=== PATIENT | male | born 1960 | race Caucasian/White ===

== ENCOUNTER 2016-10-01 07:10 | Day surgery (SDC) | payer BC ==
[2016-10-01] MEDS ORDERED: DIPHENHYDRAMINE IVPB ONE (08:00)
[2016-10-01] MEDS ORDERED: SODIUM CHLORIDE 250 ML IV ONE (08:00)
[2016-10-01] MEDS ORDERED: RANITIDINE IVPB ONE (08:00)
[2016-10-01] MEDS ORDERED: [UNRECOGNIZED DRUG - OTHER] IVPB ONE (08:00)
[2016-10-01] MEDS ORDERED: ACETAMINOPHEN 325 MG TABLET (FP) PO ONE (08:00)
[2016-10-01] MEDS ORDERED: DEXAMETHASONE IVPB ONE (08:00)
[2016-10-01] MEDS ORDERED: SODIUM CHLORIDE IV ONE (08:30)
[2016-10-01] MEDS ORDERED: ELOTUZUMAB IV ONE (08:30)
[2016-10-01 11:48] LABS: BASOPHIL 0.9 % (0-2.0); MCH 30.6 pg (25.7-33.7); MCHC 34.1 g/dl (32.0-35.9); MEAN CELL VOLUME 89.7 fl (80-96); MEAN PLT VOLUME 7.2 fl (7.5-11.1); NEUTROPHILS 93.7 % (42.8-82.8); PLATELET COUNT 147 K/MM3 (134-434); RDW 15.2 % (11.9-15.9); WHITE BLOOD COUNT 10.1 K/mm3 (4.0-10.0)
[2016-10-01 12:17] LABS: ALBUMIN 4.4 g/dl (3.4-5.0); ANION GAP 11 (8-16); BILIRUBIN,TOTAL 0.7 mg/dL (0.2-1.0); CALCIUM 9.4 mg/dL (8.5-10.1); CO2 26 mmol/L (21-32); CREATININE 1.1 mg/dL (0.7-1.3); GLUCOSE,RANDOM 197 mg/dL (74-106); SGOT/AST 15 U/L (15-37); SGPT/ALT 27 U/L (12-78); TOT PROT 8.5 g/dl (6.4-8.2)
[2016-10-01 12:18] LABS: ALK PHOS 121 U/L (45-117)
[2016-10-01 17:38] VITALS: BP 132/76; PULSE 89; TEMP 97.8
[2016-10-01 18:55] VITALS: BMI 33.1
== END 2016-10-01 18:40 | disposition home or self-care (01) ==
LOC: JCHEMO 07:10 → JONCCHEMO 07:10 → J7W 07:11 → JCHEMO 18:40
PROVIDERS: ATTEND Internal Medicine Hematology & Oncology
DX: Z51.11 Encounter for antineoplastic chemotherapy (principal); C90.00 Multiple myeloma not having achieved remission
CPT/HCPCS: 36415; 80053; 85025; 96361; 96367; 96413; 96415; J9176

== ENCOUNTER 2016-10-08 06:32 | Day surgery (SDC) | payer BC ==
[2016-10-08] MEDS ORDERED: SODIUM CHLORIDE 250 ML IV ONE (08:00)
[2016-10-08] MEDS ORDERED: ACETAMINOPHEN 325 MG TABLET (FP) PO ONE (08:00)
[2016-10-08] MEDS ORDERED: [UNRECOGNIZED DRUG - OTHER] IVPB ONE (08:00)
[2016-10-08] MEDS ORDERED: RANITIDINE IVPB ONE (08:00)
[2016-10-08] MEDS ORDERED: DIPHENHYDRAMINE IVPB ONE (08:00)
[2016-10-08] MEDS ORDERED: DEXAMETHASONE IVPB ONE (08:00)
[2016-10-08 08:51] LABS: MCH 31.4 pg (25.7-33.7); MCHC 35.6 g/dl (32.0-35.9); MEAN CELL VOLUME 88.2 fl (80-96); RDW 15.2 % (11.9-15.9); WHITE BLOOD COUNT 5.9 K/mm3 (4.0-10.0)
[2016-10-08 08:52] LABS: BASOPHIL 1.3 % (0-2.0); EOSINOPHIL 2.8 % (0-4.5); MEAN PLT VOLUME 7.5 fl (7.5-11.1); NEUTROPHILS 88.2 % (42.8-82.8)
[2016-10-08] MEDS ORDERED: ELOTUZUMAB IVPB ONE (09:00)
[2016-10-08] MEDS ORDERED: SODIUM CHLORIDE IVPB ONE (09:00)
[2016-10-08 09:18] LABS: PLATELET COUNT 139 K/MM3 (134-434); PLATELET ESTIMATE ADEQUATE (NORMAL)
[2016-10-08 11:04] VITALS: BP 150/78; PULSE 84; TEMP 97.6; BMI 34.6
[2016-10-08 11:10] LABS: ALBUMIN 3.9 g/dl (3.4-5.0); BILIRUBIN,DIRECT 0.1 mg/dL (0.0-0.2); BILIRUBIN,TOTAL 0.5 mg/dL (0.2-1.0); CALCIUM 8.4 mg/dL (8.5-10.1); CREATININE 0.9 mg/dL (0.7-1.3); TOT PROT 7.3 g/dl (6.4-8.2)
== END 2016-10-08 13:07 | disposition home or self-care (01) ==
LOC: JONCCHEMO 06:32 → J7W 09:33 → JONCCHEMO 13:07
PROVIDERS: ATTEND Internal Medicine Hematology & Oncology
DX: Z51.11 Encounter for antineoplastic chemotherapy (principal); C90.00 Multiple myeloma not having achieved remission
CPT/HCPCS: 36415; 80048; 80076; 85025; 96361; 96367; 96413; 96415; J9176

== ENCOUNTER 2016-10-15 06:28 | Day surgery (SDC) | payer BC ==
[2016-10-15] MEDS ORDERED: [UNRECOGNIZED DRUG - OTHER] IVPB ONE (08:00)
[2016-10-15] MEDS ORDERED: DEXAMETHASONE IVPB ONE (08:00)
[2016-10-15] MEDS ORDERED: SODIUM CHLORIDE 250 ML IV ONE ×3 (08:00→13:00)
[2016-10-15] MEDS ORDERED: DIPHENHYDRAMINE IVPB ONE (08:00)
[2016-10-15] MEDS ORDERED: ACETAMINOPHEN 325 MG TABLET (FP) PO ONE (08:00)
[2016-10-15] MEDS ORDERED: RANITIDINE IVPB ONE (08:00)
[2016-10-15] MEDS ORDERED: SODIUM CHLORIDE IV ONE (08:30)
[2016-10-15] MEDS ORDERED: ELOTUZUMAB IV ONE (08:30)
[2016-10-15] MEDS ORDERED: SODIUM CHLORIDE 500 ML IV ONE ×2 (09:00→13:00)
[2016-10-15 10:59] LABS: BASOPHIL 1.4 % (0-2.0); EOSINOPHIL 0.5 % (0-4.5); MCH 29.9 pg (25.7-33.7); MCHC 33.7 g/dl (32.0-35.9); MEAN CELL VOLUME 88.6 fl (80-96); MEAN PLT VOLUME 7.5 fl (7.5-11.1); NEUTROPHILS 90.5 % (42.8-82.8); RDW 15.3 % (11.9-15.9); WHITE BLOOD COUNT 5.5 K/mm3 (4.0-10.0)
[2016-10-15 11:25] LABS: PLATELET COUNT 171 K/MM3 (134-434)
[2016-10-15 11:26] LABS: PLATELET ESTIMATE ADEQUATE (NORMAL)
[2016-10-15 11:27] LABS: ALBUMIN 4.2 g/dl (3.4-5.0); ANION GAP 11 (8-16); BILIRUBIN,TOTAL 0.7 mg/dL (0.2-1.0); CALCIUM 9.2 mg/dL (8.5-10.1); CO2 21 mmol/L (21-32); GLUCOSE,RANDOM 208 mg/dL (74-106); SGOT/AST 41 U/L (15-37); SGPT/ALT 31 U/L (12-78); TOT PROT 8.1 g/dl (6.4-8.2)
[2016-10-15 11:28] LABS: ALK PHOS 105 U/L (45-117)
[2016-10-15 13:32] LABS: MAGNESIUM 2.1 mg/dL (1.8-2.4)
[2016-10-15 18:05] VITALS: BMI 34.7
[2016-10-15 18:17] VITALS: PULSE 87
[2016-10-15 18:18] VITALS: BP 128/76; TEMP 98
== END 2016-10-15 18:27 | disposition home or self-care (01) ==
LOC: JONCCHEMO 06:28 → J7W 11:19 → JONCCHEMO 18:27
PROVIDERS: ATTEND Internal Medicine Hematology & Oncology
DX: Z51.11 Encounter for antineoplastic chemotherapy (principal); C90.00 Multiple myeloma not having achieved remission
CPT/HCPCS: 36415; 80053; 82550; 83615; 83735; 85025; 96361; 96367; 96413; 96415; J9176

== ENCOUNTER 2016-11-05 07:00 | Day surgery (SDC) | payer BC ==
[~2016-11-05 07:00] MED LIST: ACETAMINOPHEN 325 MG TABLET (FP) PO ONE; DEXAMETHASONE IVPB ONE; DIPHENHYDRAMINE IVPB ONE; ELOTUZUMAB IV ONE; RANITIDINE IVPB ONE; SODIUM CHLORIDE 250 ML IV ONE; SODIUM CHLORIDE IV ONE; [UNRECOGNIZED DRUG - OTHER] IVPB ONE
[2016-11-05] MEDS ORDERED: RANITIDINE IVPB ONE (08:00)
[2016-11-05] MEDS ORDERED: DIPHENHYDRAMINE IVPB ONE (08:00)
[2016-11-05] MEDS ORDERED: DEXAMETHASONE IVPB ONE (08:00)
[2016-11-05] MEDS ORDERED: [UNRECOGNIZED DRUG - OTHER] IVPB ONE (08:00)
[2016-11-05] MEDS ORDERED: ACETAMINOPHEN 325 MG TABLET (FP) PO ONE (08:00)
[2016-11-05] MEDS ORDERED: SODIUM CHLORIDE IV ONE (09:00)
[2016-11-05] MEDS ORDERED: ELOTUZUMAB IV ONE (09:00)
[2016-11-05] MEDS ORDERED: SODIUM CHLORIDE 250 ML IV ONE (11:00)
[2016-11-05 11:30] LABS: BASOPHIL 0.4 % (0-2.0); EOSINOPHIL 2.8 % (0-4.5); MCH 30.5 pg (25.7-33.7); MCHC 35.1 g/dl (32.0-35.9); MEAN CELL VOLUME 86.9 fl (80-96); MEAN PLT VOLUME 7.2 fl (7.5-11.1); NEUTROPHILS 82.5 % (42.8-82.8); RDW 15.5 % (11.9-15.9); WHITE BLOOD COUNT 4.5 K/mm3 (4.0-10.0)
[2016-11-05 11:59] LABS: ALBUMIN 4.3 g/dl (3.4-5.0); ALK PHOS 106 U/L (45-117); ANION GAP 12 (8-16); BILIRUBIN,TOTAL 0.6 mg/dL (0.2-1.0); CALCIUM 9.6 mg/dL (8.5-10.1); CO2 22 mmol/L (21-32); CREATININE 0.9 mg/dL (0.7-1.3); GLUCOSE,RANDOM 172 mg/dL (74-106); SGOT/AST 44 U/L (15-37); SGPT/ALT 32 U/L (12-78); TOT PROT 8.3 g/dl (6.4-8.2)
[2016-11-05 12:00] LABS: BILIRUBIN,DIRECT 0.1 mg/dL (0.0-0.2)
[2016-11-05 12:07] LABS: MAGNESIUM 1.9 mg/dL (1.8-2.4)
[2016-11-05 14:45] LABS: PLATELET COUNT 175 K/MM3 (134-434); PLATELET ESTIMATE ADEQUATE (NORMAL)
[2016-11-05 16:11] VITALS: TEMP 97.9
[2016-11-05 16:25] VITALS: BP 136/78; PULSE 89
== END 2016-11-05 16:34 | disposition home or self-care (01) ==
LOC: JONCCHEMO 07:00 → J7W 12:32 → JONCCHEMO 16:34
PROVIDERS: ATTEND Internal Medicine Hematology & Oncology
PROC: 3E03305 Introduction of Other Antineoplastic into Peripheral Vein, Percutaneous Approach (ICD-10-PCS; principal; 2016-11-05)
PROC: 3E0337Z Introduction of Electrolytic and Water Balance Substance into Peripheral Vein, Percutaneous Approach (ICD-10-PCS; 2016-11-05)
PROC: 3E033GC Introduction of Other Therapeutic Substance into Peripheral Vein, Percutaneous Approach (ICD-10-PCS; 2016-11-05)
DX: Z51.11 Encounter for antineoplastic chemotherapy (principal); C90.00 Multiple myeloma not having achieved remission
CPT/HCPCS: 96367; 96413; 96415; J9176; 36415; 80053; 80076; 83735; 85025

== ENCOUNTER 2016-11-19 07:05 | Day surgery (SDC) | payer BC ==
[2016-11-19] MEDS ORDERED: DEXAMETHASONE IVPB ONE (08:00)
[2016-11-19] MEDS ORDERED: RANITIDINE IVPB ONE (08:00)
[2016-11-19] MEDS ORDERED: DIPHENHYDRAMINE IVPB ONE (08:00)
[2016-11-19] MEDS ORDERED: [UNRECOGNIZED DRUG - OTHER] IVPB ONE (08:00)
[2016-11-19] MEDS ORDERED: ACETAMINOPHEN 325 MG TABLET (FP) PO ONE (08:00)
[2016-11-19] MEDS ORDERED: SODIUM CHLORIDE IV ONE ×2 (08:30)
[2016-11-19] MEDS ORDERED: ELOTUZUMAB IV ONE ×2 (08:30)
[2016-11-19 10:27] LABS: MCH 30.5 pg (25.7-33.7); MCHC 34.7 g/dl (32.0-35.9); MEAN CELL VOLUME 87.9 fl (80-96); MEAN PLT VOLUME 7.1 fl (7.5-11.1); PLATELET COUNT 152 K/MM3 (134-434)
[2016-11-19 10:28] LABS: BASOPHIL 1.3 % (0-2.0); EOSINOPHIL 0.1 % (0-4.5)
[2016-11-19] MEDS ORDERED: SODIUM CHLORIDE 250 ML IV ONE (10:30)
[2016-11-19 10:51] LABS: ALBUMIN 4.6 g/dl (3.4-5.0); ANION GAP 12 (8-16); BILIRUBIN,TOTAL 0.7 mg/dL (0.2-1.0); CALCIUM 9.3 mg/dL (8.5-10.1); CO2 23 mmol/L (21-32); CREATININE 1.1 mg/dL (0.7-1.3); GLUCOSE,RANDOM 202 mg/dL (74-106); SGOT/AST 22 U/L (15-37); SGPT/ALT 31 U/L (12-78); TOT PROT 8.4 g/dl (6.4-8.2)
[2016-11-19 10:52] LABS: ALK PHOS 116 U/L (45-117)
[2016-11-19] MEDS ORDERED: amLODIPine BESYLATE 10 MG TABLET (FP) PO SCH (13:15)
[2016-11-19] MEDS ORDERED: NEBIVOLOL 10 MG TABLET (FP) PO SCH (13:15)
[2016-11-19 17:38] VITALS: TEMP 97.9
[2016-11-19 17:47] VITALS: BP 124/76; PULSE 93
== END 2016-11-19 19:20 | disposition home or self-care (01) ==
LOC: JONCCHEMO 07:05 → J7W 11:30 → JONCCHEMO 19:20
PROVIDERS: ATTEND Internal Medicine Hematology & Oncology
PROC: 3E03305 Introduction of Other Antineoplastic into Peripheral Vein, Percutaneous Approach (ICD-10-PCS; principal; 2016-11-19)
PROC: 3E033GC Introduction of Other Therapeutic Substance into Peripheral Vein, Percutaneous Approach (ICD-10-PCS; 2016-11-19)
PROC: 3E0337Z Introduction of Electrolytic and Water Balance Substance into Peripheral Vein, Percutaneous Approach (ICD-10-PCS; 2016-11-19)
DX: Z51.11 Encounter for antineoplastic chemotherapy (principal); C90.00 Multiple myeloma not having achieved remission
CPT/HCPCS: 96367; 96413; 96415; J1100; J1200; J2780; J7030; J9176; 36415; 80053; 85025; 96360

== ENCOUNTER 2016-12-03 07:05 | Day surgery (SDC) | payer BC ==
[2016-12-03] MEDS ORDERED: ACETAMINOPHEN 325 MG TABLET (FP) PO ONE (08:00)
[2016-12-03] MEDS ORDERED: SODIUM CHLORIDE 250 ML IV ONE (08:00)
[2016-12-03] MEDS ORDERED: DEXAMETHASONE INJECTION 10 MG in SODIUM CHLORIDE 50 ML IVPB ONE (08:00)
[2016-12-03] MEDS ORDERED: DIPHENHYDRAMINE 25 MG, RANITIDINE INJECTION 50 MG in SODIUM CHLORIDE 100 ML IVPB ONE (08:00)
[2016-12-03] MEDS ORDERED: ELOTUZUMAB IV ONE (09:00)
[2016-12-03] MEDS ORDERED: SODIUM CHLORIDE IV ONE (09:00)
[2016-12-03 11:12] LABS: BASOPHIL 2.7 % (0-2.0); EOSINOPHIL 0.3 % (0-4.5); MCH 30.3 pg (25.7-33.7); MCHC 34.6 g/dl (32.0-35.9); MEAN CELL VOLUME 87.6 fl (80-96); MEAN PLT VOLUME 7.4 fl (7.5-11.1); NEUTROPHILS 89.3 % (42.8-82.8); PLATELET COUNT 140 K/MM3 (134-434); RDW 15.6 % (11.9-15.9); WHITE BLOOD COUNT 6.2 K/mm3 (4.0-10.0)
[2016-12-03 11:41] LABS: ALBUMIN 4.4 g/dl (3.4-5.0); ANION GAP 10 (8-16); BILIRUBIN,TOTAL 0.7 mg/dL (0.2-1.0); CALCIUM 9.3 mg/dL (8.5-10.1); CO2 24 mmol/L (21-32); COCKROFT - GAULT 116; GLUCOSE,RANDOM 215 mg/dL (74-106); MAGNESIUM 1.9 mg/dL (1.8-2.4); SGOT/AST 19 U/L (15-37); SGPT/ALT 29 U/L (12-78); TOT PROT 8.2 g/dl (6.4-8.2)
[2016-12-03 11:42] LABS: ALK PHOS 109 U/L (45-117)
[2016-12-03] MEDS ORDERED: INSULIN (NOVOLOG) ASPART 100 UNITS/ML 10ML VIAL SQ ONE (15:45)
--- NOTE | 2016-12-03 17:22 | CONSULT ---
Consult Consult Specialty:: Endocrinology Referred by:: Dr Hackett Reason for Consultation:: Hyperglycemia - History of Present Illness Chief Complaint: Hyperglycemia History of Present Illness: This is a 56 y/o man with h/o HTN, Multiple myeloma with bone mets on treatment with Elotuzumab and Dexamethasone 28 mg every 2 weeks who is referred for management of hyperglycemia. Pt says he was diagnosed with DM a few years ago which improved with diet and exercise with weight loss. Not taking any antidiabetic meds currently. Had labs done by his PCP recently who informed pt that his diabetes was controlled. BGM yesterday and today 200s as he is taking steroids. Denies any other complaints. No CP/SOB/Palpitations. No abd pain, No NV, No visual symptoms. Saw ophthalmology recently. No paresthesia. - History Source History Provided By: Patient, Medical Record Limitations to Obtaining History: No Limitations - Past Medical History Cardio/Vascular: Yes: HTN Heme/Onc: Yes: Other (multiple myemola) Endocrine: Yes: Diabetes Mellitus - Alcohol/Substance Use Hx Alcohol Use: No - Smoking History Smoking history: Never smoked Have you smoked in the past 12 months: No Aproximately how many cigarettes per day: 0 Home Medications - Allergies Allergies/Adverse Reactions: Allergies Allergy/AdvReac Type Severity Reaction Status Date / Time No Known Allergies Allergy Verified 11/27/12 15:21 - Home Medications Home Medications: Ambulatory Orders Amlodipine Besylate [Norvasc -] 10 mg PO DAILY #0 tablet 12/17/12 Nebivolol [Bystolic -] 10 mg PO BID #0 tab 12/17/12 Aspirin [ASA -] 81 mg PO DAILY 10/01/16 Dexamethasone [Decadron] 7 mg PO DAILY 10/01/16 Lenalidomide [Revlimid] 10 mg PO DAILY 10/01/16 Pantoprazole Sodium [Protonix -] 20 mg PO DAILY 10/01/16 Family Disease History - Family Disease History Family Disease History: Diabetes: Father Review of Systems - Review of Systems Constitutional: reports: No Symptoms Eyes: reports: No Symptoms HENT: reports: No Symptoms Neck: reports: No Symptoms Cardiovascular: reports: No Symptoms Respiratory: reports: No Symptoms Gastrointestinal: reports: No Symptoms Genitourinary: reports: No Symptoms Breasts: reports: No Symptoms Reported Musculoskeletal: reports: No Symptoms Integumentary: reports: No Symptoms Neurological: reports: No Symptoms Endocrine: reports: No Symptoms Hematology/Lymphatic: reports: No Symptoms Physical Exam Vital Signs: Vital Signs Temperature 98.7 F 12/03/16 13:08 Pulse Rate 93 H 12/03/16 13:08 Respiratory Rate 18 12/03/16 13:08 Blood Pressure 134/87 12/03/16 13:08 O2 Sat by Pulse Oximetry (%) Constitutional: Yes: No Distress, Calm Eyes: Yes: Conjunctiva Clear, EOM Intact HENT: Yes: Atraumatic, Normocephalic Neck: Yes: Supple, Trachea Midline Cardiovascular: Yes: Regular Rate and Rhythm Respiratory: Yes: Regular, CTA Bilaterally Gastrointestinal: Yes: Normal Bowel Sounds, Soft Musculoskeletal: Yes: WNL Extremities: Yes: WNL Edema: No Neurological: Yes: Alert, Oriented Labs: CBC, BMP 12/03/16 10:45 12/03/16 10:45 Assessment/Plan AP: DM: Hyperglycemia secondary to steroids Diet exercise discussed BGM Q ACHS for 2 to 3 days after starting Dexamethasone. NOvolog SS coverage when blood sugar >200 Pt to call me at [phone] if he develops hyperglycemia at home. Will start Insulin if BGM persistently higher than 200 Will F/U Multiple Myeloma on chemo with Dexamethasone every 2 weeks
[2016-12-03 18:09] VITALS: TEMP 98.4
[2016-12-03 18:10] VITALS: BP 153/86; PULSE 88
== END 2016-12-03 18:20 | disposition home or self-care (01) ==
LOC: JONCCHEMO 07:05 → J7W 11:48 → JONCCHEMO 18:20
PROVIDERS: ATTEND Internal Medicine Hematology & Oncology
DX: Z51.11 Encounter for antineoplastic chemotherapy (principal); C90.00 Multiple myeloma not having achieved remission; C79.51 Secondary malignant neoplasm of bone; E11.9 Type 2 diabetes mellitus without complications; I10 Essential (primary) hypertension
CPT/HCPCS: 36415; 80053; 83735; 85025; 96360; 96361; 96367; 96413; 96415; J9176

== ENCOUNTER 2016-12-17 07:05 | Day surgery (SDC) | payer BC ==
[2016-12-17] MEDS ORDERED: SODIUM CHLORIDE 250 ML IV ONE (08:00)
[2016-12-17] MEDS ORDERED: ACETAMINOPHEN 325 MG TABLET (FP) PO ONE (08:00)
[2016-12-17] MEDS ORDERED: DIPHENHYDRAMINE 25 MG, RANITIDINE INJECTION 50 MG in SODIUM CHLORIDE 100 ML IVPB ONE (08:00)
[2016-12-17] MEDS ORDERED: DEXAMETHASONE INJECTION 10 MG in SODIUM CHLORIDE 50 ML IVPB ONE (08:00)
[2016-12-17] MEDS ORDERED: SODIUM CHLORIDE IV ONE (09:00)
[2016-12-17] MEDS ORDERED: ELOTUZUMAB IV ONE (09:00)
[2016-12-17 10:37] LABS: EOSINOPHIL 0.1 % (0-4.5); MCH 30.4 pg (25.7-33.7); MCHC 34.5 g/dl (32.0-35.9); MEAN PLT VOLUME 7.2 fl (7.5-11.1); PLATELET COUNT 155 K/MM3 (134-434); RDW 15.4 % (11.9-15.9); WHITE BLOOD COUNT 4.6 K/mm3 (4.0-10.0)
[2016-12-17 11:01] LABS: ALBUMIN 4.6 g/dl (3.4-5.0); ANION GAP 11 (8-16); BILIRUBIN,TOTAL 0.7 mg/dL (0.2-1.0); CALCIUM 9.2 mg/dL (8.5-10.1); CO2 24 mmol/L (21-32); GLUCOSE,RANDOM 180 mg/dL (74-106); MAGNESIUM 2.1 mg/dL (1.8-2.4); SGOT/AST 27 U/L (15-37); SGPT/ALT 33 U/L (12-78); TOT PROT 8.1 g/dl (6.4-8.2)
[2016-12-17 11:02] LABS: ALK PHOS 108 U/L (45-117); COCKROFT - GAULT 106; CREATININE 1.1 mg/dL (0.7-1.3)
[2016-12-17 17:18] VITALS: BP 133/88; PULSE 81; TEMP 98
== END 2016-12-17 18:12 | disposition home or self-care (01) ==
LOC: JONCCHEMO 07:05 → J7W 11:35 → JONCCHEMO 18:12
PROVIDERS: ATTEND Internal Medicine Hematology & Oncology
DX: Z51.11 Encounter for antineoplastic chemotherapy (principal); C90.00 Multiple myeloma not having achieved remission; C79.51 Secondary malignant neoplasm of bone
CPT/HCPCS: 36415; 80053; 82784; 83735; 83883; 85025; 86335; 96360; 96367; 96413; 96415; J9176

== ENCOUNTER 2016-12-31 07:30 | Day surgery (SDC) | payer BC ==
[2016-12-31] MEDS ORDERED: DIPHENHYDRAMINE 25 MG, RANITIDINE INJECTION 50 MG in SODIUM CHLORIDE 50 ML IVPB ONE (08:00)
[2016-12-31] MEDS ORDERED: ACETAMINOPHEN 325 MG TABLET (FP) PO ONE (08:00)
[2016-12-31] MEDS ORDERED: SODIUM CHLORIDE 250 ML IV ONE (08:00)
[2016-12-31] MEDS ORDERED: DEXAMETHASONE INJECTION 10 MG in SODIUM CHLORIDE 50 ML IVPB ONE (08:00)
[2016-12-31] MEDS ORDERED: SODIUM CHLORIDE IV ONE (09:00)
[2016-12-31] MEDS ORDERED: ELOTUZUMAB IV ONE (09:00)
[2016-12-31 10:40] LABS: BASOPHIL 1.3 % (0-2.0); EOSINOPHIL 0.3 % (0-4.5); MCH 30.8 pg (25.7-33.7); MCHC 35.4 g/dl (32.0-35.9); MEAN PLT VOLUME 7.4 fl (7.5-11.1); NEUTROPHILS 89.1 % (42.8-82.8); PLATELET COUNT 127 K/MM3 (134-434); RDW 15.4 % (11.9-15.9); WHITE BLOOD COUNT 4.9 K/mm3 (4.0-10.0)
[2016-12-31 11:01] LABS: ALBUMIN 4.4 g/dl (3.4-5.0); ANION GAP 11 (8-16); BILIRUBIN,TOTAL 0.7 mg/dL (0.2-1.0); CALCIUM 9.5 mg/dL (8.5-10.1); CO2 27 mmol/L (21-32); COCKROFT - GAULT 129; CREATININE 0.9 mg/dL (0.7-1.3); GLUCOSE,RANDOM 179 mg/dL (74-106); MAGNESIUM 2.1 mg/dL (1.8-2.4); SGOT/AST 26 U/L (15-37); SGPT/ALT 33 U/L (12-78); TOT PROT 7.8 g/dl (6.4-8.2)
[2016-12-31 11:02] LABS: ALK PHOS 103 U/L (45-117)
[2016-12-31] MEDS ORDERED: DEXAMETHASONE INJECTION 8 MG in SODIUM CHLORIDE 50 ML IVPB ONE (12:00)
[2016-12-31 16:09] VITALS: BP 130/81; PULSE 80; TEMP 98.4
[2016-12-31 17:42] LABS: ALBUMIN 4.5 g/dl (3.4-5.0); BILIRUBIN,DIRECT 0.2 mg/dL (0.0-0.2); BILIRUBIN,TOTAL 0.6 mg/dL (0.2-1.0); TOT PROT 7.8 g/dl (6.4-8.2)
== END 2016-12-31 16:48 | disposition home or self-care (01) ==
LOC: JONCCHEMO 07:30 → J7W 11:25 → JONCCHEMO 16:48
PROVIDERS: ATTEND Internal Medicine Hematology & Oncology
DX: Z51.11 Encounter for antineoplastic chemotherapy (principal); C90.00 Multiple myeloma not having achieved remission; C79.51 Secondary malignant neoplasm of bone
CPT/HCPCS: 36415; 80053; 80076; 83735; 83883; 84156; 84157; 85025; 96360; 96361; 96367; 96375; 96413; 96415; J9176

== ENCOUNTER 2017-01-16 07:19 | Day surgery (SDC) | payer BC ==
[2017-01-16] MEDS ORDERED: DIPHENHYDRAMINE 25 MG, RANITIDINE INJECTION 50 MG in SODIUM CHLORIDE 50 ML IVPB ONE (10:00)
[2017-01-16] MEDS ORDERED: SODIUM CHLORIDE 250 ML IV ONE (10:00)
[2017-01-16] MEDS ORDERED: DEXAMETHASONE INJECTION 10 MG in SODIUM CHLORIDE 50 ML IVPB ONE (10:00)
[2017-01-16] MEDS ORDERED: ACETAMINOPHEN 325 MG TABLET (FP) PO ONE (10:00)
[2017-01-16 11:00] LABS: ALBUMIN 4.6 g/dl (3.4-5.0); ANION GAP 11 (8-16); CALCIUM 9.7 mg/dL (8.5-10.1); CO2 24 mmol/L (21-32); GLUCOSE,RANDOM 196 mg/dL (74-106); MAGNESIUM 2.1 mg/dL (1.8-2.4); SGOT/AST 24 U/L (15-37); SGPT/ALT 28 U/L (12-78)
[2017-01-16] MEDS ORDERED: SODIUM CHLORIDE IVPB ONE (11:00)
[2017-01-16] MEDS ORDERED: ELOTUZUMAB IVPB ONE (11:00)
[2017-01-16 11:03] LABS: ALK PHOS 114 U/L (45-117); BILIRUBIN,TOTAL 0.7 mg/dL (0.2-1.0); COCKROFT - GAULT 116; TOT PROT 8.2 g/dl (6.4-8.2)
[2017-01-16 11:18] LABS: WHITE BLOOD COUNT 4.9 K/mm3 (4.0-10.0)
[2017-01-16 11:19] LABS: BASOPHIL 2.9 % (0-2.0); MCH 30.8 pg (25.7-33.7); MCHC 35.2 g/dl (32.0-35.9); MEAN CELL VOLUME 87.5 fl (80-96); MEAN PLT VOLUME 7.3 fl (7.5-11.1); NEUTROPHILS 88.8 % (42.8-82.8); PLATELET COUNT 163 K/MM3 (134-434); RDW 15.7 % (11.9-15.9)
[2017-01-16] MEDS ORDERED: DEXAMETHASONE SOD PHOSPHATE 10 MG/1 ML VIAL IVPB ONE ×2 (12:15)
[2017-01-16 13:54] LABS: ALBUMIN 4.3 g/dl (3.4-5.0); ANION GAP 11 (8-16); BILIRUBIN,TOTAL 0.6 mg/dL (0.2-1.0); CO2 26 mmol/L (21-32); COCKROFT - GAULT 129; CREATININE 0.9 mg/dL (0.7-1.3); GLUCOSE,RANDOM 178 mg/dL (74-106); SGOT/AST 23 U/L (15-37); SGPT/ALT 28 U/L (12-78); TOT PROT 7.7 g/dl (6.4-8.2)
[2017-01-16 13:55] LABS: ALK PHOS 104 U/L (45-117)
[2017-01-16 14:43] VITALS: BP 149/80; PULSE 86; TEMP 98
== END 2017-01-16 16:28 | disposition home or self-care (01) ==
LOC: JONCCHEMO 07:19 → J7W 11:45 → JONCCHEMO 16:28
PROVIDERS: ATTEND Internal Medicine Hematology & Oncology
PROC: 3E04305 Introduction of Other Antineoplastic into Central Vein, Percutaneous Approach (ICD-10-PCS; principal; 2017-01-16)
PROC: 3E043GC Introduction of Other Therapeutic Substance into Central Vein, Percutaneous Approach (ICD-10-PCS; 2017-01-16)
PROC: 3E0437Z Introduction of Electrolytic and Water Balance Substance into Central Vein, Percutaneous Approach (ICD-10-PCS; 2017-01-16)
DX: Z51.11 Encounter for antineoplastic chemotherapy (principal); C90.00 Multiple myeloma not having achieved remission
CPT/HCPCS: 96361; 96366; 96367; 96413; 96415; J9176; 36415; 80053; 83735; 85025; 96360

== ENCOUNTER 2017-02-04 07:41 | Day surgery (SDC) | payer BC ==
[2017-02-04] MEDS ORDERED: SODIUM CHLORIDE 250 ML IV ONE (10:00)
[2017-02-04] MEDS ORDERED: ACETAMINOPHEN 325 MG TABLET (FP) PO ONE (10:00)
[2017-02-04] MEDS ORDERED: DIPHENHYDRAMINE 25 MG, RANITIDINE INJECTION 50 MG in SODIUM CHLORIDE 50 ML IVPB ONE (10:00)
[2017-02-04] MEDS ORDERED: DEXAMETHASONE INJECTION 10 MG in SODIUM CHLORIDE 50 ML IVPB ONE (10:00)
[2017-02-04] MEDS ORDERED: ELOTUZUMAB IVPB ONE (10:30)
[2017-02-04] MEDS ORDERED: SODIUM CHLORIDE IVPB ONE (10:30)
[2017-02-04 10:50] LABS: BASOPHIL 0.4 % (0-2.0); EOSINOPHIL 0.1 % (0-4.5); MCH 30.3 pg (25.7-33.7); MCHC 34.4 g/dl (32.0-35.9); MEAN CELL VOLUME 87.9 fl (80-96); MEAN PLT VOLUME 7.3 fl (7.5-11.1); NEUTROPHILS 89.4 % (42.8-82.8); PLATELET COUNT 163 K/MM3 (134-434); RDW 15.8 % (11.9-15.9); WHITE BLOOD COUNT 5.7 K/mm3 (4.0-10.0)
[2017-02-04 11:19] LABS: ALBUMIN 4.6 g/dl (3.4-5.0); ANION GAP 13 (8-16); BILIRUBIN,TOTAL 0.7 mg/dL (0.2-1.0); CALCIUM 9.3 mg/dL (8.5-10.1); CO2 22 mmol/L (21-32); CREATININE 1.1 mg/dL (0.7-1.3); GLUCOSE,RANDOM 176 mg/dL (74-106); MAGNESIUM 1.9 mg/dL (1.8-2.4); SGOT/AST 28 U/L (15-37); SGPT/ALT 34 U/L (12-78); TOT PROT 8.5 g/dl (6.4-8.2)
[2017-02-04 11:20] LABS: ALK PHOS 112 U/L (45-117)
[2017-02-04] MEDS ORDERED: DEXAMETHASONE INJECTION 8 MG in SODIUM CHLORIDE 50 ML IVPB ONE (12:15)
[2017-02-04 17:00] VITALS: BP 148/96; PULSE 90; TEMP 98.1
== END 2017-02-04 18:22 | disposition home or self-care (01) ==
LOC: JONCCHEMO 07:41 → J7W 12:03 → JONCCHEMO 18:22
PROVIDERS: ATTEND Internal Medicine Hematology & Oncology
PROC: 3E03305 Introduction of Other Antineoplastic into Peripheral Vein, Percutaneous Approach (ICD-10-PCS; principal; 2017-02-04)
PROC: 3E033GC Introduction of Other Therapeutic Substance into Peripheral Vein, Percutaneous Approach (ICD-10-PCS; 2017-02-04)
PROC: 3E0337Z Introduction of Electrolytic and Water Balance Substance into Peripheral Vein, Percutaneous Approach (ICD-10-PCS; 2017-02-04)
DX: Z51.11 Encounter for antineoplastic chemotherapy (principal); C90.00 Multiple myeloma not having achieved remission
CPT/HCPCS: 96361; 96367; 96375; 96413; 96415; J9176; 36415; 80053; 83735; 85025

== ENCOUNTER 2017-02-25 07:48 | Day surgery (SDC) | payer BC ==
[2017-02-25] MEDS ORDERED: SODIUM CHLORIDE 250 ML IV ONE (08:00)
[2017-02-25] MEDS ORDERED: DIPHENHYDRAMINE IVPB ONE (08:00)
[2017-02-25] MEDS ORDERED: RANITIDINE IVPB ONE (08:00)
[2017-02-25] MEDS ORDERED: DEXAMETHASONE IVPB ONE (08:00)
[2017-02-25] MEDS ORDERED: ACETAMINOPHEN 325 MG TABLET (FP) PO ONE ×2 (08:00→12:00)
[2017-02-25] MEDS ORDERED: [UNRECOGNIZED DRUG - OTHER] IVPB ONE (08:00)
[2017-02-25] MEDS ORDERED: ELOTUZUMAB IV ONE (08:30)
[2017-02-25] MEDS ORDERED: SODIUM CHLORIDE IV ONE (08:30)
[2017-02-25 10:13] VITALS: TEMP 98.9
[2017-02-25 10:21] LABS: EOSINOPHIL 0.2 % (0-4.5); MCH 30.5 pg (25.7-33.7); MCHC 34.9 g/dl (32.0-35.9); MEAN CELL VOLUME 87.4 fl (80-96); MEAN PLT VOLUME 7.3 fl (7.5-11.1); NEUTROPHILS 84.7 % (42.8-82.8); PLATELET COUNT 149 K/MM3 (134-434); RDW 15.3 % (11.9-15.9); WHITE BLOOD COUNT 4.4 K/mm3 (4.0-10.0)
[2017-02-25 10:49] LABS: ALBUMIN 4.5 g/dl (3.4-5.0); ANION GAP 10 (8-16); BILIRUBIN,DIRECT 0.2 mg/dL (0.0-0.2); CALCIUM 9.6 mg/dL (8.5-10.1); CO2 27 mmol/L (21-32); GLUCOSE,RANDOM 178 mg/dL (74-106); SGOT/AST 18 U/L (15-37); SGPT/ALT 27 U/L (12-78)
[2017-02-25 10:51] LABS: ALK PHOS 122 U/L (45-117); BILIRUBIN,TOTAL 0.6 mg/dL (0.2-1.0); LDH 172 U/L (87-241); TOT PROT 8.2 g/dl (6.4-8.2)
[2017-02-25 10:59] LABS: FREE T4 0.97 ng/dl (0.76-1.16); THYROID STIMULATING HORMONE 0.6 uIU/ml (0.358-3.74)
[2017-02-25 15:43] VITALS: BP 139/89; PULSE 92
[2017-02-27 00:08] LABS: A/G RATIO 1.2 (0.7-1.7); ALBUMIN 4.2 g/dL (2.9-4.4); ALPHA-1-GLOBULIN 0.3 g/dL (0.0-0.4); BETA GLOBULIN 1.1 g/dL (0.7-1.3); GAMMA GLOBULIN 1.5 g/dL (0.4-1.8); GLOBULIN, TOTAL 3.7 g/dL (2.2-3.9); M-SPIKE 0.9 g/dL (Not Observed); TOTAL PROTEIN 7.9 g/dL (6.0-8.5)
[2017-02-27 16:28] LABS: ALBUMIN FOR UPE 63.1 % (.); GAMMA GLOBULIN % 14.2 % (.)
== END 2017-02-25 15:40 | disposition home or self-care (01) ==
LOC: JONCCHEMO 07:48 → J7W 10:16 → JONCCHEMO 15:40
PROVIDERS: ATTEND Internal Medicine Hematology & Oncology
PROC: 3E04305 Introduction of Other Antineoplastic into Central Vein, Percutaneous Approach (ICD-10-PCS; principal; 2017-02-25)
PROC: 3E043GC Introduction of Other Therapeutic Substance into Central Vein, Percutaneous Approach (ICD-10-PCS; 2017-02-25)
PROC: 3E0437Z Introduction of Electrolytic and Water Balance Substance into Central Vein, Percutaneous Approach (ICD-10-PCS; 2017-02-25)
DX: Z51.11 Encounter for antineoplastic chemotherapy (principal); C90.00 Multiple myeloma not having achieved remission; C79.51 Secondary malignant neoplasm of bone; I10 Essential (primary) hypertension
CPT/HCPCS: 96367; 96413; 96415; J9176; 36415; 80053; 80076; 82784; 83036; 83615; 83883; 84155; 84156; 84157; 84165; 84439; 84443; 85025; 86334; 96375

== ENCOUNTER 2017-03-11 07:25 | Day surgery (SDC) | payer BC ==
[2017-03-11] MEDS ORDERED: SODIUM CHLORIDE IVPB ONE (08:00)
[2017-03-11] MEDS ORDERED: ACETAMINOPHEN 325 MG TABLET (FP) PO ONE (08:00)
[2017-03-11] MEDS ORDERED: DEXAMETHASONE INJECTION 8 MG in SODIUM CHLORIDE 50 ML IVPB ONE (08:00)
[2017-03-11] MEDS ORDERED: RANITIDINE IVPB ONE (08:00)
[2017-03-11] MEDS ORDERED: SODIUM CHLORIDE 250 ML IV ONE (08:00)
[2017-03-11] MEDS ORDERED: DIPHENHYDRAMINE IVPB ONE (08:00)
[2017-03-11] MEDS ORDERED: ELOTUZUMAB IV ONE (08:30)
[2017-03-11] MEDS ORDERED: SODIUM CHLORIDE IV ONE (08:30)
[2017-03-11 12:34] LABS: BASOPHIL 0.9 % (0-2.0); EOSINOPHIL 0.1 % (0-4.5); MCH 30.9 pg (25.7-33.7); MCHC 35.2 g/dl (32.0-35.9); MEAN CELL VOLUME 87.8 fl (80-96); MEAN PLT VOLUME 7.5 fl (7.5-11.1); NEUTROPHILS 91.1 % (42.8-82.8); PLATELET COUNT 143 K/MM3 (134-434); RDW 15.5 % (11.9-15.9); WHITE BLOOD COUNT 6.5 K/mm3 (4.0-10.0)
[2017-03-11 13:03] LABS: ALBUMIN 4.3 g/dl (3.4-5.0); ALK PHOS 111 U/L (45-117); ANION GAP 12 (8-16); BILIRUBIN,DIRECT 0.2 mg/dL (0.0-0.2); BILIRUBIN,TOTAL 0.6 mg/dL (0.2-1.0); CALCIUM 9.1 mg/dL (8.5-10.1); CO2 23 mmol/L (21-32); CREATININE 1.1 mg/dL (0.7-1.3); GLUCOSE,RANDOM 224 mg/dL (74-106); SGOT/AST 26 U/L (15-37); SGPT/ALT 30 U/L (12-78); TOT PROT 7.7 g/dl (6.4-8.2)
[2017-03-11 17:30] VITALS: BP 131/79; PULSE 81; TEMP 98.7
[2017-03-13 00:10] LABS: A/G RATIO 1.1 (0.7-1.7); GLOBULIN, TOTAL 3.7 g/dL (2.2-3.9); M-SPIKE 0.9 g/dL (Not Observed); TOTAL PROTEIN 7.7 g/dL (6.0-8.5)
== END 2017-03-11 17:00 | disposition home or self-care (01) ==
LOC: JONCCHEMO 07:25 → J7W 11:20 → JONCCHEMO 17:00
PROVIDERS: ATTEND Internal Medicine Hematology & Oncology
PROC: 3E03305 Introduction of Other Antineoplastic into Peripheral Vein, Percutaneous Approach (ICD-10-PCS; principal; 2017-03-11)
PROC: 3E033GC Introduction of Other Therapeutic Substance into Peripheral Vein, Percutaneous Approach (ICD-10-PCS; 2017-03-11)
PROC: 3E0337Z Introduction of Electrolytic and Water Balance Substance into Peripheral Vein, Percutaneous Approach (ICD-10-PCS; 2017-03-11)
DX: Z51.11 Encounter for antineoplastic chemotherapy (principal); C90.00 Multiple myeloma not having achieved remission
CPT/HCPCS: 96361; 96367; 96413; 96415; J9176; 36415; 80048; 80076; 83036; 83883; 84155; 84165; 85025; 96375

== ENCOUNTER 2017-03-25 07:39 | Day surgery (SDC) | payer BC ==
[2017-03-25] MEDS ORDERED: SODIUM CHLORIDE 250 ML IV ONE (10:00)
[2017-03-25] MEDS ORDERED: ACETAMINOPHEN 325 MG TABLET (FP) PO ONE (10:00)
[2017-03-25] MEDS ORDERED: DEXAMETHASONE INJECTION 8 MG in SODIUM CHLORIDE 50 ML IVPB ONE (10:00)
[2017-03-25] MEDS ORDERED: DIPHENHYDRAMINE 25 MG, RANITIDINE INJECTION 50 MG in SODIUM CHLORIDE 50 ML IVPB ONE (10:00)
[2017-03-25 10:34] VITALS: TEMP 98.3
[2017-03-25 10:44] LABS: BASOPHIL 1.4 % (0-2.0); EOSINOPHIL 0.2 % (0-4.5); MCH 30.6 pg (25.7-33.7); MCHC 34.7 g/dl (32.0-35.9); MEAN CELL VOLUME 88.2 fl (80-96); MEAN PLT VOLUME 7.3 fl (7.5-11.1); NEUTROPHILS 89.8 % (42.8-82.8); PLATELET COUNT 147 K/MM3 (134-434); RDW 14.9 % (11.9-15.9); WHITE BLOOD COUNT 5.2 K/mm3 (4.0-10.0)
[2017-03-25] MEDS ORDERED: ELOTUZUMAB IVPB ONE (11:00)
[2017-03-25] MEDS ORDERED: SODIUM CHLORIDE IVPB ONE (11:00)
[2017-03-25 11:25] LABS: ALBUMIN 4.5 g/dl (3.4-5.0); ANION GAP 10 (8-16); BILIRUBIN,DIRECT 0.2 mg/dL (0.0-0.2); CALCIUM 9.3 mg/dL (8.5-10.1); CO2 25 mmol/L (21-32); CREATININE 1.1 mg/dL (0.7-1.3); GLUCOSE,RANDOM 234 mg/dL (74-106); SGOT/AST 24 U/L (15-37); SGPT/ALT 35 U/L (12-78)
[2017-03-25 11:27] LABS: ALK PHOS 103 U/L (45-117); BILIRUBIN,TOTAL 0.9 mg/dL (0.2-1.0)
[2017-03-25 15:23] VITALS: BP 159/98; PULSE 95
== END 2017-03-25 15:32 | disposition home or self-care (01) ==
LOC: JONCCHEMO 07:39 → J7W 11:26 → JONCCHEMO 15:32
PROVIDERS: ATTEND Internal Medicine Hematology & Oncology
DX: Z51.11 Encounter for antineoplastic chemotherapy (principal); C90.00 Multiple myeloma not having achieved remission
CPT/HCPCS: 36415; 80053; 80076; 83735; 85025; 96361; 96367; 96375; 96413; 96415; J9176

== ENCOUNTER 2017-04-15 07:41 | Day surgery (SDC) | payer BC ==
[2017-04-15] MEDS ORDERED: DEXAMETHASONE INJECTION 8 MG in SODIUM CHLORIDE 50 ML IVPB ONE (10:00)
[2017-04-15] MEDS ORDERED: SODIUM CHLORIDE 250 ML IV ONE (10:00)
[2017-04-15] MEDS ORDERED: DIPHENHYDRAMINE 25 MG, RANITIDINE INJECTION 50 MG in SODIUM CHLORIDE 50 ML IVPB ONE (10:00)
[2017-04-15] MEDS ORDERED: ACETAMINOPHEN 325 MG TABLET (FP) PO ONE (10:00)
[2017-04-15] MEDS ORDERED: ELOTUZUMAB IVPB ONE (10:30)
[2017-04-15] MEDS ORDERED: SODIUM CHLORIDE IVPB ONE (10:30)
[2017-04-15 11:44] LABS: BASOPHIL 0.9 % (0-2.0); MCH 30.4 pg (25.7-33.7); MCHC 34.5 g/dl (32.0-35.9); MEAN CELL VOLUME 88.3 fl (80-96); MEAN PLT VOLUME 7.4 fl (7.5-11.1); NEUTROPHILS 88.7 % (42.8-82.8); PLATELET COUNT 180 K/MM3 (134-434); RDW 15.1 % (11.9-15.9); WHITE BLOOD COUNT 5.6 K/mm3 (4.0-10.0)
[2017-04-15 12:07] LABS: ANION GAP 7 (8-16); CALCIUM 9.4 mg/dL (8.5-10.1); CO2 28 mmol/L (21-32); CREATININE 0.9 mg/dL (0.7-1.3); GLUCOSE,RANDOM 146 mg/dL (74-106)
[2017-04-15 12:11] LABS: ALBUMIN 4.4 g/dl (3.4-5.0); ALK PHOS 106 U/L (45-117); BILIRUBIN,DIRECT < 0.2 mg/dL (0.0-0.2); BILIRUBIN,TOTAL 0.7 mg/dL (0.2-1.0); SGOT/AST 20 U/L (15-37); SGPT/ALT 34 U/L (12-78)
[2017-04-15 12:48] VITALS: BP 123/75; PULSE 80; TEMP 98.4
[2017-04-17 14:15] LABS: ALBUMIN FOR UPE 66.4 % (.)
== END 2017-04-15 16:25 | disposition home or self-care (01) ==
LOC: JONCCHEMO 07:41 → J7W 11:28 → JONCCHEMO 16:25
PROVIDERS: ATTEND Internal Medicine Hematology & Oncology
DX: Z51.11 Encounter for antineoplastic chemotherapy (principal); C90.00 Multiple myeloma not having achieved remission
CPT/HCPCS: 36415; 80048; 80076; 84156; 84157; 85025; 96367; 96375; 96413; 96415; J9176

== ENCOUNTER 2017-04-29 07:25 | Day surgery (SDC) | payer BC ==
[2017-04-29] MEDS ORDERED: DIPHENHYDRAMINE 25 MG, RANITIDINE INJECTION 50 MG in SODIUM CHLORIDE 100 ML IVPB ONE (08:00)
[2017-04-29] MEDS ORDERED: DEXAMETHASONE INJECTION 8 MG in SODIUM CHLORIDE 50 ML IVPB ONE (08:00)
[2017-04-29] MEDS ORDERED: ACETAMINOPHEN 325 MG TABLET (FP) PO ONE (08:00)
[2017-04-29] MEDS ORDERED: SODIUM CHLORIDE 250 ML IV ONE (08:00)
[2017-04-29] MEDS ORDERED: SODIUM CHLORIDE IV ONE (09:00)
[2017-04-29] MEDS ORDERED: ELOTUZUMAB IV ONE (09:00)
[2017-04-29 11:15] LABS: BASOPHIL 1.6 % (0-2.0); EOSINOPHIL 0.1 % (0-4.5); MCH 30.6 pg (25.7-33.7); MCHC 34.9 g/dl (32.0-35.9); MEAN CELL VOLUME 87.9 fl (80-96); MEAN PLT VOLUME 7.5 fl (7.5-11.1); NEUTROPHILS 88.3 % (42.8-82.8); PLATELET COUNT 143 K/MM3 (134-434); RDW 15.3 % (11.9-15.9); WHITE BLOOD COUNT 4.7 K/mm3 (4.0-10.0)
[2017-04-29 11:42] LABS: ALBUMIN 4.3 g/dl (3.4-5.0); ANION GAP 6 (8-16); BILIRUBIN,DIRECT 0.2 mg/dL (0.0-0.2); CALCIUM 9.5 mg/dL (8.5-10.1); CO2 30 mmol/L (21-32); CREATININE 0.9 mg/dL (0.7-1.3); GLUCOSE,RANDOM 200 mg/dL (74-106); MAGNESIUM 2.1 mg/dL (1.8-2.4); SGOT/AST 25 U/L (15-37); SGPT/ALT 38 U/L (12-78); TOT PROT 8.2 g/dl (6.4-8.2)
[2017-04-29 11:43] LABS: ALK PHOS 116 U/L (45-117)
[2017-04-29 13:24] VITALS: BP 129/84; PULSE 93; TEMP 98.4
== END 2017-04-29 16:52 | disposition home or self-care (01) ==
LOC: JONCCHEMO 07:25 → J7W 12:51 → JONCCHEMO 16:52
PROVIDERS: ATTEND Internal Medicine Hematology & Oncology
PROC: 3E03305 Introduction of Other Antineoplastic into Peripheral Vein, Percutaneous Approach (ICD-10-PCS; principal; 2017-04-29)
PROC: 3E033GC Introduction of Other Therapeutic Substance into Peripheral Vein, Percutaneous Approach (ICD-10-PCS; 2017-04-29)
PROC: 3E0337Z Introduction of Electrolytic and Water Balance Substance into Peripheral Vein, Percutaneous Approach (ICD-10-PCS; 2017-04-29)
DX: Z51.11 Encounter for antineoplastic chemotherapy (principal); C90.00 Multiple myeloma not having achieved remission; I10 Essential (primary) hypertension
CPT/HCPCS: 36415; 80053; 80076; 83735; 85025; 96367; 96375; 96413; 96415; J9176

== ENCOUNTER 2017-05-13 07:32 | Day surgery (SDC) | payer BC ==
[2017-05-13] MEDS ORDERED: DEXAMETHASONE INJECTION 8 MG in SODIUM CHLORIDE 50 ML IVPB ONE (08:00)
[2017-05-13] MEDS ORDERED: DIPHENHYDRAMINE 25 MG, RANITIDINE INJECTION 50 MG in SODIUM CHLORIDE 100 ML IVPB ONE (08:00)
[2017-05-13] MEDS ORDERED: SODIUM CHLORIDE 250 ML IV ONE (08:00)
[2017-05-13] MEDS ORDERED: ACETAMINOPHEN 325 MG TABLET (FP) PO ONE (08:00)
[2017-05-13] MEDS ORDERED: SODIUM CHLORIDE IVPB ONE (08:30)
[2017-05-13] MEDS ORDERED: ELOTUZUMAB IVPB ONE (08:30)
[2017-05-13] MEDS ORDERED: ZOLEDRONIC ACID 4 MG in SODIUM CHLORIDE 100 ML IVPB ONE (10:30)
[2017-05-13 11:47] LABS: BASOPHIL 1.2 % (0-2.0); EOSINOPHIL 0.1 % (0-4.5); MCH 30.5 pg (25.7-33.7); MCHC 34.7 g/dl (32.0-35.9); MEAN PLT VOLUME 7.4 fl (7.5-11.1); NEUTROPHILS 91.6 % (42.8-82.8); PLATELET COUNT 151 K/MM3 (134-434); RDW 15.6 % (11.9-15.9); WHITE BLOOD COUNT 5.6 K/mm3 (4.0-10.0)
[2017-05-13 12:33] LABS: ALBUMIN 4.4 g/dl (3.4-5.0); ANION GAP 11 (8-16); BILIRUBIN,DIRECT 0.2 mg/dL (0.0-0.2); BILIRUBIN,TOTAL 0.7 mg/dL (0.2-1.0); CALCIUM 9.3 mg/dL (8.5-10.1); CO2 26 mmol/L (21-32); GLUCOSE,RANDOM 231 mg/dL (74-106); MAGNESIUM 1.9 mg/dL (1.8-2.4); SGOT/AST 22 U/L (15-37); SGPT/ALT 32 U/L (12-78); TOT PROT 7.9 g/dl (6.4-8.2)
[2017-05-13 12:34] LABS: ALK PHOS 114 U/L (45-117)
[2017-05-13 15:57] VITALS: TEMP 98.8
[2017-05-13 18:07] VITALS: BP 142/84; PULSE 90
== END 2017-05-13 18:12 | disposition home or self-care (01) ==
LOC: JONCCHEMO 07:32 → J7W 13:04 → JONCCHEMO 18:12
PROVIDERS: ATTEND Internal Medicine Hematology & Oncology
DX: Z51.11 Encounter for antineoplastic chemotherapy (principal); C90.00 Multiple myeloma not having achieved remission
CPT/HCPCS: 36415; 80053; 80076; 83735; 85025; 96367; 96375; 96413; 96415; 96417; J3489; J9176

== ENCOUNTER 2017-05-27 07:36 | Day surgery (SDC) | payer BC ==
[2017-05-27] MEDS ORDERED: ACETAMINOPHEN 325 MG TABLET (FP) PO ONE (08:00)
[2017-05-27] MEDS ORDERED: DEXAMETHASONE INJECTION 8 MG in SODIUM CHLORIDE 50 ML IVPB ONE (08:00)
[2017-05-27] MEDS ORDERED: DIPHENHYDRAMINE 25 MG, RANITIDINE INJECTION 50 MG in SODIUM CHLORIDE 100 ML IVPB ONE (08:30)
[2017-05-27] MEDS ORDERED: SODIUM CHLORIDE IV ONE (09:00)
[2017-05-27] MEDS ORDERED: ELOTUZUMAB IV ONE (09:00)
[2017-05-27 10:30] LABS: BASOPHIL 2.1 % (0-2.0); EOSINOPHIL 1.7 % (0-4.5); MCH 30.2 pg (25.7-33.7); MEAN CELL VOLUME 88.8 fl (80-96); MEAN PLT VOLUME 7.1 fl (7.5-11.1); PLATELET COUNT 169 K/MM3 (134-434); RDW 15.1 % (11.9-15.9); WHITE BLOOD COUNT 6.5 K/mm3 (4.0-10.0)
[2017-05-27] MEDS ORDERED: SODIUM CHLORIDE 250 ML IV ONE (11:00)
[2017-05-27 11:16] LABS: ALBUMIN 4.1 g/dl (3.4-5.0); ALK PHOS 107 U/L (45-117); ANION GAP 7 (8-16); BILIRUBIN,DIRECT 0.2 mg/dL (0.0-0.2); BILIRUBIN,TOTAL 0.7 mg/dL (0.2-1.0); CALCIUM 8.7 mg/dL (8.5-10.1); CO2 28 mmol/L (21-32); GLUCOSE,RANDOM 200 mg/dL (74-106); MAGNESIUM 2.1 mg/dL (1.8-2.4); SGOT/AST 21 U/L (15-37); SGPT/ALT 29 U/L (12-78); TOT PROT 7.8 g/dl (6.4-8.2)
[2017-05-27 13:13] VITALS: TEMP 99.2
[2017-05-27 16:49] VITALS: BP 142/77; PULSE 85
== END 2017-05-27 15:30 | disposition home or self-care (01) ==
LOC: JONCCHEMO 07:36 → J7W 11:28 → JONCCHEMO 15:30
PROVIDERS: ATTEND Internal Medicine Hematology & Oncology
DX: Z51.11 Encounter for antineoplastic chemotherapy (principal); C90.00 Multiple myeloma not having achieved remission
CPT/HCPCS: 36415; 80053; 80076; 83735; 85025; 96367; 96375; 96413; 96415; J9176

== ENCOUNTER 2017-06-17 06:56 | Day surgery (SDC) | payer BC ==
[2017-06-17] MEDS ORDERED: ZOLEDRONIC ACID 4 MG in SODIUM CHLORIDE 100 ML IVPB ONE (09:00)
[2017-06-17] MEDS ORDERED: DIPHENHYDRAMINE 25 MG, RANITIDINE INJECTION 50 MG in SODIUM CHLORIDE 100 ML IVPB ONE (10:00)
[2017-06-17] MEDS ORDERED: DEXAMETHASONE INJECTION 8 MG in SODIUM CHLORIDE 50 ML IVPB ONE (10:00)
[2017-06-17] MEDS ORDERED: SODIUM CHLORIDE 250 ML IV ONE (10:00)
[2017-06-17] MEDS ORDERED: ACETAMINOPHEN 325 MG TABLET (FP) PO ONE (10:00)
[2017-06-17 10:19] LABS: BASOPHIL 0.5 % (0-2.0); EOSINOPHIL 0.1 % (0-4.5); MCH 30.5 pg (25.7-33.7); MCHC 35.1 g/dl (32.0-35.9); MEAN CELL VOLUME 86.9 fl (80-96); MEAN PLT VOLUME 6.8 fl (7.5-11.1); NEUTROPHILS 86.7 % (42.8-82.8); PLATELET COUNT 168 K/MM3 (134-434); RDW 15.8 % (11.9-15.9); WHITE BLOOD COUNT 4.2 K/mm3 (4.0-10.0)
[2017-06-17] MEDS ORDERED: ELOTUZUMAB IVPB ONE (10:30)
[2017-06-17] MEDS ORDERED: SODIUM CHLORIDE IVPB ONE (10:30)
[2017-06-17 10:52] LABS: ALBUMIN 4.2 g/dl (3.4-5.0); ALK PHOS 103 U/L (45-117); ANION GAP 8 (8-16); BILIRUBIN,DIRECT 0.2 mg/dL (0.0-0.2); BILIRUBIN,TOTAL 0.7 mg/dL (0.2-1.0); CALCIUM 8.9 mg/dL (8.5-10.1); CO2 25 mmol/L (21-32); GLUCOSE,RANDOM 202 mg/dL (74-106); MAGNESIUM 1.7 mg/dL (1.8-2.4); SGOT/AST 22 U/L (15-37); SGPT/ALT 35 U/L (12-78); TOT PROT 7.9 g/dl (6.4-8.2)
[2017-06-17 17:24] VITALS: BP 145/89; PULSE 92
[2017-06-17 17:25] VITALS: TEMP 98.3
== END 2017-06-17 15:30 | disposition home or self-care (01) ==
LOC: JONCCHEMO 06:56 → J7W 11:09 → JONCCHEMO 15:30
PROVIDERS: ATTEND Internal Medicine Hematology & Oncology
DX: Z12.11 Encounter for screening for malignant neoplasm of colon (principal); C90.00 Multiple myeloma not having achieved remission
CPT/HCPCS: 36415; 80053; 80076; 83735; 85025; 96367; 96375; 96413; 96415; J9176

== ENCOUNTER 2017-07-01 07:16 | Day surgery (SDC) | payer BC ==
[2017-07-01] MEDS ORDERED: SODIUM CHLORIDE 250 ML IV ONE (08:00)
[2017-07-01] MEDS ORDERED: DEXAMETHASONE INJECTION 8 MG in SODIUM CHLORIDE 50 ML IVPB ONE (08:30)
[2017-07-01] MEDS ORDERED: ACETAMINOPHEN 325 MG TABLET (FP) PO ONE (08:30)
[2017-07-01] MEDS ORDERED: DIPHENHYDRAMINE 25 MG, RANITIDINE INJECTION 50 MG in SODIUM CHLORIDE 100 ML IVPB ONE (08:30)
[2017-07-01] MEDS ORDERED: ELOTUZUMAB IVPB ONE (09:00)
[2017-07-01] MEDS ORDERED: SODIUM CHLORIDE IVPB ONE (09:00)
[2017-07-01 11:05] LABS: BASOPHIL 2.5 % (0-2.0); MCH 30.2 pg (25.7-33.7); MCHC 34.9 g/dl (32.0-35.9); MEAN CELL VOLUME 86.3 fl (80-96); MEAN PLT VOLUME 7.2 fl (7.5-11.1); NEUTROPHILS 85.4 % (42.8-82.8); PLATELET COUNT 141 K/MM3 (134-434); RDW 15.4 % (11.9-15.9); WHITE BLOOD COUNT 4.3 K/mm3 (4.0-10.0)
[2017-07-01 11:51] LABS: ALBUMIN 4.4 g/dl (3.4-5.0); CALCIUM 9.1 mg/dL (8.5-10.1)
[2017-07-01 11:57] LABS: ALK PHOS 101 U/L (45-117); ANION GAP 11 (8-16); BILIRUBIN,DIRECT 0.2 mg/dL (0.0-0.2); BILIRUBIN,TOTAL 0.9 mg/dL (0.2-1.0); CO2 23 mmol/L (21-32); GLUCOSE,RANDOM 167 mg/dL (74-106); SGOT/AST 20 U/L (15-37); SGPT/ALT 34 U/L (12-78)
[2017-07-01 18:58] VITALS: BP 151/79; PULSE 85; TEMP 98.9
== END 2017-07-01 16:45 | disposition home or self-care (01) ==
LOC: JONCCHEMO 07:16 → J7W 11:36 → JONCCHEMO 16:45
PROVIDERS: ATTEND Internal Medicine Hematology & Oncology
DX: Z51.11 Encounter for antineoplastic chemotherapy (principal); C90.00 Multiple myeloma not having achieved remission
CPT/HCPCS: 36415; 80053; 80076; 83735; 85025; 96361; 96367; 96375; 96413; 96415; J9176

== ENCOUNTER 2017-07-15 07:49 | Day surgery (SDC) | payer BC ==
[2017-07-15] MEDS ORDERED: [UNRECOGNIZED DRUG - OTHER] IVPB ONE (08:00)
[2017-07-15] MEDS ORDERED: DIPHENHYDRAMINE IVPB ONE (08:00)
[2017-07-15] MEDS ORDERED: ACETAMINOPHEN 325 MG TABLET (FP) PO ONE (08:00)
[2017-07-15] MEDS ORDERED: DEXAMETHASONE IVPB ONE (08:00)
[2017-07-15] MEDS ORDERED: RANITIDINE IVPB ONE (08:00)
[2017-07-15] MEDS ORDERED: SODIUM CHLORIDE 250 ML IV ONE (08:00)
[2017-07-15] MEDS ORDERED: SODIUM CHLORIDE IV ONE (08:30)
[2017-07-15] MEDS ORDERED: ELOTUZUMAB IV ONE (08:30)
[2017-07-15 11:38] LABS: BASOPHIL 1.4 % (0-2.0); EOSINOPHIL 0.1 % (0-4.5); MCH 30.7 pg (25.7-33.7); MEAN CELL VOLUME 87.8 fl (80-96); MEAN PLT VOLUME 7.3 fl (7.5-11.1); NEUTROPHILS 89.9 % (42.8-82.8); PLATELET COUNT 153 K/MM3 (134-434); RDW 15.3 % (11.9-15.9); WHITE BLOOD COUNT 5.3 K/mm3 (4.0-10.0)
[2017-07-15 12:09] LABS: ALBUMIN 4.4 g/dl (3.4-5.0); ANION GAP 11 (8-16); BILIRUBIN,DIRECT 0.2 mg/dL (0.0-0.2); BILIRUBIN,TOTAL 0.8 mg/dL (0.2-1.0); CALCIUM 8.7 mg/dL (8.5-10.1); CO2 22 mmol/L (21-32); GLUCOSE,RANDOM 261 mg/dL (74-106); MAGNESIUM 1.8 mg/dL (1.8-2.4); SGOT/AST 50 U/L (15-37); SGPT/ALT 49 U/L (12-78); TOT PROT 8.1 g/dl (6.4-8.2)
[2017-07-15 12:10] LABS: ALK PHOS 109 U/L (45-117)
[2017-07-15] MEDS ORDERED: ACETAMINOPHEN 325 MG TABLET (FP) ONE (12:18)
[2017-07-15 16:18] VITALS: TEMP 97.9
[2017-07-15 16:20] VITALS: BP 132/80; PULSE 90
[2017-07-16 08:07] LABS: IGG IMMUNOGLOBULIN 1334 mg/dL (700-1600); IGM IMMUNOGLOBULIN 17 mg/dL (20-172)
[2017-08-01 21:21] LABS: ALBUMIN FOR UPE 67.6; GAMMA GLOBULIN % 12.6 %
== END 2017-07-15 15:40 | disposition home or self-care (01) ==
LOC: JONCCHEMO 07:49 → J7W 11:57 → JONCCHEMO 15:40
PROVIDERS: ATTEND Internal Medicine Hematology & Oncology
DX: Z51.11 Encounter for antineoplastic chemotherapy (principal); C90.00 Multiple myeloma not having achieved remission
CPT/HCPCS: 36415; 80053; 80076; 82784; 83036; 83735; 83883; 84156; 84157; 85025; 96361; 96367; 96375; 96413; 96415; J9176

== ENCOUNTER 2017-08-05 07:30 | Day surgery (SDC) | payer BC ==
[2017-08-05] MEDS ORDERED: DEXAMETHASONE IVPB ONE (08:00)
[2017-08-05] MEDS ORDERED: [UNRECOGNIZED DRUG - OTHER] IVPB ONE (08:00)
[2017-08-05] MEDS ORDERED: DIPHENHYDRAMINE IVPB ONE (08:00)
[2017-08-05] MEDS ORDERED: RANITIDINE IVPB ONE (08:00)
[2017-08-05] MEDS ORDERED: ACETAMINOPHEN 325 MG TABLET (FP) PO ONE (08:00)
[2017-08-05] MEDS ORDERED: SODIUM CHLORIDE IV ONE (08:30)
[2017-08-05] MEDS ORDERED: ELOTUZUMAB IV ONE (08:30)
[2017-08-05] MEDS ORDERED: ZOLEDRONIC ACID 4 MG in SODIUM CHLORIDE 100 ML IVPB ONE (10:30)
[2017-08-05 11:09] LABS: ALBUMIN 4.1 g/dl (3.4-5.0); ANION GAP 10 (8-16); BILIRUBIN,DIRECT 0.2 mg/dL (0.0-0.2); BILIRUBIN,TOTAL 0.7 mg/dL (0.2-1.0); CALCIUM 8.2 mg/dL (8.5-10.1); CO2 23 mmol/L (21-32); CREATININE 0.9 mg/dL (0.7-1.3); GLUCOSE,RANDOM 249 mg/dL (74-106); MAGNESIUM 2.1 mg/dL (1.8-2.4); SGOT/AST 19 U/L (15-37); SGPT/ALT 34 U/L (12-78); TOT PROT 7.5 g/dl (6.4-8.2)
[2017-08-05 11:10] LABS: ALK PHOS 88 U/L (45-117)
[2017-08-05 11:28] VITALS: TEMP 97.9
[2017-08-05 13:25] LABS: BASO % 0.6 % (0-2.0); EOS % 0.1 % (0-4.5); MCH 30.3 pg (25.7-33.7); MCHC 33.5 g/dl (32.0-35.9); MEAN CELL VOLUME 90.5 fl (80-96); MEAN PLT VOLUME 7.9 fl (7.5-11.1); NEUT % 91.6 % (42.8-82.8); PLATELET COUNT 148 K/MM3 (134-434); RDW 16.1 % (11.9-15.9); WHITE BLOOD COUNT 5.3 K/mm3 (4.0-10.0)
[2017-08-05 14:56] VITALS: BP 141/84; PULSE 89
== END 2017-08-05 14:30 | disposition home or self-care (01) ==
LOC: JONCCHEMO 07:30 → J7W 11:25 → JONCCHEMO 14:30
PROVIDERS: ATTEND Internal Medicine Hematology & Oncology
DX: Z51.11 Encounter for antineoplastic chemotherapy (principal); C90.00 Multiple myeloma not having achieved remission
CPT/HCPCS: 36415; 80053; 80076; 83735; 85025; 96367; 96375; 96413; 96415; J9176

== ENCOUNTER 2017-08-19 07:40 | Day surgery (SDC) | payer BC ==
[2017-08-19] MEDS ORDERED: ACETAMINOPHEN 325 MG TABLET (FP) PO ONE (10:00)
[2017-08-19] MEDS ORDERED: DEXAMETHASONE IVPB ONE (10:00)
[2017-08-19] MEDS ORDERED: [UNRECOGNIZED DRUG - OTHER] IVPB ONE (10:00)
[2017-08-19] MEDS ORDERED: RANITIDINE IVPB ONE (10:00)
[2017-08-19] MEDS ORDERED: DIPHENHYDRAMINE IVPB ONE (10:00)
[2017-08-19] MEDS ORDERED: ELOTUZUMAB IVPB ONE (10:30)
[2017-08-19] MEDS ORDERED: SODIUM CHLORIDE IVPB ONE (10:30)
[2017-08-19 11:02] LABS: BASO % 1.2 % (0-2.0); EOS % 0.1 % (0-4.5); HEMATOCRIT 46.7 % (35.4-49); HEMOGLOBIN 15.9 GM/dL (11.7-16.9); LYMPH % 8.7 % (8-40); MCH 30.3 pg (25.7-33.7); MCHC 34.1 g/dl (32.0-35.9); MEAN PLT VOLUME 7.2 fl (7.5-11.1); MONO % 1.2 % (3.8-10.2); NEUT % 88.8 % (42.8-82.8); PLATELET COUNT 137 K/MM3 (134-434); RBC 5.24 M/mm3 (4.00-5.60); RDW 15.5 % (11.9-15.9); WHITE BLOOD COUNT 6.2 K/mm3 (4.0-10.0)
[2017-08-19 11:34] LABS: ALBUMIN 4.3 g/dl (3.4-5.0); ANION GAP 11 (8-16); BILIRUBIN,DIRECT 0.2 mg/dL (0.0-0.2); BLOOD UREA NITROGEN 15 mg/dL (7-18); CALCIUM 9.2 mg/dL (8.5-10.1); CHLORIDE 103 mmol/L (98-107); CO2 24 mmol/L (21-32); CREATININE 1.1 mg/dL (0.7-1.3); GLUCOSE,RANDOM 236 mg/dL (74-106); MAGNESIUM 1.9 mg/dL (1.8-2.4); POTASSIUM 4.5 mmol/L (3.5-5.1); SGOT/AST 23 U/L (15-37); SGPT/ALT 36 U/L (12-78); SODIUM 138 mmol/L (136-145)
[2017-08-19 11:36] LABS: ALK PHOS 106 U/L (45-117); BILIRUBIN,TOTAL 0.8 mg/dL (0.2-1.0); TOT PROT 8.3 g/dl (6.4-8.2)
[2017-08-19 15:03] VITALS: TEMP 97.7
[2017-08-19 15:14] VITALS: BP 135/85; PULSE 95
== END 2017-08-19 14:30 | disposition home or self-care (01) ==
LOC: JONCCHEMO 07:40 → J7W 11:30 → JONCCHEMO 14:30
PROVIDERS: ATTEND Internal Medicine Hematology & Oncology
PROC: 3E04305 Introduction of Other Antineoplastic into Central Vein, Percutaneous Approach (ICD-10-PCS; principal; 2017-08-19)
PROC: 3E043GC Introduction of Other Therapeutic Substance into Central Vein, Percutaneous Approach (ICD-10-PCS; 2017-08-19)
DX: Z51.11 Encounter for antineoplastic chemotherapy (principal); C90.00 Multiple myeloma not having achieved remission
CPT/HCPCS: 36415; 80053; 80076; 83735; 85025; 96367; 96375; 96413; 96415; J9176

== ENCOUNTER 2017-09-16 07:33 | Day surgery (SDC) | payer BC ==
[2017-09-16] MEDS ORDERED: DIPHENHYDRAMINE IVPB ONE (08:00)
[2017-09-16] MEDS ORDERED: [UNRECOGNIZED DRUG - OTHER] IVPB ONE (08:00)
[2017-09-16] MEDS ORDERED: DEXAMETHASONE IVPB ONE (08:00)
[2017-09-16] MEDS ORDERED: ACETAMINOPHEN 325 MG TABLET (FP) PO ONE (08:00)
[2017-09-16] MEDS ORDERED: RANITIDINE IVPB ONE (08:00)
[2017-09-16] MEDS ORDERED: ELOTUZUMAB IVPB ONE (08:30)
[2017-09-16] MEDS ORDERED: SODIUM CHLORIDE IVPB ONE (08:30)
[2017-09-16] MEDS ORDERED: ZOLEDRONIC ACID 4 MG in SODIUM CHLORIDE 100 ML IVPB ONE (10:30)
[2017-09-16 12:09] LABS: BASO % 0.7 % (0-2.0); HEMATOCRIT 41.2 % (35.4-49); HEMOGLOBIN 14.2 GM/dL (11.7-16.9); MCH 30.2 pg (25.7-33.7); MCHC 34.5 g/dl (32.0-35.9); MEAN CELL VOLUME 87.7 fl (80-96); MEAN PLT VOLUME 7.5 fl (7.5-11.1); MONO % 4.6 % (3.8-10.2); NEUT % 77.7 % (42.8-82.8); PLATELET COUNT 165 K/MM3 (134-434); RDW 15.1 % (11.9-15.9); WHITE BLOOD COUNT 2.6 K/mm3 (4.0-10.0)
[2017-09-16 12:49] LABS: ANION GAP 6 (8-16); BILIRUBIN,DIRECT < 0.2 mg/dL (0.0-0.2); BILIRUBIN,TOTAL 0.5 mg/dL (0.2-1.0); BLOOD UREA NITROGEN 13 mg/dL (7-18); CALCIUM 8.3 mg/dL (8.5-10.1); CHLORIDE 109 mmol/L (98-107); CO2 26 mmol/L (21-32); CREATININE 0.8 mg/dL (0.7-1.3); GLUCOSE,RANDOM 127 mg/dL (74-106); MAGNESIUM 1.9 mg/dL (1.8-2.4); POTASSIUM 4.3 mmol/L (3.5-5.1); SGOT/AST 24 U/L (15-37); SGPT/ALT 33 U/L (12-78); SODIUM 141 mmol/L (136-145); TOT PROT 7.9 g/dl (6.4-8.2)
[2017-09-16 12:50] LABS: ALK PHOS 91 U/L (45-117)
[2017-09-16] MEDS ORDERED: ACETAMINOPHEN 325 MG TABLET (FP) ONE (13:13)
[2017-09-16 14:04] VITALS: TEMP 98
[2017-09-16 14:14] VITALS: BP 143/92; PULSE 79
== END 2017-09-16 13:45 | disposition home or self-care (01) ==
LOC: JONCCHEMO 07:33 → J7W 12:38 → JONCCHEMO 13:45
PROVIDERS: ATTEND Internal Medicine Hematology & Oncology
PROC: 3E033GC Introduction of Other Therapeutic Substance into Peripheral Vein, Percutaneous Approach (ICD-10-PCS; principal; 2017-09-16)
DX: C90.00 Multiple myeloma not having achieved remission (principal); C79.51 Secondary malignant neoplasm of bone
CPT/HCPCS: 36415; 80053; 80076; 83735; 85025; 96365; 96417; J3489

== ENCOUNTER 2017-09-23 07:33 | Day surgery (SDC) | payer BC ==
[2017-09-23] MEDS ORDERED: DIPHENHYDRAMINE IVPB ONE (08:00)
[2017-09-23] MEDS ORDERED: DEXAMETHASONE IVPB ONE (08:00)
[2017-09-23] MEDS ORDERED: [UNRECOGNIZED DRUG - OTHER] IVPB ONE (08:00)
[2017-09-23] MEDS ORDERED: RANITIDINE IVPB ONE (08:00)
[2017-09-23] MEDS ORDERED: ACETAMINOPHEN 325 MG TABLET (FP) PO ONE (08:00)
[2017-09-23] MEDS ORDERED: ELOTUZUMAB IVPB ONE (08:30)
[2017-09-23] MEDS ORDERED: SODIUM CHLORIDE IVPB ONE (08:30)
[2017-09-23 10:31] VITALS: PULSE 83
[2017-09-23 10:53] LABS: BASO % 0.6 % (0-2.0); EOS % 0.1 % (0-4.5); HEMATOCRIT 41.3 % (35.4-49); HEMOGLOBIN 14.1 GM/dL (11.7-16.9); LYMPH % 5.2 % (8-40); MCHC 34.1 g/dl (32.0-35.9); MEAN PLT VOLUME 7.3 fl (7.5-11.1); MONO % 1.2 % (3.8-10.2); NEUT % 92.9 % (42.8-82.8); PLATELET COUNT 211 K/MM3 (134-434); RBC 4.69 M/mm3 (4.00-5.60); RDW 15.1 % (11.9-15.9); WHITE BLOOD COUNT 7.9 K/mm3 (4.0-10.0)
[2017-09-23 11:31] LABS: ALBUMIN 3.9 g/dl (3.4-5.0); ALK PHOS 104 U/L (45-117); ANION GAP 9 (8-16); BILIRUBIN,DIRECT 0.2 mg/dL (0.0-0.2); BLOOD UREA NITROGEN 10 mg/dL (7-18); CALCIUM 7.3 mg/dL (8.5-10.1); CHLORIDE 102 mmol/L (98-107); CO2 25 mmol/L (21-32); GLUCOSE,RANDOM 222 mg/dL (74-106); MAGNESIUM 1.6 mg/dL (1.8-2.4); POTASSIUM 3.8 mmol/L (3.5-5.1); SGOT/AST 14 U/L (15-37); SGPT/ALT 28 U/L (12-78); SODIUM 136 mmol/L (136-145); TOT PROT 7.7 g/dl (6.4-8.2)
[2017-09-23] MEDS ORDERED: ACETAMINOPHEN 325 MG TABLET (FP) ONE (12:41)
[2017-09-23 12:46] VITALS: TEMP 99
[2017-09-23] MEDS ORDERED: MAGNESIUM SULF 50% (8.12 MEQ/2 ML-1 GM VIAL) IVPB ONE (14:00)
[2017-09-23 17:14] VITALS: BP 125/75
== END 2017-09-23 16:25 | disposition home or self-care (01) ==
LOC: JONCCHEMO 07:33 → J7W 11:54 → JONCCHEMO 16:25
PROVIDERS: ATTEND Internal Medicine Hematology & Oncology
DX: Z51.11 Encounter for antineoplastic chemotherapy (principal); C90.00 Multiple myeloma not having achieved remission; C79.51 Secondary malignant neoplasm of bone
CPT/HCPCS: 36415; 80053; 80076; 83735; 85025; 96367; 96375; 96413; 96415; 96417; J1100; J9176

== ENCOUNTER 2017-10-14 07:27 | Day surgery (SDC) | payer BC ==
[~2017-10-14 07:27] MED LIST changes: -ELOTUZUMAB IV ONE; +ELOTUZUMAB IVPB ONE; -SODIUM CHLORIDE 250 ML IV ONE; -SODIUM CHLORIDE IV ONE; +SODIUM CHLORIDE IVPB ONE
[2017-10-14 09:45] VITALS: TEMP 97.3
[2017-10-14] MEDS ORDERED: DEXAMETHASONE IVPB ONE (10:00)
[2017-10-14] MEDS ORDERED: DIPHENHYDRAMINE IVPB ONE (10:00)
[2017-10-14] MEDS ORDERED: ACETAMINOPHEN 325 MG TABLET (FP) PO ONE (10:00)
[2017-10-14] MEDS ORDERED: RANITIDINE IVPB ONE (10:00)
[2017-10-14] MEDS ORDERED: [UNRECOGNIZED DRUG - OTHER] IVPB ONE (10:00)
[2017-10-14 10:24] LABS: BASO % 1.4 % (0-2.0); EOS % 0.3 % (0-4.5); HEMATOCRIT 46.6 % (35.4-49); HEMOGLOBIN 15.7 GM/dL (11.7-16.9); LYMPH % 9.7 % (8-40); MCH 30.2 pg (25.7-33.7); MCHC 33.7 g/dl (32.0-35.9); MEAN CELL VOLUME 89.7 fl (80-96); MEAN PLT VOLUME 7.4 fl (7.5-11.1); MONO % 0.8 % (3.8-10.2); NEUT % 87.8 % (42.8-82.8); PLATELET COUNT 162 K/MM3 (134-434); RBC 5.19 M/mm3 (4.00-5.60); RDW 15.4 % (11.9-15.9); WHITE BLOOD COUNT 5.4 K/mm3 (4.0-10.0)
[2017-10-14] MEDS ORDERED: SODIUM CHLORIDE IVPB ONE (10:30)
[2017-10-14] MEDS ORDERED: ELOTUZUMAB IVPB ONE (10:30)
[2017-10-14 10:58] LABS: ALBUMIN 4.4 g/dl (3.4-5.0); ALK PHOS 103 U/L (45-117); ANION GAP 10 (8-16); BILIRUBIN,DIRECT 0.2 mg/dL (0.0-0.2); BILIRUBIN,TOTAL 0.7 mg/dL (0.2-1.0); BLOOD UREA NITROGEN 14 mg/dL (7-18); CALCIUM 7.9 mg/dL (8.5-10.1); CHLORIDE 103 mmol/L (98-107); CO2 23 mmol/L (21-32); CREATININE 0.9 mg/dL (0.7-1.3); GLUCOSE,RANDOM 276 mg/dL (74-106); MAGNESIUM 1.9 mg/dL (1.8-2.4); SGOT/AST 21 U/L (15-37); SGPT/ALT 34 U/L (12-78); SODIUM 136 mmol/L (136-145); TOT PROT 8.3 g/dl (6.4-8.2)
[2017-10-14 17:49] VITALS: BP 137/80; PULSE 95
[2017-10-16 00:06] LABS: FREE KAPPA,SERUM 44.3 mg/L (3.3-19.4)
[2017-10-16 14:14] LABS: TOTAL PROTEIN, URINE 74.7 mg/dL (Not Estab.)
== END 2017-10-14 14:15 | disposition home or self-care (01) ==
LOC: JONCCHEMO 07:27 → J7W 11:00 → JONCCHEMO 14:15
PROVIDERS: ATTEND Internal Medicine Hematology & Oncology
DX: Z51.11 Encounter for antineoplastic chemotherapy (principal); C90.00 Multiple myeloma not having achieved remission; C79.51 Secondary malignant neoplasm of bone
CPT/HCPCS: 36415; 80053; 80076; 82784; 83036; 83735; 83883; 84156; 84157; 84439; 84443; 85025; 96375; 96413; 96415; J1100; J9176

== ENCOUNTER 2017-11-04 07:28 | Day surgery (SDC) | payer BC ==
[2017-11-04] MEDS ORDERED: RANITIDINE IVPB ONE (08:00)
[2017-11-04] MEDS ORDERED: DEXAMETHASONE IVPB ONE (08:00)
[2017-11-04] MEDS ORDERED: ACETAMINOPHEN 325 MG TABLET (FP) PO ONE (08:00)
[2017-11-04] MEDS ORDERED: [UNRECOGNIZED DRUG - OTHER] IVPB ONE (08:00)
[2017-11-04] MEDS ORDERED: DIPHENHYDRAMINE IVPB ONE (08:00)
[2017-11-04] MEDS ORDERED: SODIUM CHLORIDE IVPB ONE (08:30)
[2017-11-04] MEDS ORDERED: ELOTUZUMAB IVPB ONE (08:30)
[2017-11-04 12:27] LABS: BASO % 2.9 % (0-2.0); EOS % 0.6 % (0-4.5); HEMATOCRIT 44.7 % (35.4-49); HEMOGLOBIN 15.7 GM/dL (11.7-16.9); LYMPH % 9.7 % (8-40); MCH 31.1 pg (25.7-33.7); MEAN CELL VOLUME 88.9 fl (80-96); MEAN PLT VOLUME 7.9 fl (7.5-11.1); MONO % 1.7 % (3.8-10.2); NEUT % 85.1 % (42.8-82.8); PLATELET COUNT 158 K/MM3 (134-434); RBC 5.03 M/mm3 (4.00-5.60); RDW 15.6 % (11.9-15.9); WHITE BLOOD COUNT 3.3 K/mm3 (4.0-10.0)
[2017-11-04 12:45] LABS: ALBUMIN 4.4 g/dl (3.4-5.0); ANION GAP 14 (8-16); BILIRUBIN,TOTAL 0.7 mg/dL (0.2-1.0); BLOOD UREA NITROGEN 14 mg/dL (7-18); CALCIUM 9.1 mg/dL (8.5-10.1); CHLORIDE 103 mmol/L (98-107); CO2 24 mmol/L (21-32); CREATININE 0.9 mg/dL (0.7-1.3); GLUCOSE,RANDOM 197 mg/dL (74-106); POTASSIUM 3.8 mmol/L (3.5-5.1); SGOT/AST 24 U/L (15-37); SGPT/ALT 39 U/L (12-78); SODIUM 141 mmol/L (136-145); TOT PROT 8.1 g/dl (6.4-8.2)
[2017-11-04 12:46] LABS: ALK PHOS 91 U/L (45-117)
[2017-11-04 12:48] LABS: ALBUMIN 4.5 g/dl (3.4-5.0); BILIRUBIN,DIRECT 0.2 mg/dL (0.0-0.2); BILIRUBIN,TOTAL 0.7 mg/dL (0.2-1.0); MAGNESIUM 1.9 mg/dL (1.8-2.4)
[2017-11-04] MEDS ORDERED: ACETAMINOPHEN 325 MG TABLET (FP) ONE (13:09)
[2017-11-04 18:45] VITALS: BP 155/94; PULSE 90; TEMP 97.9
[2017-11-07 16:28] LABS: TOTAL PROTEIN, URINE 63.4 mg/dL (Not Estab.)
== END 2017-11-04 16:30 | disposition home or self-care (01) ==
LOC: JONCCHEMO 07:28 → J7W 11:54 → JONCCHEMO 16:30
PROVIDERS: ATTEND Internal Medicine Hematology & Oncology
DX: Z51.11 Encounter for antineoplastic chemotherapy (principal); C90.00 Multiple myeloma not having achieved remission; C79.51 Secondary malignant neoplasm of bone
CPT/HCPCS: 36415; 80053; 80076; 83735; 84155; 84156; 84157; 84165; 85025; 96367; 96375; 96413; 96415; J1100; J9176

== ENCOUNTER 2017-11-18 07:30 | Day surgery (SDC) | payer BC ==
[2017-11-18] MEDS ORDERED: ACETAMINOPHEN 325 MG TABLET (FP) PO ONE (08:00)
[2017-11-18] MEDS ORDERED: DIPHENHYDRAMINE IVPB ONE (08:00)
[2017-11-18] MEDS ORDERED: DEXAMETHASONE IVPB ONE (08:00)
[2017-11-18] MEDS ORDERED: [UNRECOGNIZED DRUG - OTHER] IVPB ONE (08:00)
[2017-11-18] MEDS ORDERED: RANITIDINE IVPB ONE (08:00)
[2017-11-18] MEDS ORDERED: ELOTUZUMAB IV ONE (08:30)
[2017-11-18] MEDS ORDERED: SODIUM CHLORIDE IV ONE (08:30)
[2017-11-18] MEDS ORDERED: DEXAMETHASONE SOD PHOSPHATE 20 MG/5 ML VIAL IVPB ONE (11:13)
[2017-11-18 11:20] LABS: BASO % 4.1 % (0-2.0); HEMATOCRIT 40.8 % (35.4-49); HEMOGLOBIN 14.4 GM/dL (11.7-16.9); LYMPH % 20.6 % (8-40); MCH 31.1 pg (25.7-33.7); MCHC 35.4 g/dl (32.0-35.9); MEAN PLT VOLUME 7.4 fl (7.5-11.1); MONO % 7.7 % (3.8-10.2); NEUT % 60.6 % (42.8-82.8); PLATELET COUNT 144 K/MM3 (134-434); RBC 4.64 M/mm3 (4.00-5.60); RDW 15.5 % (11.9-15.9)
[2017-11-18 11:43] LABS: ALBUMIN 3.9 g/dl (3.4-5.0); ANION GAP 8 (8-16); BLOOD UREA NITROGEN 11 mg/dL (7-18); CALCIUM 8.3 mg/dL (8.5-10.1); CHLORIDE 107 mmol/L (98-107); CO2 26 mmol/L (21-32); CREATININE 0.9 mg/dL (0.7-1.3); GLUCOSE,RANDOM 157 mg/dL (74-106); POTASSIUM 3.8 mmol/L (3.5-5.1); SGOT/AST 23 U/L (15-37); SGPT/ALT 38 U/L (12-78); SODIUM 141 mmol/L (136-145)
[2017-11-18 11:45] LABS: ALK PHOS 80 U/L (45-117); BILIRUBIN,TOTAL 0.6 mg/dL (0.2-1.0); TOT PROT 7.1 g/dl (6.4-8.2)
[2017-11-18] MEDS ORDERED: WATER IVPUSH ONE (11:45)
[2017-11-18] MEDS ORDERED: DEXTROSE 5% IVPUSH ONE (11:45)
[2017-11-18] MEDS ORDERED: DEXAMETHASONE IVPUSH ONE (11:45)
[2017-11-18 12:03] LABS: BILIRUBIN,DIRECT 0.2 mg/dL (0.0-0.2); MAGNESIUM 1.7 mg/dL (1.8-2.4)
[2017-11-18] MEDS ORDERED: MAGNESIUM SULF 50% (8.12 MEQ/2 ML-1 GM VIAL) IVPB ONE (15:54)
[2017-11-18 18:07] VITALS: BP 142/80; PULSE 74; TEMP 98.1
== END 2017-11-18 18:11 | disposition home or self-care (01) ==
LOC: JONCCHEMO 07:30 → J7W 11:23 → JONCCHEMO 18:11
PROVIDERS: ATTEND Internal Medicine Hematology & Oncology
DX: Z51.11 Encounter for antineoplastic chemotherapy (principal); C90.00 Multiple myeloma not having achieved remission; C79.51 Secondary malignant neoplasm of bone
CPT/HCPCS: 36415; 80053; 80076; 83735; 85025; 96367; 96375; 96413; 96415; 96417; J1100; J9176

== ENCOUNTER 2017-12-02 07:20 | Day surgery (SDC) | payer BC ==
[2017-12-02] MEDS ORDERED: ACETAMINOPHEN 325 MG TABLET (FP) PO ONE (10:00)
[2017-12-02] MEDS ORDERED: DIPHENHYDRAMINE IVPB ONE (10:00)
[2017-12-02] MEDS ORDERED: DEXAMETHASONE IVPB ONE (10:00)
[2017-12-02] MEDS ORDERED: RANITIDINE IVPB ONE (10:00)
[2017-12-02] MEDS ORDERED: [UNRECOGNIZED DRUG - OTHER] IVPB ONE (10:00)
[2017-12-02] MEDS ORDERED: ELOTUZUMAB IVPB ONE (10:30)
[2017-12-02] MEDS ORDERED: SODIUM CHLORIDE IVPB ONE (10:30)
[2017-12-02 12:21] VITALS: PULSE 69
[2017-12-02 12:28] LABS: BASO % 3.5 % (0-2.0); EOS % 9.6 % (0-4.5); HEMATOCRIT 40.5 % (35.4-49); HEMOGLOBIN 14.2 GM/dL (11.7-16.9); LYMPH % 22.1 % (8-40); MCH 30.8 pg (25.7-33.7); MCHC 35.1 g/dl (32.0-35.9); MEAN CELL VOLUME 87.7 fl (80-96); MEAN PLT VOLUME 7.4 fl (7.5-11.1); MONO % 5.1 % (3.8-10.2); NEUT % 59.7 % (42.8-82.8); PLATELET COUNT 152 K/MM3 (134-434); RBC 4.62 M/mm3 (4.00-5.60); RDW 15.5 % (11.9-15.9); WHITE BLOOD COUNT 4.6 K/mm3 (4.0-10.0)
[2017-12-02] MEDS ORDERED: DEXAMETHASONE SOD PHOSPHATE 4 MG/1 ML VIAL IVPB ONE (12:34)
[2017-12-02] MEDS ORDERED: DEXAMETHASONE SOD PHOSPHATE 20 MG/5 ML VIAL IVPB ONE (12:34)
[2017-12-02 12:57] LABS: BILIRUBIN,DIRECT 0.2 mg/dL (0.0-0.2); BILIRUBIN,TOTAL 0.8 mg/dL (0.2-1.0); MAGNESIUM 1.9 mg/dL (1.8-2.4); TOT PROT 7.3 g/dl (6.4-8.2)
[2017-12-02 13:03] LABS: ALBUMIN 3.9 g/dl (3.4-5.0); ANION GAP 5 (8-16); BILIRUBIN,TOTAL 0.6 mg/dL (0.2-1.0); BLOOD UREA NITROGEN 10 mg/dL (7-18); CALCIUM 8.3 mg/dL (8.5-10.1); CHLORIDE 106 mmol/L (98-107); CO2 29 mmol/L (21-32); CREATININE 0.9 mg/dL (0.7-1.3); GLUCOSE,RANDOM 134 mg/dL (74-106); POTASSIUM 3.7 mmol/L (3.5-5.1); SGOT/AST 19 U/L (15-37); SGPT/ALT 28 U/L (12-78); SODIUM 140 mmol/L (136-145); TOT PROT 7.2 g/dl (6.4-8.2)
[2017-12-02 13:11] LABS: ALK PHOS 92 U/L (45-117)
[2017-12-02 18:07] VITALS: BP 138/77
[2017-12-02 18:08] VITALS: TEMP 98.4
[2017-12-04 00:09] LABS: FREE KAPPA,SERUM 67.7 mg/L (3.3-19.4)
[2017-12-04 16:32] LABS: TOTAL PROTEIN, URINE 120.3 mg/dL (Not Estab.)
== END 2017-12-02 16:05 | disposition home or self-care (01) ==
LOC: JONCCHEMO 07:20 → J7W 12:42 → JONCCHEMO 16:05
PROVIDERS: ATTEND Internal Medicine Hematology & Oncology
DX: Z51.11 Encounter for antineoplastic chemotherapy (principal); C90.00 Multiple myeloma not having achieved remission; C79.51 Secondary malignant neoplasm of bone
CPT/HCPCS: 36415; 80053; 80076; 82607; 83036; 83735; 83883; 84156; 84157; 84439; 84443; 85025; 85651; 96367; 96375; 96413; 96415; J1100; J9176

== ENCOUNTER 2017-12-30 07:34 | Day surgery (SDC) | payer BC ==
[2017-12-30] MEDS ORDERED: RANITIDINE IVPB ONE (08:00)
[2017-12-30] MEDS ORDERED: [UNRECOGNIZED DRUG - OTHER] IVPB ONE (08:00)
[2017-12-30] MEDS ORDERED: DEXAMETHASONE IVPB ONE (08:00)
[2017-12-30] MEDS ORDERED: ACETAMINOPHEN 325 MG TABLET (FP) PO ONE (08:00)
[2017-12-30] MEDS ORDERED: DIPHENHYDRAMINE IVPB ONE (08:00)
[2017-12-30] MEDS ORDERED: ELOTUZUMAB IV ONE (08:30)
[2017-12-30] MEDS ORDERED: SODIUM CHLORIDE IV ONE (08:30)
[2017-12-30 10:11] LABS: BASO % 3.6 % (0-2.0); EOS % 0.1 % (0-4.5); HEMATOCRIT 44.2 % (35.4-49); HEMOGLOBIN 15.3 GM/dL (11.7-16.9); LYMPH % 12.2 % (8-40); MCH 30.5 pg (25.7-33.7); MCHC 34.6 g/dl (32.0-35.9); MEAN CELL VOLUME 88.4 fl (80-96); MEAN PLT VOLUME 7.5 fl (7.5-11.1); MONO % 1.1 % (3.8-10.2); PLATELET COUNT 154 K/MM3 (134-434); WHITE BLOOD COUNT 3.7 K/mm3 (4.0-10.0)
[2017-12-30 10:33] LABS: ALBUMIN 4.2 g/dl (3.4-5.0); ANION GAP 11 (8-16); BLOOD UREA NITROGEN 11 mg/dL (7-18); CALCIUM 8.5 mg/dL (8.5-10.1); CHLORIDE 105 mmol/L (98-107); CO2 24 mmol/L (21-32); CREATININE 1.1 mg/dL (0.7-1.3); GLUCOSE,RANDOM 193 mg/dL (74-106); POTASSIUM 3.9 mmol/L (3.5-5.1); SGOT/AST 22 U/L (15-37); SGPT/ALT 35 U/L (12-78); SODIUM 140 mmol/L (136-145)
[2017-12-30 10:36] LABS: ALK PHOS 108 U/L (45-117); BILIRUBIN,TOTAL 0.8 mg/dL (0.2-1.0); LDH 155 U/L (87-241)
[2017-12-30 10:44] LABS: ALBUMIN 4.4 g/dl (3.4-5.0); BILIRUBIN,DIRECT 0.2 mg/dL (0.0-0.2); BILIRUBIN,TOTAL 0.7 mg/dL (0.2-1.0); MAGNESIUM 2.1 mg/dL (1.8-2.4); TOT PROT 8.2 g/dl (6.4-8.2)
[2017-12-30] MEDS ORDERED: SODIUM CHLORIDE 1,000 ML IV SCH (11:15)
[2017-12-30] MEDS ORDERED: SODIUM CHLORIDE 1,000 ML IV ONE (11:15)
[2017-12-30] MEDS ORDERED: ACETAMINOPHEN 325 MG TABLET (FP) ONE (11:29)
[2017-12-30 17:34] VITALS: TEMP 98
[2017-12-30 17:47] VITALS: BP 152/91; PULSE 102
[2017-12-31 08:07] LABS: IGA IMMUNOGLOBULIN 54 mg/dL (90-386); IGG IMMUNOGLOBULIN 1397 mg/dL (700-1600); IGM IMMUNOGLOBULIN 16 mg/dL (20-172)
[2018-01-01 00:09] LABS: FREE KAPPA,SERUM 56.8 mg/L (3.3-19.4)
== END 2017-12-30 16:00 | disposition home or self-care (01) ==
LOC: JONCCHEMO 07:34 → J7W 10:52 → JONCCHEMO 16:00
PROVIDERS: ATTEND Internal Medicine Hematology & Oncology
DX: Z51.11 Encounter for antineoplastic chemotherapy (principal); C90.00 Multiple myeloma not having achieved remission; C79.51 Secondary malignant neoplasm of bone
CPT/HCPCS: 36415; 80053; 80076; 82784; 83036; 83615; 83735; 83883; 84155; 84156; 84165; 84439; 84443; 85025; 96361; 96367; 96375; 96413; 96415; J1100; J7030; J9176

== ENCOUNTER 2018-01-13 07:56 | Day surgery (SDC) | payer BC ==
[2018-01-13] MEDS ORDERED: DEXAMETHASONE IVPB ONE (08:00)
[2018-01-13] MEDS ORDERED: DIPHENHYDRAMINE IVPB ONE (08:00)
[2018-01-13] MEDS ORDERED: RANITIDINE IVPB ONE (08:00)
[2018-01-13] MEDS ORDERED: ACETAMINOPHEN 325 MG TABLET (FP) PO ONE (08:00)
[2018-01-13] MEDS ORDERED: [UNRECOGNIZED DRUG - OTHER] IVPB ONE (08:00)
[2018-01-13] MEDS ORDERED: ELOTUZUMAB IV ONE (08:30)
[2018-01-13] MEDS ORDERED: SODIUM CHLORIDE IV ONE (08:30)
[2018-01-13 10:18] LABS: BASO % 0.3 % (0-2.0); EOS % 0.2 % (0-4.5); HEMATOCRIT 45.2 % (35.4-49); HEMOGLOBIN 15.8 GM/dL (11.7-16.9); LYMPH % 9.7 % (8-40); MCH 31.1 pg (25.7-33.7); MEAN CELL VOLUME 88.9 fl (80-96); MEAN PLT VOLUME 7.4 fl (7.5-11.1); MONO % 0.6 % (3.8-10.2); NEUT % 89.2 % (42.8-82.8); PLATELET COUNT 162 K/MM3 (134-434); RBC 5.08 M/mm3 (4.00-5.60); RDW 15.8 % (11.9-15.9); WHITE BLOOD COUNT 4.3 K/mm3 (4.0-10.0)
[2018-01-13 10:43] LABS: ALBUMIN 4.4 g/dl (3.4-5.0); ANION GAP 9 (8-16); BLOOD UREA NITROGEN 16 mg/dL (7-18); CALCIUM 9.1 mg/dL (8.5-10.1); CHLORIDE 105 mmol/L (98-107); CO2 24 mmol/L (21-32); CREATININE 1.2 mg/dL (0.7-1.3); GLUCOSE,RANDOM 276 mg/dL (74-106); POTASSIUM 4.1 mmol/L (3.5-5.1); SGOT/AST 27 U/L (15-37); SGPT/ALT 37 U/L (12-78); SODIUM 138 mmol/L (136-145)
[2018-01-13 10:44] LABS: ALK PHOS 92 U/L (45-117); BILIRUBIN,TOTAL 0.8 mg/dL (0.2-1.0); TOT PROT 8.2 g/dl (6.4-8.2)
[2018-01-13] MEDS ORDERED: SODIUM CHLORIDE 500 ML IV STA (11:11)
[2018-01-13 11:27] LABS: BILIRUBIN,DIRECT 0.2 mg/dL (0.0-0.2); MAGNESIUM 1.9 mg/dL (1.8-2.4)
[2018-01-13 17:06] VITALS: TEMP 98.3
[2018-01-13 17:25] VITALS: BP 140/76; PULSE 88
== END 2018-01-13 15:30 | disposition home or self-care (01) ==
LOC: JONCCHEMO 07:56 → J7W 11:04 → JONCCHEMO 15:30
PROVIDERS: ATTEND Internal Medicine Hematology & Oncology
DX: Z51.11 Encounter for antineoplastic chemotherapy (principal); C90.00 Multiple myeloma not having achieved remission; C79.51 Secondary malignant neoplasm of bone
CPT/HCPCS: 36415; 80053; 80076; 83735; 85025; 96361; 96367; 96375; 96413; 96415; J1100; J9176

== ENCOUNTER 2018-01-27 07:35 | Day surgery (SDC) | payer BC ==
[2018-01-27] MEDS ORDERED: ZOLEDRONIC ACID 4 MG in SODIUM CHLORIDE 100 ML IVPB ONE (09:00)
[2018-01-27] MEDS ORDERED: DEXAMETHASONE IVPB ONE (10:00)
[2018-01-27] MEDS ORDERED: RANITIDINE IVPB ONE (10:00)
[2018-01-27] MEDS ORDERED: [UNRECOGNIZED DRUG - OTHER] IVPB ONE (10:00)
[2018-01-27] MEDS ORDERED: DIPHENHYDRAMINE IVPB ONE (10:00)
[2018-01-27] MEDS ORDERED: ACETAMINOPHEN 325 MG TABLET (FP) PO ONE (10:00)
[2018-01-27 10:36] LABS: BASO % 2.4 % (0-2.0); EOS % 0.1 % (0-4.5); HEMATOCRIT 42.8 % (35.4-49); HEMOGLOBIN 14.9 GM/dL (11.7-16.9); LYMPH % 11.6 % (8-40); MCH 30.9 pg (25.7-33.7); MCHC 34.9 g/dl (32.0-35.9); MEAN CELL VOLUME 88.7 fl (80-96); MEAN PLT VOLUME 7.3 fl (7.5-11.1); MONO % 0.7 % (3.8-10.2); NEUT % 85.2 % (42.8-82.8); PLATELET COUNT 150 K/MM3 (134-434); RBC 4.83 M/mm3 (4.00-5.60); RDW 15.5 % (11.9-15.9); WHITE BLOOD COUNT 3.7 K/mm3 (4.0-10.0)
[2018-01-27] MEDS ORDERED: ELOTUZUMAB IVPB ONE (11:00)
[2018-01-27] MEDS ORDERED: SODIUM CHLORIDE IVPB ONE (11:00)
[2018-01-27 11:19] LABS: ALBUMIN 4.3 g/dl (3.4-5.0); ANION GAP 9 (8-16); BLOOD UREA NITROGEN 14 mg/dL (7-18); CALCIUM 8.7 mg/dL (8.5-10.1); CHLORIDE 105 mmol/L (98-107); CO2 24 mmol/L (21-32); GLUCOSE,RANDOM 217 mg/dL (74-106); MAGNESIUM 1.8 mg/dL (1.8-2.4); POTASSIUM 3.8 mmol/L (3.5-5.1); SODIUM 138 mmol/L (136-145)
[2018-01-27 11:22] LABS: ALK PHOS 95 U/L (45-117); BILIRUBIN,DIRECT 0.2 mg/dL (0.0-0.2); BILIRUBIN,TOTAL 0.7 mg/dL (0.2-1.0); CREATININE 0.9 mg/dL (0.7-1.3); SGOT/AST 22 U/L (15-37); SGPT/ALT 35 U/L (12-78); TOT PROT 8.1 g/dl (6.4-8.2)
[2018-01-27] MEDS ORDERED: ACETAMINOPHEN 325 MG TABLET (FP) ONE (12:25)
[2018-01-27 17:19] VITALS: TEMP 98.2
[2018-01-27 17:20] VITALS: BP 145/89; PULSE 84
== END 2018-01-27 15:10 | disposition home or self-care (01) ==
LOC: JONCCHEMO 07:35 → J7W 12:17 → JONCCHEMO 15:10
PROVIDERS: ATTEND Internal Medicine Hematology & Oncology
PROC: 3E033GC Introduction of Other Therapeutic Substance into Peripheral Vein, Percutaneous Approach (ICD-10-PCS; principal; 2018-01-27)
PROC: 3E03305 Introduction of Other Antineoplastic into Peripheral Vein, Percutaneous Approach (ICD-10-PCS; 2018-01-27)
DX: Z51.11 Encounter for antineoplastic chemotherapy (principal); C90.00 Multiple myeloma not having achieved remission; C79.51 Secondary malignant neoplasm of bone
CPT/HCPCS: 36415; 80048; 80076; 83735; 85025; 96367; 96375; 96413; 96415; J1100; J9176

== ENCOUNTER 2018-02-03 07:35 | Day surgery (SDC) | payer BC ==
[2018-02-03] MEDS ORDERED: ZOLEDRONIC ACID 4 MG in SODIUM CHLORIDE 100 ML IVPB ONE (10:00)
[2018-02-03 11:17] LABS: BASO % 2.3 % (0-2.0); HEMATOCRIT 41.4 % (35.4-49); HEMOGLOBIN 14.5 GM/dL (11.7-16.9); LYMPH % 19.6 % (8-40); MCH 31.2 pg (25.7-33.7); MEAN CELL VOLUME 89.1 fl (80-96); MEAN PLT VOLUME 6.9 fl (7.5-11.1); MONO % 5.5 % (3.8-10.2); NEUT % 66.6 % (42.8-82.8); PLATELET COUNT 141 K/MM3 (134-434); RBC 4.64 M/mm3 (4.00-5.60); RDW 15.5 % (11.9-15.9); WHITE BLOOD COUNT 4.6 K/mm3 (4.0-10.0)
[2018-02-03 11:50] LABS: ALBUMIN 3.8 g/dl (3.4-5.0); ALK PHOS 75 U/L (45-117); ANION GAP 7 (8-16); BILIRUBIN,DIRECT 0.2 mg/dL (0.0-0.2); BILIRUBIN,TOTAL 0.7 mg/dL (0.2-1.0); BLOOD UREA NITROGEN 14 mg/dL (7-18); CALCIUM 8.5 mg/dL (8.5-10.1); CHLORIDE 105 mmol/L (98-107); CO2 28 mmol/L (21-32); CREATININE 0.9 mg/dL (0.7-1.3); GLUCOSE,RANDOM 171 mg/dL (74-106); MAGNESIUM 1.9 mg/dL (1.8-2.4); POTASSIUM 3.7 mmol/L (3.5-5.1); SGOT/AST 20 U/L (15-37); SGPT/ALT 34 U/L (12-78); SODIUM 140 mmol/L (136-145); TOT PROT 7.2 g/dl (6.4-8.2)
[2018-02-03] MEDS ORDERED: ACETAMINOPHEN 325 MG TABLET (FP) PO SCH (13:15)
[2018-02-03 15:16] VITALS: PULSE 73; TEMP 98
[2018-02-03 15:19] VITALS: BP 139/90
== END 2018-02-03 14:15 | disposition home or self-care (01) ==
LOC: JONCCHEMO 07:35
PROVIDERS: ATTEND Internal Medicine Hematology & Oncology
PROC: 3E033GC Introduction of Other Therapeutic Substance into Peripheral Vein, Percutaneous Approach (ICD-10-PCS; principal; 2018-02-03)
DX: C90.00 Multiple myeloma not having achieved remission (principal); C79.51 Secondary malignant neoplasm of bone
CPT/HCPCS: 36415; 80053; 80076; 83735; 85025; 96365; 96417; J3489

== ENCOUNTER 2018-02-17 07:40 | Day surgery (SDC) | payer BC ==
[~2018-02-17 07:40] MED LIST changes: +ACETAMINOPHEN 325 MG TABLET (FP) ONE; +ZOLEDRONIC ACID 4 MG in SODIUM CHLORIDE 100 ML IVPB ONE; +[UNRECOGNIZED DRUG - OTHER] IVPB ONE; -[UNRECOGNIZED DRUG - OTHER] IVPB ONE
[2018-02-17] MEDS ORDERED: RANITIDINE IVPB ONE (10:00)
[2018-02-17] MEDS ORDERED: DEXAMETHASONE IVPB ONE (10:00)
[2018-02-17] MEDS ORDERED: ACETAMINOPHEN 325 MG TABLET (FP) PO ONE (10:00)
[2018-02-17] MEDS ORDERED: [UNRECOGNIZED DRUG - OTHER] IVPB ONE (10:00)
[2018-02-17] MEDS ORDERED: DIPHENHYDRAMINE IVPB ONE (10:00)
[2018-02-17] MEDS ORDERED: ELOTUZUMAB IVPB ONE (10:30)
[2018-02-17] MEDS ORDERED: SODIUM CHLORIDE IVPB ONE (10:30)
[2018-02-17 11:41] LABS: EOS % 0.1 % (0-4.5); HEMOGLOBIN 15.3 GM/dL (11.7-16.9); MCH 30.6 pg (25.7-33.7); MCHC 33.9 g/dl (32.0-35.9); MEAN CELL VOLUME 90.4 fl (80-96); MEAN PLT VOLUME 7.6 fl (7.5-11.1); MONO % 1.1 % (3.8-10.2); NEUT % 84.8 % (42.8-82.8); PLATELET COUNT 171 K/MM3 (134-434); RBC 4.98 M/mm3 (4.00-5.60); RDW 15.5 % (11.9-15.9); WHITE BLOOD COUNT 3.8 K/mm3 (4.0-10.0)
[2018-02-17 11:59] LABS: ALBUMIN 4.2 g/dl (3.4-5.0); ALK PHOS 90 U/L (45-117); ANION GAP 12 (8-16); BILIRUBIN,DIRECT 0.2 mg/dL (0.0-0.2); BILIRUBIN,TOTAL 0.7 mg/dL (0.2-1.0); BLOOD UREA NITROGEN 14 mg/dL (7-18); CALCIUM 8.7 mg/dL (8.5-10.1); CHLORIDE 103 mmol/L (98-107); CO2 24 mmol/L (21-32); CREATININE 1.1 mg/dL (0.7-1.3); GLUCOSE,RANDOM 228 mg/dL (74-106); POTASSIUM 4.3 mmol/L (3.5-5.1); SGOT/AST 25 U/L (15-37); SGPT/ALT 39 U/L (12-78); SODIUM 139 mmol/L (136-145); TOT PROT 8.3 g/dl (6.4-8.2)
[2018-02-17 16:36] VITALS: TEMP 97.5
[2018-02-17 16:50] VITALS: BP 143/79; PULSE 93
== END 2018-02-17 15:50 | disposition home or self-care (01) ==
LOC: JONCCHEMO 07:40 → J7W 12:54 → JONCCHEMO 15:50
PROVIDERS: ATTEND Internal Medicine Hematology & Oncology
DX: Z51.11 Encounter for antineoplastic chemotherapy (principal); C90.00 Multiple myeloma not having achieved remission; C79.51 Secondary malignant neoplasm of bone
CPT/HCPCS: 36415; 80053; 80076; 83735; 85025; 96367; 96375; 96413; 96415; J1100; J9176

== ENCOUNTER 2018-03-10 07:32 | Day surgery (SDC) | payer BC ==
[2018-03-10] MEDS ORDERED: ACETAMINOPHEN 325 MG TABLET (FP) PO ONE (08:00)
[2018-03-10] MEDS ORDERED: DIPHENHYDRAMINE IVPB ONE (08:00)
[2018-03-10] MEDS ORDERED: RANITIDINE IVPB ONE (08:00)
[2018-03-10] MEDS ORDERED: [UNRECOGNIZED DRUG - OTHER] IVPB ONE (08:00)
[2018-03-10] MEDS ORDERED: DEXAMETHASONE IVPB ONE ×2 (08:00→12:15)
[2018-03-10] MEDS ORDERED: ELOTUZUMAB IV ONE (08:30)
[2018-03-10] MEDS ORDERED: SODIUM CHLORIDE IV ONE (08:30)
[2018-03-10 10:22] LABS: BASO % 3.6 % (0-2.0); EOS % 9.6 % (0-4.5); HEMATOCRIT 39.6 % (35.4-49); HEMOGLOBIN 14.1 GM/dL (11.7-16.9); LYMPH % 22.5 % (8-40); MCH 31.8 pg (25.7-33.7); MCHC 35.7 g/dl (32.0-35.9); MEAN CELL VOLUME 89.1 fl (80-96); MEAN PLT VOLUME 7.3 fl (7.5-11.1); MONO % 8.1 % (3.8-10.2); NEUT % 56.2 % (42.8-82.8); PLATELET COUNT 142 K/MM3 (134-434); RBC 4.44 M/mm3 (4.00-5.60); RDW 15.9 % (11.9-15.9); WHITE BLOOD COUNT 3.7 K/mm3 (4.0-10.0)
[2018-03-10 10:48] LABS: ALBUMIN 4.3 g/dl (3.4-5.0); ANION GAP 9 (8-16); BLOOD UREA NITROGEN 12 mg/dL (7-18); CALCIUM 8.3 mg/dL (8.5-10.1); CHLORIDE 107 mmol/L (98-107); CO2 27 mmol/L (21-32); GLUCOSE,RANDOM 138 mg/dL (74-106); POTASSIUM 3.8 mmol/L (3.5-5.1); SODIUM 143 mmol/L (136-145)
[2018-03-10 10:59] LABS: ALBUMIN 4.3 g/dl (3.4-5.0); BILIRUBIN,DIRECT 0.2 mg/dL (0.0-0.2); BILIRUBIN,TOTAL 0.7 mg/dL (0.2-1.0); MAGNESIUM 1.8 mg/dL (1.8-2.4); TOT PROT 7.2 g/dl (6.4-8.2)
[2018-03-10 11:00] LABS: ALK PHOS 67 U/L (45-117); BILIRUBIN,TOTAL 0.8 mg/dL (0.2-1.0); CREATININE 0.8 mg/dL (0.7-1.3); SGOT/AST 31 U/L (15-37); SGPT/ALT 43 U/L (12-78); TOT PROT 7.2 g/dl (6.4-8.2)
[2018-03-10] MEDS ORDERED: DEXAMETHASONE SOD PHOSPHATE 20 MG/5 ML VIAL IVPB ONE (11:31)
[2018-03-10] MEDS ORDERED: DEXAMETHASONE SOD PHOSPHATE 10 MG/1 ML VIAL ONE (11:52)
[2018-03-10] MEDS ORDERED: SODIUM CHLORIDE IVPUSH ONE (12:15)
[2018-03-10] MEDS ORDERED: SODIUM CHLORIDE IVPB ONE (12:15)
[2018-03-10] MEDS ORDERED: DEXAMETHASONE IVPUSH ONE (12:15)
[2018-03-10 17:07] VITALS: TEMP 98.8
[2018-03-10] MEDS ORDERED: ACETAMINOPHEN 325 MG TABLET (FP) ONE (17:08)
[2018-03-10 17:09] VITALS: BP 158/84; PULSE 67
[2018-03-11 06:07] LABS: SERUM IRON SATURATION 26 % (15-55); TOTAL IRON BINDING CAPACITY 346 ug/dL (250-450); UIBC 257 ug/dL (111-343)
[2018-03-12 00:11] LABS: FREE KAPPA,SERUM 78.8 mg/L (3.3-19.4)
== END 2018-03-10 15:15 | disposition home or self-care (01) ==
LOC: JONCCHEMO 07:32 → J7W 11:29 → JONCCHEMO 15:15
PROVIDERS: ATTEND Internal Medicine Hematology & Oncology
DX: Z51.11 Encounter for antineoplastic chemotherapy (principal); C90.00 Multiple myeloma not having achieved remission; C79.51 Secondary malignant neoplasm of bone
CPT/HCPCS: 36415; 80053; 80076; 83540; 83550; 83735; 83883; 84155; 84165; 84439; 84443; 85025; 96367; 96375; 96413; 96415; J1100; J9176

== ENCOUNTER 2018-04-21 07:34 | Day surgery (SDC) | payer BC ==
[2018-04-21] MEDS ORDERED: DIPHENHYDRAMINE IVPB ONE (08:00)
[2018-04-21] MEDS ORDERED: DEXAMETHASONE IVPB ONE (08:00)
[2018-04-21] MEDS ORDERED: ACETAMINOPHEN 325 MG TABLET (FP) PO ONE (08:00)
[2018-04-21] MEDS ORDERED: [UNRECOGNIZED DRUG - OTHER] IVPB ONE (08:00)
[2018-04-21] MEDS ORDERED: RANITIDINE IVPB ONE (08:00)
[2018-04-21] MEDS ORDERED: SODIUM CHLORIDE IVPB ONE (08:30)
[2018-04-21] MEDS ORDERED: ELOTUZUMAB IVPB ONE (08:30)
[2018-04-21 11:54] LABS: BASO % 2.6 % (0-2.0); HEMATOCRIT 44.4 % (35.4-49); HEMOGLOBIN 15.3 GM/dL (11.7-16.9); LYMPH % 7.9 % (8-40); MCH 31.2 pg (25.7-33.7); MCHC 34.5 g/dl (32.0-35.9); MEAN CELL VOLUME 90.3 fl (80-96); MEAN PLT VOLUME 7.3 fl (7.5-11.1); MONO % 0.7 % (3.8-10.2); NEUT % 88.8 % (42.8-82.8); PLATELET COUNT 144 K/MM3 (134-434); RBC 4.91 M/mm3 (4.00-5.60); RDW 15.1 % (11.9-15.9); WHITE BLOOD COUNT 3.5 K/mm3 (4.0-10.0)
[2018-04-21 12:17] LABS: ALBUMIN 4.3 g/dl (3.4-5.0); ALK PHOS 79 U/L (45-117); ANION GAP 11 MMOL/L (8-16); BILIRUBIN,TOTAL 0.8 mg/dL (0.2-1.0); BLOOD UREA NITROGEN 13 mg/dL (7-18); CALCIUM 8.3 mg/dL (8.5-10.1); CHLORIDE 107 mmol/L (98-107); CO2 26 mmol/L (21-32); GLUCOSE,RANDOM 218 mg/dL (74-106); SGOT/AST 28 U/L (15-37); SGPT/ALT 39 U/L (12-78); SODIUM 144 mmol/L (136-145)
[2018-04-21 12:18] LABS: ALBUMIN 4.3 g/dl (3.4-5.0); BILIRUBIN,DIRECT 0.2 mg/dL (0.0-0.2); BILIRUBIN,TOTAL 0.8 mg/dL (0.2-1.0); MAGNESIUM 1.8 mg/dL (1.8-2.4); TOT PROT 8.1 g/dl (6.4-8.2)
[2018-04-21] MEDS ORDERED: INSULIN (NOVOLOG) ASPART 100 UNITS/ML 10ML VIAL SQ ONE (13:30)
[2018-04-21 16:06] VITALS: TEMP 99
[2018-04-21 16:10] VITALS: BP 142/94; PULSE 91
== END 2018-04-21 15:50 | disposition home or self-care (01) ==
LOC: JONCCHEMO 07:34 → J7W 12:46 → JONCCHEMO 15:50
PROVIDERS: ATTEND Internal Medicine Hematology & Oncology
PROC: 3E03305 Introduction of Other Antineoplastic into Peripheral Vein, Percutaneous Approach (ICD-10-PCS; principal; 2018-04-21)
PROC: 3E033GC Introduction of Other Therapeutic Substance into Peripheral Vein, Percutaneous Approach (ICD-10-PCS; 2018-04-21)
DX: Z51.11 Encounter for antineoplastic chemotherapy (principal); C90.00 Multiple myeloma not having achieved remission; I10 Essential (primary) hypertension
CPT/HCPCS: 36415; 80053; 80076; 83735; 85025; 96367; 96375; 96413; 96415; J1100; J9176

== ENCOUNTER 2018-05-05 07:36 | Day surgery (SDC) | payer BC ==
[2018-05-05] MEDS ORDERED: [UNRECOGNIZED DRUG - OTHER] IVPB ONE (08:00)
[2018-05-05] MEDS ORDERED: RANITIDINE IVPB ONE (08:00)
[2018-05-05] MEDS ORDERED: DEXAMETHASONE IVPB ONE (08:00)
[2018-05-05] MEDS ORDERED: DIPHENHYDRAMINE IVPB ONE (08:00)
[2018-05-05] MEDS ORDERED: ACETAMINOPHEN 325 MG TABLET (FP) PO ONE (08:00)
[2018-05-05] MEDS ORDERED: SODIUM CHLORIDE IVPB ONE (08:30)
[2018-05-05] MEDS ORDERED: ELOTUZUMAB IVPB ONE (08:30)
--- NOTE | 2018-05-05 15:27 | PN ---
Progress Note (short form) - Note Progress Note: Patient seen and examined Multiple myeloma s/p multiple treatments - currently on antibody therapy. Last labs- no "M" component . Left upper anterior chest pains VS stable BP-138/84 Afebrile RR-18 HEENT: [place], EOM Intact Oropharynx: No thrush, No mucositis Neck: Supple Nodes: Without adenopathy Cor: RSR, No murmurs, No gallops Lungs: Clear to P&A Abd: Soft, Normal bowel sounds, No organomegaly Ext:No significant edema Skin: No rashes, Integument intact Impression: Myeloma Antibody therapy with pre-meds.
[2018-05-05 17:16] VITALS: TEMP 99.3
[2018-05-05 18:31] VITALS: BP 159/90; PULSE 92
== END 2018-05-05 18:32 | disposition home or self-care (01) ==
LOC: JONCCHEMO 07:36 → J7W 14:45 → JONCCHEMO 18:32
PROVIDERS: ATTEND Internal Medicine Hematology & Oncology
DX: Z51.11 Encounter for antineoplastic chemotherapy (principal); C90.00 Multiple myeloma not having achieved remission
CPT/HCPCS: 96375; 96413; 96415; J1100; J9176

== ENCOUNTER 2018-05-26 07:46 | Day surgery (SDC) | payer BC ==
[~2018-05-26 07:46] MED LIST changes: -ACETAMINOPHEN 325 MG TABLET (FP) ONE; -ZOLEDRONIC ACID 4 MG in SODIUM CHLORIDE 100 ML IVPB ONE
[2018-05-26] MEDS ORDERED: ACETAMINOPHEN 325 MG TABLET (FP) PO ONE (10:00)
[2018-05-26] MEDS ORDERED: DIPHENHYDRAMINE IVPB ONE (10:00)
[2018-05-26] MEDS ORDERED: [UNRECOGNIZED DRUG - OTHER] IVPB ONE (10:00)
[2018-05-26] MEDS ORDERED: DEXAMETHASONE IVPB ONE (10:00)
[2018-05-26] MEDS ORDERED: RANITIDINE IVPB ONE (10:00)
[2018-05-26] MEDS ORDERED: SODIUM CHLORIDE IVPB ONE (10:30)
[2018-05-26] MEDS ORDERED: ELOTUZUMAB IVPB ONE (10:30)
[2018-05-26 11:59] LABS: BASO % 1.2 % (0-2.0); EOS % 0.1 % (0-4.5); HEMATOCRIT 44.7 % (35.4-49); HEMOGLOBIN 15.4 GM/dL (11.7-16.9); LYMPH % 9.2 % (8-40); MCH 30.7 pg (25.7-33.7); MCHC 34.4 g/dl (32.0-35.9); MEAN CELL VOLUME 89.3 fl (80-96); MEAN PLT VOLUME 7.4 fl (7.5-11.1); MONO % 1.2 % (3.8-10.2); NEUT % 88.3 % (42.8-82.8); PLATELET COUNT 165 K/MM3 (134-434); RBC 5.01 M/mm3 (4.00-5.60); RDW 15.2 % (11.9-15.9); WHITE BLOOD COUNT 5.1 K/mm3 (4.0-10.0)
[2018-05-26 12:25] LABS: ALBUMIN 4.3 g/dl (3.4-5.0); ALK PHOS 91 U/L (45-117); ANION GAP 8 MMOL/L (8-16); BILIRUBIN,DIRECT 0.2 mg/dL (0.0-0.2); BILIRUBIN,TOTAL 0.8 mg/dL (0.2-1); BLOOD UREA NITROGEN 16 mg/dL (7-18); CALCIUM 9.1 mg/dL (8.5-10.1); CHLORIDE 105 mmol/L (98-107); CO2 26 mmol/L (21-32); CREATININE 1.1 mg/dL (0.55-1.3); GLUCOSE,RANDOM 241 mg/dL (74-106); MAGNESIUM 1.9 mg/dL (1.8-2.4); POTASSIUM 4.2 mmol/L (3.5-5.1); SGOT/AST 29 U/L (15-37); SGPT/ALT 40 U/L (13-61); SODIUM 139 mmol/L (136-145); TOT PROT 8.6 g/dl (6.4-8.2)
[2018-05-26] MEDS ORDERED: amLODIPine BESYLATE 5 MG TABLET (FP) PO ONE (13:00)
[2018-05-26 18:28] VITALS: TEMP 97.9
[2018-05-26 18:29] VITALS: BP 144/80; PULSE 76
[2018-05-27 06:06] LABS: IGA IMMUNOGLOBULIN 62 mg/dL (90-386); IGG IMMUNOGLOBULIN 1556 mg/dL (700-1600); IGM IMMUNOGLOBULIN 14 mg/dL (20-172)
[2018-05-28 00:12] LABS: FREE KAPPA,SERUM 81.3 mg/L (3.3-19.4)
[2018-05-28 06:06] LABS: KAPPA/LAMBDA RATIO, UR 93.84 (2.04-10.37)
== END 2018-05-26 15:20 | disposition home or self-care (01) ==
LOC: JONCCHEMO 07:46 → J7W 12:30 → JONCCHEMO 15:20
PROVIDERS: ATTEND Internal Medicine Hematology & Oncology
DX: Z51.11 Encounter for antineoplastic chemotherapy (principal); C90.00 Multiple myeloma not having achieved remission
CPT/HCPCS: 36415; 80053; 80076; 82232; 82784; 83735; 83883; 84155; 84165; 85025; 85651; 86140; 86334; 86335; 96367; 96375; 96413; 96415; J1100; J9176

== ENCOUNTER 2018-06-09 07:20 | Day surgery (SDC) | payer BC ==
[2018-06-09] MEDS ORDERED: [UNRECOGNIZED DRUG - OTHER] IVPB ONE (10:00)
[2018-06-09] MEDS ORDERED: RANITIDINE IVPB ONE (10:00)
[2018-06-09] MEDS ORDERED: DIPHENHYDRAMINE IVPB ONE (10:00)
[2018-06-09] MEDS ORDERED: DEXAMETHASONE IVPB ONE (10:00)
[2018-06-09] MEDS ORDERED: ACETAMINOPHEN 325 MG TABLET (FP) PO ONE (10:00)
[2018-06-09] MEDS ORDERED: SODIUM CHLORIDE IVPB ONE (10:30)
[2018-06-09] MEDS ORDERED: ELOTUZUMAB IVPB ONE (10:30)
[2018-06-09 12:03] LABS: BASO % 4.6 % (0-2.0); EOS % 0.1 % (0-4.5); HEMATOCRIT 45.4 % (35.4-49); HEMOGLOBIN 15.8 GM/dL (11.7-16.9); LYMPH % 6.6 % (8-40); MCH 30.9 pg (25.7-33.7); MCHC 34.7 g/dl (32.0-35.9); MEAN PLT VOLUME 7.3 fl (7.5-11.1); MONO % 0.8 % (3.8-10.2); NEUT % 87.9 % (42.8-82.8); PLATELET COUNT 154 K/MM3 (134-434); RDW 15.3 % (11.9-15.9); WHITE BLOOD COUNT 6.5 K/mm3 (4.0-10.0)
[2018-06-09 12:32] LABS: ALBUMIN 4.3 g/dl (3.4-5.0); ALK PHOS 80 U/L (45-117); ANION GAP 8 MMOL/L (8-16); BILIRUBIN,TOTAL 0.8 mg/dL (0.2-1); BLOOD UREA NITROGEN 17 mg/dL (7-18); CALCIUM 9.2 mg/dL (8.5-10.1); CHLORIDE 104 mmol/L (98-107); CO2 26 mmol/L (21-32); CREATININE 1.1 mg/dL (0.55-1.3); GLUCOSE,RANDOM 185 mg/dL (74-106); POTASSIUM 4.1 mmol/L (3.5-5.1); SGOT/AST 30 U/L (15-37); SGPT/ALT 43 U/L (13-61); SODIUM 138 mmol/L (136-145); TOT PROT 8.3 g/dl (6.4-8.2)
[2018-06-09 14:14] LABS: BILIRUBIN,DIRECT 0.2 mg/dL (0.0-0.3); MAGNESIUM 2.1 mg/dL (1.8-2.4)
[2018-06-09 14:57] VITALS: TEMP 97.7
[2018-06-09 16:37] VITALS: BP 135/86; PULSE 94
== END 2018-06-09 16:35 | disposition home or self-care (01) ==
LOC: JONCCHEMO 07:20 → J7W 13:12 → JONCCHEMO 16:35
PROVIDERS: ATTEND Internal Medicine Hematology & Oncology
DX: Z51.11 Encounter for antineoplastic chemotherapy (principal); C90.00 Multiple myeloma not having achieved remission
CPT/HCPCS: 36415; 80053; 80076; 83735; 85025; 96367; 96375; 96413; 96415; J1100; J9176

== ENCOUNTER 2018-06-23 07:24 | Day surgery (SDC) | payer BC ==
[2018-06-23] MEDS ORDERED: DEXAMETHASONE IVPB ONE (08:00)
[2018-06-23] MEDS ORDERED: ACETAMINOPHEN 325 MG TABLET (FP) PO ONE (08:00)
[2018-06-23] MEDS ORDERED: RANITIDINE IVPB ONE (08:00)
[2018-06-23] MEDS ORDERED: DIPHENHYDRAMINE IVPB ONE (08:00)
[2018-06-23] MEDS ORDERED: [UNRECOGNIZED DRUG - OTHER] IVPB ONE (08:00)
[2018-06-23] MEDS ORDERED: SODIUM CHLORIDE IV ONE ×2 (08:30→14:30)
[2018-06-23] MEDS ORDERED: ELOTUZUMAB IV ONE ×2 (08:30→14:30)
[2018-06-23 12:13] LABS: BASO % 0.5 % (0-2.0); EOS % 0.1 % (0-4.5); HEMATOCRIT 44.6 % (35.4-49); HEMOGLOBIN 15.9 GM/dL (11.7-16.9); LYMPH % 7.9 % (8-40); MCH 31.8 pg (25.7-33.7); MCHC 35.7 g/dl (32.0-35.9); MEAN PLT VOLUME 7.5 fl (7.5-11.1); MONO % 1.3 % (3.8-10.2); NEUT % 90.2 % (42.8-82.8); PLATELET COUNT 165 K/MM3 (134-434); RBC 5.01 M/mm3 (4.00-5.60); RDW 15.2 % (11.9-15.9); WHITE BLOOD COUNT 5.9 K/mm3 (4.0-10.0)
[2018-06-23 12:43] LABS: ALBUMIN 4.4 g/dl (3.4-5.0); ALK PHOS 91 U/L (45-117); ANION GAP 9 MMOL/L (8-16); BILIRUBIN,TOTAL 0.9 mg/dL (0.2-1); BLOOD UREA NITROGEN 17 mg/dL (7-18); CALCIUM 8.7 mg/dL (8.5-10.1); CHLORIDE 103 mmol/L (98-107); CO2 25 mmol/L (21-32); CREATININE 1.2 mg/dL (0.55-1.3); GLUCOSE,RANDOM 288 mg/dL (74-106); POTASSIUM 4.1 mmol/L (3.5-5.1); SGOT/AST 27 U/L (15-37); SGPT/ALT 44 U/L (13-61); SODIUM 137 mmol/L (136-145); TOT PROT 8.5 g/dl (6.4-8.2)
[2018-06-23 13:09] LABS: BILIRUBIN,DIRECT 0.2 mg/dL (0.0-0.2); MAGNESIUM 1.8 mg/dL (1.8-2.4)
[2018-06-23 14:34] LABS: URIC ACID 5.4 mg/dL (2.6-7.2)
[2018-06-23 16:14] VITALS: TEMP 97.7
[2018-06-23] MEDS ORDERED: INSULIN (NOVOLOG) ASPART 100 UNITS/ML 10ML VIAL SQ ONE (16:15)
[2018-06-23 17:04] VITALS: BP 144/84; PULSE 93
[2018-06-24 16:30] LABS: BETA-2-MICROGLOBULIN 1.6 mg/L (0.6-2.4)
[2018-06-25 00:12] LABS: FREE KAPPA,SERUM 85.3 mg/L (3.3-19.4)
[2018-06-25 06:08] LABS: KAPPA LAMBDA RATIO URIN 113.79 (2.04-10.37)
== END 2018-06-23 17:08 | disposition home or self-care (01) ==
LOC: JONCCHEMO 07:24 → J7W 13:51 → JONCCHEMO 17:08
PROVIDERS: ATTEND Internal Medicine Hematology & Oncology
DX: Z51.11 Encounter for antineoplastic chemotherapy (principal); C90.00 Multiple myeloma not having achieved remission
CPT/HCPCS: 36415; 80053; 80076; 82232; 82784; 83615; 83735; 83883; 84155; 84165; 84550; 85025; 85651; 86140; 86335; 96367; 96375; 96413; 96415; J1100; J9176

== ENCOUNTER 2018-09-01 06:31 | Day surgery (SDC) | payer BC ==
[2018-09-01] MEDS ORDERED: SODIUM CHLORIDE 250 ML IV ONE (08:00)
[2018-09-01] MEDS ORDERED: DEXAMETHASONE SODIUM PHOSPHATE 40 MG, DIPHENHYDRAMINE 50 MG in SODIUM CHLORIDE 100 ML IVPB ONE (08:30)
[2018-09-01] MEDS ORDERED: PALONOSETRON HCL 0.25 MG/5 ML VIAL IVPUSH ONE (08:30)
[2018-09-01] MEDS ORDERED: DARATUMUMAB IVPB ONE (09:00)
[2018-09-01] MEDS ORDERED: SODIUM CHLORIDE IVPB ONE (09:00)
[2018-09-01 10:52] LABS: BASO % 1.4 % (0-2.0); EOS % 4.2 % (0-4.5); HEMATOCRIT 41.1 % (35.4-49); HEMOGLOBIN 14.3 GM/dL (11.7-16.9); LYMPH % 27.1 % (8-40); MCH 30.6 pg (25.7-33.7); MCHC 34.8 g/dl (32.0-35.9); MEAN CELL VOLUME 88.1 fl (80-96); MEAN PLT VOLUME 7.1 fl (7.5-11.1); MONO % 5.9 % (3.8-10.2); NEUT % 61.4 % (42.8-82.8); PLATELET COUNT 157 K/MM3 (134-434); RBC 4.67 M/mm3 (4.00-5.60); RDW 16.6 % (11.9-15.9); WHITE BLOOD COUNT 5.5 K/mm3 (4.0-10.0)
[2018-09-01 12:07] LABS: ALK PHOS 99 U/L (45-117); ANION GAP 7 MMOL/L (8-16); BILIRUBIN,DIRECT 0.2 mg/dL (0.0-0.2); BILIRUBIN,TOTAL 0.6 mg/dL (0.2-1); BLOOD UREA NITROGEN 18 mg/dL (7-18); CALCIUM 9.5 mg/dL (8.5-10.1); CHLORIDE 105 mmol/L (98-107); CO2 26 mmol/L (21-32); CREATININE 0.9 mg/dL (0.55-1.3); GLUCOSE,RANDOM 159 mg/dL (74-106); LDH 187 U/L (87-246); MAGNESIUM 1.8 mg/dL (1.8-2.4); POTASSIUM 3.7 mmol/L (3.5-5.1); SGOT/AST 37 U/L (15-37); SGPT/ALT 45 U/L (13-61); SODIUM 138 mmol/L (136-145); TOT PROT 8.2 g/dl (6.4-8.2); URIC ACID 6.6 mg/dL (2.6-7.2)
[2018-09-01] MEDS ORDERED: DEXTROSE 5% IV ONE (13:00)
[2018-09-01] MEDS ORDERED: CARFILZOMIB IV ONE (13:00)
[2018-09-01] MEDS ORDERED: WATER IV ONE (13:00)
[2018-09-01] MEDS ORDERED: SODIUM CHLORIDE 500 ML IV ONE (14:00)
[2018-09-01] MEDS ORDERED: amLODIPine BESYLATE 5 MG TABLET (FP) PO ONE (14:30)
[2018-09-01] MEDS ORDERED: DEXAMETHASONE SOD PHOSPHATE 10 MG/1 ML VIAL IVPB ONE (14:30)
[2018-09-01 17:35] VITALS: BP 144/94; PULSE 91; TEMP 97.9
[2018-09-02 19:17] LABS: FREE KAPPA,SERUM 182.1 mg/L (3.3-19.4)
[2018-09-03 20:14] LABS: TOTAL PROTEIN, URINE 101.8 mg/dL (Not Estab.)
[2018-09-09 15:21] LABS: KAPPA LAMBDA RATIO URIN 185.9 (2.04-10.37)
== END 2018-09-01 15:30 | disposition home or self-care (01) ==
LOC: JONCCHEMO 06:31 → J7W 10:18 → JONCCHEMO 15:30
PROVIDERS: ATTEND Internal Medicine Hematology & Oncology
DX: Z51.11 Encounter for antineoplastic chemotherapy (principal); C90.00 Multiple myeloma not having achieved remission
CPT/HCPCS: 36415; 80048; 80076; 82784; 83615; 83735; 83883; 84155; 84156; 84157; 84165; 84550; 85025; 86850; 86900; 86901; 96361; 96367; 96375; 96413; 96415; 96417; J1100; J2469; J7030; J9047; J9145

== ENCOUNTER 2018-09-15 07:06 | Day surgery (SDC) | payer BC ==
[~2018-09-15 07:06] MED LIST changes: -ACETAMINOPHEN 325 MG TABLET (FP) PO ONE; +CARFILZOMIB IV ONE; +DARATUMUMAB IVPB ONE; -DEXAMETHASONE IVPB ONE; +DEXAMETHASONE SODIUM PHOSPHATE 40 MG, DIPHENHYDRAMINE 50 MG in SODIUM CHLORIDE 100 ML IVPB ONE; +DEXTROSE 5% IV ONE; -DIPHENHYDRAMINE IVPB ONE; -ELOTUZUMAB IVPB ONE; +PALONOSETRON HCL 0.25 MG/5 ML VIAL IVPUSH ONE; -RANITIDINE IVPB ONE; +SODIUM CHLORIDE 250 ML IV ONE; +SODIUM CHLORIDE 500 ML IV ONE; +WATER IV ONE; -[UNRECOGNIZED DRUG - OTHER] IVPB ONE
[2018-09-15 08:51] LABS: MEAN PLT VOLUME 7.1 fl (7.5-11.1)
[2018-09-15 08:55] LABS: BASO % 1.4 % (0-2.0); HEMATOCRIT 41.6 % (35.4-49); LYMPH % 19.1 % (8-40); MCH 31.9 pg (25.7-33.7); MEAN CELL VOLUME 88.6 fl (80-96); MONO % 5.8 % (3.8-10.2); NEUT % 70.7 % (42.8-82.8); PLATELET COUNT 135 K/MM3 (134-434); RDW 16.4 % (11.9-15.9); WHITE BLOOD COUNT 6.8 K/mm3 (4.0-10.0)
[2018-09-15 09:22] LABS: ALBUMIN 4.1 g/dl (3.4-5.0); ALK PHOS 98 U/L (45-117); ANION GAP 4 MMOL/L (8-16); BILIRUBIN,DIRECT 0.2 mg/dL (0.0-0.2); BILIRUBIN,TOTAL 0.7 mg/dL (0.2-1); BLOOD UREA NITROGEN 16 mg/dL (7-18); CALCIUM 8.8 mg/dL (8.5-10.1); CHLORIDE 104 mmol/L (98-107); CO2 29 mmol/L (21-32); CREATININE 0.9 mg/dL (0.55-1.3); GLUCOSE,RANDOM 164 mg/dL (74-106); LDH 234 U/L (87-246); POTASSIUM 4.4 mmol/L (3.5-5.1); SGOT/AST 70 U/L (15-37); SGPT/ALT 49 U/L (13-61); SODIUM 137 mmol/L (136-145); TOT PROT 7.8 g/dl (6.4-8.2); URIC ACID 7.5 mg/dL (2.6-7.2)
[2018-09-15] MEDS ORDERED: RANITIDINE HCL 50 MG/2 ML VIAL IVPB ONE (09:30)
[2018-09-15] MEDS ORDERED: SODIUM CHLORIDE 250 ML IV ONE (09:30)
[2018-09-15] MEDS ORDERED: DEXAMETHASONE SOD PHOSPHATE 10 MG/1 ML VIAL IVPB ONE (09:30)
[2018-09-15] MEDS ORDERED: EPINEPHrine/PF 1 MG/1 ML (1:1,000) AMPULE SQ ONE (09:30)
[2018-09-15] MEDS ORDERED: [UNRECOGNIZED DRUG - OTHER] IVPB ONE (10:00)
[2018-09-15] MEDS ORDERED: DIPHENHYDRAMINE IVPB ONE (10:00)
[2018-09-15] MEDS ORDERED: PALONOSETRON HCL 0.25 MG/5 ML VIAL IVPUSH ONE (10:00)
[2018-09-15] MEDS ORDERED: RANITIDINE IVPB ONE (10:00)
[2018-09-15] MEDS ORDERED: DEXAMETHASONE IVPB ONE (10:00)
[2018-09-15] MEDS ORDERED: DEXAMETHASONE SODIUM PHOSPHATE 40 MG, DIPHENHYDRAMINE 50 MG in SODIUM CHLORIDE 100 ML IVPB ONE (10:00)
[2018-09-15] MEDS ORDERED: DARATUMUMAB IVPB ONE (10:30)
[2018-09-15] MEDS ORDERED: SODIUM CHLORIDE IVPB ONE (10:30)
[2018-09-15] MEDS ORDERED: CARFILZOMIB IV ONE (12:00)
[2018-09-15] MEDS ORDERED: WATER IV ONE (12:00)
[2018-09-15] MEDS ORDERED: DEXTROSE 5% IV ONE (12:00)
[2018-09-15] MEDS ORDERED: SODIUM CHLORIDE 500 ML IV ONE (12:30)
[2018-09-16 00:28] VITALS: BP 147/82; PULSE 98; TEMP 98
== END 2018-09-16 01:30 | disposition home or self-care (01) ==
LOC: JONCCHEMO 07:06 → J7W 08:23 → JONCCHEMO 09-16 01:30
PROVIDERS: ATTEND Internal Medicine Hematology & Oncology
DX: Z51.11 Encounter for antineoplastic chemotherapy (principal); C90.00 Multiple myeloma not having achieved remission
CPT/HCPCS: 36415; 80048; 80076; 83615; 83735; 84550; 85025; 96367; 96375; 96413; 96415; 96417; J1100; J2469; J7030; J9047; J9145

== ENCOUNTER 2018-09-22 06:30 | Day surgery (SDC) | payer BC ==
[2018-09-22 09:20] LABS: BASO % 0.9 % (0-2.0); EOS % 3.3 % (0-4.5); HEMATOCRIT 41.2 % (35.4-49); HEMOGLOBIN 14.8 GM/dL (11.7-16.9); LYMPH % 23.8 % (8-40); MCHC 35.9 g/dl (32.0-35.9); MEAN PLT VOLUME 7.4 fl (7.5-11.1); MONO % 9.6 % (3.8-10.2); NEUT % 62.4 % (42.8-82.8); PLATELET COUNT 138 K/MM3 (134-434); RBC 4.63 M/mm3 (4.00-5.60); RDW 15.9 % (11.9-15.9); WHITE BLOOD COUNT 4.5 K/mm3 (4.0-10.0)
[2018-09-22] MEDS ORDERED: SODIUM CHLORIDE 250 ML IV ONE (09:30)
[2018-09-22 09:48] LABS: ALBUMIN 3.9 g/dl (3.4-5.0); ALK PHOS 95 U/L (45-117); ANION GAP 4 MMOL/L (8-16); BILIRUBIN,DIRECT 0.1 mg/dL (0.0-0.2); BILIRUBIN,TOTAL 0.5 mg/dL (0.2-1); BLOOD UREA NITROGEN 20 mg/dL (7-18); CALCIUM 8.1 mg/dL (8.5-10.1); CHLORIDE 109 mmol/L (98-107); CO2 29 mmol/L (21-32); GLUCOSE,RANDOM 134 mg/dL (74-106); MAGNESIUM 2.1 mg/dL (1.8-2.4); POTASSIUM 4.4 mmol/L (3.5-5.1); SGOT/AST 20 U/L (15-37); SGPT/ALT 29 U/L (13-61); SODIUM 141 mmol/L (136-145); TOT PROT 7.4 g/dl (6.4-8.2); URIC ACID 7.5 mg/dL (2.6-7.2)
[2018-09-22 09:59] LABS: LDH 191 U/L (87-246)
[2018-09-22] MEDS ORDERED: DEXAMETHASONE SODIUM PHOSPHATE 40 MG, DIPHENHYDRAMINE 50 MG in SODIUM CHLORIDE 100 ML IVPB ONE (10:00)
[2018-09-22] MEDS ORDERED: PALONOSETRON HCL 0.25 MG/5 ML VIAL IVPUSH ONE (10:00)
[2018-09-22] MEDS ORDERED: DEXAMETHASONE SOD PHOSPHATE 10 MG/1 ML VIAL ONE (10:15)
[2018-09-22] MEDS ORDERED: DARATUMUMAB IVPB ONE (10:30)
[2018-09-22] MEDS ORDERED: SODIUM CHLORIDE IVPB ONE (10:30)
[2018-09-22] MEDS ORDERED: DEXTROSE 5%-NORMAL SALINE 500 ML IV SCH (11:00)
[2018-09-22] MEDS ORDERED: DEXAMETHASONE SOD PHOSPHATE 10 MG/1 ML VIAL IVPB ONE (11:15)
[2018-09-22] MEDS ORDERED: EPINEPHrine 1:1,000 - 30 MG/30 ML VIAL SQ ONE (11:15)
[2018-09-22] MEDS ORDERED: DEXTROSE 5% IV ONE (14:00)
[2018-09-22] MEDS ORDERED: WATER IV ONE (14:00)
[2018-09-22] MEDS ORDERED: CARFILZOMIB IV ONE (14:00)
[2018-09-22] MEDS ORDERED: SODIUM CHLORIDE 500 ML IV ONE (14:30)
[2018-09-22 15:42] VITALS: TEMP 98.5
[2018-09-22 19:14] VITALS: BP 154/90; PULSE 89
== END 2018-09-22 19:22 | disposition home or self-care (01) ==
LOC: JONCCHEMO 06:30 → J7W 09:49 → JONCCHEMO 19:22
PROVIDERS: ATTEND Internal Medicine Hematology & Oncology
DX: Z51.11 Encounter for antineoplastic chemotherapy (principal); C90.00 Multiple myeloma not having achieved remission
CPT/HCPCS: 36415; 80048; 80076; 83615; 83735; 84550; 85025; 96367; 96375; 96413; 96415; 96417; J1100; J2469; J9047; J9145

== ENCOUNTER 2018-10-06 05:50 | Day surgery (SDC) | payer BC ==
[2018-10-06] MEDS ORDERED: SODIUM CHLORIDE 250 ML IV ONE (08:00)
[2018-10-06] MEDS ORDERED: DEXAMETHASONE SODIUM PHOSPHATE 40 MG, DIPHENHYDRAMINE 50 MG in SODIUM CHLORIDE 100 ML IVPB ONE (08:30)
[2018-10-06] MEDS ORDERED: PALONOSETRON HCL 0.25 MG/5 ML VIAL IVPUSH ONE (08:30)
[2018-10-06] MEDS ORDERED: SODIUM CHLORIDE IVPB ONE (09:00)
[2018-10-06] MEDS ORDERED: DARATUMUMAB IVPB ONE (09:00)
[2018-10-06 10:06] LABS: BASO % 0.9 % (0-2.0); EOS % 1.3 % (0-4.5); HEMATOCRIT 40.6 % (35.4-49); HEMOGLOBIN 14.7 GM/dL (11.7-16.9); MCH 32.3 pg (25.7-33.7); MCHC 36.2 g/dl (32.0-35.9); MEAN CELL VOLUME 89.4 fl (80-96); MEAN PLT VOLUME 7.1 fl (7.5-11.1); MONO % 8.9 % (3.8-10.2); NEUT % 71.9 % (42.8-82.8); PLATELET COUNT 131 K/MM3 (134-434); RBC 4.54 M/mm3 (4.00-5.60); RDW 16.5 % (11.9-15.9); WHITE BLOOD COUNT 4.6 K/mm3 (4.0-10.0)
[2018-10-06 10:32] LABS: ALK PHOS 236 U/L (45-117); ANION GAP 7 MMOL/L (8-16); BILIRUBIN,TOTAL 0.7 mg/dL (0.2-1); BLOOD UREA NITROGEN 14 mg/dL (7-18); CALCIUM 7.8 mg/dL (8.5-10.1); CHLORIDE 106 mmol/L (98-107); CO2 26 mmol/L (21-32); GLUCOSE,RANDOM 142 mg/dL (74-106); POTASSIUM 3.8 mmol/L (3.5-5.1); SGOT/AST 18 U/L (15-37); SGPT/ALT 27 U/L (13-61); SODIUM 138 mmol/L (136-145); TOT PROT 7.2 g/dl (6.4-8.2)
[2018-10-06 10:36] LABS: BILIRUBIN,DIRECT 0.1 mg/dL (0.0-0.2); BILIRUBIN,TOTAL 0.7 mg/dL (0.2-1); MAGNESIUM 1.4 mg/dL (1.8-2.4); TOT PROT 7.1 g/dl (6.4-8.2)
[2018-10-06] MEDS ORDERED: MAGNESIUM SULF 50% (8.12 MEQ/2 ML-1 GM VIAL) IVPB ONE (12:30)
[2018-10-06] MEDS ORDERED: CARFILZOMIB IV ONE (13:00)
[2018-10-06] MEDS ORDERED: DEXTROSE 5% IV ONE (13:00)
[2018-10-06] MEDS ORDERED: WATER IV ONE (13:00)
[2018-10-06] MEDS ORDERED: SODIUM CHLORIDE 500 ML IV ONE (13:30)
[2018-10-06] MEDS ORDERED: MAGNESIUM SULF 50% (8.12 MEQ/2 ML-1 GM VIAL) ONE (16:40)
[2018-10-06 17:35] VITALS: TEMP 98.5
[2018-10-06 18:03] VITALS: BP 120/76; PULSE 80
== END 2018-10-06 18:13 | disposition home or self-care (01) ==
LOC: JONCCHEMO 05:50 → J7W 10:37 → JONCCHEMO 18:13
PROVIDERS: ATTEND Internal Medicine Hematology & Oncology
DX: Z51.11 Encounter for antineoplastic chemotherapy (principal); C90.00 Multiple myeloma not having achieved remission
CPT/HCPCS: 36415; 80053; 80076; 83735; 85025; 96361; 96367; 96375; 96413; 96415; 96417; J2469; J9047; J9145

== ENCOUNTER 2018-10-20 07:21 | Day surgery (SDC) | payer BC ==
[2018-10-20] MEDS ORDERED: SODIUM CHLORIDE 250 ML IV ONE (08:00)
[2018-10-20] MEDS ORDERED: DEXAMETHASONE SODIUM PHOSPHATE 40 MG, DIPHENHYDRAMINE 50 MG in SODIUM CHLORIDE 100 ML IVPB ONE (08:30)
[2018-10-20] MEDS ORDERED: PALONOSETRON HCL 0.25 MG/5 ML VIAL IVPUSH ONE (08:30)
[2018-10-20] MEDS ORDERED: DARATUMUMAB IVPB ONE (09:00)
[2018-10-20] MEDS ORDERED: SODIUM CHLORIDE IVPB ONE (09:00)
[2018-10-20 09:27] LABS: BASO % 1.2 % (0-2.0); EOS % 2.2 % (0-4.5); HEMATOCRIT 39.9 % (35.4-49); HEMOGLOBIN 14.2 GM/dL (11.7-16.9); LYMPH % 20.1 % (8-40); MCH 31.5 pg (25.7-33.7); MCHC 35.7 g/dl (32.0-35.9); MEAN CELL VOLUME 88.2 fl (80-96); MEAN PLT VOLUME 6.9 fl (7.5-11.1); MONO % 6.8 % (3.8-10.2); NEUT % 69.7 % (42.8-82.8); PLATELET COUNT 184 K/MM3 (134-434); RBC 4.52 M/mm3 (4.00-5.60); WHITE BLOOD COUNT 6.2 K/mm3 (4.0-10.0)
[2018-10-20 10:05] LABS: ALBUMIN 4.2 g/dl (3.4-5.0); ALK PHOS 197 U/L (45-117); ANION GAP 7 MMOL/L (8-16); BILIRUBIN,TOTAL 0.7 mg/dL (0.2-1); BLOOD UREA NITROGEN 16 mg/dL (7-18); CALCIUM 8.8 mg/dL (8.5-10.1); CHLORIDE 104 mmol/L (98-107); CO2 28 mmol/L (21-32); GLUCOSE,RANDOM 124 mg/dL (74-106); POTASSIUM 4.2 mmol/L (3.5-5.1); SGOT/AST 24 U/L (15-37); SGPT/ALT 26 U/L (13-61); SODIUM 138 mmol/L (136-145); TOT PROT 7.2 g/dl (6.4-8.2)
[2018-10-20 10:06] LABS: ALBUMIN 4.2 g/dl (3.4-5.0); BILIRUBIN,DIRECT 0.2 mg/dL (0.0-0.2); BILIRUBIN,TOTAL 0.7 mg/dL (0.2-1); MAGNESIUM 2.1 mg/dL (1.8-2.4); TOT PROT 7.2 g/dl (6.4-8.2); URIC ACID 6.7 mg/dL (2.6-7.2)
[2018-10-20] MEDS ORDERED: amLODIPine BESYLATE 5 MG TABLET (FP) PO ONE (10:15)
[2018-10-20] MEDS ORDERED: DEXAMETHASONE SOD PHOSPHATE 10 MG/1 ML VIAL IVPUSH ONE (10:15)
[2018-10-20] MEDS: DEXTROSE 5%-NORMAL SALINE 1,000 ML with POTASSIUM CHLORIDE 10 MEQ IVPB ONE ×2 (10:36→18:06)
[2018-10-20] MEDS ORDERED: ONDANSETRON 4 MG/2 ML VIAL ONE (11:08)
[2018-10-20] MEDS ORDERED: WATER IV ONE (14:00)
[2018-10-20] MEDS ORDERED: DEXTROSE 5% IV ONE (14:00)
[2018-10-20] MEDS ORDERED: CARFILZOMIB IV ONE (14:00)
[2018-10-20 17:57] VITALS: BP 131/82; PULSE 77; TEMP 97.8
== END 2018-10-20 18:07 | disposition home or self-care (01) ==
LOC: JONCCHEMO 07:21 → J7W 09:50 → JONCCHEMO 18:07
PROVIDERS: ATTEND Internal Medicine Hematology & Oncology
DX: Z51.11 Encounter for antineoplastic chemotherapy (principal); C90.00 Multiple myeloma not having achieved remission
CPT/HCPCS: 36415; 80053; 80076; 83615; 83735; 84550; 85025; 96361; 96367; 96375; 96413; 96415; 96417; J1100; J2469; J9047; J9145

== ENCOUNTER 2018-10-27 07:14 | Day surgery (SDC) | payer BC ==
[2018-10-27] MEDS ORDERED: SODIUM CHLORIDE 250 ML IV ONE (08:00)
[2018-10-27] MEDS ORDERED: DEXAMETHASONE SODIUM PHOSPHATE 40 MG, DIPHENHYDRAMINE 50 MG in SODIUM CHLORIDE 100 ML IVPB ONE (08:30)
[2018-10-27] MEDS ORDERED: PALONOSETRON HCL 0.25 MG/5 ML VIAL IVPUSH ONE (08:30)
[2018-10-27] MEDS ORDERED: SODIUM CHLORIDE IVPB ONE (09:00)
[2018-10-27] MEDS ORDERED: DARATUMUMAB IVPB ONE (09:00)
[2018-10-27 09:55] LABS: BASO % 0.7 % (0-2.0); EOS % 2.4 % (0-4.5); HEMATOCRIT 39.5 % (35.4-49); HEMOGLOBIN 14.2 GM/dL (11.7-16.9); LYMPH % 17.7 % (8-40); MCH 32.4 pg (25.7-33.7); MEAN CELL VOLUME 90.1 fl (80-96); MEAN PLT VOLUME 7.2 fl (7.5-11.1); MONO % 6.7 % (3.8-10.2); NEUT % 72.5 % (42.8-82.8); PLATELET COUNT 122 K/MM3 (134-434); RBC 4.38 M/mm3 (4.00-5.60); RDW 16.5 % (11.9-15.9); WHITE BLOOD COUNT 5.5 K/mm3 (4.0-10.0)
[2018-10-27 10:27] LABS: ALBUMIN 3.9 g/dl (3.4-5.0); ALK PHOS 162 U/L (45-117); ANION GAP 6 MMOL/L (8-16); BILIRUBIN,TOTAL 0.6 mg/dL (0.2-1); BLOOD UREA NITROGEN 17 mg/dL (7-18); CALCIUM 8.5 mg/dL (8.5-10.1); CHLORIDE 108 mmol/L (98-107); CO2 26 mmol/L (21-32); GLUCOSE,RANDOM 193 mg/dL (74-106); POTASSIUM 4.2 mmol/L (3.5-5.1); SGOT/AST 14 U/L (15-37); SGPT/ALT 26 U/L (13-61); SODIUM 140 mmol/L (136-145); TOT PROT 6.7 g/dl (6.4-8.2)
[2018-10-27 10:44] LABS: BILIRUBIN,DIRECT 0.2 mg/dL (0.0-0.2); BILIRUBIN,TOTAL 0.6 mg/dL (0.2-1); MAGNESIUM 2.1 mg/dL (1.8-2.4); TOT PROT 6.8 g/dl (6.4-8.2)
[2018-10-27] MEDS ORDERED: CARFILZOMIB IV ONE (14:00)
[2018-10-27] MEDS ORDERED: SODIUM CHLORIDE IV ONE (14:00)
[2018-10-27] MEDS ORDERED: SODIUM CHLORIDE 500 ML IV ONE (15:00)
[2018-10-27 15:03] VITALS: TEMP 97.4
[2018-10-27 17:54] VITALS: BP 149/76; PULSE 82
== END 2018-10-27 18:02 | disposition home or self-care (01) ==
LOC: JONCCHEMO 07:14 → J7W 10:36 → JONCCHEMO 18:02
PROVIDERS: ATTEND Internal Medicine Hematology & Oncology
DX: Z51.11 Encounter for antineoplastic chemotherapy (principal); C90.00 Multiple myeloma not having achieved remission
CPT/HCPCS: 36415; 80053; 80076; 83615; 83735; 84550; 85025; 96361; 96367; 96375; 96413; 96415; 96417; J2469; J9047; J9145

== ENCOUNTER 2018-11-03 06:41 | Day surgery (SDC) | payer BC ==
[2018-11-03 09:21] LABS: BASO % 0.8 % (0-2.0); EOS % 2.8 % (0-4.5); HEMATOCRIT 37.1 % (35.4-49); HEMOGLOBIN 13.4 GM/dL (11.7-16.9); LYMPH % 17.9 % (8-40); MCH 32.5 pg (25.7-33.7); MCHC 36.1 g/dl (32.0-35.9); MEAN CELL VOLUME 90.1 fl (80-96); MEAN PLT VOLUME 7.3 fl (7.5-11.1); MONO % 6.3 % (3.8-10.2); NEUT % 72.2 % (42.8-82.8); PLATELET COUNT 114 K/MM3 (134-434); RBC 4.12 M/mm3 (4.00-5.60); RDW 16.3 % (11.9-15.9); WHITE BLOOD COUNT 5.8 K/mm3 (4.0-10.0)
[2018-11-03] MEDS ORDERED: SODIUM CHLORIDE 250 ML IV ONE (09:30)
[2018-11-03 09:47] LABS: BILIRUBIN,DIRECT 0.2 mg/dL (0.0-0.2); BILIRUBIN,TOTAL 0.8 mg/dL (0.2-1); MAGNESIUM 1.9 mg/dL (1.8-2.4); TOT PROT 6.6 g/dl (6.4-8.2)
[2018-11-03 09:48] LABS: ALBUMIN 3.9 g/dl (3.4-5.0); ALK PHOS 139 U/L (45-117); ANION GAP 8 MMOL/L (8-16); BILIRUBIN,TOTAL 0.7 mg/dL (0.2-1); BLOOD UREA NITROGEN 17 mg/dL (7-18); CALCIUM 8.1 mg/dL (8.5-10.1); CHLORIDE 106 mmol/L (98-107); CO2 26 mmol/L (21-32); GLUCOSE,RANDOM 189 mg/dL (74-106); SGOT/AST 16 U/L (15-37); SGPT/ALT 27 U/L (13-61); SODIUM 139 mmol/L (136-145); TOT PROT 6.6 g/dl (6.4-8.2)
[2018-11-03] MEDS ORDERED: PALONOSETRON HCL 0.25 MG/5 ML VIAL IVPUSH ONE (10:00)
[2018-11-03] MEDS ORDERED: DEXAMETHASONE SODIUM PHOSPHATE 40 MG, DIPHENHYDRAMINE 50 MG in SODIUM CHLORIDE 100 ML IVPB ONE (10:00)
[2018-11-03] MEDS ORDERED: SODIUM CHLORIDE IVPB ONE (10:30)
[2018-11-03] MEDS ORDERED: DARATUMUMAB IVPB ONE (10:30)
[2018-11-03] MEDS ORDERED: CARFILZOMIB IV ONE (10:45)
[2018-11-03] MEDS ORDERED: WATER IV ONE (10:45)
[2018-11-03] MEDS ORDERED: DEXTROSE 5% IV ONE (10:45)
[2018-11-03] MEDS ORDERED: SODIUM CHLORIDE 500 ML IV ONE (14:00)
[2018-11-03 16:11] VITALS: TEMP 98.2
[2018-11-03 16:14] VITALS: BP 147/89; PULSE 87
== END 2018-11-03 16:57 | disposition home or self-care (01) ==
LOC: JONCCHEMO 06:41 → J7W 09:32 → JONCCHEMO 16:57
PROVIDERS: ATTEND Internal Medicine Hematology & Oncology
PROC: 3E04305 Introduction of Other Antineoplastic into Central Vein, Percutaneous Approach (ICD-10-PCS; principal; 2018-11-03)
PROC: 3E043GC Introduction of Other Therapeutic Substance into Central Vein, Percutaneous Approach (ICD-10-PCS; 2018-11-03)
PROC: 3E0437Z Introduction of Electrolytic and Water Balance Substance into Central Vein, Percutaneous Approach (ICD-10-PCS; 2018-11-03)
DX: Z51.11 Encounter for antineoplastic chemotherapy (principal); C90.00 Multiple myeloma not having achieved remission
CPT/HCPCS: 36415; 80053; 80076; 83735; 85025; 96361; 96367; 96375; 96413; 96415; 96417; J2469; J9047; J9145

== ENCOUNTER 2018-11-10 07:13 | Day surgery (SDC) | payer BC ==
[2018-11-10] MEDS ORDERED: SODIUM CHLORIDE 250 ML IV ONE (09:30)
[2018-11-10 09:34] LABS: BASO % 0.8 % (0-2.0); EOS % 2.5 % (0-4.5); HEMATOCRIT 37.7 % (35.4-49); HEMOGLOBIN 13.4 GM/dL (11.7-16.9); LYMPH % 15.4 % (8-40); MCH 32.4 pg (25.7-33.7); MCHC 35.4 g/dl (32.0-35.9); MEAN CELL VOLUME 91.4 fl (80-96); MEAN PLT VOLUME 7.2 fl (7.5-11.1); MONO % 6.8 % (3.8-10.2); NEUT % 74.5 % (42.8-82.8); PLATELET COUNT 116 K/MM3 (134-434); RBC 4.13 M/mm3 (4.00-5.60); RDW 17.5 % (11.9-15.9); WHITE BLOOD COUNT 5.6 K/mm3 (4.0-10.0)
[2018-11-10] MEDS ORDERED: DIPHENHYDRAMINE IVPB ONE (10:00)
[2018-11-10] MEDS ORDERED: SODIUM CHLORIDE IVPB ONE ×2 (10:00→10:30)
[2018-11-10] MEDS ORDERED: DEXAMETHASONE SODIUM PHOSPHATE IVPB ONE (10:00)
[2018-11-10 10:05] LABS: ALK PHOS 123 U/L (45-117); ANION GAP 7 MMOL/L (8-16); BILIRUBIN,TOTAL 0.5 mg/dL (0.2-1); BLOOD UREA NITROGEN 21 mg/dL (7-18); CALCIUM 8.2 mg/dL (8.5-10.1); CHLORIDE 106 mmol/L (98-107); CO2 26 mmol/L (21-32); GLUCOSE,RANDOM 150 mg/dL (74-106); POTASSIUM 4.2 mmol/L (3.5-5.1); SGOT/AST 21 U/L (15-37); SGPT/ALT 34 U/L (13-61); SODIUM 139 mmol/L (136-145); TOT PROT 6.6 g/dl (6.4-8.2)
[2018-11-10 10:08] LABS: BILIRUBIN,DIRECT 0.2 mg/dL (0.0-0.2); BILIRUBIN,TOTAL 0.6 mg/dL (0.2-1); MAGNESIUM 1.8 mg/dL (1.8-2.4); TOT PROT 6.6 g/dl (6.4-8.2)
[2018-11-10] MEDS ORDERED: DARATUMUMAB IVPB ONE (10:30)
[2018-11-10] MEDS ORDERED: SODIUM CHLORIDE 500 ML IV ONE (14:00)
[2018-11-10 17:25] VITALS: TEMP 98.1
[2018-11-10 17:29] VITALS: BP 150/75; PULSE 85
== END 2018-11-10 17:00 | disposition home or self-care (01) ==
LOC: JONCCHEMO 07:13 → J7W 10:47 → JONCCHEMO 17:00
PROVIDERS: ATTEND Internal Medicine Hematology & Oncology
DX: Z51.11 Encounter for antineoplastic chemotherapy (principal); C90.00 Multiple myeloma not having achieved remission
CPT/HCPCS: 36415; 80053; 80076; 83735; 85025; 96361; 96367; 96375; 96413; 96415; J9145

== ENCOUNTER 2018-11-24 07:05 | Day surgery (SDC) | payer BC ==
[2018-11-24] MEDS ORDERED: SODIUM CHLORIDE 250 ML IV ONE (08:00)
[2018-11-24] MEDS ORDERED: DEXAMETHASONE SODIUM PHOSPHATE 40 MG, DIPHENHYDRAMINE 50 MG in SODIUM CHLORIDE 100 ML IVPB ONE (08:30)
[2018-11-24] MEDS ORDERED: PALONOSETRON HCL 0.25 MG/5 ML VIAL IVPUSH ONE (08:30)
[2018-11-24] MEDS ORDERED: DARATUMUMAB IVPB ONE (09:00)
[2018-11-24] MEDS ORDERED: SODIUM CHLORIDE IVPB ONE (09:00)
[2018-11-24 10:07] LABS: EOS % 2.3 % (0-4.5); HEMATOCRIT 34.9 % (35.4-49); HEMOGLOBIN 12.4 GM/dL (11.7-16.9); LYMPH % 20.6 % (8-40); MCH 33.1 pg (25.7-33.7); MCHC 35.7 g/dl (32.0-35.9); MEAN CELL VOLUME 92.8 fl (80-96); MEAN PLT VOLUME 6.7 fl (7.5-11.1); MONO % 7.4 % (3.8-10.2); NEUT % 68.7 % (42.8-82.8); PLATELET COUNT 159 K/MM3 (134-434); RBC 3.76 M/mm3 (4.00-5.60); RDW 16.7 % (11.9-15.9); WHITE BLOOD COUNT 4.8 K/mm3 (4.0-10.0)
[2018-11-24 10:54] LABS: ALK PHOS 106 U/L (45-117); ANION GAP 4 MMOL/L (8-16); BILIRUBIN,TOTAL 0.6 mg/dL (0.2-1); BLOOD UREA NITROGEN 18 mg/dL (7-18); CALCIUM 8.1 mg/dL (8.5-10.1); CHLORIDE 109 mmol/L (98-107); CO2 26 mmol/L (21-32); CREATININE 0.8 mg/dL (0.55-1.3); GLUCOSE,RANDOM 156 mg/dL (74-106); SGOT/AST 23 U/L (15-37); SGPT/ALT 30 U/L (13-61); SODIUM 139 mmol/L (136-145); TOT PROT 6.7 g/dl (6.4-8.2)
[2018-11-24] MEDS ORDERED: WATER IV ONE (12:00)
[2018-11-24] MEDS ORDERED: DEXTROSE 5% IV ONE (12:00)
[2018-11-24] MEDS ORDERED: CARFILZOMIB IV ONE (12:00)
[2018-11-24 12:15] LABS: BILIRUBIN,DIRECT 0.1 mg/dL (0.0-0.2); BILIRUBIN,TOTAL 0.6 mg/dL (0.2-1); MAGNESIUM 1.8 mg/dL (1.8-2.4); TOT PROT 6.7 g/dl (6.4-8.2)
[2018-11-24 12:38] LABS: URIC ACID 5.9 mg/dL (2.6-7.2)
[2018-11-24] MEDS ORDERED: SODIUM CHLORIDE 500 ML IV ONE (13:00)
[2018-11-24 18:47] VITALS: BP 155/89; PULSE 93
[2018-11-24 18:48] VITALS: TEMP 98.1
== END 2018-11-24 18:48 | disposition home or self-care (01) ==
LOC: JONCCHEMO 07:05 → J7W 11:10 → JONCCHEMO 18:48
PROVIDERS: ATTEND Internal Medicine Hematology & Oncology
DX: Z51.11 Encounter for antineoplastic chemotherapy (principal); C90.00 Multiple myeloma not having achieved remission
CPT/HCPCS: 36415; 80053; 80076; 83615; 83735; 84550; 85025; 96361; 96367; 96375; 96413; 96415; 96417; J2469; J9047; J9145

== ENCOUNTER 2018-12-01 07:11 | Day surgery (SDC) | payer BC ==
[2018-12-01] MEDS ORDERED: SODIUM CHLORIDE 250 ML IV ONE (08:00)
[2018-12-01] MEDS ORDERED: PALONOSETRON HCL 0.25 MG/5 ML VIAL IVPUSH ONE (08:30)
[2018-12-01] MEDS ORDERED: DEXAMETHASONE SODIUM PHOSPHATE 40 MG, DIPHENHYDRAMINE 50 MG in SODIUM CHLORIDE 100 ML IVPB ONE (08:30)
[2018-12-01] MEDS ORDERED: WATER IV ONE (09:00)
[2018-12-01] MEDS ORDERED: CARFILZOMIB IV ONE (09:00)
[2018-12-01] MEDS ORDERED: DEXTROSE 5% IV ONE (09:00)
[2018-12-01] MEDS ORDERED: SODIUM CHLORIDE 500 ML IV ONE (09:30)
[2018-12-01 10:29] LABS: BASO % 0.7 % (0-2.0); EOS % 2.5 % (0-4.5); HEMATOCRIT 35.1 % (35.4-49); HEMOGLOBIN 12.6 GM/dL (11.7-16.9); LYMPH % 17.3 % (8-40); MCH 33.5 pg (25.7-33.7); MEAN CELL VOLUME 93.1 fl (80-96); MEAN PLT VOLUME 7.1 fl (7.5-11.1); MONO % 6.2 % (3.8-10.2); NEUT % 73.3 % (42.8-82.8); PLATELET COUNT 135 K/MM3 (134-434); RBC 3.77 M/mm3 (4.00-5.60); RDW 17.1 % (11.9-15.9); WHITE BLOOD COUNT 5.5 K/mm3 (4.0-10.0)
[2018-12-01 12:46] LABS: ALBUMIN 4.1 g/dl (3.4-5.0); ALK PHOS 109 U/L (45-117); ANION GAP 6 MMOL/L (8-16); BILIRUBIN,DIRECT 0.2 mg/dL (0.0-0.2); BILIRUBIN,TOTAL 0.7 mg/dL (0.2-1); BLOOD UREA NITROGEN 19 mg/dL (7-18); CALCIUM 9.1 mg/dL (8.5-10.1); CHLORIDE 106 mmol/L (98-107); CO2 28 mmol/L (21-32); GLUCOSE,RANDOM 182 mg/dL (74-106); MAGNESIUM 1.9 mg/dL (1.8-2.4); POTASSIUM 4.2 mmol/L (3.5-5.1); SGOT/AST 18 U/L (15-37); SGPT/ALT 31 U/L (13-61); SODIUM 140 mmol/L (136-145); TOT PROT 6.5 g/dl (6.4-8.2); URIC ACID 6.4 mg/dL (2.6-7.2)
[2018-12-01 13:11] LABS: LDH 191 U/L (87-246)
[2018-12-01 18:49] VITALS: BP 160/79; PULSE 77
[2018-12-01 18:51] VITALS: TEMP 97.2
[2018-12-03 19:13] LABS: FREE KAPPA,SERUM 6.9 mg/L (3.3-19.4)
== END 2018-12-01 16:25 | disposition home or self-care (01) ==
LOC: JONCCHEMO 07:11 → J7W 11:01 → JONCCHEMO 16:25
PROVIDERS: ATTEND Internal Medicine Hematology & Oncology
DX: Z51.11 Encounter for antineoplastic chemotherapy (principal); C90.00 Multiple myeloma not having achieved remission
CPT/HCPCS: 36415; 80048; 80076; 82784; 83615; 83735; 83883; 84155; 84156; 84157; 84165; 84550; 85025; 96361; 96367; 96375; 96413; J2469; J9047

== ENCOUNTER 2018-12-08 07:05 | Day surgery (SDC) | payer BC ==
[2018-12-08] MEDS ORDERED: SODIUM CHLORIDE 250 ML IV ONE (08:00)
[2018-12-08] MEDS ORDERED: DEXAMETHASONE SODIUM PHOSPHATE 40 MG, DIPHENHYDRAMINE 50 MG in SODIUM CHLORIDE 100 ML IVPB ONE (08:30)
[2018-12-08] MEDS ORDERED: PALONOSETRON HCL 0.25 MG/5 ML VIAL IVPUSH ONE (08:30)
[2018-12-08] MEDS ORDERED: SODIUM CHLORIDE IVPB ONE (09:00)
[2018-12-08] MEDS ORDERED: DARATUMUMAB IVPB ONE (09:00)
[2018-12-08 09:47] LABS: BASO % 0.9 % (0-2.0); EOS % 3.3 % (0-4.5); HEMATOCRIT 36.9 % (35.4-49); LYMPH % 18.6 % (8-40); MCH 33.7 pg (25.7-33.7); MCHC 35.2 g/dl (32.0-35.9); MEAN CELL VOLUME 95.8 fl (80-96); MEAN PLT VOLUME 7.7 fl (7.5-11.1); NEUT % 69.2 % (42.8-82.8); PLATELET COUNT 116 K/MM3 (134-434); RBC 3.85 M/mm3 (4.00-5.60); WHITE BLOOD COUNT 4.7 K/mm3 (4.0-10.0)
[2018-12-08 10:40] LABS: BLOOD UREA NITROGEN 20 mg/dL (7-18); GLUCOSE,RANDOM 234 mg/dL (74-106); SODIUM 138 mmol/L (136-145)
[2018-12-08 10:41] LABS: ALBUMIN 4.1 g/dl (3.4-5.0); ALK PHOS 100 U/L (45-117); ANION GAP 7 MMOL/L (8-16); BILIRUBIN,DIRECT 0.2 mg/dL (0.0-0.2); BILIRUBIN,TOTAL 0.7 mg/dL (0.2-1); CALCIUM 8.5 mg/dL (8.5-10.1); CHLORIDE 104 mmol/L (98-107); CO2 27 mmol/L (21-32); LDH 195 U/L (87-246); POTASSIUM 4.4 mmol/L (3.5-5.1); SGOT/AST 24 U/L (15-37); SGPT/ALT 35 U/L (13-61); TOT PROT 6.6 g/dl (6.4-8.2); URIC ACID 6.3 mg/dL (2.6-7.2)
[2018-12-08] MEDS ORDERED: DEXAMETHASONE SOD PHOSPHATE 10 MG/1 ML VIAL IVPB ONE (11:15)
[2018-12-08] MEDS ORDERED: INSULIN (NOVOLOG) ASPART 100 UNITS/ML 10ML VIAL SQ ONE (11:45)
[2018-12-08] MEDS ORDERED: SODIUM CHLORIDE 100 ML IVPB ONE (11:45)
[2018-12-08] MEDS ORDERED: SODIUM CHLORIDE 500 ML IV ONE ×2 (12:15→15:00)
[2018-12-08] MEDS ORDERED: DEXTROSE 5% IV ONE (14:00)
[2018-12-08] MEDS ORDERED: CARFILZOMIB IV ONE (14:00)
[2018-12-08] MEDS ORDERED: WATER IV ONE (14:00)
[2018-12-08 16:23] VITALS: TEMP 98.9
[2018-12-08 18:23] VITALS: BP 150/79; PULSE 86
== END 2018-12-08 18:23 | disposition home or self-care (01) ==
LOC: JONCCHEMO 07:05 → J7W 10:48 → JONCCHEMO 18:23
PROVIDERS: ATTEND Internal Medicine Hematology & Oncology
DX: Z51.11 Encounter for antineoplastic chemotherapy (principal); C90.00 Multiple myeloma not having achieved remission
CPT/HCPCS: 36415; 80048; 80076; 83615; 83735; 84550; 85025; 96361; 96367; 96375; 96413; 96415; 96417; J1100; J2469; J9047; J9145

== ENCOUNTER 2018-12-22 07:21 | Day surgery (SDC) | payer BC ==
[2018-12-22] MEDS ORDERED: SODIUM CHLORIDE 250 ML IV ONE ×2 (09:00→13:30)
[2018-12-22] MEDS ORDERED: PALONOSETRON HCL 0.25 MG/5 ML VIAL IVPUSH ONE (09:30)
[2018-12-22] MEDS ORDERED: DEXAMETHASONE SODIUM PHOSPHATE 40 MG, DIPHENHYDRAMINE 50 MG in SODIUM CHLORIDE 100 ML IVPB ONE (09:30)
[2018-12-22] MEDS ORDERED: DARATUMUMAB IVPB ONE (10:00)
[2018-12-22] MEDS ORDERED: SODIUM CHLORIDE IVPB ONE (10:00)
[2018-12-22 10:51] LABS: BASO % 0.8 % (0-2.0); EOS % 2.9 % (0-4.5); HEMOGLOBIN 13.1 GM/dL (11.7-16.9); LYMPH % 20.7 % (8-40); MCH 33.4 pg (25.7-33.7); MCHC 35.6 g/dl (32.0-35.9); MEAN CELL VOLUME 93.9 fl (80-96); MEAN PLT VOLUME 6.7 fl (7.5-11.1); MONO % 6.5 % (3.8-10.2); NEUT % 69.1 % (42.8-82.8); PLATELET COUNT 154 K/MM3 (134-434); RBC 3.94 M/mm3 (4.00-5.60); RDW 16.1 % (11.9-15.9); WHITE BLOOD COUNT 5.6 K/mm3 (4.0-10.0)
[2018-12-22 11:21] LABS: ALBUMIN 4.2 g/dl (3.4-5.0); ALK PHOS 102 U/L (45-117); ANION GAP 7 MMOL/L (8-16); BILIRUBIN,DIRECT 0.1 mg/dL (0.0-0.2); BILIRUBIN,TOTAL 0.6 mg/dL (0.2-1); BLOOD UREA NITROGEN 18 mg/dL (7-18); CHLORIDE 106 mmol/L (98-107); CO2 28 mmol/L (21-32); CREATININE 0.9 mg/dL (0.55-1.3); GLUCOSE,RANDOM 164 mg/dL (74-106); MAGNESIUM 2.2 mg/dL (1.8-2.4); POTASSIUM 4.1 mmol/L (3.5-5.1); SGOT/AST 19 U/L (15-37); SGPT/ALT 33 U/L (13-61); SODIUM 140 mmol/L (136-145); TOT PROT 6.6 g/dl (6.4-8.2)
[2018-12-22] MEDS ORDERED: amLODIPine BESYLATE 10 MG TABLET (FP) PO ONE (12:15)
[2018-12-22] MEDS ORDERED: DEXAMETHASONE INJECTION 10 MG in SODIUM CHLORIDE 100 ML IVPUSH ONE (12:15)
[2018-12-22] MEDS ORDERED: NEBIVOLOL 10 MG TABLET (FP) PO ONE (12:15)
[2018-12-22] MEDS ORDERED: DEXAMETHASONE SOD PHOSPHATE 4 MG/1 ML VIAL ONE (12:22)
[2018-12-22] MEDS ORDERED: SODIUM CHLORIDE 100 ML IVPB ONE (12:22)
[2018-12-22] MEDS ORDERED: WATER IV ONE (13:00)
[2018-12-22] MEDS ORDERED: DEXTROSE 5% IV ONE (13:00)
[2018-12-22] MEDS ORDERED: CARFILZOMIB IV ONE (13:00)
[2018-12-22 18:28] VITALS: TEMP 97.4
[2018-12-22 18:49] VITALS: BP 137/80; PULSE 86
== END 2018-12-22 18:49 | disposition home or self-care (01) ==
LOC: JONCCHEMO 07:21 → J7W 11:57 → JONCCHEMO 18:49
PROVIDERS: ATTEND Internal Medicine Hematology & Oncology
DX: Z51.11 Encounter for antineoplastic chemotherapy (principal); C90.00 Multiple myeloma not having achieved remission
CPT/HCPCS: 36415; 80048; 80076; 83735; 85025; 96361; 96365; 96367; 96375; 96413; 96415; 96417; J2469; J9047; J9145

== ENCOUNTER 2019-01-05 07:21 | Day surgery (SDC) | payer BC ==
[2019-01-05] MEDS ORDERED: SODIUM CHLORIDE 250 ML IV ONE ×2 (09:30→13:30)
[2019-01-05] MEDS ORDERED: DEXAMETHASONE SODIUM PHOSPHATE 40 MG in SODIUM CHLORIDE 50 ML IVPB ONE (10:00)
[2019-01-05] MEDS ORDERED: PALONOSETRON HCL 0.25 MG/5 ML VIAL IVPUSH ONE (10:00)
[2019-01-05 10:20] LABS: BASO % 1.1 % (0-2.0); EOS % 2.4 % (0-4.5); HEMATOCRIT 36.8 % (35.4-49); HEMOGLOBIN 12.9 GM/dL (11.7-16.9); LYMPH % 18.4 % (8-40); MCH 33.3 pg (25.7-33.7); MEAN CELL VOLUME 95.1 fl (80-96); MEAN PLT VOLUME 7.1 fl (7.5-11.1); MONO % 8.2 % (3.8-10.2); NEUT % 69.9 % (42.8-82.8); PLATELET COUNT 164 K/MM3 (134-434); RBC 3.87 M/mm3 (4.00-5.60); RDW 15.4 % (11.9-15.9); WHITE BLOOD COUNT 4.7 K/mm3 (4.0-10.0)
[2019-01-05] MEDS ORDERED: SODIUM CHLORIDE IVPB ONE (10:30)
[2019-01-05] MEDS ORDERED: DARATUMUMAB IVPB ONE (10:30)
[2019-01-05 10:55] LABS: ALBUMIN 4.1 g/dl (3.4-5.0); BILIRUBIN,DIRECT 0.2 mg/dL (0.0-0.2); BILIRUBIN,TOTAL 0.6 mg/dL (0.2-1); CALCIUM 8.6 mg/dL (8.5-10.1); MAGNESIUM 2.2 mg/dL (1.8-2.4); POTASSIUM 4.4 mmol/L (3.5-5.1); TOT PROT 6.6 g/dl (6.4-8.2); URIC ACID 6.8 mg/dL (2.6-7.2)
[2019-01-05] MEDS ORDERED: WATER IV ONE (13:00)
[2019-01-05] MEDS ORDERED: DEXTROSE 5% IV ONE (13:00)
[2019-01-05] MEDS ORDERED: CARFILZOMIB IV ONE (13:00)
[2019-01-05] MEDS: TOBRAMYCIN 0.3% OPHTH SOLN 5 ML BOTTLE OU SCH ×2 (15:13→18:03)
[2019-01-05 17:41] VITALS: TEMP 98.7
[2019-01-05 19:01] VITALS: BP 149/83; PULSE 80
== END 2019-01-05 19:09 | disposition home or self-care (01) ==
LOC: JONCCHEMO 07:21 → J7W 12:39 → JONCCHEMO 19:09
PROVIDERS: ATTEND Internal Medicine Hematology & Oncology
PROC: 3E04305 Introduction of Other Antineoplastic into Central Vein, Percutaneous Approach (ICD-10-PCS; principal; 2019-01-05)
PROC: 3E043GC Introduction of Other Therapeutic Substance into Central Vein, Percutaneous Approach (ICD-10-PCS; 2019-01-05)
PROC: 3E0437Z Introduction of Electrolytic and Water Balance Substance into Central Vein, Percutaneous Approach (ICD-10-PCS; 2019-01-05)
DX: Z51.11 Encounter for antineoplastic chemotherapy (principal); C90.00 Multiple myeloma not having achieved remission
CPT/HCPCS: 36415; 80048; 80076; 83615; 83735; 84550; 85025; 96375; 96413; 96415; 96417; J2469; J9047; J9145

== ENCOUNTER 2019-01-19 07:18 | Day surgery (SDC) | payer BC | END 2019-01-19 17:37 | disposition home or self-care (01) | LOC: JONCCHEMO 07:18 → J7W 11:21 → JONCCHEMO 17:37 ==

== ENCOUNTER 2019-01-26 07:10 | Day surgery (SDC) | payer BC | END 2019-01-26 15:00 | disposition home or self-care (01) | LOC: JONCCHEMO 07:10 → J7W 12:07 → JONCCHEMO 15:00 ==

== ENCOUNTER 2019-02-09 07:12 | Day surgery (SDC) | payer BC ==
[~2019-02-09 07:12] MED LIST changes: +DEXAMETHASONE SODIUM PHOSPHATE 40 MG in SODIUM CHLORIDE 50 ML IVPB ONE; -DEXAMETHASONE SODIUM PHOSPHATE 40 MG, DIPHENHYDRAMINE 50 MG in SODIUM CHLORIDE 100 ML IVPB ONE; -SODIUM CHLORIDE 500 ML IV ONE
[2019-02-09] MEDS ORDERED: SODIUM CHLORIDE 250 ML IV ONE ×2 (09:00→13:30)
[2019-02-09] MEDS ORDERED: DEXAMETHASONE SODIUM PHOSPHATE 40 MG in SODIUM CHLORIDE 50 ML IVPB ONE (09:30)
[2019-02-09] MEDS ORDERED: PALONOSETRON HCL 0.25 MG/5 ML VIAL IVPUSH ONE (09:30)
[2019-02-09] MEDS ORDERED: SODIUM CHLORIDE IVPB ONE (10:00)
[2019-02-09] MEDS ORDERED: DARATUMUMAB IVPB ONE (10:00)
[2019-02-09 10:46] LABS: BASO % 0.4 % (0-2.0); EOS % 2.9 % (0-4.5); HEMATOCRIT 36.9 % (35.4-49); HEMOGLOBIN 12.9 GM/dL (11.7-16.9); LYMPH % 16.7 % (8-40); MCH 32.6 pg (25.7-33.7); MCHC 34.8 g/dl (32.0-35.9); MEAN CELL VOLUME 93.6 fl (80-96); MEAN PLT VOLUME 6.9 fl (7.5-11.1); MONO % 6.9 % (3.8-10.2); NEUT % 73.1 % (42.8-82.8); PLATELET COUNT 189 K/MM3 (134-434); RBC 3.94 M/mm3 (4.00-5.60); WHITE BLOOD COUNT 5.4 K/mm3 (4.0-10.0)
[2019-02-09 11:20] LABS: ALBUMIN 4.2 g/dl (3.4-5.0); BILIRUBIN,DIRECT 0.2 mg/dL (0.0-0.2); BILIRUBIN,TOTAL 0.7 mg/dL (0.2-1); BLOOD UREA NITROGEN 17.6 mg/dL (7-18); CALCIUM 8.9 mg/dL (8.5-10.1); CREATININE 1.1 mg/dL (0.55-1.3); MAGNESIUM 2.2 mg/dL (1.8-2.4); POTASSIUM 4.3 mmol/L (3.5-5.1); TOT PROT 6.8 g/dl (6.4-8.2)
[2019-02-09] MEDS ORDERED: DEXTROSE 5% IV ONE (13:00)
[2019-02-09] MEDS ORDERED: CARFILZOMIB IV ONE (13:00)
[2019-02-09] MEDS ORDERED: WATER IV ONE (13:00)
[2019-02-09 17:22] VITALS: TEMP 97.9
[2019-02-09 17:55] VITALS: BP 147/85; PULSE 76
== END 2019-02-09 18:08 | disposition home or self-care (01) ==
LOC: JONCCHEMO 07:12 → J7W 12:25 → JONCCHEMO 18:08
PROVIDERS: ATTEND Internal Medicine Hematology & Oncology
DX: Z51.11 Encounter for antineoplastic chemotherapy (principal); C90.00 Multiple myeloma not having achieved remission
CPT/HCPCS: 36415; 80048; 80076; 83735; 85025; 96361; 96375; 96413; 96415; 96417; J2469; J9047; J9145

== ENCOUNTER 2019-02-23 07:14 | Day surgery (SDC) | payer BC ==
[2019-02-23] MEDS ORDERED: DEXAMETHASONE SODIUM PHOSPHATE 40 MG in SODIUM CHLORIDE 50 ML IVPB ONE (10:00)
[2019-02-23] MEDS ORDERED: PALONOSETRON HCL 0.25 MG/5 ML VIAL IVPUSH ONE (10:00)
[2019-02-23 10:08] LABS: BASO % 1.4 % (0-2.0); EOS % 4.2 % (0-4.5); HEMATOCRIT 36.1 % (35.4-49); HEMOGLOBIN 12.7 GM/dL (11.7-16.9); LYMPH % 19.5 % (8-40); MCH 32.9 pg (25.7-33.7); MCHC 35.1 g/dl (32.0-35.9); MEAN CELL VOLUME 93.7 fl (80-96); MEAN PLT VOLUME 6.8 fl (7.5-11.1); MONO % 6.3 % (3.8-10.2); NEUT % 68.6 % (42.8-82.8); PLATELET COUNT 136 K/MM3 (134-434); RBC 3.85 M/mm3 (4.00-5.60); RDW 15.6 % (11.9-15.9); WHITE BLOOD COUNT 4.3 K/mm3 (4.0-10.0)
[2019-02-23] MEDS ORDERED: SODIUM CHLORIDE IVPB ONE (10:30)
[2019-02-23] MEDS ORDERED: DARATUMUMAB IVPB ONE (10:30)
[2019-02-23 10:39] LABS: BILIRUBIN,DIRECT 0.1 mg/dL (0.0-0.2); BILIRUBIN,TOTAL 0.6 mg/dL (0.2-1); BLOOD UREA NITROGEN 17.2 mg/dL (7-18); CALCIUM 8.5 mg/dL (8.5-10.1); CREATININE 1.1 mg/dL (0.55-1.3); MAGNESIUM 2.2 mg/dL (1.8-2.4); POTASSIUM 4.2 mmol/L (3.5-5.1); TOT PROT 6.3 g/dl (6.4-8.2); URIC ACID 6.8 mg/dL (2.6-7.2)
[2019-02-23] MEDS ORDERED: INSULIN (NOVOLOG) ASPART 100 UNITS/ML 10ML VIAL SQ ONE (11:52)
[2019-02-23] MEDS ORDERED: CARFILZOMIB IV ONE (13:00)
[2019-02-23] MEDS ORDERED: WATER IV ONE (13:00)
[2019-02-23] MEDS ORDERED: DEXTROSE 5% IV ONE (13:00)
[2019-02-23 18:38] VITALS: BP 141/77; PULSE 72; TEMP 98.4
== END 2019-02-23 17:30 | disposition home or self-care (01) ==
LOC: JONCCHEMO 07:14 → J7W 11:23 → JONCCHEMO 17:30
PROVIDERS: ATTEND Internal Medicine Hematology & Oncology
DX: Z51.11 Encounter for antineoplastic chemotherapy (principal); C90.00 Multiple myeloma not having achieved remission
CPT/HCPCS: 36415; 80048; 80076; 83615; 83735; 84550; 85025; 96375; 96413; 96415; 96417; J2469; J9047; J9145

== ENCOUNTER 2019-03-02 07:11 | Day surgery (SDC) | payer BC ==
[~2019-03-02 07:11] MED LIST changes: -SODIUM CHLORIDE 250 ML IV ONE
[2019-03-02] MEDS ORDERED: PALONOSETRON HCL 0.25 MG/5 ML VIAL IVPUSH ONE (10:00)
[2019-03-02] MEDS ORDERED: DEXAMETHASONE SODIUM PHOSPHATE 40 MG in SODIUM CHLORIDE 50 ML IVPB ONE (10:00)
[2019-03-02 10:07] LABS: EOS % 4.5 % (0-4.5); HEMATOCRIT 37.5 % (35.4-49); HEMOGLOBIN 13.4 GM/dL (11.7-16.9); LYMPH % 20.2 % (8-40); MCH 33.3 pg (25.7-33.7); MCHC 35.7 g/dl (32.0-35.9); MEAN CELL VOLUME 93.4 fl (80-96); MEAN PLT VOLUME 7.4 fl (7.5-11.1); NEUT % 66.3 % (42.8-82.8); PLATELET COUNT 120 K/MM3 (134-434); RBC 4.01 M/mm3 (4.00-5.60); RDW 15.4 % (11.9-15.9)
[2019-03-02] MEDS ORDERED: CARFILZOMIB IV ONE (10:30)
[2019-03-02] MEDS ORDERED: WATER IV ONE (10:30)
[2019-03-02] MEDS ORDERED: DEXTROSE 5% IV ONE (10:30)
[2019-03-02 10:37] LABS: ALBUMIN 4.3 g/dl (3.4-5.0); BILIRUBIN,DIRECT 0.2 mg/dL (0.0-0.2); BILIRUBIN,TOTAL 0.7 mg/dL (0.2-1); BLOOD UREA NITROGEN 24.7 mg/dL (7-18); CALCIUM 9.1 mg/dL (8.5-10.1); CREATININE 1.1 mg/dL (0.55-1.3); MAGNESIUM 2.2 mg/dL (1.8-2.4); POTASSIUM 4.4 mmol/L (3.5-5.1); TOT PROT 6.6 g/dl (6.4-8.2); URIC ACID 6.7 mg/dL (2.6-7.2)
[2019-03-02 15:08] VITALS: TEMP 97.8
[2019-03-02 15:09] VITALS: BP 132/78; PULSE 72
== END 2019-03-02 14:00 | disposition home or self-care (01) ==
LOC: JONCCHEMO 07:11 → J7W 11:53 → JONCCHEMO 14:00
PROVIDERS: ATTEND Internal Medicine Hematology & Oncology
DX: Z51.11 Encounter for antineoplastic chemotherapy (principal); C90.00 Multiple myeloma not having achieved remission
CPT/HCPCS: 36415; 80048; 80076; 83615; 83735; 84550; 85025; 96375; 96413; J2469; J9047

== ENCOUNTER 2019-03-09 07:06 | Day surgery (SDC) | payer BC ==
[2019-03-09] MEDS ORDERED: PALONOSETRON HCL 0.25 MG/5 ML VIAL IVPUSH ONE (10:00)
[2019-03-09] MEDS ORDERED: DEXAMETHASONE SODIUM PHOSPHATE 40 MG in SODIUM CHLORIDE 50 ML IVPB ONE (10:00)
[2019-03-09] MEDS ORDERED: SODIUM CHLORIDE IVPB ONE (10:30)
[2019-03-09] MEDS ORDERED: DARATUMUMAB IVPB ONE (10:30)
[2019-03-09 10:43] LABS: BASO % 0.9 % (0-2.0); EOS % 3.9 % (0-4.5); HEMATOCRIT 38.7 % (35.4-49); HEMOGLOBIN 13.6 GM/dL (11.7-16.9); LYMPH % 14.7 % (8-40); MCH 33.4 pg (25.7-33.7); MEAN CELL VOLUME 95.2 fl (80-96); MEAN PLT VOLUME 7.3 fl (7.5-11.1); MONO % 9.1 % (3.8-10.2); NEUT % 71.4 % (42.8-82.8); PLATELET COUNT 118 K/MM3 (134-434); RBC 4.07 M/mm3 (4.00-5.60); RDW 15.3 % (11.9-15.9); WHITE BLOOD COUNT 5.5 K/mm3 (4.0-10.0)
[2019-03-09 11:17] LABS: ALBUMIN 4.3 g/dl (3.4-5.0); BILIRUBIN,DIRECT 0.2 mg/dL (0.0-0.2); BILIRUBIN,TOTAL 0.8 mg/dL (0.2-1); BLOOD UREA NITROGEN 23.5 mg/dL (7-18); CALCIUM 8.7 mg/dL (8.5-10.1); CREATININE 1.2 mg/dL (0.55-1.3); MAGNESIUM 2.1 mg/dL (1.8-2.4); POTASSIUM 4.4 mmol/L (3.5-5.1); TOT PROT 6.6 g/dl (6.4-8.2); URIC ACID 7.8 mg/dL (2.6-7.2)
[2019-03-09] MEDS ORDERED: CARFILZOMIB IV ONE (13:30)
[2019-03-09] MEDS ORDERED: WATER IV ONE (13:30)
[2019-03-09] MEDS ORDERED: DEXTROSE 5% IV ONE (13:30)
[2019-03-09] MEDS ORDERED: ASPIRIN COATED 81 MG TABLET.EC PO ONE (13:45)
[2019-03-09] MEDS ORDERED: INSULIN (NOVOLOG) ASPART 100 UNITS/ML 10ML VIAL SQ ONE (13:45)
[2019-03-09] MEDS ORDERED: NEBIVOLOL 5 MG TABLET (FP) PO ONE (13:45)
[2019-03-09] MEDS ORDERED: amLODIPine BESYLATE 10 MG TABLET (FP) PO ONE (13:45)
[2019-03-09 18:34] VITALS: TEMP 98.4
[2019-03-09 18:41] VITALS: BP 143/75; PULSE 82
== END 2019-03-09 18:44 | disposition home or self-care (01) ==
LOC: JONCCHEMO 07:06 → J7W 12:25 → JONCCHEMO 18:44
PROVIDERS: ATTEND Internal Medicine Hematology & Oncology
DX: Z51.11 Encounter for antineoplastic chemotherapy (principal); C90.00 Multiple myeloma not having achieved remission
CPT/HCPCS: 36415; 80048; 80076; 83615; 83735; 84550; 85025; 96375; 96413; 96415; 96417; J2469; J9047; J9145

== ENCOUNTER 2019-03-23 07:48 | Day surgery (SDC) | payer BC ==
[2019-03-23] MEDS ORDERED: DEXAMETHASONE SODIUM PHOSPHATE 40 MG in SODIUM CHLORIDE 50 ML IVPB ONE (09:30)
[2019-03-23] MEDS ORDERED: PALONOSETRON HCL 0.25 MG/5 ML VIAL IVPUSH ONE (09:30)
[2019-03-23] MEDS ORDERED: SODIUM CHLORIDE IVPB ONE (10:00)
[2019-03-23] MEDS ORDERED: DARATUMUMAB IVPB ONE (10:00)
[2019-03-23 10:27] LABS: BASO % 0.9 % (0-2.0); EOS % 2.7 % (0-4.5); HEMATOCRIT 37.6 % (35.4-49); HEMOGLOBIN 13.2 GM/dL (11.7-16.9); LYMPH % 18.4 % (8-40); MCH 32.8 pg (25.7-33.7); MCHC 35.1 g/dl (32.0-35.9); MEAN CELL VOLUME 93.6 fl (80-96); MEAN PLT VOLUME 6.8 fl (7.5-11.1); MONO % 6.6 % (3.8-10.2); NEUT % 71.4 % (42.8-82.8); PLATELET COUNT 156 K/MM3 (134-434); RBC 4.02 M/mm3 (4.00-5.60); WHITE BLOOD COUNT 5.7 K/mm3 (4.0-10.0)
[2019-03-23 11:00] LABS: ALBUMIN 4.2 g/dl (3.4-5.0); BILIRUBIN,DIRECT 0.2 mg/dL (0.0-0.2); BILIRUBIN,TOTAL 0.7 mg/dL (0.2-1); BLOOD UREA NITROGEN 23.2 mg/dL (7-18); CALCIUM 8.9 mg/dL (8.5-10.1); CREATININE 1.2 mg/dL (0.55-1.3); POTASSIUM 4.2 mmol/L (3.5-5.1); TOT PROT 6.5 g/dl (6.4-8.2); URIC ACID 7.3 mg/dL (2.6-7.2)
[2019-03-23] MEDS ORDERED: INSULIN (NOVOLOG) ASPART 100 UNITS/ML 10ML VIAL SQ ONE (12:00)
[2019-03-23] MEDS ORDERED: DEXTROSE 5% IV ONE (13:00)
[2019-03-23] MEDS ORDERED: WATER IV ONE (13:00)
[2019-03-23] MEDS ORDERED: CARFILZOMIB IV ONE (13:00)
[2019-03-23 16:00] VITALS: TEMP 98.8
[2019-03-23 17:44] VITALS: BP 152/63; PULSE 74
== END 2019-03-23 17:50 | disposition home or self-care (01) ==
LOC: JONCCHEMO 07:48 → J7W 11:43 → JONCCHEMO 17:50
PROVIDERS: ATTEND Internal Medicine Hematology & Oncology
DX: Z51.11 Encounter for antineoplastic chemotherapy (principal); C90.00 Multiple myeloma not having achieved remission
CPT/HCPCS: 36415; 80048; 80076; 83615; 83735; 84550; 85025; 96375; 96413; 96415; 96417; J2469; J9047; J9145

== ENCOUNTER 2019-03-30 07:19 | Day surgery (SDC) | payer BC ==
[2019-03-30] MEDS ORDERED: PALONOSETRON HCL 0.25 MG/5 ML VIAL IVPUSH ONE (09:30)
[2019-03-30] MEDS ORDERED: DEXAMETHASONE SODIUM PHOSPHATE 40 MG in SODIUM CHLORIDE 50 ML IVPB ONE (09:30)
[2019-03-30] MEDS ORDERED: WATER IV ONE (10:00)
[2019-03-30] MEDS ORDERED: DEXTROSE 5% IV ONE (10:00)
[2019-03-30] MEDS ORDERED: CARFILZOMIB IV ONE (10:00)
[2019-03-30 11:16] LABS: BASO % 1.5 % (0-2.0); EOS % 3.9 % (0-4.5); HEMATOCRIT 36.7 % (35.4-49); LYMPH % 19.8 % (8-40); MCHC 35.5 g/dl (32.0-35.9); MEAN CELL VOLUME 92.9 fl (80-96); MEAN PLT VOLUME 7.4 fl (7.5-11.1); MONO % 7.5 % (3.8-10.2); NEUT % 67.3 % (42.8-82.8); PLATELET COUNT 121 K/MM3 (134-434); RBC 3.94 M/mm3 (4.00-5.60)
[2019-03-30 11:42] LABS: ALBUMIN 4.2 g/dl (3.4-5.0); BILIRUBIN,DIRECT 0.2 mg/dL (0.0-0.2); BILIRUBIN,TOTAL 0.8 mg/dL (0.2-1); BLOOD UREA NITROGEN 25.3 mg/dL (7-18); CALCIUM 9.2 mg/dL (8.5-10.1); CREATININE 1.2 mg/dL (0.55-1.3); MAGNESIUM 2.1 mg/dL (1.8-2.4); POTASSIUM 4.2 mmol/L (3.5-5.1); TOT PROT 6.6 g/dl (6.4-8.2); URIC ACID 7.4 mg/dL (2.6-7.2)
[2019-03-30] MEDS ORDERED: Insulin (LOG) Aspart 100 UNITS/ML VIAL SQ ONE (12:15)
[2019-03-30] MEDS ORDERED: INSULIN (NOVOLOG) ASPART 100 UNITS/ML 10ML VIAL ONE (13:02)
[2019-03-30 16:40] VITALS: TEMP 97.4
[2019-03-30 16:49] VITALS: BP 130/76; PULSE 71
== END 2019-03-30 14:00 | disposition home or self-care (01) ==
LOC: JONCCHEMO 07:19 → JERBED 12:12 → J7W 12:13 → JONCCHEMO 14:00
PROVIDERS: ATTEND Internal Medicine Hematology & Oncology
DX: Z51.11 Encounter for antineoplastic chemotherapy (principal); C90.00 Multiple myeloma not having achieved remission
CPT/HCPCS: 36415; 80048; 80076; 83615; 83735; 84550; 85025; 96367; 96375; 96413; J2469; J9047

== ENCOUNTER 2019-04-13 07:12 | Day surgery (SDC) | payer BC ==
[2019-04-13] MEDS ORDERED: DEXAMETHASONE SODIUM PHOSPHATE 40 MG in SODIUM CHLORIDE 50 ML IVPB ONE (09:30)
[2019-04-13] MEDS ORDERED: PALONOSETRON HCL 0.25 MG/5 ML VIAL IVPUSH ONE (09:30)
[2019-04-13] MEDS ORDERED: CARFILZOMIB IV ONE (10:00)
[2019-04-13] MEDS ORDERED: DEXTROSE 5% IV ONE (10:00)
[2019-04-13] MEDS ORDERED: WATER IV ONE (10:00)
[2019-04-13 10:31] LABS: BASO % 0.9 % (0-2.0); EOS % 2.5 % (0-4.5); HEMATOCRIT 35.7 % (35.4-49); HEMOGLOBIN 12.8 GM/dL (11.7-16.9); LYMPH % 19.6 % (8-40); MCH 33.5 pg (25.7-33.7); MCHC 35.9 g/dl (32.0-35.9); MEAN CELL VOLUME 93.2 fl (80-96); MEAN PLT VOLUME 6.8 fl (7.5-11.1); MONO % 6.9 % (3.8-10.2); NEUT % 70.1 % (42.8-82.8); PLATELET COUNT 155 K/MM3 (134-434); RBC 3.83 M/mm3 (4.00-5.60); RDW 15.3 % (11.9-15.9); WHITE BLOOD COUNT 4.9 K/mm3 (4.0-10.0)
[2019-04-13 11:06] LABS: ALBUMIN 4.1 g/dl (3.4-5.0); BILIRUBIN,DIRECT 0.2 mg/dL (0.0-0.2); BILIRUBIN,TOTAL 0.6 mg/dL (0.2-1); BLOOD UREA NITROGEN 22.1 mg/dL (7-18); CALCIUM 8.9 mg/dL (8.5-10.1); CREATININE 1.1 mg/dL (0.55-1.3); MAGNESIUM 2.1 mg/dL (1.8-2.4); POTASSIUM 4.1 mmol/L (3.5-5.1); TOT PROT 6.5 g/dl (6.4-8.2)
[2019-04-13 17:28] VITALS: BP 129/74; PULSE 72; TEMP 97.5
== END 2019-04-13 14:00 | disposition home or self-care (01) ==
LOC: JONCCHEMO 07:12 → J7W 12:04 → JONCCHEMO 14:00
PROVIDERS: ATTEND Internal Medicine Hematology & Oncology
DX: Z51.11 Encounter for antineoplastic chemotherapy (principal); C90.00 Multiple myeloma not having achieved remission
CPT/HCPCS: 36415; 80048; 80076; 83735; 85025; 96375; 96413; J2469; J9047

== ENCOUNTER 2019-04-20 07:15 | Day surgery (SDC) | payer BC ==
[2019-04-20] MEDS ORDERED: PALONOSETRON HCL 0.25 MG/5 ML VIAL IVPUSH ONE (10:00)
[2019-04-20] MEDS ORDERED: DEXAMETHASONE SODIUM PHOSPHATE 40 MG in SODIUM CHLORIDE 50 ML IVPB ONE (10:00)
[2019-04-20 10:15] LABS: HEMATOCRIT 37.2 % (35.4-49); HEMOGLOBIN 13.2 GM/dL (11.7-16.9); LYMPH % 16.4 % (8-40); MCH 33.1 pg (25.7-33.7); MCHC 35.4 g/dl (32.0-35.9); MEAN CELL VOLUME 93.6 fl (80-96); NEUT % 71.6 % (42.8-82.8); PLATELET COUNT 122 K/MM3 (134-434); RBC 3.98 M/mm3 (4.00-5.60)
[2019-04-20] MEDS ORDERED: DEXTROSE 5% IV ONE (10:30)
[2019-04-20] MEDS ORDERED: WATER IV ONE (10:30)
[2019-04-20] MEDS ORDERED: CARFILZOMIB IV ONE (10:30)
[2019-04-20 10:41] LABS: ALBUMIN 4.2 g/dl (3.4-5.0); BILIRUBIN,DIRECT 0.2 mg/dL (0.0-0.2); BILIRUBIN,TOTAL 0.9 mg/dL (0.2-1); BLOOD UREA NITROGEN 15.7 mg/dL (7-18); CALCIUM 9.3 mg/dL (8.5-10.1); CREATININE 1.1 mg/dL (0.55-1.3); POTASSIUM 4.2 mmol/L (3.5-5.1); TOT PROT 6.6 g/dl (6.4-8.2); URIC ACID 6.9 mg/dL (2.6-7.2)
[2019-04-20] MEDS ORDERED: DARATUMUMAB IVPB ONE (11:00)
[2019-04-20] MEDS ORDERED: SODIUM CHLORIDE IVPB ONE (11:00)
[2019-04-20] MEDS ORDERED: amLODIPine BESYLATE 5 MG TABLET (FP) PO ONE (12:00)
[2019-04-20] MEDS ORDERED: INSULIN SLIDING SCALE (NOVOLOG) 1 VIAL SQ SCH (15:00)
[2019-04-20 17:19] VITALS: TEMP 97.9
[2019-04-20] MEDS ORDERED: INSULIN (NOVOLOG) ASPART 100 UNITS/ML 10ML VIAL ONE (17:46)
[2019-04-20 17:51] VITALS: BP 143/76; PULSE 81
== END 2019-04-20 17:51 | disposition home or self-care (01) ==
LOC: JONCCHEMO 07:15 → J7W 11:50 → JONCCHEMO 17:51
PROVIDERS: ATTEND Internal Medicine Hematology & Oncology
PROC: 3E03305 Introduction of Other Antineoplastic into Peripheral Vein, Percutaneous Approach (ICD-10-PCS; principal; 2019-04-20)
PROC: 3E033GC Introduction of Other Therapeutic Substance into Peripheral Vein, Percutaneous Approach (ICD-10-PCS; 2019-04-20)
DX: Z51.11 Encounter for antineoplastic chemotherapy (principal); C90.00 Multiple myeloma not having achieved remission
CPT/HCPCS: 36415; 80048; 80053; 80076; 82962; 83615; 83735; 84550; 85025; 96375; 96413; 96415; 96417; J2469; J9047; J9145

== ENCOUNTER 2019-05-04 06:15 | Day surgery (SDC) | payer BC ==
[2019-05-04] MEDS ORDERED: PALONOSETRON HCL 0.25 MG/5 ML VIAL IVPUSH ONE (10:00)
[2019-05-04] MEDS ORDERED: DEXAMETHASONE SODIUM PHOSPHATE 40 MG in SODIUM CHLORIDE 50 ML IVPB ONE (10:00)
[2019-05-04] MEDS ORDERED: WATER IV ONE (10:30)
[2019-05-04] MEDS ORDERED: DEXTROSE 5% IV ONE (10:30)
[2019-05-04] MEDS ORDERED: CARFILZOMIB IV ONE (10:30)
[2019-05-04 10:35] LABS: BASO % 2.6 % (0-2.0); EOS % 2.2 % (0-4.5); HEMATOCRIT 35.1 % (35.4-49); HEMOGLOBIN 12.5 GM/dL (11.7-16.9); LYMPH % 16.9 % (8-40); MCH 33.6 pg (25.7-33.7); MCHC 35.8 g/dl (32.0-35.9); MEAN CELL VOLUME 94.1 fl (80-96); MEAN PLT VOLUME 6.9 fl (7.5-11.1); MONO % 6.1 % (3.8-10.2); NEUT % 72.2 % (42.8-82.8); PLATELET COUNT 153 K/MM3 (134-434); RBC 3.73 M/mm3 (4.00-5.60); RDW 14.9 % (11.9-15.9); WHITE BLOOD COUNT 4.6 K/mm3 (4.0-10.0)
[2019-05-04 11:10] LABS: MAGNESIUM 1.9 mg/dL (1.8-2.4)
[2019-05-04 11:56] VITALS: TEMP 98.8
[2019-05-04 14:17] VITALS: BP 114/79; PULSE 63
[2019-05-04 14:51] LABS: EPI CELLS 0.8 /HPF (0-5/HPF); HYALINE CASTS 8 /lpf (0-8); URINE APPEARANCE CLEAR; URINE BACTERIA 1.2 /hpf (NEGATIVE); URINE BILIRUBIN NEGATIVE (NEGATIVE); URINE COLOR YELLOW; URINE GLUCOSE (UA) TRACE (NEGATIVE); URINE KETONE NEGATIVE (NEGATIVE); URINE LEUK ESTERASE NEGATIVE (NEGATIVE); URINE NITRITE NEGATIVE (NEGATIVE); URINE PROTEIN 1+ (NEGATIVE); URINE RBC 1 /hpf (0-4); URINE UROBILINOGEN 0.2 mg/dL (0.2-1.0); URINE WBC 1 /hpf (0-5)
[2019-05-05 17:07] LABS: FREE KAPPA,SERUM 5.1 mg/L (3.3-19.4)
[2019-05-06 17:07] LABS: FREE KAP CHN UR 22.4 mg/L (1.35-24.19); KAPPA LAMBDA RATIO URIN 17.78 (2.04-10.37)
== END 2019-05-04 14:00 | disposition home or self-care (01) ==
LOC: JONCCHEMO 06:15 → J7W 11:31 → JONCCHEMO 14:00
PROVIDERS: ATTEND Internal Medicine Hematology & Oncology
DX: Z51.11 Encounter for antineoplastic chemotherapy (principal); C90.00 Multiple myeloma not having achieved remission
CPT/HCPCS: 36415; 81003; 82784; 83615; 83735; 83883; 85025; 96375; 96413; J2469; J9047

== ENCOUNTER 2019-05-11 05:39 | Day surgery (SDC) | payer BC ==
[2019-05-11] MEDS ORDERED: PALONOSETRON HCL 0.25 MG/5 ML VIAL IVPUSH ONE (10:00)
[2019-05-11] MEDS ORDERED: DEXAMETHASONE SODIUM PHOSPHATE 40 MG in SODIUM CHLORIDE 50 ML IVPB ONE (10:00)
[2019-05-11] MEDS ORDERED: DEXTROSE 5% IV ONE (10:30)
[2019-05-11] MEDS ORDERED: CARFILZOMIB IV ONE (10:30)
[2019-05-11] MEDS ORDERED: WATER IV ONE (10:30)
[2019-05-11 10:37] LABS: BASO % 0.9 % (0-2.0); EOS % 3.8 % (0-4.5); HEMATOCRIT 38.1 % (35.4-49); HEMOGLOBIN 13.2 GM/dL (11.7-16.9); LYMPH % 17.9 % (8-40); MCH 33.1 pg (25.7-33.7); MCHC 34.6 g/dl (32.0-35.9); MEAN CELL VOLUME 95.5 fl (80-96); MEAN PLT VOLUME 7.5 fl (7.5-11.1); MONO % 7.3 % (3.8-10.2); NEUT % 70.1 % (42.8-82.8); PLATELET COUNT 115 K/MM3 (134-434); RBC 3.99 M/mm3 (4.00-5.60); RDW 14.9 % (11.9-15.9); WHITE BLOOD COUNT 5.3 K/mm3 (4.0-10.0)
[2019-05-11 11:12] LABS: BILIRUBIN,DIRECT 0.2 mg/dL (0.0-0.2); BILIRUBIN,TOTAL 0.7 mg/dL (0.2-1); CALCIUM 9.1 mg/dL (8.5-10.1); CREATININE 1.2 mg/dL (0.55-1.3); MAGNESIUM 1.8 mg/dL (1.8-2.4); POTASSIUM 4.2 mmol/L (3.5-5.1); TOT PROT 6.4 g/dl (6.4-8.2); URIC ACID 6.9 mg/dL (2.6-7.2)
[2019-05-11 17:33] VITALS: BP 152/81; PULSE 74
[2019-05-11 17:34] VITALS: TEMP 98.9
== END 2019-05-11 13:35 | disposition home or self-care (01) ==
LOC: JONCCHEMO 05:39 → J7W 11:41 → JONCCHEMO 13:35
PROVIDERS: ATTEND Internal Medicine Hematology & Oncology
DX: Z51.11 Encounter for antineoplastic chemotherapy (principal); C90.00 Multiple myeloma not having achieved remission
CPT/HCPCS: 36415; 80048; 80076; 83615; 83735; 84550; 85025; 96366; 96367; 96375; 96413; J2469; J9047

== ENCOUNTER 2019-05-18 05:37 | Day surgery (SDC) | payer BC ==
[2019-05-18] MEDS ORDERED: PALONOSETRON HCL 0.25 MG/5 ML VIAL IVPUSH ONE (09:30)
[2019-05-18] MEDS ORDERED: DEXAMETHASONE SODIUM PHOSPHATE 40 MG in SODIUM CHLORIDE 50 ML IVPB ONE (09:30)
[2019-05-18] MEDS ORDERED: DARATUMUMAB IVPB ONE (10:00)
[2019-05-18] MEDS ORDERED: SODIUM CHLORIDE IVPB ONE (10:00)
[2019-05-18 10:51] LABS: EOS % 2.8 % (0-4.5); HEMATOCRIT 37.6 % (35.4-49); HEMOGLOBIN 13.4 GM/dL (11.7-16.9); LYMPH % 16.1 % (8-40); MCH 33.8 pg (25.7-33.7); MCHC 35.6 g/dl (32.0-35.9); MEAN PLT VOLUME 7.4 fl (7.5-11.1); MONO % 5.6 % (3.8-10.2); NEUT % 74.5 % (42.8-82.8); PLATELET COUNT 125 K/MM3 (134-434); RBC 3.95 M/mm3 (4.00-5.60); RDW 15.1 % (11.9-15.9); WHITE BLOOD COUNT 5.8 K/mm3 (4.0-10.0)
[2019-05-18 11:21] LABS: BLOOD UREA NITROGEN 20.4 mg/dL (7-18); CALCIUM 8.6 mg/dL (8.5-10.1); CREATININE 1.2 mg/dL (0.55-1.3); MAGNESIUM 1.9 mg/dL (1.8-2.4); POTASSIUM 4.3 mmol/L (3.5-5.1); URIC ACID 6.3 mg/dL (2.6-7.2)
[2019-05-18 11:26] LABS: ALBUMIN 4.1 g/dl (3.4-5.0); BILIRUBIN,DIRECT 0.2 mg/dL (0.0-0.2); BILIRUBIN,TOTAL 0.9 mg/dL (0.2-1); TOT PROT 6.3 g/dl (6.4-8.2)
[2019-05-18] MEDS ORDERED: DEXTROSE 5% IV ONE (13:00)
[2019-05-18] MEDS ORDERED: WATER IV ONE (13:00)
[2019-05-18] MEDS ORDERED: CARFILZOMIB IV ONE (13:00)
[2019-05-18 18:14] VITALS: TEMP 98.5
[2019-05-18 18:31] VITALS: BP 160/86; PULSE 86
== END 2019-05-18 17:50 | disposition home or self-care (01) ==
LOC: JONCCHEMO 05:37 → J7W 10:24 → JONCCHEMO 17:50
PROVIDERS: ATTEND Internal Medicine Hematology & Oncology
DX: Z51.11 Encounter for antineoplastic chemotherapy (principal); C90.00 Multiple myeloma not having achieved remission
CPT/HCPCS: 36415; 80048; 80076; 83615; 83735; 84550; 85025; 96367; 96375; 96413; 96415; 96417; J2469; J9047; J9145

== ENCOUNTER 2019-06-01 07:14 | Day surgery (SDC) | payer BC ==
[2019-06-01] MEDS ORDERED: DEXAMETHASONE SODIUM PHOSPHATE 40 MG in SODIUM CHLORIDE 50 ML IVPB ONE (09:30)
[2019-06-01] MEDS ORDERED: PALONOSETRON HCL 0.25 MG/5 ML VIAL IVPUSH ONE (09:30)
[2019-06-01] MEDS ORDERED: DEXTROSE 5% IV ONE (10:00)
[2019-06-01] MEDS ORDERED: WATER IV ONE (10:00)
[2019-06-01] MEDS ORDERED: CARFILZOMIB IV ONE (10:00)
[2019-06-01 12:07] LABS: BASO % 0.3 % (0-2.0); EOS % 2.9 % (0-4.5); HEMATOCRIT 37.5 % (35.4-49); HEMOGLOBIN 13.4 GM/dL (11.7-16.9); LYMPH % 18.5 % (8-40); MCH 33.8 pg (25.7-33.7); MCHC 35.7 g/dl (32.0-35.9); MEAN CELL VOLUME 94.8 fl (80-96); MEAN PLT VOLUME 7.7 fl (7.5-11.1); MONO % 6.1 % (3.8-10.2); NEUT % 72.2 % (42.8-82.8); PLATELET COUNT 153 K/MM3 (134-434); RBC 3.96 M/mm3 (4.00-5.60); RDW 14.4 % (11.9-15.9); WHITE BLOOD COUNT 5.3 K/mm3 (4.0-10.0)
[2019-06-01 12:44] LABS: ALBUMIN 4.1 g/dl (3.4-5.0); BILIRUBIN,TOTAL 0.6 mg/dL (0.2-1); BLOOD UREA NITROGEN 25.4 mg/dL (7-18); CREATININE 1.2 mg/dL (0.55-1.3); MAGNESIUM 1.6 mg/dL (1.8-2.4); TOT PROT 6.4 g/dl (6.4-8.2); URIC ACID 7.1 mg/dL (2.6-7.2)
[2019-06-01] MEDS ORDERED: INSULIN (NOVOLOG) ASPART 100 UNITS/ML 10ML VIAL SQ ONE (13:30)
[2019-06-01] MEDS ORDERED: MAGNESIUM SULF 50% (8.12 MEQ/2 ML-1 GM VIAL) IVPB ONE (13:30)
[2019-06-01 14:47] VITALS: PULSE 69; TEMP 98.2
[2019-06-01 14:58] VITALS: BP 116/73
== END 2019-06-01 15:05 | disposition home or self-care (01) ==
LOC: JONCCHEMO 07:14 → J7W 12:33 → JONCCHEMO 15:05
PROVIDERS: ATTEND Internal Medicine Hematology & Oncology
PROC: 3E03305 Introduction of Other Antineoplastic into Peripheral Vein, Percutaneous Approach (ICD-10-PCS; principal; 2019-06-01)
PROC: 3E033GC Introduction of Other Therapeutic Substance into Peripheral Vein, Percutaneous Approach (ICD-10-PCS; 2019-06-01)
DX: Z51.11 Encounter for antineoplastic chemotherapy (principal); C90.00 Multiple myeloma not having achieved remission; I10 Essential (primary) hypertension
CPT/HCPCS: 36415; 80053; 83615; 83735; 84550; 85025; 96367; 96375; 96413; 96417; J2469; J9047

== ENCOUNTER 2019-06-08 06:40 | Day surgery (SDC) | payer BC ==
[2019-06-08] MEDS ORDERED: DEXAMETHASONE SODIUM PHOSPHATE 40 MG in SODIUM CHLORIDE 50 ML IVPB ONE (09:30)
[2019-06-08] MEDS ORDERED: PALONOSETRON HCL 0.25 MG/5 ML VIAL IVPUSH ONE (09:30)
[2019-06-08] MEDS ORDERED: DEXTROSE 5% IV ONE (10:00)
[2019-06-08] MEDS ORDERED: WATER IV ONE (10:00)
[2019-06-08] MEDS ORDERED: CARFILZOMIB IV ONE (10:00)
[2019-06-08 10:56] LABS: BASO % 0.5 % (0-2.0); EOS % 3.1 % (0-4.5); HEMATOCRIT 37.1 % (35.4-49); MCH 33.5 pg (25.7-33.7); MCHC 35.1 g/dl (32.0-35.9); MEAN CELL VOLUME 95.4 fl (80-96); MEAN PLT VOLUME 7.9 fl (7.5-11.1); MONO % 6.6 % (3.8-10.2); NEUT % 71.8 % (42.8-82.8); PLATELET COUNT 120 K/MM3 (134-434); RBC 3.89 M/mm3 (4.00-5.60); RDW 14.6 % (11.9-15.9); WHITE BLOOD COUNT 4.8 K/mm3 (4.0-10.0)
[2019-06-08 11:20] LABS: ALBUMIN 3.9 g/dl (3.4-5.0); BILIRUBIN,TOTAL 0.7 mg/dL (0.2-1); BLOOD UREA NITROGEN 18.6 mg/dL (7-18); CALCIUM 8.8 mg/dL (8.5-10.1); CREATININE 1.2 mg/dL (0.55-1.3); MAGNESIUM 1.8 mg/dL (1.8-2.4); POTASSIUM 4.2 mmol/L (3.5-5.1); TOT PROT 6.1 g/dl (6.4-8.2)
[2019-06-08 14:22] VITALS: TEMP 97.3
[2019-06-08 14:23] VITALS: BP 136/76; PULSE 71
== END 2019-06-08 13:50 | disposition home or self-care (01) ==
LOC: JONCCHEMO 06:40 → J7W 12:23 → JONCCHEMO 13:50
PROVIDERS: ATTEND Internal Medicine Hematology & Oncology
DX: Z51.11 Encounter for antineoplastic chemotherapy (principal); C90.00 Multiple myeloma not having achieved remission; I10 Essential (primary) hypertension
CPT/HCPCS: 36415; 80053; 83735; 85025; 96375; 96413; J2469; J9047

== ENCOUNTER 2019-06-29 05:30 | Day surgery (SDC) | payer BC ==
[2019-06-29] MEDS ORDERED: DEXAMETHASONE SODIUM PHOSPHATE 40 MG in SODIUM CHLORIDE 50 ML IVPB ONE (10:00)
[2019-06-29] MEDS ORDERED: PALONOSETRON HCL 0.25 MG/5 ML VIAL IVPUSH ONE (10:00)
[2019-06-29] MEDS ORDERED: WATER IV ONE (10:30)
[2019-06-29] MEDS ORDERED: DEXTROSE 5% IV ONE (10:30)
[2019-06-29] MEDS ORDERED: CARFILZOMIB IV ONE (10:30)
[2019-06-29 10:56] LABS: BASO % 0.7 % (0-2.0); EOS % 4.9 % (0-4.5); HEMATOCRIT 37.5 % (35.4-49); HEMOGLOBIN 13.1 GM/dL (11.7-16.9); LYMPH % 17.4 % (8-40); MCH 33.1 pg (25.7-33.7); MEAN CELL VOLUME 94.8 fl (80-96); MEAN PLT VOLUME 7.5 fl (7.5-11.1); PLATELET COUNT 168 K/MM3 (134-434); RBC 3.95 M/mm3 (4.00-5.60); RDW 14.3 % (11.9-15.9); WHITE BLOOD COUNT 6.1 K/mm3 (4.0-10.0)
[2019-06-29] MEDS ORDERED: SODIUM CHLORIDE IVPB ONE (11:00)
[2019-06-29] MEDS ORDERED: DARATUMUMAB IVPB ONE (11:00)
[2019-06-29 11:22] LABS: ALBUMIN 4.1 g/dl (3.4-5.0); BILIRUBIN,TOTAL 0.6 mg/dL (0.2-1); BLOOD UREA NITROGEN 20.7 mg/dL (7-18); CALCIUM 8.8 mg/dL (8.5-10.1); CREATININE 1.1 mg/dL (0.55-1.3); MAGNESIUM 1.8 mg/dL (1.8-2.4); POTASSIUM 4.4 mmol/L (3.5-5.1); TOT PROT 6.2 g/dl (6.4-8.2); URIC ACID 6.8 mg/dL (2.6-7.2)
[2019-06-29] MEDS ORDERED: INSULIN SLIDING SCALE (NOVOLOG) 1 VIAL SQ SCH (12:00)
[2019-06-29 18:12] VITALS: TEMP 97.4
[2019-06-29 18:27] VITALS: BP 150/84; PULSE 83
[2019-06-29] MEDS ORDERED: INSULIN (NOVOLOG) ASPART 100 UNITS/ML 10ML VIAL ONE (18:33)
== END 2019-06-29 18:30 | disposition home or self-care (01) ==
LOC: JONCCHEMO 05:30 → J7W 11:29 → JONCCHEMO 18:30
PROVIDERS: ATTEND Internal Medicine Hematology & Oncology
DX: Z51.11 Encounter for antineoplastic chemotherapy (principal); C90.00 Multiple myeloma not having achieved remission; C79.51 Secondary malignant neoplasm of bone; I10 Essential (primary) hypertension
CPT/HCPCS: 36415; 80053; 82962; 83615; 83735; 84550; 85025; 96375; 96413; 96415; 96417; J2469; J9047; J9145

== ENCOUNTER 2019-07-06 07:27 | Day surgery (SDC) | payer BC ==
[2019-07-06] MEDS ORDERED: PALONOSETRON HCL 0.25 MG/5 ML VIAL IVPUSH ONE (10:00)
[2019-07-06] MEDS ORDERED: DEXAMETHASONE SODIUM PHOSPHATE 40 MG in SODIUM CHLORIDE 50 ML IVPB ONE (10:00)
[2019-07-06] MEDS ORDERED: CARFILZOMIB IV ONE (10:30)
[2019-07-06] MEDS ORDERED: WATER IV ONE (10:30)
[2019-07-06] MEDS ORDERED: DEXTROSE 5% IV ONE (10:30)
[2019-07-06 13:09] LABS: BASO % 0.9 % (0-2.0); EOS % 3.9 % (0-4.5); HEMATOCRIT 38.7 % (35.4-49); HEMOGLOBIN 13.6 GM/dL (11.7-16.9); LYMPH % 17.8 % (8-40); MCH 33.2 pg (25.7-33.7); MCHC 35.1 g/dl (32.0-35.9); MEAN CELL VOLUME 94.5 fl (80-96); MEAN PLT VOLUME 7.8 fl (7.5-11.1); MONO % 6.5 % (3.8-10.2); NEUT % 70.9 % (42.8-82.8); PLATELET COUNT 131 K/MM3 (134-434); RDW 14.7 % (11.9-15.9)
[2019-07-06 13:38] LABS: ALBUMIN 4.1 g/dl (3.4-5.0); BILIRUBIN,TOTAL 0.7 mg/dL (0.2-1); BLOOD UREA NITROGEN 19.5 mg/dL (7-18); CALCIUM 8.7 mg/dL (8.5-10.1); MAGNESIUM 2.1 mg/dL (1.8-2.4); TOT PROT 6.4 g/dl (6.4-8.2); URIC ACID 6.6 mg/dL (2.6-7.2)
[2019-07-06] MEDS ORDERED: amLODIPine BESYLATE 5 MG TABLET (FP) PO PRN (14:42)
[2019-07-06] MEDS ORDERED: INSULIN SLIDING SCALE (NOVOLOG) 1 VIAL SQ PRN (14:46)
[2019-07-06 16:17] VITALS: TEMP 98.2
[2019-07-06 16:22] VITALS: BP 143/77; PULSE 74
== END 2019-07-06 15:30 | disposition home or self-care (01) ==
LOC: JONCCHEMO 07:27 → J7W 13:48 → JONCCHEMO 15:30
PROVIDERS: ATTEND Internal Medicine Hematology & Oncology
DX: Z51.11 Encounter for antineoplastic chemotherapy (principal); C90.00 Multiple myeloma not having achieved remission; C79.51 Secondary malignant neoplasm of bone; I10 Essential (primary) hypertension; R73.9 Hyperglycemia, unspecified
CPT/HCPCS: 36415; 80053; 82962; 83615; 83735; 84550; 85025; 96372; 96375; 96413; J2469; J9047

== ENCOUNTER 2019-07-20 05:47 | Day surgery (SDC) | payer BC ==
[2019-07-20] MEDS ORDERED: DEXAMETHASONE SODIUM PHOSPHATE 40 MG in SODIUM CHLORIDE 50 ML IVPB ONE (09:30)
[2019-07-20] MEDS ORDERED: PALONOSETRON HCL 0.25 MG/5 ML VIAL IVPUSH ONE (09:30)
[2019-07-20] MEDS ORDERED: DEXTROSE 5% IV ONE (10:00)
[2019-07-20] MEDS ORDERED: WATER IV ONE (10:00)
[2019-07-20] MEDS ORDERED: CARFILZOMIB IV ONE (10:00)
[2019-07-20 11:29] LABS: EOS % 2.7 % (0-4.5); HEMATOCRIT 37.9 % (35.4-49); HEMOGLOBIN 13.4 GM/dL (11.7-16.9); LYMPH % 16.4 % (8-40); MCH 32.6 pg (25.7-33.7); MCHC 35.2 g/dl (32.0-35.9); MEAN CELL VOLUME 92.7 fl (80-96); MEAN PLT VOLUME 7.3 fl (7.5-11.1); MONO % 8.8 % (3.8-10.2); NEUT % 71.1 % (42.8-82.8); PLATELET COUNT 193 K/MM3 (134-434); RBC 4.09 M/mm3 (4.00-5.60); RDW 14.6 % (11.9-15.9); WHITE BLOOD COUNT 5.8 K/mm3 (4.0-10.0)
[2019-07-20 11:57] LABS: ALBUMIN 4.2 g/dl (3.4-5.0); BILIRUBIN,TOTAL 0.8 mg/dL (0.2-1); BLOOD UREA NITROGEN 17.4 mg/dL (7-18); CALCIUM 8.6 mg/dL (8.5-10.1); MAGNESIUM 1.9 mg/dL (1.8-2.4); POTASSIUM 4.2 mmol/L (3.5-5.1); TOT PROT 6.5 g/dl (6.4-8.2)
[2019-07-20 14:29] VITALS: TEMP 98.2
[2019-07-20 14:36] VITALS: BP 144/73; PULSE 74
== END 2019-07-20 14:00 | disposition home or self-care (01) ==
LOC: JONCCHEMO 05:47 → J7W 11:28 → JONCCHEMO 14:00
PROVIDERS: ATTEND Internal Medicine Hematology & Oncology
DX: Z51.11 Encounter for antineoplastic chemotherapy (principal); C90.00 Multiple myeloma not having achieved remission; C79.51 Secondary malignant neoplasm of bone
CPT/HCPCS: 36415; 80053; 83735; 85025; 96375; 96413; J2469; J9047

== ENCOUNTER 2019-08-03 06:53 | Day surgery (SDC) | payer BC ==
[2019-08-03] MEDS ORDERED: DEXAMETHASONE SODIUM PHOSPHATE 40 MG in SODIUM CHLORIDE 50 ML IVPB ONE (09:30)
[2019-08-03] MEDS ORDERED: PALONOSETRON HCL 0.25 MG/5 ML VIAL IVPUSH ONE (09:30)
[2019-08-03] MEDS ORDERED: DARATUMUMAB IVPB ONE (10:00)
[2019-08-03] MEDS ORDERED: SODIUM CHLORIDE IVPB ONE (10:00)
[2019-08-03 11:35] LABS: BASO % 1.1 % (0-2.0); EOS % 3.5 % (0-4.5); HEMATOCRIT 38.5 % (35.4-49); HEMOGLOBIN 13.3 GM/dL (11.7-16.9); LYMPH % 22.9 % (8-40); MCH 32.4 pg (25.7-33.7); MCHC 34.5 g/dl (32.0-35.9); MEAN CELL VOLUME 93.7 fl (80-96); MEAN PLT VOLUME 7.7 fl (7.5-11.1); MONO % 6.8 % (3.8-10.2); NEUT % 65.7 % (42.8-82.8); PLATELET COUNT 151 K/MM3 (134-434); RBC 4.11 M/mm3 (4.00-5.60); RDW 14.9 % (11.9-15.9); WHITE BLOOD COUNT 5.6 K/mm3 (4.0-10.0)
[2019-08-03 12:08] LABS: ALBUMIN 4.1 g/dl (3.4-5.0); BILIRUBIN,TOTAL 0.8 mg/dL (0.2-1); BLOOD UREA NITROGEN 16.9 mg/dL (7-18); CALCIUM 8.7 mg/dL (8.5-10.1); CREATININE 1.1 mg/dL (0.55-1.3); MAGNESIUM 1.9 mg/dL (1.8-2.4); POTASSIUM 4.1 mmol/L (3.5-5.1); TOT PROT 6.2 g/dl (6.4-8.2)
[2019-08-03] MEDS ORDERED: DEXTROSE 5% IV ONE (14:00)
[2019-08-03] MEDS ORDERED: CARFILZOMIB IV ONE (14:00)
[2019-08-03] MEDS ORDERED: WATER IV ONE (14:00)
[2019-08-03 16:08] VITALS: TEMP 98.2
[2019-08-03 17:26] VITALS: BP 132/75; PULSE 74
== END 2019-08-03 17:26 | disposition home or self-care (01) ==
LOC: JONCCHEMO 06:53 → J7W 12:30 → JONCCHEMO 17:26
PROVIDERS: ATTEND Internal Medicine Hematology & Oncology
PROC: 3E03305 Introduction of Other Antineoplastic into Peripheral Vein, Percutaneous Approach (ICD-10-PCS; principal; 2019-08-03)
PROC: 3E033GC Introduction of Other Therapeutic Substance into Peripheral Vein, Percutaneous Approach (ICD-10-PCS; 2019-08-03)
DX: Z51.11 Encounter for antineoplastic chemotherapy (principal); C90.00 Multiple myeloma not having achieved remission; I10 Essential (primary) hypertension
CPT/HCPCS: 36415; 80053; 83615; 83735; 84550; 85025; 96367; 96413; 96415; 96417; J2469; J9047; J9145

== ENCOUNTER 2019-08-10 07:04 | Day surgery (SDC) | payer BC ==
[2019-08-10] MEDS ORDERED: PALONOSETRON HCL 0.25 MG/5 ML VIAL IVPUSH ONE (10:00)
[2019-08-10] MEDS ORDERED: DEXAMETHASONE SODIUM PHOSPHATE 40 MG in SODIUM CHLORIDE 50 ML IVPB ONE (10:00)
[2019-08-10] MEDS ORDERED: CARFILZOMIB IV ONE (10:30)
[2019-08-10] MEDS ORDERED: DEXTROSE 5% IV ONE (10:30)
[2019-08-10] MEDS ORDERED: WATER IV ONE (10:30)
[2019-08-10 11:35] LABS: BASO % 0.9 % (0-2.0); EOS % 3.9 % (0-4.5); HEMATOCRIT 39.5 % (35.4-49); HEMOGLOBIN 13.6 GM/dL (11.7-16.9); LYMPH % 22.3 % (8-40); MCH 32.3 pg (25.7-33.7); MCHC 34.5 g/dl (32.0-35.9); MEAN CELL VOLUME 93.6 fl (80-96); MEAN PLT VOLUME 7.7 fl (7.5-11.1); MONO % 7.7 % (3.8-10.2); NEUT % 65.2 % (42.8-82.8); PLATELET COUNT 118 K/MM3 (134-434); RBC 4.22 M/mm3 (4.00-5.60); RDW 15.2 % (11.9-15.9); WHITE BLOOD COUNT 5.3 K/mm3 (4.0-10.0)
[2019-08-10 11:59] LABS: ALBUMIN 4.2 g/dl (3.4-5.0); BILIRUBIN,TOTAL 0.7 mg/dL (0.2-1); BLOOD UREA NITROGEN 21.6 mg/dL (7-18); CALCIUM 8.7 mg/dL (8.5-10.1); CREATININE 1.1 mg/dL (0.55-1.3); TOT PROT 6.3 g/dl (6.4-8.2)
[2019-08-10 17:54] VITALS: BP 172/76; PULSE 78; TEMP 98
== END 2019-08-10 14:00 | disposition home or self-care (01) ==
LOC: JONCCHEMO 07:04 → J7W 10:43 → JONCCHEMO 14:00
PROVIDERS: ATTEND Internal Medicine Hematology & Oncology
DX: Z51.11 Encounter for antineoplastic chemotherapy (principal); C90.00 Multiple myeloma not having achieved remission
CPT/HCPCS: 36415; 80053; 83735; 85025; 96375; 96413; J2469; J9047

== ENCOUNTER 2019-08-24 05:59 | Day surgery (SDC) | payer BC ==
[~2019-08-24 05:59] MED LIST changes: -DARATUMUMAB IVPB ONE; -SODIUM CHLORIDE IVPB ONE
[2019-08-24] MEDS ORDERED: DEXAMETHASONE SODIUM PHOSPHATE 40 MG in SODIUM CHLORIDE 50 ML IVPB ONE ×2 (07:00→10:00)
[2019-08-24] MEDS ORDERED: PALONOSETRON HCL 0.25 MG/5 ML VIAL IVPUSH ONE (10:00)
[2019-08-24] MEDS ORDERED: WATER IV ONE (10:30)
[2019-08-24] MEDS ORDERED: CARFILZOMIB IV ONE (10:30)
[2019-08-24] MEDS ORDERED: DEXTROSE 5% IV ONE (10:30)
[2019-08-24 10:35] LABS: BASO % 1.3 % (0-2.0); EOS % 3.7 % (0-4.5); HEMATOCRIT 40.4 % (35.4-49); HEMOGLOBIN 13.9 GM/dL (11.7-16.9); LYMPH % 20.4 % (8-40); MCH 32.2 pg (25.7-33.7); MCHC 34.5 g/dl (32.0-35.9); MEAN CELL VOLUME 93.2 fl (80-96); MEAN PLT VOLUME 7.3 fl (7.5-11.1); MONO % 6.2 % (3.8-10.2); NEUT % 68.4 % (42.8-82.8); PLATELET COUNT 179 K/MM3 (134-434); RBC 4.33 M/mm3 (4.00-5.60); RDW 14.7 % (11.9-15.9); WHITE BLOOD COUNT 5.5 K/mm3 (4.0-10.0)
[2019-08-24 11:02] LABS: ALBUMIN 4.1 g/dl (3.4-5.0); BILIRUBIN,TOTAL 0.7 mg/dL (0.2-1); BLOOD UREA NITROGEN 19.8 mg/dL (7-18); CALCIUM 8.9 mg/dL (8.5-10.1); MAGNESIUM 2.1 mg/dL (1.8-2.4); TOT PROT 6.5 g/dl (6.4-8.2)
[2019-08-24 17:15] VITALS: BP 139/80; PULSE 71; TEMP 97.7
== END 2019-08-24 14:07 | disposition home or self-care (01) ==
LOC: JONCCHEMO 05:59 → J7W 11:45 → JONCCHEMO 14:07
PROVIDERS: ATTEND Internal Medicine Hematology & Oncology
DX: Z51.11 Encounter for antineoplastic chemotherapy (principal); C90.00 Multiple myeloma not having achieved remission
CPT/HCPCS: 36415; 80053; 83735; 85025; 96375; 96413; J2469; J9047

== ENCOUNTER 2019-09-07 07:51 | Day surgery (SDC) | payer BC ==
[~2019-09-07 07:51] MED LIST changes: +DARATUMUMAB IVPB ONE; +SODIUM CHLORIDE IVPB ONE
[2019-09-07] MEDS ORDERED: DEXAMETHASONE SODIUM PHOSPHATE 40 MG in SODIUM CHLORIDE 50 ML IVPB ONE (09:30)
[2019-09-07] MEDS ORDERED: PALONOSETRON HCL 0.25 MG/5 ML VIAL IVPUSH ONE (09:30)
[2019-09-07] MEDS ORDERED: DARATUMUMAB IVPB ONE (10:00)
[2019-09-07] MEDS ORDERED: SODIUM CHLORIDE IVPB ONE (10:00)
[2019-09-07 10:48] LABS: BASO % 2.1 % (0-2.0); EOS % 4.2 % (0-4.5); HEMATOCRIT 37.9 % (35.4-49); LYMPH % 17.3 % (8-40); MCH 31.1 pg (25.7-33.7); MCHC 34.3 g/dl (32.0-35.9); MEAN CELL VOLUME 90.8 fl (80-96); MEAN PLT VOLUME 6.9 fl (7.5-11.1); MONO % 5.9 % (3.8-10.2); NEUT % 70.5 % (42.8-82.8); PLATELET COUNT 229 K/MM3 (134-434); RBC 4.17 M/mm3 (4.00-5.60); RDW 14.9 % (11.9-15.9); WHITE BLOOD COUNT 5.6 K/mm3 (4.0-10.0)
[2019-09-07 11:16] LABS: BLOOD UREA NITROGEN 22.6 mg/dL (7-18); CALCIUM 9.2 mg/dL (8.5-10.1); CREATININE 1.1 mg/dL (0.55-1.3)
[2019-09-07 11:20] LABS: ALBUMIN 3.8 g/dl (3.4-5.0); BILIRUBIN,DIRECT 0.1 mg/dL (0.0-0.2); BILIRUBIN,TOTAL 0.5 mg/dL (0.2-1); MAGNESIUM 1.9 mg/dL (1.8-2.4); TOT PROT 6.2 g/dl (6.4-8.2); URIC ACID 6.4 mg/dL (2.6-7.2)
[2019-09-07] MEDS ORDERED: Insulin (LOG) Aspart 100 UNITS/ML VIAL SQ ONE (11:38)
[2019-09-07] MEDS ORDERED: DEXTROSE 5% IV ONE (13:00)
[2019-09-07] MEDS ORDERED: WATER IV ONE (13:00)
[2019-09-07] MEDS ORDERED: CARFILZOMIB IV ONE (13:00)
[2019-09-07 14:46] VITALS: TEMP 97.8
[2019-09-07 16:37] VITALS: BP 139/70; PULSE 76
== END 2019-09-07 16:37 | disposition home or self-care (01) ==
LOC: JONCCHEMO 07:51 → J7W 11:04 → JONCCHEMO 16:37
PROVIDERS: ATTEND Internal Medicine Hematology & Oncology
DX: Z51.11 Encounter for antineoplastic chemotherapy (principal); C90.00 Multiple myeloma not having achieved remission
CPT/HCPCS: 36415; 80048; 80076; 83615; 83735; 84550; 85025; 96375; 96413; 96415; 96417; J2469; J9047; J9145

== ENCOUNTER 2019-09-21 06:10 | Day surgery (SDC) | payer BC ==
[~2019-09-21 06:10] MED LIST changes: -DARATUMUMAB IVPB ONE; -SODIUM CHLORIDE IVPB ONE
[2019-09-21] MEDS ORDERED: PALONOSETRON HCL 0.25 MG/5 ML VIAL IVPUSH ONE (09:30)
[2019-09-21] MEDS ORDERED: DEXAMETHASONE SODIUM PHOSPHATE 40 MG in SODIUM CHLORIDE 50 ML IVPB ONE (09:30)
[2019-09-21] MEDS ORDERED: WATER IV ONE (10:00)
[2019-09-21] MEDS ORDERED: CARFILZOMIB IV ONE (10:00)
[2019-09-21] MEDS ORDERED: DEXTROSE 5% IV ONE (10:00)
[2019-09-21] MEDS ORDERED: INSULIN SLIDING SCALE (NOVOLOG) 1 VIAL SQ SCH (12:00)
[2019-09-21 13:21] LABS: BASO % 0.4 % (0-2.0); EOS % 3.1 % (0-4.5); HEMATOCRIT 38.3 % (35.4-49); HEMOGLOBIN 13.5 GM/dL (11.7-16.9); LYMPH % 19.3 % (8-40); MCH 32.2 pg (25.7-33.7); MCHC 35.3 g/dl (32.0-35.9); MEAN CELL VOLUME 91.2 fl (80-96); MEAN PLT VOLUME 7.7 fl (7.5-11.1); MONO % 6.4 % (3.8-10.2); NEUT % 70.8 % (42.8-82.8); PLATELET COUNT 140 K/MM3 (134-434); RDW 15.6 % (11.9-15.9); WHITE BLOOD COUNT 5.7 K/mm3 (4.0-10.0)
[2019-09-21 13:51] LABS: ALBUMIN 3.9 g/dl (3.4-5.0); BILIRUBIN,TOTAL 0.5 mg/dL (0.2-1); BLOOD UREA NITROGEN 25.1 mg/dL (7-18); CALCIUM 8.7 mg/dL (8.5-10.1); CREATININE 1.1 mg/dL (0.55-1.3); MAGNESIUM 1.9 mg/dL (1.8-2.4); POTASSIUM 3.9 mmol/L (3.5-5.1); TOT PROT 6.2 g/dl (6.4-8.2); URIC ACID 6.5 mg/dL (2.6-7.2)
[2019-09-21] MEDS ORDERED: INSULIN (NOVOLOG) ASPART 100 UNITS/ML 10ML VIAL ONE (16:06)
[2019-09-21 18:28] VITALS: BP 148/77; PULSE 71; TEMP 98.4
[2019-09-22 08:09] LABS: IGA IMMUNOGLOBULIN 12 mg/dL (90-386); IGG QN IMMUNOGLOBULIN 378 mg/dL (700-1600); IGM QN SERUM 8 mg/dL (20-172)
[2019-09-22 18:07] LABS: FREE KAPPA,SERUM 3.5 mg/L (3.3-19.4)
[2019-09-24 03:06] LABS: KAPPA/LAMBDA RATIO, UR 20.99 (1.03-31.76)
== END 2019-09-21 15:30 | disposition home or self-care (01) ==
LOC: JONCCHEMO 06:10 → J7W 11:45 → JONCCHEMO 15:30
PROVIDERS: ATTEND Internal Medicine Hematology & Oncology
DX: Z51.11 Encounter for antineoplastic chemotherapy (principal); C90.00 Multiple myeloma not having achieved remission
CPT/HCPCS: 36415; 80053; 82232; 82784; 82962; 83615; 83735; 83883; 84155; 84165; 84550; 85025; 87086; 96367; 96413; J2469; J9047

== ENCOUNTER 2019-09-28 05:25 | Day surgery (SDC) | payer BC ==
[2019-09-28] MEDS ORDERED: DEXAMETHASONE SODIUM PHOSPHATE 40 MG in SODIUM CHLORIDE 50 ML IVPB ONE (09:30)
[2019-09-28] MEDS ORDERED: PALONOSETRON HCL 0.25 MG/5 ML VIAL IVPUSH ONE (09:30)
[2019-09-28] MEDS ORDERED: WATER IV ONE (10:00)
[2019-09-28] MEDS ORDERED: CARFILZOMIB IV ONE (10:00)
[2019-09-28] MEDS ORDERED: DEXTROSE 5% IV ONE (10:00)
[2019-09-28 11:19] LABS: BASO % 0.9 % (0-2.0); EOS % 4.2 % (0-4.5); HEMATOCRIT 40.2 % (35.4-49); HEMOGLOBIN 14.1 GM/dL (11.7-16.9); LYMPH % 19.2 % (8-40); MEAN CELL VOLUME 91.2 fl (80-96); MEAN PLT VOLUME 7.7 fl (7.5-11.1); MONO % 6.4 % (3.8-10.2); NEUT % 69.3 % (42.8-82.8); PLATELET COUNT 105 K/MM3 (134-434); RDW 15.8 % (11.9-15.9); WHITE BLOOD COUNT 5.7 K/mm3 (4.0-10.0)
[2019-09-28] MEDS ORDERED: DEXAMETHASONE SODIUM PHOSPHATE 20 MG in SODIUM CHLORIDE 50 ML IVPB ONE (11:45)
[2019-09-28 11:57] LABS: ALBUMIN 4.1 g/dl (3.4-5.0); BILIRUBIN,TOTAL 0.8 mg/dL (0.2-1); BLOOD UREA NITROGEN 18.1 mg/dL (7-18); CALCIUM 9.4 mg/dL (8.5-10.1); MAGNESIUM 1.9 mg/dL (1.8-2.4); POTASSIUM 4.2 mmol/L (3.5-5.1); TOT PROT 6.4 g/dl (6.4-8.2); URIC ACID 6.4 mg/dL (2.6-7.2)
[2019-09-28] MEDS ORDERED: INSULIN SLIDING SCALE (NOVOLOG) 1 VIAL SQ ONE (12:15)
[2019-09-28 16:05] VITALS: BP 140/71; PULSE 72; TEMP 97.6
== END 2019-09-28 14:30 | disposition home or self-care (01) ==
LOC: JONCCHEMO 05:25 → J7W 12:00 → JONCCHEMO 14:30
PROVIDERS: ATTEND Internal Medicine Hematology & Oncology
DX: Z51.11 Encounter for antineoplastic chemotherapy (principal); C90.00 Multiple myeloma not having achieved remission
CPT/HCPCS: 36415; 80053; 82962; 83615; 83735; 84550; 85025; 96367; 96413; J2469; J9047

== ENCOUNTER 2019-10-19 05:57 | Day surgery (SDC) | payer BC ==
[2019-10-19] MEDS ORDERED: PALONOSETRON HCL 0.25 MG/5 ML VIAL IVPUSH ONE (10:00)
[2019-10-19] MEDS ORDERED: DEXAMETHASONE SODIUM PHOSPHATE 20 MG in SODIUM CHLORIDE 50 ML IVPB ONE (10:00)
[2019-10-19] MEDS ORDERED: DARATUMUMAB IVPB ONE (10:30)
[2019-10-19] MEDS ORDERED: SODIUM CHLORIDE IVPB ONE (10:30)
[2019-10-19 10:44] LABS: EOS % 2.4 % (0-4.5); HEMATOCRIT 32.6 % (35.4-49); HEMOGLOBIN 11.4 GM/dL (11.7-16.9); LYMPH % 17.4 % (8-40); MCH 30.7 pg (25.7-33.7); MCHC 35.1 g/dl (32.0-35.9); MEAN CELL VOLUME 87.6 fl (80-96); MEAN PLT VOLUME 6.8 fl (7.5-11.1); MONO % 3.7 % (3.8-10.2); NEUT % 75.5 % (42.8-82.8); PLATELET COUNT 272 K/MM3 (134-434); RBC 3.72 M/mm3 (4.00-5.60); RDW 15.4 % (11.9-15.9); WHITE BLOOD COUNT 5.1 K/mm3 (4.0-10.0)
[2019-10-19 11:13] LABS: ALBUMIN 3.2 g/dl (3.4-5.0); BILIRUBIN,TOTAL 0.7 mg/dL (0.2-1); BLOOD UREA NITROGEN 12.6 mg/dL (7-18); CALCIUM 8.1 mg/dL (8.5-10.1); CREATININE 0.9 mg/dL (0.55-1.3); MAGNESIUM 1.8 mg/dL (1.8-2.4); POTASSIUM 3.6 mmol/L (3.5-5.1); URIC ACID 5.2 mg/dL (2.6-7.2)
[2019-10-19] MEDS ORDERED: DEXTROSE 5% IV ONE (12:00)
[2019-10-19] MEDS ORDERED: CARFILZOMIB IV ONE (12:00)
[2019-10-19] MEDS ORDERED: WATER IV ONE (12:00)
[2019-10-19] MEDS ORDERED: Insulin (LOG) Aspart 100 UNITS/ML VIAL SQ ONE (12:51)
[2019-10-19] MEDS ORDERED: INSULIN (NOVOLOG) ASPART 100 UNITS/ML 10ML VIAL SQ ONE (17:51)
[2019-10-19 17:59] VITALS: TEMP 99.2
[2019-10-19 18:16] VITALS: BP 151/80; PULSE 68
== END 2019-10-19 18:10 | disposition home or self-care (01) ==
LOC: JONCCHEMO 05:57 → J7W 11:28 → JONCCHEMO 18:10
PROVIDERS: ATTEND Nurse Practitioner Family
PROC: 3E03305 Introduction of Other Antineoplastic into Peripheral Vein, Percutaneous Approach (ICD-10-PCS; principal; 2019-10-19)
PROC: 3E033GC Introduction of Other Therapeutic Substance into Peripheral Vein, Percutaneous Approach (ICD-10-PCS; 2019-10-19)
DX: Z51.11 Encounter for antineoplastic chemotherapy (principal); C90.00 Multiple myeloma not having achieved remission
CPT/HCPCS: 36415; 80053; 82962; 83615; 83735; 84550; 85025; 96367; 96413; 96415; 96417; J2469; J9047; J9145

== ENCOUNTER 2019-10-26 07:16 | Day surgery (SDC) | payer BC ==
[2019-10-26] MEDS ORDERED: DEXAMETHASONE SODIUM PHOSPHATE 20 MG in SODIUM CHLORIDE 50 ML IVPB ONE (10:00)
[2019-10-26] MEDS ORDERED: PALONOSETRON HCL 0.25 MG/5 ML VIAL IVPUSH ONE (10:00)
[2019-10-26 10:23] LABS: BASO % 1.2 % (0-2.0); EOS % 2.4 % (0-4.5); HEMATOCRIT 35.1 % (35.4-49); HEMOGLOBIN 12.2 GM/dL (11.7-16.9); LYMPH % 18.1 % (8-40); MCH 30.9 pg (25.7-33.7); MCHC 34.8 g/dl (32.0-35.9); MEAN CELL VOLUME 88.8 fl (80-96); MEAN PLT VOLUME 7.4 fl (7.5-11.1); MONO % 5.4 % (3.8-10.2); NEUT % 72.9 % (42.8-82.8); PLATELET COUNT 157 K/MM3 (134-434); RBC 3.95 M/mm3 (4.00-5.60); RDW 16.3 % (11.9-15.9); WHITE BLOOD COUNT 5.7 K/mm3 (4.0-10.0)
[2019-10-26] MEDS ORDERED: WATER IV ONE (10:30)
[2019-10-26] MEDS ORDERED: DEXTROSE 5% IV ONE (10:30)
[2019-10-26] MEDS ORDERED: CARFILZOMIB IV ONE (10:30)
[2019-10-26 10:47] LABS: ALBUMIN 3.8 g/dl (3.4-5.0); BILIRUBIN,TOTAL 0.6 mg/dL (0.2-1); BLOOD UREA NITROGEN 22.4 mg/dL (7-18); CALCIUM 9.2 mg/dL (8.5-10.1); CREATININE 1.1 mg/dL (0.55-1.3); MAGNESIUM 2.1 mg/dL (1.8-2.4); POTASSIUM 4.3 mmol/L (3.5-5.1); TOT PROT 6.3 g/dl (6.4-8.2); URIC ACID 6.4 mg/dL (2.6-7.2)
[2019-10-26 18:17] VITALS: BP 149/74; PULSE 70
[2019-10-26 18:24] VITALS: TEMP 97.6
== END 2019-10-26 13:00 | disposition home or self-care (01) ==
LOC: JONCCHEMO 07:16 → J7W 10:40 → JONCCHEMO 13:00
PROVIDERS: ATTEND Internal Medicine Hematology & Oncology
DX: Z51.11 Encounter for antineoplastic chemotherapy (principal); C90.00 Multiple myeloma not having achieved remission
CPT/HCPCS: 36415; 80053; 83615; 83735; 84550; 85025; 96375; 96413; J2469; J9047

== ENCOUNTER 2020-01-25 07:09 | Day surgery (SDC) | payer BC ==
[~2020-01-25 07:09] MED LIST changes: +DEXAMETHASONE SODIUM PHOSPHATE 20 MG in SODIUM CHLORIDE 50 ML IVPB ONE; -DEXAMETHASONE SODIUM PHOSPHATE 40 MG in SODIUM CHLORIDE 50 ML IVPB ONE
[2020-01-25] MEDS ORDERED: PALONOSETRON HCL 0.25 MG/5 ML VIAL IVPUSH ONE (10:00)
[2020-01-25] MEDS ORDERED: DEXAMETHASONE SODIUM PHOSPHATE 20 MG in SODIUM CHLORIDE 50 ML IVPB ONE (10:00)
[2020-01-25] MEDS ORDERED: CARFILZOMIB IV ONE (10:30)
[2020-01-25] MEDS ORDERED: DEXTROSE 5% IV ONE (10:30)
[2020-01-25] MEDS ORDERED: WATER IV ONE (10:30)
[2020-01-25 11:45] LABS: BASO % 1.2 % (0-2.0); EOS % 3.9 % (0-4.5); HEMATOCRIT 40.3 % (35.4-49); HEMOGLOBIN 14.3 GM/dL (11.7-16.9); MCH 33.4 pg (25.7-33.7); MCHC 35.5 g/dl (32.0-35.9); MEAN CELL VOLUME 94.1 fl (80-96); MEAN PLT VOLUME 7.7 fl (7.5-11.1); MONO % 6.9 % (3.8-10.2); PLATELET COUNT 164 K/MM3 (134-434); RBC 4.29 M/mm3 (4.00-5.60)
[2020-01-25 12:03] LABS: BLOOD UREA NITROGEN 25.1 mg/dL (7-18); CALCIUM 9.4 mg/dL (8.5-10.1); CREATININE 1.1 mg/dL (0.55-1.3); URIC ACID 5.7 mg/dL (2.6-7.2)
[2020-01-25 12:04] LABS: ALBUMIN 4.5 g/dl (3.4-5.0); BILIRUBIN,DIRECT 0.1 mg/dL (0.0-0.2); BILIRUBIN,TOTAL 0.8 mg/dL (0.2-1); TOT PROT 6.9 g/dl (6.4-8.2)
[2020-01-25 17:09] VITALS: TEMP 97.4
[2020-01-25 17:11] VITALS: BP 134/86; PULSE 72
== END 2020-01-25 14:10 | disposition home or self-care (01) ==
LOC: JONCCHEMO 07:09
PROVIDERS: ATTEND Nurse Practitioner Family
DX: Z51.11 Encounter for antineoplastic chemotherapy (principal); C90.00 Multiple myeloma not having achieved remission
CPT/HCPCS: 36415; 80048; 80076; 83615; 83735; 84155; 84165; 84550; 85025; 96375; 96413; J2469; J9047

== ENCOUNTER 2020-02-15 05:38 | Day surgery (SDC) | payer BC ==
[2020-02-15] MEDS ORDERED: DEXAMETHASONE SODIUM PHOSPHATE 20 MG in SODIUM CHLORIDE 50 ML IVPB ONE (10:00)
[2020-02-15] MEDS ORDERED: PALONOSETRON HCL 0.25 MG/5 ML VIAL IVPUSH ONE (10:00)
[2020-02-15] MEDS ORDERED: DEXTROSE 5% IV ONE (10:30)
[2020-02-15] MEDS ORDERED: WATER IV ONE (10:30)
[2020-02-15] MEDS ORDERED: CARFILZOMIB IV ONE (10:30)
[2020-02-15 11:54] LABS: BASO % 1.1 % (0-2.0); EOS % 3.7 % (0-4.5); HEMATOCRIT 39.7 % (35.4-49); HEMOGLOBIN 14.1 GM/dL (11.7-16.9); LYMPH % 16.9 % (8-40); MCH 33.5 pg (25.7-33.7); MCHC 35.4 g/dl (32.0-35.9); MEAN CELL VOLUME 94.4 fl (80-96); MEAN PLT VOLUME 7.7 fl (7.5-11.1); MONO % 6.4 % (3.8-10.2); NEUT % 71.9 % (42.8-82.8); PLATELET COUNT 165 K/MM3 (134-434); RDW 13.9 % (11.9-15.9); WHITE BLOOD COUNT 6.6 K/mm3 (4.0-10.0)
[2020-02-15 12:32] LABS: ALBUMIN 4.4 g/dl (3.4-5.0); BILIRUBIN,DIRECT 0.2 mg/dL (0.0-0.2); BILIRUBIN,TOTAL 0.8 mg/dL (0.2-1); BLOOD UREA NITROGEN 19.6 mg/dL (7-18); CALCIUM 8.9 mg/dL (8.5-10.1); CREATININE 1.2 mg/dL (0.55-1.3); MAGNESIUM 1.7 mg/dL (1.8-2.4); POTASSIUM 4.1 mmol/L (3.5-5.1); TOT PROT 6.9 g/dl (6.4-8.2)
[2020-02-15] MEDS ORDERED: MAGNESIUM OXIDE 400 MG TABLET (FP) PO ONE (12:33)
[2020-02-15 15:03] VITALS: BP 134/70; PULSE 69; TEMP 97.9
== END 2020-02-15 14:20 | disposition home or self-care (01) ==
LOC: JONCCHEMO 05:38
PROVIDERS: ATTEND Internal Medicine Hematology & Oncology
DX: Z51.11 Encounter for antineoplastic chemotherapy (principal); C90.00 Multiple myeloma not having achieved remission
CPT/HCPCS: 36415; 80048; 80076; 83615; 83735; 84550; 85025; 96375; 96413; J2469; J9047

== ENCOUNTER 2020-02-22 07:21 | Day surgery (SDC) | payer BC ==
[2020-02-22] MEDS ORDERED: DEXAMETHASONE SODIUM PHOSPHATE 20 MG in SODIUM CHLORIDE 50 ML IVPB ONE (09:30)
[2020-02-22] MEDS ORDERED: PALONOSETRON HCL 0.25 MG/5 ML VIAL IVPUSH ONE (09:30)
[2020-02-22] MEDS ORDERED: WATER IV ONE (10:00)
[2020-02-22] MEDS ORDERED: CARFILZOMIB IV ONE (10:00)
[2020-02-22] MEDS ORDERED: DEXTROSE 5% IV ONE (10:00)
[2020-02-22 10:45] LABS: BASO % 0.8 % (0-2.0); EOS % 4.2 % (0-4.5); HEMATOCRIT 39.6 % (35.4-49); HEMOGLOBIN 13.8 GM/dL (11.7-16.9); LYMPH % 17.8 % (8-40); MCH 33.1 pg (25.7-33.7); MEAN CELL VOLUME 94.5 fl (80-96); MEAN PLT VOLUME 7.8 fl (7.5-11.1); MONO % 7.2 % (3.8-10.2); PLATELET COUNT 117 K/MM3 (134-434); RBC 4.19 M/mm3 (4.00-5.60); RDW 13.9 % (11.9-15.9); WHITE BLOOD COUNT 5.7 K/mm3 (4.0-10.0)
[2020-02-22 11:19] LABS: ALBUMIN 4.4 g/dl (3.4-5.0); BILIRUBIN,DIRECT 0.2 mg/dL (0.0-0.2); BILIRUBIN,TOTAL 0.9 mg/dL (0.2-1); BLOOD UREA NITROGEN 21.7 mg/dL (7-18); CALCIUM 9.4 mg/dL (8.5-10.1); CREATININE 1.1 mg/dL (0.55-1.3); POTASSIUM 4.2 mmol/L (3.5-5.1); TOT PROT 6.6 g/dl (6.4-8.2); URIC ACID 7.5 mg/dL (2.6-7.2)
[2020-02-22 15:12] VITALS: BP 145/64; PULSE 70; TEMP 98.1
== END 2020-02-22 13:30 | disposition home or self-care (01) ==
LOC: JONCCHEMO 07:21
PROVIDERS: ATTEND Nurse Practitioner Family
DX: Z51.11 Encounter for antineoplastic chemotherapy (principal); C90.00 Multiple myeloma not having achieved remission
CPT/HCPCS: 36415; 80048; 80076; 83615; 83735; 84550; 85025; 96375; 96413; J2469; J9047

== ENCOUNTER 2020-03-07 07:17 | Day surgery (SDC) | payer BC ==
[2020-03-07] MEDS ORDERED: DEXAMETHASONE SODIUM PHOSPHATE 20 MG in SODIUM CHLORIDE 50 ML IVPB ONE (09:30)
[2020-03-07] MEDS ORDERED: PALONOSETRON HCL 0.25 MG/5 ML VIAL IVPUSH ONE (09:30)
[2020-03-07] MEDS ORDERED: DARATUMUMAB IVPB ONE (10:00)
[2020-03-07] MEDS ORDERED: SODIUM CHLORIDE IVPB ONE (10:00)
[2020-03-07 11:28] LABS: BASO % 1.2 % (0-2.0); EOS % 3.7 % (0-4.5); HEMATOCRIT 40.8 % (35.4-49); HEMOGLOBIN 14.3 GM/dL (11.7-16.9); LYMPH % 16.7 % (8-40); MCH 33.1 pg (25.7-33.7); MCHC 35.1 g/dl (32.0-35.9); MEAN CELL VOLUME 94.2 fl (80-96); MEAN PLT VOLUME 7.8 fl (7.5-11.1); NEUT % 72.4 % (42.8-82.8); PLATELET COUNT 158 K/MM3 (134-434); RBC 4.33 M/mm3 (4.00-5.60); WHITE BLOOD COUNT 6.7 K/mm3 (4.0-10.0)
[2020-03-07] MEDS ORDERED: WATER IV ONE (11:30)
[2020-03-07] MEDS ORDERED: CARFILZOMIB IV ONE (11:30)
[2020-03-07] MEDS ORDERED: DEXTROSE 5% IV ONE (11:30)
[2020-03-07 11:37] LABS: ALBUMIN 4.5 g/dl (3.4-5.0); BILIRUBIN,DIRECT 0.2 mg/dL (0.0-0.2); BILIRUBIN,TOTAL 0.7 mg/dL (0.2-1); BLOOD UREA NITROGEN 27.3 mg/dL (7-18); CALCIUM 9.4 mg/dL (8.5-10.1); CREATININE 1.4 mg/dL (0.55-1.3); POTASSIUM 4.3 mmol/L (3.5-5.1); URIC ACID 8.6 mg/dL (2.6-7.2)
[2020-03-07 16:44] VITALS: BP 129/63; PULSE 76; TEMP 97.3
== END 2020-03-07 16:35 | disposition home or self-care (01) ==
LOC: JONCCHEMO 07:17
PROVIDERS: ATTEND Internal Medicine Hematology & Oncology
DX: Z51.11 Encounter for antineoplastic chemotherapy (principal); C90.00 Multiple myeloma not having achieved remission
CPT/HCPCS: 36415; 80048; 80076; 83615; 83735; 84550; 85025; 96375; 96413; 96415; 96417; J2469; J9047; J9145

== ENCOUNTER 2020-03-14 07:10 | Day surgery (SDC) | payer BC ==
[2020-03-14] MEDS ORDERED: PALONOSETRON HCL 0.25 MG/5 ML VIAL IVPUSH ONE (09:30)
[2020-03-14] MEDS ORDERED: DEXAMETHASONE SODIUM PHOSPHATE 20 MG in SODIUM CHLORIDE 50 ML IVPB ONE (09:30)
[2020-03-14] MEDS ORDERED: WATER IV ONE (10:00)
[2020-03-14] MEDS ORDERED: CARFILZOMIB IV ONE (10:00)
[2020-03-14] MEDS ORDERED: DEXTROSE 5% IV ONE (10:00)
[2020-03-14 12:40] LABS: BASO % 0.6 % (0-2.0); EOS % 4.3 % (0-4.5); HEMATOCRIT 39.7 % (35.4-49); HEMOGLOBIN 13.8 GM/dL (11.7-16.9); LYMPH % 18.9 % (8-40); MCH 32.5 pg (25.7-33.7); MCHC 34.7 g/dl (32.0-35.9); MEAN CELL VOLUME 93.6 fl (80-96); MEAN PLT VOLUME 7.9 fl (7.5-11.1); MONO % 6.8 % (3.8-10.2); NEUT % 69.4 % (42.8-82.8); PLATELET COUNT 124 K/MM3 (134-434); RBC 4.24 M/mm3 (4.00-5.60); RDW 13.7 % (11.9-15.9); WHITE BLOOD COUNT 6.5 K/mm3 (4.0-10.0)
[2020-03-14 13:14] LABS: ALBUMIN 4.3 g/dl (3.4-5.0); BILIRUBIN,DIRECT 0.2 mg/dL (0.0-0.2); BILIRUBIN,TOTAL 0.8 mg/dL (0.2-1); BLOOD UREA NITROGEN 28.1 mg/dL (7-18); CALCIUM 9.4 mg/dL (8.5-10.1); CREATININE 1.3 mg/dL (0.55-1.3); MAGNESIUM 2.1 mg/dL (1.8-2.4); POTASSIUM 4.2 mmol/L (3.5-5.1); TOT PROT 6.8 g/dl (6.4-8.2); URIC ACID 6.4 mg/dL (2.6-7.2)
[2020-03-14 17:41] VITALS: BP 143/78; PULSE 76; TEMP 97.8
== END 2020-03-14 15:15 | disposition home or self-care (01) ==
LOC: JONCCHEMO 07:10
PROVIDERS: ATTEND Internal Medicine Hematology & Oncology
DX: Z51.11 Encounter for antineoplastic chemotherapy (principal); C90.00 Multiple myeloma not having achieved remission
CPT/HCPCS: 36415; 80048; 80076; 83615; 83735; 84550; 85025; 96375; 96413; J2469; J9047

== ENCOUNTER 2020-03-28 07:24 | Day surgery (SDC) | payer BC ==
[2020-03-28] MEDS ORDERED: DEXAMETHASONE SODIUM PHOSPHATE 20 MG in SODIUM CHLORIDE 50 ML IVPB ONE (10:00)
[2020-03-28] MEDS ORDERED: PALONOSETRON HCL 0.25 MG/5 ML VIAL IVPUSH ONE (10:00)
[2020-03-28] MEDS ORDERED: DEXTROSE 5% IV ONE (10:30)
[2020-03-28] MEDS ORDERED: CARFILZOMIB IV ONE (10:30)
[2020-03-28] MEDS ORDERED: WATER IV ONE (10:30)
[2020-03-28 12:22] LABS: BASO % 0.7 % (0-2.0); EOS % 3.3 % (0-4.5); HEMATOCRIT 39.2 % (35.4-49); HEMOGLOBIN 13.6 GM/dL (11.7-16.9); LYMPH % 18.2 % (8-40); MCH 32.3 pg (25.7-33.7); MCHC 34.6 g/dl (32.0-35.9); MEAN CELL VOLUME 93.3 fl (80-96); MEAN PLT VOLUME 7.6 fl (7.5-11.1); MONO % 6.1 % (3.8-10.2); NEUT % 71.7 % (42.8-82.8); PLATELET COUNT 162 K/MM3 (134-434); RDW 13.9 % (11.9-15.9)
[2020-03-28 12:48] LABS: BLOOD UREA NITROGEN 21.8 mg/dL (7-18); CALCIUM 7.4 mg/dL (8.5-10.1); MAGNESIUM 1.7 mg/dL (1.8-2.4); POTASSIUM 3.6 mmol/L (3.5-5.1); URIC ACID 4.1 mg/dL (2.6-7.2)
[2020-03-28] MEDS ORDERED: MAGNESIUM OXIDE 400 MG TABLET (FP) PO ONE (12:48)
[2020-03-28 12:49] LABS: ALBUMIN 4.3 g/dl (3.4-5.0); BILIRUBIN,DIRECT 0.1 mg/dL (0.0-0.2); BILIRUBIN,TOTAL 0.9 mg/dL (0.2-1); TOT PROT 6.7 g/dl (6.4-8.2)
[2020-03-28] MEDS ORDERED: CALCIUM GLUCONATE 10% - 1,000 MG/10 ML VIAL IVPB ONE (12:56)
[2020-03-28 16:35] VITALS: TEMP 97.6
[2020-03-28 16:36] VITALS: BP 127/65; PULSE 68
== END 2020-03-28 15:00 | disposition home or self-care (01) ==
LOC: JONCCHEMO 07:24
PROVIDERS: ATTEND Internal Medicine Hematology & Oncology
DX: Z51.11 Encounter for antineoplastic chemotherapy (principal); C90.00 Multiple myeloma not having achieved remission
CPT/HCPCS: 36415; 80048; 80076; 83615; 83735; 84100; 84550; 85025; 96367; 96375; 96413; J2469; J9047

== ENCOUNTER 2020-04-04 07:29 | Day surgery (SDC) | payer BC ==
[2020-04-04] MEDS ORDERED: PALONOSETRON HCL 0.25 MG/5 ML VIAL IVPUSH ONE (10:00)
[2020-04-04] MEDS ORDERED: DEXAMETHASONE SODIUM PHOSPHATE 20 MG in SODIUM CHLORIDE 50 ML IVPB ONE (10:00)
[2020-04-04] MEDS ORDERED: DARATUMUMAB IVPB ONE (10:30)
[2020-04-04] MEDS ORDERED: SODIUM CHLORIDE IVPB ONE (10:30)
[2020-04-04] MEDS ORDERED: WATER IV ONE (12:00)
[2020-04-04] MEDS ORDERED: DEXTROSE 5% IV ONE (12:00)
[2020-04-04] MEDS ORDERED: CARFILZOMIB IV ONE (12:00)
[2020-04-04 12:37] LABS: BASO % 0.7 % (0-2.0); EOS % 4.9 % (0-4.5); HEMATOCRIT 39.2 % (35.4-49); HEMOGLOBIN 13.9 GM/dL (11.7-16.9); LYMPH % 16.6 % (8-40); MCH 33.3 pg (25.7-33.7); MCHC 35.6 g/dl (32.0-35.9); MEAN CELL VOLUME 93.8 fl (80-96); MEAN PLT VOLUME 8.3 fl (7.5-11.1); MONO % 5.9 % (3.8-10.2); NEUT % 71.9 % (42.8-82.8); PLATELET COUNT 122 K/MM3 (134-434); RBC 4.18 M/mm3 (4.00-5.60); RDW 14.4 % (11.9-15.9); WHITE BLOOD COUNT 5.9 K/mm3 (4.0-10.0)
[2020-04-04 13:16] LABS: ALBUMIN 4.2 g/dl (3.4-5.0); BILIRUBIN,DIRECT 0.1 mg/dL (0.0-0.2); BILIRUBIN,TOTAL 0.8 mg/dL (0.2-1); BLOOD UREA NITROGEN 28.7 mg/dL (7-18); CALCIUM 9.2 mg/dL (8.5-10.1); CREATININE 1.4 mg/dL (0.55-1.3); MAGNESIUM 1.9 mg/dL (1.8-2.4); POTASSIUM 4.2 mmol/L (3.5-5.1); TOT PROT 6.5 g/dl (6.4-8.2); URIC ACID 5.1 mg/dL (2.6-7.2)
[2020-04-04 16:34] VITALS: TEMP 97.5
[2020-04-04 16:48] VITALS: BP 123/60; PULSE 75
[2020-04-07 15:07] LABS: FREE KAP CHN UR 21.17 mg/L (0.63-113.79); KAPPA LAMBDA RATIO URIN 22.05 (1.03-31.76)
== END 2020-04-04 16:57 | disposition home or self-care (01) ==
LOC: JONCCHEMO 07:29
PROVIDERS: ATTEND Internal Medicine Hematology & Oncology
DX: Z51.11 Encounter for antineoplastic chemotherapy (principal); C90.00 Multiple myeloma not having achieved remission
CPT/HCPCS: 36415; 80048; 80076; 82784; 83615; 83735; 83883; 84550; 85025; 86335; 96375; 96413; 96417; J2469; J9047; J9145

== ENCOUNTER 2020-04-25 07:12 | Day surgery (SDC) | payer BC ==
[~2020-04-25 07:12] MED LIST changes: +DARATUMUMAB IVPB ONE; -DEXAMETHASONE SODIUM PHOSPHATE 20 MG in SODIUM CHLORIDE 50 ML IVPB ONE; +DEXAMETHASONE SODIUM PHOSPHATE 40 MG, DIPHENHYDRAMINE 50 MG in SODIUM CHLORIDE 100 ML IVPB ONE; +SODIUM CHLORIDE 250 ML IV ONE; +SODIUM CHLORIDE 500 ML IV ONE; +SODIUM CHLORIDE IVPB ONE
[2020-04-25] MEDS ORDERED: DEXAMETHASONE SODIUM PHOSPHATE 20 MG in SODIUM CHLORIDE 50 ML IVPB ONE (09:30)
[2020-04-25] MEDS ORDERED: PALONOSETRON HCL 0.25 MG/5 ML VIAL IVPUSH ONE (09:30)
[2020-04-25] MEDS ORDERED: SODIUM CHLORIDE IVPB ONE (10:00)
[2020-04-25] MEDS ORDERED: DARATUMUMAB IVPB ONE (10:00)
[2020-04-25] MEDS ORDERED: DEXTROSE 5% IV ONE (11:30)
[2020-04-25] MEDS ORDERED: WATER IV ONE (11:30)
[2020-04-25] MEDS ORDERED: CARFILZOMIB IV ONE (11:30)
[2020-04-25 12:24] LABS: BASO % 1.3 % (0-2.0); EOS % 4.6 % (0-4.5); HEMATOCRIT 37.6 % (35.4-49); HEMOGLOBIN 13.6 GM/dL (11.7-16.9); LYMPH % 19.7 % (8-40); MCH 34.1 pg (25.7-33.7); MCHC 36.2 g/dl (32.0-35.9); MEAN PLT VOLUME 7.7 fl (7.5-11.1); NEUT % 67.4 % (42.8-82.8); PLATELET COUNT 153 K/MM3 (134-434); RDW 14.4 % (11.9-15.9); WHITE BLOOD COUNT 4.7 K/mm3 (4.0-10.0)
[2020-04-25 12:48] LABS: ALBUMIN 4.4 g/dl (3.4-5.0); BILIRUBIN,DIRECT 0.1 mg/dL (0.0-0.2); BILIRUBIN,TOTAL 0.7 mg/dL (0.2-1); TOT PROT 6.7 g/dl (6.4-8.2)
[2020-04-25 12:49] LABS: BLOOD UREA NITROGEN 28.6 mg/dL (7-18); CALCIUM 8.9 mg/dL (8.5-10.1); CREATININE 1.2 mg/dL (0.55-1.3); MAGNESIUM 2.1 mg/dL (1.8-2.4); POTASSIUM 4.1 mmol/L (3.5-5.1); URIC ACID 6.2 mg/dL (2.6-7.2)
[2020-04-25 16:32] VITALS: BP 145/72; PULSE 73; TEMP 98.2
[2020-04-26 17:08] LABS: FREE KAPPA,SERUM 5.9 mg/L (3.3-19.4)
[2020-04-27 04:07] LABS: FREE KAP CHN UR 25.16 mg/L (0.63-113.79); KAPPA LAMBDA RATIO URIN 19.81 (1.03-31.76)
== END 2020-04-25 16:20 | disposition home or self-care (01) ==
LOC: JONCCHEMO 07:12
PROVIDERS: ATTEND Internal Medicine Hematology & Oncology
PROC: 3E03305 Introduction of Other Antineoplastic into Peripheral Vein, Percutaneous Approach (ICD-10-PCS; principal; 2020-04-25)
PROC: 3E03305 Introduction of Other Antineoplastic into Peripheral Vein, Percutaneous Approach (ICD-10-PCS; 2020-04-25)
PROC: 3E033GC Introduction of Other Therapeutic Substance into Peripheral Vein, Percutaneous Approach (ICD-10-PCS; 2020-04-25)
DX: Z51.11 Encounter for antineoplastic chemotherapy (principal); C90.00 Multiple myeloma not having achieved remission
CPT/HCPCS: 36415; 80048; 80076; 82784; 83615; 83735; 83883; 84155; 84165; 84550; 85025; 86334; 86335; 96375; 96413; 96417; J2469; J9047; J9145

== ENCOUNTER 2020-05-02 06:14 | Day surgery (SDC) | payer BC ==
[2020-05-02] MEDS ORDERED: DEXAMETHASONE SODIUM PHOSPHATE 20 MG in SODIUM CHLORIDE 50 ML IVPB ONE (09:30)
[2020-05-02] MEDS ORDERED: PALONOSETRON HCL 0.25 MG/5 ML VIAL IVPUSH ONE (09:30)
[2020-05-02] MEDS ORDERED: WATER IV ONE (10:00)
[2020-05-02] MEDS ORDERED: CARFILZOMIB IV ONE (10:00)
[2020-05-02] MEDS ORDERED: DEXTROSE 5% IV ONE (10:00)
[2020-05-02 12:41] LABS: BASO % 0.7 % (0-2.0); EOS % 3.2 % (0-4.5); HEMATOCRIT 37.8 % (35.4-49); HEMOGLOBIN 13.6 GM/dL (11.7-16.9); LYMPH % 16.5 % (8-40); MCH 33.9 pg (25.7-33.7); MCHC 35.9 g/dl (32.0-35.9); MEAN CELL VOLUME 94.4 fl (80-96); MEAN PLT VOLUME 7.9 fl (7.5-11.1); MONO % 7.6 % (3.8-10.2); PLATELET COUNT 111 K/MM3 (134-434); RDW 14.4 % (11.9-15.9); WHITE BLOOD COUNT 5.2 K/mm3 (4.0-10.0)
[2020-05-02 13:04] LABS: ALBUMIN 4.2 g/dl (3.4-5.0); BILIRUBIN,DIRECT 0.2 mg/dL (0.0-0.2); BILIRUBIN,TOTAL 0.9 mg/dL (0.2-1); BLOOD UREA NITROGEN 19.2 mg/dL (7-18); CREATININE 1.1 mg/dL (0.55-1.3); POTASSIUM 4.3 mmol/L (3.5-5.1); TOT PROT 6.6 g/dl (6.4-8.2); URIC ACID 5.3 mg/dL (2.6-7.2)
[2020-05-02 17:27] VITALS: TEMP 97.2
[2020-05-02 17:42] VITALS: BP 135/72; PULSE 69
== END 2020-05-02 15:20 | disposition home or self-care (01) ==
LOC: JONCCHEMO 06:14
PROVIDERS: ATTEND Internal Medicine Hematology & Oncology
DX: Z51.11 Encounter for antineoplastic chemotherapy (principal); C90.00 Multiple myeloma not having achieved remission
CPT/HCPCS: 36415; 80048; 80076; 83615; 83735; 84550; 85025; 96375; 96413; J2469; J9047

== ENCOUNTER 2020-05-09 06:54 | Day surgery (SDC) | payer BC ==
[2020-05-09] MEDS ORDERED: DEXAMETHASONE SODIUM PHOSPHATE 20 MG in SODIUM CHLORIDE 50 ML IVPB ONE (09:30)
[2020-05-09] MEDS ORDERED: PALONOSETRON HCL 0.25 MG/5 ML VIAL IVPUSH ONE (09:30)
[2020-05-09] MEDS ORDERED: WATER IV ONE (10:00)
[2020-05-09] MEDS ORDERED: DEXTROSE 5% IV ONE (10:00)
[2020-05-09] MEDS ORDERED: CARFILZOMIB IV ONE (10:00)
[2020-05-09 10:58] LABS: BASO % 1.1 % (0-2.0); EOS % 3.2 % (0-4.5); HEMATOCRIT 37.8 % (35.4-49); HEMOGLOBIN 13.2 GM/dL (11.7-16.9); MCH 32.7 pg (25.7-33.7); MCHC 34.8 g/dl (32.0-35.9); MEAN CELL VOLUME 94.1 fl (80-96); MONO % 7.1 % (3.8-10.2); NEUT % 69.6 % (42.8-82.8); PLATELET COUNT 127 K/MM3 (134-434); RBC 4.02 M/mm3 (4.00-5.60); RDW 14.6 % (11.9-15.9)
[2020-05-09 11:09] LABS: ALBUMIN 4.2 g/dl (3.4-5.0); BILIRUBIN,DIRECT 0.1 mg/dL (0.0-0.2); BILIRUBIN,TOTAL 0.8 mg/dL (0.2-1); BLOOD UREA NITROGEN 29.8 mg/dL (7-18); CALCIUM 8.7 mg/dL (8.5-10.1); CREATININE 1.2 mg/dL (0.55-1.3); MAGNESIUM 2.1 mg/dL (1.8-2.4); POTASSIUM 4.7 mmol/L (3.5-5.1); TOT PROT 6.8 g/dl (6.4-8.2); URIC ACID 6.1 mg/dL (2.6-7.2)
[2020-05-09 16:49] VITALS: TEMP 96.9
[2020-05-16 14:14] VITALS: BP 120/67; PULSE 69
== END 2020-05-09 11:40 | disposition home or self-care (01) ==
LOC: JONCCHEMO 06:54
PROVIDERS: ATTEND Internal Medicine Hematology & Oncology
DX: Z51.11 Encounter for antineoplastic chemotherapy (principal); C90.00 Multiple myeloma not having achieved remission
CPT/HCPCS: 36415; 80048; 80076; 83615; 83735; 84550; 85025; 96375; 96413; J2469; J9047

== ENCOUNTER 2020-05-23 06:31 | Day surgery (SDC) | payer BC ==
[2020-05-23] MEDS ORDERED: DEXAMETHASONE SODIUM PHOSPHATE 20 MG in SODIUM CHLORIDE 50 ML IVPB ONE (10:00)
[2020-05-23] MEDS ORDERED: PALONOSETRON HCL 0.25 MG/5 ML VIAL IVPUSH ONE (10:00)
[2020-05-23] MEDS ORDERED: DARATUMUMAB IVPB ONE (10:30)
[2020-05-23] MEDS ORDERED: SODIUM CHLORIDE IVPB ONE (10:30)
[2020-05-23 11:47] LABS: BASO % 1.3 % (0-2.0); EOS % 4.9 % (0-4.5); HEMATOCRIT 37.4 % (35.4-49); HEMOGLOBIN 13.4 GM/dL (11.7-16.9); LYMPH % 18.4 % (8-40); MCH 34.1 pg (25.7-33.7); MCHC 35.8 g/dl (32.0-35.9); MEAN PLT VOLUME 7.7 fl (7.5-11.1); MONO % 6.6 % (3.8-10.2); NEUT % 68.8 % (42.8-82.8); PLATELET COUNT 139 K/MM3 (134-434); RBC 3.93 M/mm3 (4.00-5.60); RDW 14.3 % (11.9-15.9); WHITE BLOOD COUNT 4.9 K/mm3 (4.0-10.0)
[2020-05-23] MEDS ORDERED: WATER IV ONE (12:00)
[2020-05-23] MEDS ORDERED: DEXTROSE 5% IV ONE (12:00)
[2020-05-23] MEDS ORDERED: CARFILZOMIB IV ONE (12:00)
[2020-05-23 12:17] LABS: ALBUMIN 4.1 g/dl (3.4-5.0); BILIRUBIN,DIRECT 0.1 mg/dL (0.0-0.2); BILIRUBIN,TOTAL 0.7 mg/dL (0.2-1); BLOOD UREA NITROGEN 23.1 mg/dL (7-18); CALCIUM 8.7 mg/dL (8.5-10.1); CREATININE 1.2 mg/dL (0.55-1.3); MAGNESIUM 1.9 mg/dL (1.8-2.4); POTASSIUM 4.1 mmol/L (3.5-5.1); TOT PROT 6.5 g/dl (6.4-8.2); URIC ACID 5.2 mg/dL (2.6-7.2)
[2020-05-23 16:55] VITALS: PULSE 75; TEMP 97.3
[2020-05-23 16:56] VITALS: BP 131/83
== END 2020-05-23 15:55 | disposition home or self-care (01) ==
LOC: JONCCHEMO 06:31
PROVIDERS: ATTEND Internal Medicine Hematology & Oncology
DX: Z51.11 Encounter for antineoplastic chemotherapy (principal); C90.00 Multiple myeloma not having achieved remission
CPT/HCPCS: 36415; 80048; 80076; 83615; 83735; 84550; 85025; 96375; 96413; 96415; 96417; J2469; J9047; J9145

== ENCOUNTER 2020-05-30 07:16 | Day surgery (SDC) | payer BC ==
[2020-05-30] MEDS ORDERED: PALONOSETRON HCL 0.25 MG/5 ML VIAL IVPUSH ONE (10:00)
[2020-05-30] MEDS ORDERED: DEXAMETHASONE SODIUM PHOSPHATE 20 MG in SODIUM CHLORIDE 50 ML IVPB ONE (10:00)
[2020-05-30] MEDS ORDERED: CARFILZOMIB IV ONE (10:30)
[2020-05-30] MEDS ORDERED: DEXTROSE 5% IV ONE (10:30)
[2020-05-30] MEDS ORDERED: WATER IV ONE (10:30)
[2020-05-30 11:51] LABS: BASO % 1.1 % (0-2.0); EOS % 4.1 % (0-4.5); HEMATOCRIT 40.1 % (35.4-49); LYMPH % 17.1 % (8-40); MCH 32.7 pg (25.7-33.7); MCHC 34.9 g/dl (32.0-35.9); MEAN CELL VOLUME 93.6 fl (80-96); MEAN PLT VOLUME 7.8 fl (7.5-11.1); MONO % 7.8 % (3.8-10.2); NEUT % 69.9 % (42.8-82.8); PLATELET COUNT 126 K/MM3 (134-434); RBC 4.28 M/mm3 (4.00-5.60); RDW 14.4 % (11.9-15.9)
[2020-05-30 12:11] LABS: ALBUMIN 4.3 g/dl (3.4-5.0); BILIRUBIN,DIRECT 0.1 mg/dL (0.0-0.2); BILIRUBIN,TOTAL 0.8 mg/dL (0.2-1); CREATININE 1.2 mg/dL (0.55-1.3); POTASSIUM 4.2 mmol/L (3.5-5.1); URIC ACID 5.8 mg/dL (2.6-7.2)
[2020-05-30 16:09] VITALS: BP 140/66; PULSE 65; TEMP 97.5
== END 2020-05-30 14:25 | disposition home or self-care (01) ==
LOC: JONCCHEMO 07:16
PROVIDERS: ATTEND Internal Medicine Hematology & Oncology
DX: Z51.11 Encounter for antineoplastic chemotherapy (principal); C90.00 Multiple myeloma not having achieved remission
CPT/HCPCS: 36415; 80048; 80076; 83615; 83735; 84550; 85025; 96375; 96413; J2469; J9047

== ENCOUNTER 2020-06-07 08:05 | Day surgery (SDC) | payer BC ==
[2020-06-07] MEDS ORDERED: PALONOSETRON HCL 0.25 MG/5 ML VIAL IVPUSH ONE (10:00)
[2020-06-07] MEDS ORDERED: DEXAMETHASONE SODIUM PHOSPHATE 20 MG in SODIUM CHLORIDE 50 ML IVPB ONE (10:00)
[2020-06-07] MEDS ORDERED: WATER IV ONE (10:30)
[2020-06-07] MEDS ORDERED: CARFILZOMIB IV ONE (10:30)
[2020-06-07] MEDS ORDERED: DEXTROSE 5% IV ONE (10:30)
[2020-06-07 11:55] LABS: BASO % 1.1 % (0-2.0); EOS % 4.7 % (0-4.5); HEMATOCRIT 40.3 % (35.4-49); HEMOGLOBIN 13.7 GM/dL (11.7-16.9); MCH 32.3 pg (25.7-33.7); MCHC 34.1 g/dl (32.0-35.9); MEAN CELL VOLUME 94.7 fl (80-96); MONO % 6.9 % (3.8-10.2); NEUT % 71.3 % (42.8-82.8); PLATELET COUNT 138 K/MM3 (134-434); RBC 4.25 M/mm3 (4.00-5.60); RDW 13.8 % (11.9-15.9); WHITE BLOOD COUNT 6.1 K/mm3 (4.0-10.0)
[2020-06-07 12:16] LABS: POTASSIUM 4.2 mmol/L (3.5-5.1)
[2020-06-07 12:18] LABS: CALCIUM 9.5 mg/dL (8.5-10.1)
[2020-06-07 12:19] LABS: ALBUMIN 4.1 g/dl (3.4-5.0); BLOOD UREA NITROGEN 31.6 mg/dL (7-18); MAGNESIUM 2.1 mg/dL (1.8-2.4)
[2020-06-07 12:22] LABS: BILIRUBIN,DIRECT 0.1 mg/dL (0.0-0.2); CREATININE 1.2 mg/dL (0.55-1.3)
[2020-06-07 12:23] LABS: BILIRUBIN,TOTAL 0.7 mg/dL (0.2-1); TOT PROT 6.5 g/dl (6.4-8.2); URIC ACID 5.3 mg/dL (2.6-7.2)
[2020-06-07] MEDS ORDERED: INSULIN (NOVOLOG) ASPART 100 UNITS/ML 10ML VIAL SQ ONE (12:42)
[2020-06-07 14:05] VITALS: TEMP 98.4
[2020-06-07 14:08] VITALS: BP 143/79; PULSE 63
[2020-06-09 05:10] LABS: FREE KAP CHN UR 15.62 mg/L (0.63-113.79); KAPPA LAMBDA RATIO URIN 19.77 (1.03-31.76)
[2020-06-09 18:07] LABS: FREE KAPPA,SERUM 4.3 mg/L (3.3-19.4)
== END 2020-06-07 13:40 | disposition home or self-care (01) ==
LOC: JONCCHEMO 08:05
PROVIDERS: ATTEND Internal Medicine Hematology & Oncology
DX: Z51.11 Encounter for antineoplastic chemotherapy (principal); C90.00 Multiple myeloma not having achieved remission
CPT/HCPCS: 36415; 80053; 80076; 82784; 83615; 83735; 83883; 84155; 84156; 84157; 84165; 84550; 85025; 86335; 96375; 96413; J2469; J9047

== ENCOUNTER 2020-06-27 07:10 | Day surgery (SDC) | payer BC ==
[2020-06-27] MEDS ORDERED: DEXAMETHASONE SODIUM PHOSPHATE 20 MG in SODIUM CHLORIDE 50 ML IVPB ONE (09:30)
[2020-06-27] MEDS ORDERED: PALONOSETRON HCL 0.25 MG/5 ML VIAL IVPUSH ONE (09:30)
[2020-06-27] MEDS ORDERED: CARFILZOMIB IV ONE (10:00)
[2020-06-27] MEDS ORDERED: DEXTROSE 5% IV ONE (10:00)
[2020-06-27] MEDS ORDERED: WATER IV ONE (10:00)
[2020-06-27 13:36] LABS: BASO % 0.8 % (0-2.0); HEMATOCRIT 40.6 % (35.4-49); HEMOGLOBIN 13.9 GM/dL (11.7-16.9); LYMPH % 16.6 % (8-40); MCH 32.6 pg (25.7-33.7); MCHC 34.2 g/dl (32.0-35.9); MEAN CELL VOLUME 95.2 fl (80-96); MEAN PLT VOLUME 8.4 fl (7.5-11.1); MONO % 5.9 % (3.8-10.2); NEUT % 72.7 % (42.8-82.8); PLATELET COUNT 121 K/MM3 (134-434); RBC 4.26 M/mm3 (4.00-5.60); RDW 14.1 % (11.9-15.9); WHITE BLOOD COUNT 6.3 K/mm3 (4.0-10.0)
[2020-06-27 14:03] LABS: POTASSIUM 3.8 mmol/L (3.5-5.1)
[2020-06-27 14:05] LABS: MAGNESIUM 1.9 mg/dL (1.8-2.4)
[2020-06-27 14:06] LABS: ALBUMIN 3.4 g/dl (3.4-5.0); BLOOD UREA NITROGEN 26.2 mg/dL (7-18); CALCIUM 7.5 mg/dL (8.5-10.1)
[2020-06-27 14:08] LABS: URIC ACID 5.3 mg/dL (2.6-7.2)
[2020-06-27 14:09] LABS: BILIRUBIN,DIRECT 0.2 mg/dL (0.0-0.2)
[2020-06-27 14:10] LABS: TOT PROT 5.4 g/dl (6.4-8.2)
[2020-06-27 14:11] LABS: BILIRUBIN,TOTAL 0.6 mg/dL (0.2-1)
[2020-06-27] MEDS ORDERED: CALCIUM GLUCONATE 10% - 1,000 MG/10 ML VIAL IVPB ONE (14:23)
[2020-06-27] MEDS ORDERED: INSULIN (NOVOLOG) ASPART 100 UNITS/ML 10ML VIAL SQ ONE (14:26)
[2020-06-27 17:39] VITALS: TEMP 97.2
[2020-06-27 17:40] VITALS: BP 132/49; PULSE 72
== END 2020-06-27 16:00 | disposition home or self-care (01) ==
LOC: JONCCHEMO 07:10
PROVIDERS: ATTEND Internal Medicine Hematology & Oncology
DX: Z51.11 Encounter for antineoplastic chemotherapy (principal); C90.00 Multiple myeloma not having achieved remission
CPT/HCPCS: 36415; 80048; 80076; 83615; 83735; 84153; 84550; 85025; 96367; 96375; 96413; J2469; J9047

== ENCOUNTER 2020-07-04 06:22 | Day surgery (SDC) | payer BC ==
[2020-07-04] MEDS ORDERED: PALONOSETRON HCL 0.25 MG/5 ML VIAL IVPUSH ONE (09:30)
[2020-07-04] MEDS ORDERED: DEXAMETHASONE SODIUM PHOSPHATE 20 MG in SODIUM CHLORIDE 50 ML IVPB ONE (09:30)
[2020-07-04] MEDS ORDERED: CARFILZOMIB IV ONE (10:00)
[2020-07-04] MEDS ORDERED: DEXTROSE 5% IV ONE (10:00)
[2020-07-04] MEDS ORDERED: WATER IV ONE (10:00)
[2020-07-04 11:56] LABS: BASO % 0.9 % (0-2.0); EOS % 3.4 % (0-4.5); HEMATOCRIT 42.1 % (35.4-49); HEMOGLOBIN 14.8 GM/dL (11.7-16.9); LYMPH % 15.2 % (8-40); MCH 33.4 pg (25.7-33.7); MCHC 35.2 g/dl (32.0-35.9); MEAN CELL VOLUME 94.9 fl (80-96); MEAN PLT VOLUME 8.3 fl (7.5-11.1); NEUT % 74.5 % (42.8-82.8); PLATELET COUNT 123 K/MM3 (134-434); RBC 4.44 M/mm3 (4.00-5.60); RDW 14.3 % (11.9-15.9); WHITE BLOOD COUNT 6.9 K/mm3 (4.0-10.0)
[2020-07-04 12:28] LABS: POTASSIUM 4.2 mmol/L (3.5-5.1)
[2020-07-04 12:30] LABS: MAGNESIUM 1.9 mg/dL (1.8-2.4)
[2020-07-04 12:31] LABS: ALBUMIN 4.4 g/dl (3.4-5.0); BLOOD UREA NITROGEN 26.7 mg/dL (7-18); CALCIUM 9.4 mg/dL (8.5-10.1)
[2020-07-04 12:34] LABS: BILIRUBIN,DIRECT 0.2 mg/dL (0.0-0.2); CREATININE 1.3 mg/dL (0.55-1.3)
[2020-07-04 12:35] LABS: TOT PROT 6.9 g/dl (6.4-8.2)
[2020-07-04 12:36] LABS: BILIRUBIN,TOTAL 0.9 mg/dL (0.2-1)
[2020-07-04 17:11] VITALS: BP 132/77; PULSE 71; TEMP 97.2
== END 2020-07-04 14:45 | disposition home or self-care (01) ==
LOC: JONCCHEMO 06:22
PROVIDERS: ATTEND Internal Medicine Hematology & Oncology
DX: Z51.11 Encounter for antineoplastic chemotherapy (principal); C90.00 Multiple myeloma not having achieved remission
CPT/HCPCS: 36415; 80048; 80076; 83615; 83735; 84550; 85025; 96375; 96413; J2469; J9047

== ENCOUNTER 2020-07-25 17:46 | Day surgery (SDC) | payer BC ==
[2020-07-25 11:40] LABS: BASO % 0.8 % (0-2.0); HEMOGLOBIN 14.7 GM/dL (11.7-16.9); LYMPH % 16.8 % (8-40); MCHC 34.2 g/dl (32.0-35.9); MEAN CELL VOLUME 93.6 fl (80-96); MEAN PLT VOLUME 7.7 fl (7.5-11.1); MONO % 6.8 % (3.8-10.2); NEUT % 71.6 % (42.8-82.8); PLATELET COUNT 136 K/MM3 (134-434); RBC 4.59 M/mm3 (4.00-5.60); RDW 14.1 % (11.9-15.9); WHITE BLOOD COUNT 7.6 K/mm3 (4.0-10.0)
[2020-07-25 11:53] LABS: POTASSIUM 4.2 mmol/L (3.5-5.1)
[2020-07-25 11:56] LABS: ALBUMIN 4.6 g/dl (3.4-5.0); BLOOD UREA NITROGEN 24.8 mg/dL (7-18); CALCIUM 9.3 mg/dL (8.5-10.1); MAGNESIUM 2.1 mg/dL (1.8-2.4)
[2020-07-25 11:58] LABS: CREATININE 1.3 mg/dL (0.55-1.3); URIC ACID 6.5 mg/dL (2.6-7.2)
[2020-07-25 11:59] LABS: BILIRUBIN,DIRECT 0.2 mg/dL (0.0-0.2)
[2020-07-25 12:02] LABS: BILIRUBIN,TOTAL 0.9 mg/dL (0.2-1)
[2020-07-25 17:25] VITALS: TEMP 97.9
[2020-07-25 17:41] VITALS: BP 150/87; PULSE 79
[~2020-07-25 17:46] MED LIST changes: -DARATUMUMAB IVPB ONE; +DEXAMETHASONE SODIUM PHOSPHATE 20 MG in SODIUM CHLORIDE 50 ML IVPB ONE; -DEXAMETHASONE SODIUM PHOSPHATE 40 MG, DIPHENHYDRAMINE 50 MG in SODIUM CHLORIDE 100 ML IVPB ONE; -SODIUM CHLORIDE 250 ML IV ONE; -SODIUM CHLORIDE 500 ML IV ONE; -SODIUM CHLORIDE IVPB ONE
== END 2020-07-25 17:57 | disposition home or self-care (01) ==
LOC: JONCCHEMO 17:46
PROVIDERS: ATTEND Internal Medicine Hematology & Oncology
DX: Z51.11 Encounter for antineoplastic chemotherapy (principal); C90.00 Multiple myeloma not having achieved remission
CPT/HCPCS: 36415; 80048; 80076; 83615; 83735; 84550; 85025; 96375; 96413; J2469; J9047

== ENCOUNTER 2020-08-01 10:05 | Day surgery (SDC) | payer BC ==
[~2020-08-01 10:05] MED LIST changes: -CARFILZOMIB IV ONE; -DEXTROSE 5% IV ONE; -WATER IV ONE
[2020-08-01] MEDS ORDERED: DEXTROSE 5% IV ONE (10:30)
[2020-08-01] MEDS ORDERED: WATER IV ONE (10:30)
[2020-08-01] MEDS ORDERED: CARFILZOMIB IV ONE (10:30)
[2020-08-01 12:33] LABS: BASO % 0.9 % (0-2.0); EOS % 3.5 % (0-4.5); HEMATOCRIT 41.3 % (35.4-49); LYMPH % 12.8 % (8-40); MCH 32.3 pg (25.7-33.7); MEAN CELL VOLUME 95.1 fl (80-96); MEAN PLT VOLUME 8.3 fl (7.5-11.1); MONO % 6.6 % (3.8-10.2); NEUT % 76.2 % (42.8-82.8); PLATELET COUNT 131 K/MM3 (134-434); RBC 4.34 M/mm3 (4.00-5.60); RDW 14.3 % (11.9-15.9); WHITE BLOOD COUNT 7.1 K/mm3 (4.0-10.0)
[2020-08-01 12:51] LABS: POTASSIUM 4.4 mmol/L (3.5-5.1)
[2020-08-01 12:57] LABS: BLOOD UREA NITROGEN 26.5 mg/dL (7-18); CALCIUM 8.8 mg/dL (8.5-10.1); MAGNESIUM 1.9 mg/dL (1.8-2.4)
[2020-08-01 12:58] LABS: ALBUMIN 4.2 g/dl (3.4-5.0)
[2020-08-01 12:59] LABS: URIC ACID 7.4 mg/dL (2.6-7.2)
[2020-08-01 13:00] LABS: BILIRUBIN,DIRECT 0.2 mg/dL (0.0-0.2); CREATININE 1.2 mg/dL (0.55-1.3)
[2020-08-01 13:01] LABS: TOT PROT 6.7 g/dl (6.4-8.2)
[2020-08-01 13:02] LABS: BILIRUBIN,TOTAL 0.8 mg/dL (0.2-1)
[2020-08-01 16:40] VITALS: TEMP 98
[2020-08-01 16:47] VITALS: BP 139/78; PULSE 72
== END 2020-08-01 14:45 | disposition home or self-care (01) ==
LOC: JONCCHEMO 10:05
PROVIDERS: ATTEND Internal Medicine Hematology & Oncology
PROC: 3E03305 Introduction of Other Antineoplastic into Peripheral Vein, Percutaneous Approach (ICD-10-PCS; principal; 2020-08-01)
PROC: 3E033GC Introduction of Other Therapeutic Substance into Peripheral Vein, Percutaneous Approach (ICD-10-PCS; 2020-08-01)
DX: Z51.11 Encounter for antineoplastic chemotherapy (principal); C90.00 Multiple myeloma not having achieved remission; I10 Essential (primary) hypertension
CPT/HCPCS: 36415; 80048; 80076; 83615; 83735; 84550; 85025; 96375; 96413; J2469; J9047

== ENCOUNTER 2020-08-22 09:07 | Day surgery (SDC) | payer BC ==
[2020-08-22] MEDS ORDERED: DEXAMETHASONE SODIUM PHOSPHATE 20 MG in SODIUM CHLORIDE 50 ML IVPB ONE (09:30)
[2020-08-22] MEDS ORDERED: PALONOSETRON HCL 0.25 MG/5 ML VIAL IVPUSH ONE (09:30)
[2020-08-22] MEDS ORDERED: SODIUM CHLORIDE IVPB ONE (10:00)
[2020-08-22] MEDS ORDERED: DARATUMUMAB IVPB ONE (10:00)
[2020-08-22] MEDS ORDERED: DEXTROSE 5% IV ONE (11:30)
[2020-08-22] MEDS ORDERED: CARFILZOMIB IV ONE (11:30)
[2020-08-22] MEDS ORDERED: WATER IV ONE (11:30)
[2020-08-22 12:20] LABS: POTASSIUM 4.3 mmol/L (3.5-5.1)
[2020-08-22 12:22] LABS: CALCIUM 8.9 mg/dL (8.5-10.1)
[2020-08-22 12:23] LABS: ALBUMIN 4.3 g/dl (3.4-5.0); BASO % 1.2 % (0-2.0); BLOOD UREA NITROGEN 24.3 mg/dL (7-18); EOS % 4.7 % (0-4.5); HEMATOCRIT 39.8 % (35.4-49); HEMOGLOBIN 14.1 GM/dL (11.7-16.9); LYMPH % 17.2 % (8-40); MCH 33.3 pg (25.7-33.7); MCHC 35.5 g/dl (32.0-35.9); MONO % 6.6 % (3.8-10.2); NEUT % 70.3 % (42.8-82.8); PLATELET COUNT 139 K/MM3 (134-434); RBC 4.23 M/mm3 (4.00-5.60); RDW 14.2 % (11.9-15.9); WHITE BLOOD COUNT 5.8 K/mm3 (4.0-10.0)
[2020-08-22 12:25] LABS: BILIRUBIN,DIRECT 0.2 mg/dL (0.0-0.2); CREATININE 1.3 mg/dL (0.55-1.3); URIC ACID 5.3 mg/dL (2.6-7.2)
[2020-08-22 12:27] LABS: TOT PROT 6.8 g/dl (6.4-8.2)
[2020-08-22 12:28] LABS: BILIRUBIN,TOTAL 1.4 mg/dL (0.2-1)
[2020-08-22] MEDS ORDERED: INSULIN (NOVOLOG) ASPART 100 UNITS/ML 10ML VIAL SQ ONE (13:06)
[2020-08-22 17:01] VITALS: TEMP 97.4
[2020-08-23 07:10] VITALS: BP 125/70; PULSE 63
[2020-08-24 08:06] LABS: BETA-2-MICROGLOBULIN 2.1 mg/L (0.6-2.4)
[2020-08-24 19:07] LABS: FREE KAPPA,SERUM 7.8 mg/L (3.3-19.4)
[2020-08-25 15:08] LABS: FREE KAP CHN UR 30.62 mg/L (0.63-113.79); KAPPA LAMBDA RATIO URIN 25.52 (1.03-31.76)
== END 2020-08-22 16:15 | disposition home or self-care (01) ==
LOC: JONCCHEMO 09:07
PROVIDERS: ATTEND Internal Medicine Hematology & Oncology
DX: Z51.11 Encounter for antineoplastic chemotherapy (principal); C90.00 Multiple myeloma not having achieved remission
CPT/HCPCS: 36415; 80048; 80076; 82232; 82784; 83615; 83883; 84155; 84165; 84550; 85025; 86335; 96375; 96413; 96415; 96417; J2469; J9047; J9145

== ENCOUNTER 2020-09-12 08:24 | Day surgery (SDC) | payer BC ==
[~2020-09-12 08:24] MED LIST changes: +CARFILZOMIB IV ONE; +DEXTROSE 5% IV ONE; +WATER IV ONE
[2020-09-12] MEDS ORDERED: PALONOSETRON HCL 0.25 MG/5 ML VIAL IVPUSH ONE (10:00)
[2020-09-12] MEDS ORDERED: DEXAMETHASONE SODIUM PHOSPHATE 20 MG in SODIUM CHLORIDE 50 ML IVPB ONE (10:00)
[2020-09-12] MEDS ORDERED: WATER IV ONE (10:30)
[2020-09-12] MEDS ORDERED: CARFILZOMIB IV ONE (10:30)
[2020-09-12] MEDS ORDERED: DEXTROSE 5% IV ONE (10:30)
[2020-09-12 11:56] LABS: BASO % 1.4 % (0-2.0); EOS % 4.5 % (0-4.5); HEMATOCRIT 39.7 % (35.4-49); HEMOGLOBIN 14.2 GM/dL (11.7-16.9); LYMPH % 16.3 % (8-40); MCH 33.4 pg (25.7-33.7); MCHC 35.8 g/dl (32.0-35.9); MEAN CELL VOLUME 93.4 fl (80-96); MEAN PLT VOLUME 7.5 fl (7.5-11.1); MONO % 5.7 % (3.8-10.2); NEUT % 72.1 % (42.8-82.8); PLATELET COUNT 164 K/MM3 (134-434); RBC 4.26 M/mm3 (4.00-5.60); RDW 13.9 % (11.9-15.9); WHITE BLOOD COUNT 6.4 K/mm3 (4.0-10.0)
[2020-09-12 12:18] LABS: POTASSIUM 3.6 mmol/L (3.5-5.1)
[2020-09-12 12:20] LABS: ALBUMIN 3.6 g/dl (3.4-5.0); BLOOD UREA NITROGEN 17.8 mg/dL (7-18); CALCIUM 7.7 mg/dL (8.5-10.1)
[2020-09-12 12:23] LABS: MAGNESIUM 1.5 mg/dL (1.8-2.4); URIC ACID 4.2 mg/dL (2.6-7.2)
[2020-09-12 12:24] LABS: BILIRUBIN,DIRECT 0.2 mg/dL (0.0-0.2); BILIRUBIN,TOTAL 0.6 mg/dL (0.2-1)
[2020-09-12 12:25] LABS: TOT PROT 5.7 g/dl (6.4-8.2)
[2020-09-12] MEDS ORDERED: CALCIUM GLUCONATE 10% - 1,000 MG/10 ML VIAL IVPB ONE (13:00)
[2020-09-12] MEDS ORDERED: MAGNESIUM OXIDE 400 MG TABLET (FP) PO ONE (13:01)
[2020-09-12] MEDS ORDERED: CALCIUM GLUCONATE 10% - 1,000 MG in SODIUM CHLORIDE 100 ML IVPB ONE (13:30)
[2020-09-12 15:20] VITALS: TEMP 97.9
[2020-09-12 16:12] VITALS: BP 137/71; PULSE 59
== END 2020-09-12 16:14 | disposition home or self-care (01) ==
LOC: JONCCHEMO 08:24
PROVIDERS: ATTEND Internal Medicine Hematology & Oncology
DX: Z51.11 Encounter for antineoplastic chemotherapy (principal); C90.00 Multiple myeloma not having achieved remission
CPT/HCPCS: 36415; 80048; 80076; 83615; 83735; 84550; 85025; 96367; 96375; 96413; J2469; J9047

== ENCOUNTER 2020-09-26 07:10 | Day surgery (SDC) | payer BC ==
[2020-09-26] MEDS ORDERED: PALONOSETRON HCL 0.25 MG/5 ML VIAL IVPUSH ONE (10:00)
[2020-09-26] MEDS ORDERED: DEXAMETHASONE SODIUM PHOSPHATE 20 MG in SODIUM CHLORIDE 50 ML IVPB ONE (10:00)
[2020-09-26] MEDS ORDERED: DARATUMUMAB IVPB ONE (10:30)
[2020-09-26] MEDS ORDERED: SODIUM CHLORIDE IVPB ONE (10:30)
[2020-09-26 11:17] LABS: BASO % 1.1 % (0-2.0); EOS % 4.7 % (0-4.5); HEMATOCRIT 40.8 % (35.4-49); HEMOGLOBIN 14.5 GM/dL (11.7-16.9); LYMPH % 16.3 % (8-40); MCHC 35.5 g/dl (32.0-35.9); MONO % 5.3 % (3.8-10.2); NEUT % 72.6 % (42.8-82.8); PLATELET COUNT 149 K/MM3 (134-434); RBC 4.38 M/mm3 (4.00-5.60); RDW 14.2 % (11.9-15.9); WHITE BLOOD COUNT 6.3 K/mm3 (4.0-10.0)
[2020-09-26 11:59] LABS: ALBUMIN 4.1 g/dl (3.4-5.0); BLOOD UREA NITROGEN 24.1 mg/dL (7-18)
[2020-09-26] MEDS ORDERED: WATER IV ONE (12:00)
[2020-09-26] MEDS ORDERED: CARFILZOMIB IV ONE (12:00)
[2020-09-26] MEDS ORDERED: DEXTROSE 5% IV ONE (12:00)
[2020-09-26 12:01] LABS: URIC ACID 5.3 mg/dL (2.6-7.2)
[2020-09-26 12:02] LABS: BILIRUBIN,DIRECT 0.1 mg/dL (0.0-0.2); CREATININE 1.3 mg/dL (0.55-1.3)
[2020-09-26 12:03] LABS: BILIRUBIN,TOTAL 0.6 mg/dL (0.2-1)
[2020-09-26 12:04] LABS: TOT PROT 7.2 g/dl (6.4-8.2)
[2020-09-26 13:23] LABS: POTASSIUM 7.3 mmol/L (3.5-5.1)
[2020-09-26 17:05] LABS: POTASSIUM 5.2 mmol/L (3.5-5.1)
[2020-09-26 17:07] LABS: CALCIUM 8.5 mg/dL (8.5-10.1)
[2020-09-26 17:08] LABS: ALBUMIN 4.2 g/dl (3.4-5.0); BLOOD UREA NITROGEN 26.6 mg/dL (7-18)
[2020-09-26 17:11] LABS: CREATININE 1.4 mg/dL (0.55-1.3)
[2020-09-26 17:13] LABS: BILIRUBIN,TOTAL 1.1 mg/dL (0.2-1); TOT PROT 6.9 g/dl (6.4-8.2)
[2020-09-26 17:51] VITALS: TEMP 97.8
[2020-09-26 17:52] VITALS: BP 156/79; PULSE 76
[2020-09-27 08:09] LABS: IGA IMMUNOGLOBULIN 13 mg/dL (90-386); IGG QN IMMUNOGLOBULIN 379 mg/dL (603-1613); IGM QN SERUM 6 mg/dL (20-172)
[2020-09-28 16:08] LABS: TOTAL PROTEIN, URINE 58.6 mg/dL (Not Estab.)
== END 2020-09-26 17:00 | disposition home or self-care (01) ==
LOC: JONCCHEMO 07:10
PROVIDERS: ATTEND Internal Medicine Hematology & Oncology
DX: Z51.11 Encounter for antineoplastic chemotherapy (principal); C90.00 Multiple myeloma not having achieved remission
CPT/HCPCS: 36415; 80048; 80053; 80076; 82784; 83615; 83735; 83883; 84155; 84156; 84157; 84165; 84550; 85025; 86335; 96375; 96413; 96415; 96417; J2469; J9047; J9145

== ENCOUNTER 2020-10-03 06:40 | Day surgery (SDC) | payer BC ==
[2020-10-03] MEDS ORDERED: PALONOSETRON HCL 0.25 MG/5 ML VIAL IVPUSH ONE (09:30)
[2020-10-03] MEDS ORDERED: DEXAMETHASONE SODIUM PHOSPHATE 20 MG in SODIUM CHLORIDE 50 ML IVPB ONE (09:30)
[2020-10-03] MEDS ORDERED: DEXTROSE 5% IV ONE (10:00)
[2020-10-03] MEDS ORDERED: WATER IV ONE (10:00)
[2020-10-03] MEDS ORDERED: CARFILZOMIB IV ONE (10:00)
[2020-10-03 13:55] LABS: BASO % 0.8 % (0-2.0); EOS % 3.4 % (0-4.5); HEMATOCRIT 40.5 % (35.4-49); HEMOGLOBIN 14.4 GM/dL (11.7-16.9); LYMPH % 15.9 % (8-40); MCHC 35.4 g/dl (32.0-35.9); MEAN CELL VOLUME 93.2 fl (80-96); MEAN PLT VOLUME 8.2 fl (7.5-11.1); MONO % 7.4 % (3.8-10.2); NEUT % 72.5 % (42.8-82.8); PLATELET COUNT 143 K/MM3 (134-434); RBC 4.35 M/mm3 (4.00-5.60); RDW 14.3 % (11.9-15.9); WHITE BLOOD COUNT 6.6 K/mm3 (4.0-10.0)
[2020-10-03 14:17] LABS: POTASSIUM 4.3 mmol/L (3.5-5.1)
[2020-10-03 14:20] LABS: CALCIUM 9.2 mg/dL (8.5-10.1)
[2020-10-03 14:21] LABS: ALBUMIN 4.4 g/dl (3.4-5.0); BLOOD UREA NITROGEN 25.6 mg/dL (7-18); MAGNESIUM 2.1 mg/dL (1.8-2.4)
[2020-10-03 14:24] LABS: BILIRUBIN,DIRECT 0.2 mg/dL (0.0-0.2); CREATININE 1.2 mg/dL (0.55-1.3)
[2020-10-03 14:25] LABS: BILIRUBIN,TOTAL 1.4 mg/dL (0.2-1); TOT PROT 6.8 g/dl (6.4-8.2)
[2020-10-03] MEDS ORDERED: Insulin (LOG) Aspart 100 UNITS/ML VIAL SQ ONE (14:27)
[2020-10-03 16:12] VITALS: TEMP 98.2
[2020-10-03 16:13] VITALS: BP 123/66; PULSE 75
== END 2020-10-03 16:00 | disposition home or self-care (01) ==
LOC: JONCCHEMO 06:40
PROVIDERS: ATTEND Internal Medicine Hematology & Oncology
DX: Z51.11 Encounter for antineoplastic chemotherapy (principal); C90.00 Multiple myeloma not having achieved remission
CPT/HCPCS: 36415; 80048; 80076; 83615; 83735; 85025; 96375; 96413; J2469; J9047

== ENCOUNTER 2020-10-10 07:54 | Day surgery (SDC) | payer BC ==
[2020-10-10] MEDS ORDERED: PALONOSETRON HCL 0.25 MG/5 ML VIAL IVPUSH ONE (09:30)
[2020-10-10] MEDS ORDERED: DEXAMETHASONE SODIUM PHOSPHATE 20 MG in SODIUM CHLORIDE 50 ML IVPB ONE (09:30)
[2020-10-10] MEDS ORDERED: DEXTROSE 5% IV ONE (10:00)
[2020-10-10] MEDS ORDERED: WATER IV ONE (10:00)
[2020-10-10] MEDS ORDERED: CARFILZOMIB IV ONE (10:00)
[2020-10-10 11:15] LABS: BASO % 1.1 % (0-2.0); EOS % 4.5 % (0-4.5); HEMATOCRIT 42.1 % (35.4-49); HEMOGLOBIN 14.6 GM/dL (11.7-16.9); MCH 32.7 pg (25.7-33.7); MCHC 34.8 g/dl (32.0-35.9); MEAN CELL VOLUME 93.9 fl (80-96); MEAN PLT VOLUME 8.4 fl (7.5-11.1); NEUT % 72.4 % (42.8-82.8); PLATELET COUNT 128 K/MM3 (134-434); RBC 4.48 M/mm3 (4.00-5.60); RDW 14.2 % (11.9-15.9); WHITE BLOOD COUNT 6.2 K/mm3 (4.0-10.0)
[2020-10-10 11:30] LABS: POTASSIUM 4.5 mmol/L (3.5-5.1)
[2020-10-10 11:32] LABS: CALCIUM 9.2 mg/dL (8.5-10.1)
[2020-10-10 11:33] LABS: ALBUMIN 4.4 g/dl (3.4-5.0); BLOOD UREA NITROGEN 28.1 mg/dL (7-18); MAGNESIUM 1.9 mg/dL (1.8-2.4)
[2020-10-10 11:35] LABS: BILIRUBIN,DIRECT 0.2 mg/dL (0.0-0.2); URIC ACID 5.8 mg/dL (2.6-7.2)
[2020-10-10 11:36] LABS: CREATININE 1.4 mg/dL (0.55-1.3)
[2020-10-10 11:37] LABS: BILIRUBIN,TOTAL 0.9 mg/dL (0.2-1); TOT PROT 6.8 g/dl (6.4-8.2)
[2020-10-10] MEDS ORDERED: INSULIN (NOVOLOG) ASPART 100 UNITS/ML 10ML VIAL SQ ONE (11:39)
[2020-10-10 16:27] VITALS: PULSE 76; TEMP 97.2
[2020-10-10 16:28] VITALS: BP 133/76
== END 2020-10-10 13:45 | disposition home or self-care (01) ==
LOC: JONCCHEMO 07:54
PROVIDERS: ATTEND Internal Medicine Hematology & Oncology
DX: Z51.11 Encounter for antineoplastic chemotherapy (principal); C90.00 Multiple myeloma not having achieved remission
CPT/HCPCS: 36415; 80048; 80076; 83615; 83735; 84550; 85025; 96375; 96413; J2469; J9047

== ENCOUNTER 2020-10-31 07:27 | Day surgery (SDC) | payer BC ==
[~2020-10-31 07:27] MED LIST changes: +DARATUMUMAB IVPB ONE; +SODIUM CHLORIDE IVPB ONE
[2020-10-31] MEDS ORDERED: DEXAMETHASONE SODIUM PHOSPHATE 20 MG in SODIUM CHLORIDE 50 ML IVPB ONE (10:00)
[2020-10-31] MEDS ORDERED: PALONOSETRON HCL 0.25 MG/5 ML VIAL IVPUSH ONE (10:00)
[2020-10-31] MEDS ORDERED: DARATUMUMAB IVPB ONE (10:30)
[2020-10-31] MEDS ORDERED: SODIUM CHLORIDE IVPB ONE (10:30)
[2020-10-31] MEDS ORDERED: CARFILZOMIB IV ONE (11:30)
[2020-10-31] MEDS ORDERED: WATER IV ONE (11:30)
[2020-10-31] MEDS ORDERED: DEXTROSE 5% IV ONE (11:30)
[2020-10-31 12:37] LABS: BASO % 1.6 % (0-2.0); EOS % 3.9 % (0-4.5); HEMATOCRIT 42.9 % (35.4-49); HEMOGLOBIN 14.7 GM/dL (11.7-16.9); LYMPH % 17.6 % (8-40); MCHC 34.2 g/dl (32.0-35.9); MEAN CELL VOLUME 93.4 fl (80-96); MEAN PLT VOLUME 8.4 fl (7.5-11.1); MONO % 5.9 % (3.8-10.2); PLATELET COUNT 161 K/MM3 (134-434)
[2020-10-31 13:18] LABS: POTASSIUM 4.2 mmol/L (3.5-5.1)
[2020-10-31 13:20] LABS: MAGNESIUM 2.2 mg/dL (1.8-2.4)
[2020-10-31 13:21] LABS: ALBUMIN 4.7 g/dl (3.4-5.0); BLOOD UREA NITROGEN 24.8 mg/dL (7-18)
[2020-10-31 13:23] LABS: BILIRUBIN,DIRECT 0.2 mg/dL (0.0-0.2); CREATININE 1.2 mg/dL (0.55-1.3); URIC ACID 4.5 mg/dL (2.6-7.2)
[2020-10-31 13:25] LABS: TOT PROT 7.2 g/dl (6.4-8.2)
[2020-10-31 13:26] LABS: BILIRUBIN,TOTAL 0.8 mg/dL (0.2-1)
[2020-10-31 16:59] VITALS: TEMP 97.9
[2020-10-31 17:18] VITALS: BP 121/66; PULSE 66
[2020-11-02 18:08] LABS: IGA IMMUNOGLOBULIN 15 mg/dL (90-386); IGG QN IMMUNOGLOBULIN 449 mg/dL (603-1613); IGM QN SERUM 6 mg/dL (20-172)
[2020-11-03 16:08] LABS: TOTAL PROTEIN, URINE 26.1 mg/dL (Not Estab.)
== END 2020-10-31 17:15 | disposition home or self-care (01) ==
LOC: JONCCHEMO 07:27
PROVIDERS: ATTEND Internal Medicine Hematology & Oncology
DX: Z51.11 Encounter for antineoplastic chemotherapy (principal); C90.00 Multiple myeloma not having achieved remission
CPT/HCPCS: 36415; 80048; 80076; 82784; 83615; 83735; 83883; 84155; 84156; 84157; 84165; 84550; 85025; 96375; 96413; 96417; J2469; J9047; J9145

== ENCOUNTER 2020-11-07 06:42 | Day surgery (SDC) | payer BC ==
[2020-11-07] MEDS ORDERED: DEXAMETHASONE SODIUM PHOSPHATE 20 MG in SODIUM CHLORIDE 50 ML IVPB ONE (10:00)
[2020-11-07] MEDS ORDERED: PALONOSETRON HCL 0.25 MG/5 ML VIAL IVPUSH ONE (10:00)
[2020-11-07] MEDS ORDERED: CARFILZOMIB IV ONE (10:30)
[2020-11-07] MEDS ORDERED: WATER IV ONE (10:30)
[2020-11-07] MEDS ORDERED: DEXTROSE 5% IV ONE (10:30)
[2020-11-07 12:31] LABS: EOS % 4.9 % (0-4.5); HEMATOCRIT 38.9 % (35.4-49); HEMOGLOBIN 13.5 GM/dL (11.7-16.9); LYMPH % 16.1 % (8-40); MCH 32.3 pg (25.7-33.7); MCHC 34.8 g/dl (32.0-35.9); MEAN CELL VOLUME 92.8 fl (80-96); MONO % 6.5 % (3.8-10.2); NEUT % 71.5 % (42.8-82.8); PLATELET COUNT 121 K/MM3 (134-434); RDW 14.3 % (11.9-15.9); WHITE BLOOD COUNT 5.5 K/mm3 (4.0-10.0)
[2020-11-07 13:19] LABS: POTASSIUM 4.5 mmol/L (3.5-5.1)
[2020-11-07 13:20] LABS: CALCIUM 9.7 mg/dL (8.5-10.1)
[2020-11-07 13:21] LABS: BLOOD UREA NITROGEN 20.4 mg/dL (7-18); MAGNESIUM 2.1 mg/dL (1.8-2.4)
[2020-11-07 13:25] LABS: BILIRUBIN,DIRECT 0.1 mg/dL (0.0-0.2); CREATININE 1.3 mg/dL (0.55-1.3)
[2020-11-07 13:26] LABS: BILIRUBIN,TOTAL 0.7 mg/dL (0.2-1); TOT PROT 6.6 g/dl (6.4-8.2)
[2020-11-07] MEDS ORDERED: INSULIN (NOVOLOG) ASPART 100 UNITS/ML 10ML VIAL SQ ONE (14:30)
[2020-11-07 16:23] VITALS: TEMP 97.9
[2020-11-07 16:48] VITALS: BP 130/76; PULSE 68
[2020-11-07 17:42] LABS: URIC ACID 4.6 mg/dL (2.6-7.2)
== END 2020-11-07 16:49 | disposition home or self-care (01) ==
LOC: JONCCHEMO 06:42
PROVIDERS: ATTEND Internal Medicine Hematology & Oncology
DX: Z51.11 Encounter for antineoplastic chemotherapy (principal); C90.00 Multiple myeloma not having achieved remission
CPT/HCPCS: 36415; 80048; 80076; 83615; 83735; 84550; 85025; 96375; 96413; J2469; J9047

== ENCOUNTER 2020-11-14 06:46 | Day surgery (SDC) | payer BC ==
[2020-11-14] MEDS ORDERED: PALONOSETRON HCL 0.25 MG/5 ML VIAL IVPUSH ONE (10:00)
[2020-11-14] MEDS ORDERED: DEXAMETHASONE SODIUM PHOSPHATE 20 MG in SODIUM CHLORIDE 50 ML IVPB ONE (10:00)
[2020-11-14] MEDS ORDERED: DEXTROSE 5% IV ONE (10:30)
[2020-11-14] MEDS ORDERED: CARFILZOMIB IV ONE (10:30)
[2020-11-14] MEDS ORDERED: WATER IV ONE (10:30)
[2020-11-14 12:04] LABS: BASO % 1.1 % (0-2.0); EOS % 4.3 % (0-4.5); HEMATOCRIT 40.6 % (35.4-49); HEMOGLOBIN 14.1 GM/dL (11.7-16.9); LYMPH % 15.9 % (8-40); MCH 32.4 pg (25.7-33.7); MCHC 34.7 g/dl (32.0-35.9); MEAN CELL VOLUME 93.3 fl (80-96); MEAN PLT VOLUME 8.1 fl (7.5-11.1); NEUT % 72.7 % (42.8-82.8); PLATELET COUNT 137 K/MM3 (134-434); RBC 4.35 M/mm3 (4.00-5.60); RDW 14.1 % (11.9-15.9); WHITE BLOOD COUNT 6.8 K/mm3 (4.0-10.0)
[2020-11-14 12:25] LABS: POTASSIUM 4.4 mmol/L (3.5-5.1)
[2020-11-14 12:27] LABS: MAGNESIUM 2.2 mg/dL (1.8-2.4)
[2020-11-14 12:28] LABS: ALBUMIN 4.4 g/dl (3.4-5.0); BLOOD UREA NITROGEN 31.4 mg/dL (7-18); CALCIUM 9.4 mg/dL (8.5-10.1)
[2020-11-14 12:30] LABS: URIC ACID 5.3 mg/dL (2.6-7.2)
[2020-11-14 12:31] LABS: BILIRUBIN,DIRECT 0.2 mg/dL (0.0-0.2); CREATININE 1.2 mg/dL (0.55-1.3)
[2020-11-14 12:32] LABS: TOT PROT 6.8 g/dl (6.4-8.2)
[2020-11-14 12:33] LABS: BILIRUBIN,TOTAL 0.9 mg/dL (0.2-1)
[2020-11-14 15:30] VITALS: PULSE 69; TEMP 97.5
[2020-11-14 17:49] VITALS: BP 123/65
== END 2020-11-14 14:00 | disposition home or self-care (01) ==
LOC: JONCCHEMO 06:46
PROVIDERS: ATTEND Internal Medicine Hematology & Oncology
DX: Z51.11 Encounter for antineoplastic chemotherapy (principal); C90.00 Multiple myeloma not having achieved remission
CPT/HCPCS: 36415; 80048; 80076; 83615; 83735; 84550; 85025; 96375; 96413; J2469; J9047

== ENCOUNTER 2020-11-30 07:33 | Day surgery (SDC) | payer BC ==
[2020-11-30] MEDS ORDERED: PALONOSETRON HCL 0.25 MG/5 ML VIAL IVPUSH ONE (09:30)
[2020-11-30] MEDS ORDERED: DEXAMETHASONE SODIUM PHOSPHATE 20 MG in SODIUM CHLORIDE 50 ML IVPB ONE (09:30)
[2020-11-30] MEDS ORDERED: SODIUM CHLORIDE IVPB ONE (10:00)
[2020-11-30] MEDS ORDERED: DARATUMUMAB IVPB ONE (10:00)
[2020-11-30 10:33] LABS: BASO % 1.3 % (0-2.0); EOS % 3.9 % (0-4.5); HEMATOCRIT 39.7 % (35.4-49); HEMOGLOBIN 14.1 GM/dL (11.7-16.9); LYMPH % 20.2 % (8-40); MCH 32.6 pg (25.7-33.7); MCHC 35.4 g/dl (32.0-35.9); MEAN CELL VOLUME 92.2 fl (80-96); MEAN PLT VOLUME 7.8 fl (7.5-11.1); MONO % 8.3 % (3.8-10.2); NEUT % 66.3 % (42.8-82.8); PLATELET COUNT 145 K/MM3 (134-434); RBC 4.31 M/mm3 (4.00-5.60); RDW 14.3 % (11.9-15.9); WHITE BLOOD COUNT 4.7 K/mm3 (4.0-10.0)
[2020-11-30 11:01] LABS: CALCIUM 9.3 mg/dL (8.5-10.1); MAGNESIUM 2.1 mg/dL (1.8-2.4)
[2020-11-30 11:02] LABS: ALBUMIN 4.5 g/dl (3.4-5.0); BLOOD UREA NITROGEN 26.6 mg/dL (7-18)
[2020-11-30 11:04] LABS: CREATININE 1.2 mg/dL (0.55-1.3); URIC ACID 7.3 mg/dL (2.6-7.2)
[2020-11-30 11:05] LABS: BILIRUBIN,DIRECT 0.1 mg/dL (0.0-0.2)
[2020-11-30 11:06] LABS: TOT PROT 6.8 g/dl (6.4-8.2)
[2020-11-30 11:07] LABS: BILIRUBIN,TOTAL 0.6 mg/dL (0.2-1)
[2020-11-30] MEDS ORDERED: WATER IV ONE (11:30)
[2020-11-30] MEDS ORDERED: CARFILZOMIB IV ONE (11:30)
[2020-11-30] MEDS ORDERED: DEXTROSE 5% IV ONE (11:30)
[2020-11-30 16:06] VITALS: TEMP 97.6
[2020-11-30 16:14] VITALS: BP 127/70; PULSE 72
[2020-12-01 18:06] LABS: FREE KAPPA,SERUM 9.5 mg/L (3.3-19.4)
[2020-12-06 09:30] LABS: FREE KAP CHN UR 45.51; KAPPA LAMBDA RATIO URIN 24.34
== END 2020-11-30 14:45 | disposition home or self-care (01) ==
LOC: JONCCHEMO 07:33
PROVIDERS: ATTEND Internal Medicine Hematology & Oncology
PROC: 3E03305 Introduction of Other Antineoplastic into Peripheral Vein, Percutaneous Approach (ICD-10-PCS; principal; 2020-11-30)
PROC: 3E0333Z Introduction of Anti-inflammatory into Peripheral Vein, Percutaneous Approach (ICD-10-PCS; 2020-11-30)
DX: Z51.11 Encounter for antineoplastic chemotherapy (principal); C90.00 Multiple myeloma not having achieved remission
CPT/HCPCS: 36415; 80048; 80076; 82784; 83615; 83735; 83883; 84155; 84156; 84157; 84165; 84550; 85025; 96375; 96411; 96413; 96415; J2469; J9047; J9145

== ENCOUNTER 2020-12-05 07:05 | Day surgery (SDC) | payer BC ==
[2020-12-05] MEDS ORDERED: DEXAMETHASONE SODIUM PHOSPHATE 20 MG in SODIUM CHLORIDE 50 ML IVPB ONE (09:30)
[2020-12-05] MEDS ORDERED: PALONOSETRON HCL 0.25 MG/5 ML VIAL IVPUSH ONE (09:30)
[2020-12-05] MEDS ORDERED: DEXTROSE 5% IV ONE (10:00)
[2020-12-05] MEDS ORDERED: CARFILZOMIB IV ONE (10:00)
[2020-12-05] MEDS ORDERED: WATER IV ONE (10:00)
[2020-12-05 12:37] LABS: EOS % 3.5 % (0-4.5); HEMATOCRIT 39.6 % (35.4-49); HEMOGLOBIN 13.8 GM/dL (11.7-16.9); LYMPH % 17.5 % (8-40); MCH 32.4 pg (25.7-33.7); MCHC 34.8 g/dl (32.0-35.9); MEAN PLT VOLUME 8.5 fl (7.5-11.1); MONO % 7.3 % (3.8-10.2); NEUT % 70.7 % (42.8-82.8); PLATELET COUNT 107 K/MM3 (134-434); RBC 4.26 M/mm3 (4.00-5.60); WHITE BLOOD COUNT 5.2 K/mm3 (4.0-10.0)
[2020-12-05 12:55] LABS: ALBUMIN 4.2 g/dl (3.4-5.0); BLOOD UREA NITROGEN 25.7 mg/dL (7-18); MAGNESIUM 2.1 mg/dL (1.8-2.4)
[2020-12-05 12:57] LABS: BILIRUBIN,DIRECT 0.2 mg/dL (0.0-0.2)
[2020-12-05 12:58] LABS: CREATININE 1.1 mg/dL (0.55-1.3)
[2020-12-05 12:59] LABS: BILIRUBIN,TOTAL 0.8 mg/dL (0.2-1)
[2020-12-05 13:00] LABS: TOT PROT 6.3 g/dl (6.4-8.2)
[2020-12-05 18:14] VITALS: TEMP 97.8
[2020-12-05 18:16] VITALS: BP 136/77; PULSE 77
== END 2020-12-05 15:30 | disposition home or self-care (01) ==
LOC: JONCCHEMO 07:05
PROVIDERS: ATTEND Internal Medicine Hematology & Oncology
DX: Z51.11 Encounter for antineoplastic chemotherapy (principal); C90.00 Multiple myeloma not having achieved remission
CPT/HCPCS: 36415; 80048; 80076; 83615; 83735; 84550; 85025; 96375; 96413; J2469; J9047

== ENCOUNTER 2020-12-12 07:22 | Day surgery (SDC) | payer BC ==
[2020-12-12] MEDS ORDERED: PALONOSETRON HCL 0.25 MG/5 ML VIAL IVPUSH ONE (09:30)
[2020-12-12] MEDS ORDERED: DEXAMETHASONE SODIUM PHOSPHATE 20 MG in SODIUM CHLORIDE 50 ML IVPB ONE (09:30)
[2020-12-12] MEDS ORDERED: WATER IV ONE (10:00)
[2020-12-12] MEDS ORDERED: CARFILZOMIB IV ONE (10:00)
[2020-12-12] MEDS ORDERED: DEXTROSE 5% IV ONE (10:00)
[2020-12-12 12:40] LABS: BASO % 0.9 % (0-2.0); EOS % 3.3 % (0-4.5); HEMATOCRIT 40.9 % (35.4-49); HEMOGLOBIN 14.3 GM/dL (11.7-16.9); LYMPH % 15.4 % (8-40); MCH 32.4 pg (25.7-33.7); MEAN CELL VOLUME 92.8 fl (80-96); MEAN PLT VOLUME 8.3 fl (7.5-11.1); NEUT % 73.4 % (42.8-82.8); PLATELET COUNT 127 K/MM3 (134-434); RBC 4.41 M/mm3 (4.00-5.60); RDW 14.7 % (11.9-15.9); WHITE BLOOD COUNT 7.3 K/mm3 (4.0-10.0)
[2020-12-12 13:57] LABS: ALBUMIN 4.2 g/dl (3.4-5.0); BLOOD UREA NITROGEN 31.7 mg/dL (7-18); CALCIUM 9.7 mg/dL (8.5-10.1); MAGNESIUM 2.3 mg/dL (1.8-2.4)
[2020-12-12 13:59] LABS: URIC ACID 5.6 mg/dL (2.6-7.2)
[2020-12-12 14:00] LABS: BILIRUBIN,DIRECT 0.2 mg/dL (0.0-0.2); CREATININE 1.3 mg/dL (0.55-1.3)
[2020-12-12 14:02] LABS: TOT PROT 6.7 g/dl (6.4-8.2)
[2020-12-12 14:13] LABS: BILIRUBIN,TOTAL 0.7 mg/dL (0.2-1)
[2020-12-12 15:36] VITALS: TEMP 97.7
[2020-12-12 15:37] VITALS: BP 129/73; PULSE 80
== END 2020-12-12 15:55 | disposition home or self-care (01) ==
LOC: JONCCHEMO 07:22
PROVIDERS: ATTEND Internal Medicine Hematology & Oncology
DX: Z51.11 Encounter for antineoplastic chemotherapy (principal); C90.00 Multiple myeloma not having achieved remission
CPT/HCPCS: 36415; 80048; 80076; 83615; 83735; 84550; 85025; 96375; 96413; J2469; J9047

== ENCOUNTER 2020-12-26 07:02 | Day surgery (SDC) | payer BC ==
[2020-12-26] MEDS ORDERED: PALONOSETRON HCL 0.25 MG/5 ML VIAL IVPUSH ONE (10:00)
[2020-12-26] MEDS ORDERED: DEXAMETHASONE SODIUM PHOSPHATE 20 MG in SODIUM CHLORIDE 50 ML IVPB ONE (10:00)
[2020-12-26] MEDS ORDERED: DARATUMUMAB IVPB ONE ×2 (10:30)
[2020-12-26] MEDS ORDERED: SODIUM CHLORIDE IVPB ONE ×2 (10:30)
[2020-12-26] MEDS ORDERED: DEXTROSE 5% IV ONE (12:00)
[2020-12-26] MEDS ORDERED: CARFILZOMIB IV ONE (12:00)
[2020-12-26] MEDS ORDERED: WATER IV ONE (12:00)
[2020-12-26 12:53] LABS: EOS % 4.6 % (0-4.5); HEMATOCRIT 40.6 % (35.4-49); HEMOGLOBIN 14.3 GM/dL (11.7-16.9); LYMPH % 18.2 % (8-40); MCH 32.7 pg (25.7-33.7); MCHC 35.4 g/dl (32.0-35.9); MEAN CELL VOLUME 92.5 fl (80-96); MONO % 6.5 % (3.8-10.2); NEUT % 69.7 % (42.8-82.8); PLATELET COUNT 151 K/MM3 (134-434); RBC 4.38 M/mm3 (4.00-5.60); RDW 14.5 % (11.9-15.9); WHITE BLOOD COUNT 5.6 K/mm3 (4.0-10.0)
[2020-12-26 13:14] LABS: ALBUMIN 3.5 g/dl (3.4-5.0); BLOOD UREA NITROGEN 21.4 mg/dL (7-18); MAGNESIUM 1.5 mg/dL (1.8-2.4)
[2020-12-26 13:16] LABS: BILIRUBIN,DIRECT 0.1 mg/dL (0.0-0.2)
[2020-12-26 13:18] LABS: BILIRUBIN,TOTAL 0.7 mg/dL (0.2-1); TOT PROT 5.4 g/dl (6.4-8.2)
[2020-12-26 13:25] LABS: CALCIUM 7.3 mg/dL (8.5-10.1)
[2020-12-26] MEDS ORDERED: CALCIUM GLUCONATE 10% - 1,000 MG/10 ML VIAL IVPB ONE (13:44)
[2020-12-26] MEDS ORDERED: MAGNESIUM OXIDE 400 MG TABLET (FP) PO ONE (13:45)
[2020-12-26 17:06] VITALS: TEMP 98.2
[2020-12-26 18:23] VITALS: BP 141/77; PULSE 70
[2020-12-28 16:13] LABS: FREE KAPPA,SERUM 9.3 mg/L (3.3-19.4)
[2020-12-29 06:06] LABS: FREE KAP CHN UR 40.16 mg/L (0.63-113.79); KAPPA LAMBDA RATIO URIN 15.15 (1.03-31.76)
== END 2020-12-26 18:27 | disposition home or self-care (01) ==
LOC: JONCCHEMO 07:02
PROVIDERS: ATTEND Internal Medicine Hematology & Oncology
DX: Z51.11 Encounter for antineoplastic chemotherapy (principal); C90.00 Multiple myeloma not having achieved remission
CPT/HCPCS: 36415; 80048; 80076; 82784; 83615; 83735; 83883; 84155; 84156; 84165; 85025; 86335; 96367; 96375; 96413; 96415; 96417; J2469; J9047; J9145

== ENCOUNTER 2021-01-02 07:01 | Day surgery (SDC) | payer BC ==
[2021-01-02] MEDS ORDERED: PALONOSETRON HCL 0.25 MG/5 ML VIAL IVPUSH ONE (10:00)
[2021-01-02] MEDS ORDERED: DEXAMETHASONE SODIUM PHOSPHATE 20 MG in SODIUM CHLORIDE 50 ML IVPB ONE (10:00)
[2021-01-02] MEDS ORDERED: WATER IV ONE (10:30)
[2021-01-02] MEDS ORDERED: DEXTROSE 5% IV ONE (10:30)
[2021-01-02] MEDS ORDERED: CARFILZOMIB IV ONE (10:30)
[2021-01-02 12:45] LABS: EOS % 3.9 % (0-4.5); HEMATOCRIT 34.6 % (35.4-49); LYMPH % 16.4 % (8-40); MCH 32.5 pg (25.7-33.7); MCHC 34.7 g/dl (32.0-35.9); MEAN CELL VOLUME 93.7 fl (80-96); MEAN PLT VOLUME 8.8 fl (7.5-11.1); NEUT % 72.7 % (42.8-82.8); PLATELET COUNT 104 K/MM3 (134-434); RBC 3.69 M/mm3 (4.00-5.60); RDW 14.2 % (11.9-15.9); WHITE BLOOD COUNT 5.3 K/mm3 (4.0-10.0)
[2021-01-02 13:15] LABS: CHLORIDE 105 mmol/L (98-107); SODIUM 136 mmol/L (136-145)
[2021-01-02 13:19] LABS: ALBUMIN 4.1 g/dl (3.4-5.0); BLOOD UREA NITROGEN 29.2 mg/dL (7-18); CO2 24 mmol/L (21-32); GLUCOSE,RANDOM 194 mg/dL (74-106); MAGNESIUM 2.1 mg/dL (1.8-2.4)
[2021-01-02 13:21] LABS: BILIRUBIN,DIRECT 0.1 mg/dL (0.0-0.2); CREATININE 1.4 mg/dL (0.55-1.3); SGOT/AST 92 U/L (15-37)
[2021-01-02 13:22] LABS: BILIRUBIN,TOTAL 0.9 mg/dL (0.2-1)
[2021-01-02 13:25] LABS: ALK PHOS 110 U/L (45-117); LDH 682 U/L (87-246)
[2021-01-02 13:34] LABS: ANION GAP 6 MMOL/L (8-16); CALCIUM 9.2 mg/dL (8.5-10.1); SGPT/ALT 29 U/L (13-61)
[2021-01-02 14:28] LABS: BLOOD UREA NITROGEN 29.9 mg/dL (7-18)
[2021-01-02 14:30] LABS: CREATININE 1.4 mg/dL (0.55-1.3)
[2021-01-02 14:32] LABS: BILIRUBIN,TOTAL 0.7 mg/dL (0.2-1); TOT PROT 6.4 g/dl (6.4-8.2)
[2021-01-02] MEDS ORDERED: Insulin (LOG) Aspart 100 UNITS/ML VIAL SQ ONE (14:33)
[2021-01-02 15:37] VITALS: PULSE 72; TEMP 97.2
[2021-01-02 16:24] VITALS: BP 139/68
== END 2021-01-02 16:30 | disposition home or self-care (01) ==
LOC: JONCCHEMO 07:01
PROVIDERS: ATTEND Internal Medicine Hematology & Oncology
DX: Z51.11 Encounter for antineoplastic chemotherapy (principal); C90.00 Multiple myeloma not having achieved remission
CPT/HCPCS: 36415; 80048; 80053; 80076; 83615; 83735; 84550; 85025; 96375; 96413; J2469; J9047

== ENCOUNTER 2021-01-11 09:34 | Day surgery (SDC) | payer BC ==
[~2021-01-11 09:34] MED LIST changes: -DARATUMUMAB IVPB ONE; -SODIUM CHLORIDE IVPB ONE
[2021-01-11 14:28] LABS: BASO % 0.7 % (0-2.0); EOS % 3.2 % (0-4.5); HEMATOCRIT 39.3 % (35.4-49); HEMOGLOBIN 13.7 GM/dL (11.7-16.9); LYMPH % 16.7 % (8-40); MCH 32.3 pg (25.7-33.7); MCHC 34.8 g/dl (32.0-35.9); MEAN CELL VOLUME 92.8 fl (80-96); MEAN PLT VOLUME 8.4 fl (7.5-11.1); MONO % 7.3 % (3.8-10.2); NEUT % 72.1 % (42.8-82.8); PLATELET COUNT 136 K/MM3 (134-434); RBC 4.23 M/mm3 (4.00-5.60); RDW 14.3 % (11.9-15.9); WHITE BLOOD COUNT 6.1 K/mm3 (4.0-10.0)
[2021-01-11 14:51] LABS: MAGNESIUM 2.1 mg/dL (1.8-2.4)
[2021-01-11 14:52] LABS: CALCIUM 8.9 mg/dL (8.5-10.1)
[2021-01-11 14:53] LABS: ALBUMIN 4.4 g/dl (3.4-5.0); BLOOD UREA NITROGEN 20.6 mg/dL (7-18)
[2021-01-11 14:54] LABS: CREATININE 1.2 mg/dL (0.55-1.3)
[2021-01-11 14:55] LABS: BILIRUBIN,DIRECT 0.2 mg/dL (0.0-0.2)
[2021-01-11 14:56] LABS: TOT PROT 6.5 g/dl (6.4-8.2)
[2021-01-11 14:57] LABS: BILIRUBIN,TOTAL 0.9 mg/dL (0.2-1)
[2021-01-11] MEDS ORDERED: DEXAMETHASONE SODIUM PHOSPHATE 20 MG in SODIUM CHLORIDE 50 ML IVPB ONE (15:00)
[2021-01-11] MEDS ORDERED: PALONOSETRON HCL 0.25 MG/5 ML VIAL IVPUSH ONE (15:00)
[2021-01-11] MEDS ORDERED: WATER IV ONE (15:30)
[2021-01-11] MEDS ORDERED: CARFILZOMIB IV ONE (15:30)
[2021-01-11] MEDS ORDERED: DEXTROSE 5% IV ONE (15:30)
[2021-01-11 16:14] VITALS: TEMP 98.1
[2021-01-11 16:53] VITALS: BP 132/78; PULSE 70
== END 2021-01-11 16:40 | disposition home or self-care (01) ==
LOC: JONCCHEMO 09:34
PROVIDERS: ATTEND Internal Medicine Hematology & Oncology
DX: Z51.11 Encounter for antineoplastic chemotherapy (principal); C90.00 Multiple myeloma not having achieved remission
CPT/HCPCS: 36415; 80048; 80061; 80076; 83615; 83721; 83735; 84550; 85025; 96375; 96413; J2469; J9047

== ENCOUNTER 2021-02-06 07:31 | Day surgery (SDC) | payer BC ==
[~2021-02-06 07:31] MED LIST changes: +DARATUMUMAB IVPB ONE; +SODIUM CHLORIDE IVPB ONE
[2021-02-06] MEDS ORDERED: PALONOSETRON HCL 0.25 MG/5 ML VIAL IVPUSH ONE (09:30)
[2021-02-06] MEDS ORDERED: DEXAMETHASONE SODIUM PHOSPHATE 20 MG in SODIUM CHLORIDE 50 ML IVPB ONE (09:30)
[2021-02-06] MEDS ORDERED: DARATUMUMAB IVPB ONE (10:00)
[2021-02-06] MEDS ORDERED: SODIUM CHLORIDE IVPB ONE (10:00)
[2021-02-06] MEDS ORDERED: DEXTROSE 5% IV ONE (11:30)
[2021-02-06] MEDS ORDERED: CARFILZOMIB IV ONE (11:30)
[2021-02-06] MEDS ORDERED: WATER IV ONE (11:30)
[2021-02-06] MEDS ORDERED: NEBIVOLOL 10 MG TABLET (FP) PO ONE (12:15)
[2021-02-06] MEDS ORDERED: amLODIPine BESYLATE 10 MG TABLET (FP) PO ONE (12:15)
[2021-02-06 13:17] LABS: BASO % 1.5 % (0-2.0); EOS % 4.3 % (0-4.5); HEMOGLOBIN 13.4 GM/dL (11.7-16.9); LYMPH % 15.3 % (8-40); MCH 31.5 pg (25.7-33.7); MCHC 35.2 g/dl (32.0-35.9); MEAN CELL VOLUME 89.3 fl (80-96); MEAN PLT VOLUME 7.3 fl (7.5-11.1); NEUT % 73.9 % (42.8-82.8); PLATELET COUNT 153 10^3/uL (134-434); RBC 4.25 M/mm3 (4.00-5.60); RDW 14.4 % (11.9-15.9); WHITE BLOOD COUNT 6.4 K/mm3 (4.0-10.0)
[2021-02-06 13:35] LABS: CALCIUM 9.1 mg/dL (8.5-10.1)
[2021-02-06 13:36] LABS: ALBUMIN 4.2 g/dl (3.4-5.0)
[2021-02-06 13:38] LABS: CREATININE 1.1 mg/dL (0.55-1.3); URIC ACID 4.8 mg/dL (2.6-7.2)
[2021-02-06 13:39] LABS: BILIRUBIN,DIRECT 0.2 mg/dL (0.0-0.2)
[2021-02-06 13:40] LABS: TOT PROT 6.7 g/dl (6.4-8.2)
[2021-02-06 13:41] LABS: BILIRUBIN,TOTAL 0.7 mg/dL (0.2-1)
[2021-02-06 13:46] LABS: BLOOD UREA NITROGEN 17.8 mg/dL (7-18)
[2021-02-06 17:38] VITALS: TEMP 97.2
[2021-02-06 17:57] VITALS: BP 146/71; PULSE 68
[2021-02-09 04:07] LABS: FREE KAP CHN UR 14.04 mg/L (0.63-113.79); KAPPA LAMBDA RATIO URIN 5.32 (1.03-31.76)
== END 2021-02-06 17:40 | disposition home or self-care (01) ==
LOC: JONCCHEMO 07:31
PROVIDERS: ATTEND Internal Medicine Hematology & Oncology
DX: Z51.11 Encounter for antineoplastic chemotherapy (principal); C90.00 Multiple myeloma not having achieved remission
CPT/HCPCS: 36415; 80048; 80076; 82784; 83615; 83735; 83883; 84155; 84165; 84550; 85025; 86335; 96375; 96413; 96415; 96417; J2469; J9047; J9145

== ENCOUNTER 2021-02-13 07:00 | Day surgery (SDC) | payer BC ==
[2021-02-13] MEDS ORDERED: PALONOSETRON HCL 0.25 MG/5 ML VIAL IVPUSH ONE (09:30)
[2021-02-13] MEDS ORDERED: DEXAMETHASONE SODIUM PHOSPHATE 20 MG in SODIUM CHLORIDE 50 ML IVPB ONE (09:30)
[2021-02-13] MEDS ORDERED: CARFILZOMIB IV ONE (10:00)
[2021-02-13] MEDS ORDERED: WATER IV ONE (10:00)
[2021-02-13] MEDS ORDERED: DEXTROSE 5% IV ONE (10:00)
[2021-02-13 13:00] LABS: BASO % 1.1 % (0-2.0); EOS % 5.3 % (0-4.5); HEMATOCRIT 37.8 % (35.4-49); HEMOGLOBIN 13.2 GM/dL (11.7-16.9); LYMPH % 15.9 % (8-40); MCH 31.5 pg (25.7-33.7); MCHC 34.9 g/dl (32.0-35.9); MEAN CELL VOLUME 90.4 fl (80-96); MEAN PLT VOLUME 7.8 fl (7.5-11.1); MONO % 5.7 % (3.8-10.2); PLATELET COUNT 110 10^3/uL (134-434); RBC 4.19 M/mm3 (4.00-5.60); RDW 14.5 % (11.9-15.9); WHITE BLOOD COUNT 5.8 K/mm3 (4.0-10.0)
[2021-02-13 13:21] LABS: ALBUMIN 4.2 g/dl (3.4-5.0); BLOOD UREA NITROGEN 14.8 mg/dL (7-18); CALCIUM 8.5 mg/dL (8.5-10.1); MAGNESIUM 2.1 mg/dL (1.8-2.4)
[2021-02-13 13:24] LABS: BILIRUBIN,DIRECT 0.2 mg/dL (0.0-0.2); URIC ACID 4.7 mg/dL (2.6-7.2)
[2021-02-13 13:26] LABS: BILIRUBIN,TOTAL 0.8 mg/dL (0.2-1); TOT PROT 6.4 g/dl (6.4-8.2)
[2021-02-13 17:33] VITALS: BP 123/72; PULSE 61; TEMP 97.7
== END 2021-02-13 15:35 | disposition home or self-care (01) ==
LOC: JONCCHEMO 07:00
PROVIDERS: ATTEND Internal Medicine Hematology & Oncology
DX: Z51.11 Encounter for antineoplastic chemotherapy (principal); C90.00 Multiple myeloma not having achieved remission
CPT/HCPCS: 36415; 80048; 80076; 83615; 83735; 84550; 85025; 96375; 96413; J2469; J9047

== ENCOUNTER 2021-02-20 07:16 | Day surgery (SDC) | payer BC ==
[2021-02-20] MEDS ORDERED: DEXAMETHASONE SODIUM PHOSPHATE 20 MG in SODIUM CHLORIDE 50 ML IVPB ONE (10:00)
[2021-02-20] MEDS ORDERED: PALONOSETRON HCL 0.25 MG/5 ML VIAL IVPUSH ONE (10:00)
[2021-02-20] MEDS ORDERED: DEXTROSE 5% IV ONE (10:30)
[2021-02-20] MEDS ORDERED: WATER IV ONE (10:30)
[2021-02-20] MEDS ORDERED: CARFILZOMIB IV ONE (10:30)
[2021-02-20 12:31] LABS: EOS % 6.3 % (0-4.5); HEMATOCRIT 40.2 % (35.4-49); HEMOGLOBIN 13.9 GM/dL (11.7-16.9); LYMPH % 16.6 % (8-40); MCH 31.3 pg (25.7-33.7); MCHC 34.6 g/dl (32.0-35.9); MEAN CELL VOLUME 90.3 fl (80-96); MEAN PLT VOLUME 7.9 fl (7.5-11.1); MONO % 7.6 % (3.8-10.2); NEUT % 68.5 % (42.8-82.8); PLATELET COUNT 120 10^3/uL (134-434); RBC 4.45 M/mm3 (4.00-5.60); RDW 15.2 % (11.9-15.9); WHITE BLOOD COUNT 5.6 K/mm3 (4.0-10.0)
[2021-02-20 12:54] LABS: ALBUMIN 4.3 g/dl (3.4-5.0); BLOOD UREA NITROGEN 22.7 mg/dL (7-18)
[2021-02-20 12:56] LABS: BILIRUBIN,DIRECT 0.2 mg/dL (0.0-0.2); CREATININE 1.1 mg/dL (0.55-1.3); URIC ACID 5.1 mg/dL (2.6-7.2)
[2021-02-20 12:58] LABS: BILIRUBIN,TOTAL 1.2 mg/dL (0.2-1); TOT PROT 6.7 g/dl (6.4-8.2)
[2021-02-20 15:38] VITALS: BP 153/83; PULSE 80; TEMP 97.7
== END 2021-02-20 13:15 | disposition home or self-care (01) ==
LOC: JONCCHEMO 07:16
PROVIDERS: ATTEND Internal Medicine Hematology & Oncology
DX: Z51.11 Encounter for antineoplastic chemotherapy (principal); C90.00 Multiple myeloma not having achieved remission
CPT/HCPCS: 36415; 80048; 80076; 83615; 83735; 84550; 85025; 96375; 96413; J2469; J9047

== ENCOUNTER 2021-03-06 07:24 | Day surgery (SDC) | payer BC ==
[2021-03-06] MEDS ORDERED: PALONOSETRON HCL 0.25 MG/5 ML VIAL IVPUSH ONE (10:00)
[2021-03-06] MEDS ORDERED: DEXAMETHASONE SODIUM PHOSPHATE 20 MG in SODIUM CHLORIDE 50 ML IVPB ONE (10:00)
[2021-03-06] MEDS ORDERED: SODIUM CHLORIDE IVPB ONE (10:30)
[2021-03-06] MEDS ORDERED: DARATUMUMAB IVPB ONE (10:30)
[2021-03-06] MEDS ORDERED: CARFILZOMIB IV ONE (12:00)
[2021-03-06] MEDS ORDERED: DEXTROSE 5% IV ONE (12:00)
[2021-03-06] MEDS ORDERED: WATER IV ONE (12:00)
[2021-03-06 13:26] LABS: EOS % 4.1 % (0-4.5); HEMATOCRIT 40.6 % (35.4-49); HEMOGLOBIN 14.4 GM/dL (11.7-16.9); LYMPH % 17.6 % (8-40); MCH 31.7 pg (25.7-33.7); MCHC 35.4 g/dl (32.0-35.9); MEAN CELL VOLUME 89.5 fl (80-96); MEAN PLT VOLUME 7.7 fl (7.5-11.1); MONO % 5.9 % (3.8-10.2); NEUT % 71.4 % (42.8-82.8); PLATELET COUNT 154 10^3/uL (134-434); RBC 4.53 M/mm3 (4.00-5.60); RDW 15.1 % (11.9-15.9); WHITE BLOOD COUNT 6.1 K/mm3 (4.0-10.0)
[2021-03-06 13:59] LABS: ALBUMIN 4.3 g/dl (3.4-5.0); BLOOD UREA NITROGEN 24.1 mg/dL (7-18); CALCIUM 9.2 mg/dL (8.5-10.1)
[2021-03-06 14:03] LABS: BILIRUBIN,DIRECT 0.1 mg/dL (0.0-0.2); CREATININE 1.3 mg/dL (0.55-1.3)
[2021-03-06 14:04] LABS: BILIRUBIN,TOTAL 0.8 mg/dL (0.2-1); TOT PROT 6.8 g/dl (6.4-8.2)
[2021-03-06 18:09] VITALS: BP 123/74; PULSE 69; TEMP 97.8
[2021-03-07 16:11] LABS: FREE KAP CHN UR 62.45 mg/L (0.63-113.79); KAPPA LAMBDA RATIO URIN 18.92 (1.03-31.76)
[2021-03-07 17:09] LABS: FREE KAPPA,SERUM 16.1 mg/L (3.3-19.4)
== END 2021-03-06 18:00 | disposition home or self-care (01) ==
LOC: JONCCHEMO 07:24
PROVIDERS: ATTEND Internal Medicine Hematology & Oncology
DX: Z51.11 Encounter for antineoplastic chemotherapy (principal); C90.00 Multiple myeloma not having achieved remission
CPT/HCPCS: 36415; 80048; 80076; 82784; 83615; 83735; 83883; 84155; 84165; 85025; 86335; 96375; 96413; 96417; J2469; J9047; J9145

== ENCOUNTER 2021-03-27 07:16 | Day surgery (SDC) | payer BC ==
[~2021-03-27 07:16] MED LIST changes: -DARATUMUMAB IVPB ONE; -SODIUM CHLORIDE IVPB ONE
[2021-03-27] MEDS ORDERED: DEXAMETHASONE SODIUM PHOSPHATE 20 MG in SODIUM CHLORIDE 50 ML IVPB ONE (09:30)
[2021-03-27] MEDS ORDERED: PALONOSETRON HCL 0.25 MG/5 ML VIAL IVPUSH ONE (09:30)
[2021-03-27] MEDS ORDERED: DARATUMUMAB IVPB ONE (10:00)
[2021-03-27] MEDS ORDERED: SODIUM CHLORIDE IVPB ONE (10:00)
[2021-03-27 12:16] LABS: BASO % 1.2 % (0-2.0); EOS % 4.4 % (0-4.5); HEMATOCRIT 40.6 % (35.4-49); HEMOGLOBIN 14.4 GM/dL (11.7-16.9); LYMPH % 18.5 % (8-40); MCH 31.3 pg (25.7-33.7); MCHC 35.5 g/dl (32.0-35.9); MEAN CELL VOLUME 88.2 fl (80-96); MEAN PLT VOLUME 7.3 fl (7.5-11.1); MONO % 6.1 % (3.8-10.2); NEUT % 69.8 % (42.8-82.8); PLATELET COUNT 168 10^3/uL (134-434); RDW 14.7 % (11.9-15.9); WHITE BLOOD COUNT 6.4 K/mm3 (4.0-10.0)
[2021-03-27] MEDS ORDERED: DEXTROSE 5% IV ONE (12:30)
[2021-03-27] MEDS ORDERED: CARFILZOMIB IV ONE (12:30)
[2021-03-27] MEDS ORDERED: WATER IV ONE (12:30)
[2021-03-27 12:34] LABS: ALBUMIN 3.7 g/dl (3.4-5.0); BLOOD UREA NITROGEN 23.3 mg/dL (7-18); CALCIUM 7.5 mg/dL (8.5-10.1); MAGNESIUM 1.8 mg/dL (1.8-2.4)
[2021-03-27 12:37] LABS: BILIRUBIN,DIRECT 0.1 mg/dL (0.0-0.2)
[2021-03-27 12:39] LABS: BILIRUBIN,TOTAL 0.4 mg/dL (0.2-1); TOT PROT 5.9 g/dl (6.4-8.2)
[2021-03-27 12:48] LABS: URIC ACID 3.9 mg/dL (2.6-7.2)
[2021-03-27] MEDS ORDERED: CALCIUM GLUCONATE 10% - 1,000 MG/10 ML VIAL IVPB ONE (12:50)
[2021-03-27] MEDS ORDERED: CALCIUM GLUC IN NACL, ISO-OSM 1 GM/50 ML BAG IVPB ONE (13:15)
[2021-03-27] MEDS ORDERED: CALCIUM GLUCONATE IN NACL 1 GM/50 ML BAG IVPB ONE (13:15)
[2021-03-27 16:25] VITALS: TEMP 97.5
[2021-03-27 16:30] VITALS: BP 131/77; PULSE 71
== END 2021-03-27 16:00 | disposition home or self-care (01) ==
LOC: JONCCHEMO 07:16
PROVIDERS: ATTEND Internal Medicine Hematology & Oncology
DX: Z51.11 Encounter for antineoplastic chemotherapy (principal); C90.00 Multiple myeloma not having achieved remission
CPT/HCPCS: 36415; 80048; 80076; 83615; 83735; 84550; 85025; 96375; 96413; 96417; J2469; J9047; J9145

== ENCOUNTER 2021-04-03 06:41 | Day surgery (SDC) | payer BC ==
[2021-04-03] MEDS ORDERED: DEXAMETHASONE SODIUM PHOSPHATE 20 MG in SODIUM CHLORIDE 50 ML IVPB ONE (09:30)
[2021-04-03] MEDS ORDERED: PALONOSETRON HCL 0.25 MG/5 ML VIAL IVPUSH ONE (09:30)
[2021-04-03] MEDS ORDERED: WATER IV ONE (10:00)
[2021-04-03] MEDS ORDERED: DEXTROSE 5% IV ONE (10:00)
[2021-04-03] MEDS ORDERED: CARFILZOMIB IV ONE (10:00)
[2021-04-03 12:14] LABS: BASO % 1.1 % (0-2.0); EOS % 6.2 % (0-4.5); HEMATOCRIT 39.6 % (35.4-49); HEMOGLOBIN 13.8 GM/dL (11.7-16.9); LYMPH % 17.2 % (8-40); MCH 31.1 pg (25.7-33.7); MCHC 34.9 g/dl (32.0-35.9); MEAN CELL VOLUME 89.1 fl (80-96); MONO % 7.2 % (3.8-10.2); NEUT % 68.3 % (42.8-82.8); PLATELET COUNT 112 10^3/uL (134-434); RBC 4.44 M/mm3 (4.00-5.60); RDW 15.5 % (11.9-15.9); WHITE BLOOD COUNT 6.3 K/mm3 (4.0-10.0)
[2021-04-03 12:28] LABS: CALCIUM 8.4 mg/dL (8.5-10.1)
[2021-04-03 12:29] LABS: ALBUMIN 4.1 g/dl (3.4-5.0); BLOOD UREA NITROGEN 20.7 mg/dL (7-18)
[2021-04-03 12:32] LABS: BILIRUBIN,DIRECT 0.1 mg/dL (0.0-0.2); CREATININE 1.1 mg/dL (0.55-1.3); URIC ACID 4.7 mg/dL (2.6-7.2)
[2021-04-03 12:34] LABS: BILIRUBIN,TOTAL 0.6 mg/dL (0.2-1); TOT PROT 6.6 g/dl (6.4-8.2)
[2021-04-03 16:03] VITALS: PULSE 71; TEMP 98.1
[2021-04-03 16:04] VITALS: BP 119/63
== END 2021-04-03 14:15 | disposition home or self-care (01) ==
LOC: JONCCHEMO 06:41
PROVIDERS: ATTEND Internal Medicine Hematology & Oncology
DX: Z51.11 Encounter for antineoplastic chemotherapy (principal); C90.00 Multiple myeloma not having achieved remission
CPT/HCPCS: 36415; 80048; 80076; 83615; 83735; 84550; 85025; 96375; 96413; J2469; J9047

== ENCOUNTER 2021-04-10 06:59 | Day surgery (SDC) | payer BC ==
[2021-04-10] MEDS ORDERED: PALONOSETRON HCL 0.25 MG/5 ML VIAL IVPUSH ONE (09:30)
[2021-04-10] MEDS ORDERED: DEXAMETHASONE SODIUM PHOSPHATE 20 MG in SODIUM CHLORIDE 50 ML IVPB ONE (09:30)
[2021-04-10] MEDS ORDERED: WATER IV ONE (10:00)
[2021-04-10] MEDS ORDERED: DEXTROSE 5% IV ONE (10:00)
[2021-04-10] MEDS ORDERED: CARFILZOMIB IV ONE (10:00)
[2021-04-10 12:58] LABS: BASO % 0.7 % (0-2.0); EOS % 4.6 % (0-4.5); HEMOGLOBIN 14.5 GM/dL (11.7-16.9); LYMPH % 15.5 % (8-40); MCH 31.5 pg (25.7-33.7); MCHC 35.3 g/dl (32.0-35.9); MEAN CELL VOLUME 89.1 fl (80-96); MONO % 5.5 % (3.8-10.2); NEUT % 73.7 % (42.8-82.8); PLATELET COUNT 127 10^3/uL (134-434); RBC 4.59 M/mm3 (4.00-5.60); RDW 15.6 % (11.9-15.9); WHITE BLOOD COUNT 7.4 K/mm3 (4.0-10.0)
[2021-04-10 13:10] LABS: ALBUMIN 4.3 g/dl (3.4-5.0); BLOOD UREA NITROGEN 25.6 mg/dL (7-18); MAGNESIUM 2.1 mg/dL (1.8-2.4)
[2021-04-10 13:12] LABS: BILIRUBIN,DIRECT 0.1 mg/dL (0.0-0.2); URIC ACID 5.3 mg/dL (2.6-7.2)
[2021-04-10 13:13] LABS: CREATININE 1.3 mg/dL (0.55-1.3)
[2021-04-10 13:14] LABS: BILIRUBIN,TOTAL 0.7 mg/dL (0.2-1)
[2021-04-10 18:07] VITALS: TEMP 97.2
[2021-04-10 18:11] VITALS: BP 134/68; PULSE 72
== END 2021-04-10 15:00 | disposition home or self-care (01) ==
LOC: JONCCHEMO 06:59
PROVIDERS: ATTEND Internal Medicine Hematology & Oncology
DX: Z51.11 Encounter for antineoplastic chemotherapy (principal); C90.00 Multiple myeloma not having achieved remission
CPT/HCPCS: 36415; 80048; 80076; 83615; 83735; 84550; 85025; 96375; 96413; J2469; J9047

== ENCOUNTER 2021-04-24 07:02 | Day surgery (SDC) | payer BC ==
[2021-04-24] MEDS ORDERED: PALONOSETRON HCL 0.25 MG/5 ML VIAL IVPUSH ONE (10:00)
[2021-04-24] MEDS ORDERED: DEXAMETHASONE SODIUM PHOSPHATE 20 MG in SODIUM CHLORIDE 50 ML IVPB ONE (10:00)
[2021-04-24] MEDS ORDERED: DARATUMUMAB IVPB ONE (10:30)
[2021-04-24] MEDS ORDERED: SODIUM CHLORIDE IVPB ONE (10:30)
[2021-04-24 11:18] LABS: EOS % 4.1 % (0-4.5); HEMOGLOBIN 14.6 GM/dL (11.7-16.9); LYMPH % 15.6 % (8-40); MCH 31.8 pg (25.7-33.7); MCHC 35.6 g/dl (32.0-35.9); MEAN CELL VOLUME 89.4 fl (80-96); MEAN PLT VOLUME 7.7 fl (7.5-11.1); NEUT % 74.3 % (42.8-82.8); PLATELET COUNT 156 10^3/uL (134-434); RBC 4.58 M/mm3 (4.00-5.60); RDW 15.3 % (11.9-15.9); WHITE BLOOD COUNT 6.5 K/mm3 (4.0-10.0)
[2021-04-24 11:43] LABS: CALCIUM 9.3 mg/dL (8.5-10.1)
[2021-04-24 11:44] LABS: ALBUMIN 4.4 g/dl (3.4-5.0); BLOOD UREA NITROGEN 22.2 mg/dL (7-18)
[2021-04-24 11:46] LABS: BILIRUBIN,DIRECT 0.1 mg/dL (0.0-0.2); CREATININE 1.1 mg/dL (0.55-1.3); URIC ACID 4.8 mg/dL (2.6-7.2)
[2021-04-24 11:48] LABS: TOT PROT 7.2 g/dl (6.4-8.2)
[2021-04-24 11:49] LABS: BILIRUBIN,TOTAL 0.8 mg/dL (0.2-1)
[2021-04-24] MEDS ORDERED: WATER IV ONE (12:00)
[2021-04-24] MEDS ORDERED: CARFILZOMIB IV ONE (12:00)
[2021-04-24] MEDS ORDERED: DEXTROSE 5% IV ONE (12:00)
[2021-04-24 17:09] LABS: ALBUMIN 4.2 g/dl (3.4-5.0); BLOOD UREA NITROGEN 22.1 mg/dL (7-18); CALCIUM 8.6 mg/dL (8.5-10.1)
[2021-04-24 17:12] LABS: BILIRUBIN,DIRECT 0.1 mg/dL (0.0-0.2); CREATININE 1.2 mg/dL (0.55-1.3)
[2021-04-24 17:14] LABS: BILIRUBIN,TOTAL 0.7 mg/dL (0.2-1)
[2021-04-24 17:46] VITALS: TEMP 97.2
[2021-04-24 17:47] VITALS: BP 105/69; PULSE 66
[2021-04-26 18:07] LABS: FREE KAPPA,SERUM 21.5 mg/L (3.3-19.4)
[2021-04-27 05:06] LABS: FREE KAP CHN UR 77.32 mg/L (0.63-113.79); KAPPA LAMBDA RATIO URIN 14.53 (1.03-31.76)
== END 2021-04-24 15:40 | disposition home or self-care (01) ==
LOC: JONCCHEMO 07:02
PROVIDERS: ATTEND Internal Medicine Hematology & Oncology
PROC: 3E03305 Introduction of Other Antineoplastic into Peripheral Vein, Percutaneous Approach (ICD-10-PCS; principal; 2021-04-24)
PROC: 3E033GC Introduction of Other Therapeutic Substance into Peripheral Vein, Percutaneous Approach (ICD-10-PCS; 2021-04-24)
DX: Z51.11 Encounter for antineoplastic chemotherapy (principal); C90.00 Multiple myeloma not having achieved remission; I10 Essential (primary) hypertension
CPT/HCPCS: 36415; 80048; 80076; 82784; 83615; 83735; 83883; 84155; 84165; 84550; 85025; 86335; 96375; 96413; 96417; J2469; J9047; J9145

== ENCOUNTER 2021-05-01 07:29 | Day surgery (SDC) | payer BC ==
[2021-05-01] MEDS ORDERED: PALONOSETRON HCL 0.25 MG/5 ML VIAL IVPUSH ONE (10:00)
[2021-05-01] MEDS ORDERED: DEXAMETHASONE SODIUM PHOSPHATE 20 MG in SODIUM CHLORIDE 50 ML IVPB ONE (10:00)
[2021-05-01] MEDS ORDERED: DEXTROSE 5% IV ONE (10:30)
[2021-05-01] MEDS ORDERED: WATER IV ONE (10:30)
[2021-05-01] MEDS ORDERED: CARFILZOMIB IV ONE (10:30)
[2021-05-01 11:30] LABS: BASO % 0.9 % (0-2.0); EOS % 4.8 % (0-4.5); HEMATOCRIT 38.8 % (35.4-49); HEMOGLOBIN 13.5 GM/dL (11.7-16.9); LYMPH % 15.9 % (8-40); MCH 31.4 pg (25.7-33.7); MCHC 34.7 g/dl (32.0-35.9); MEAN CELL VOLUME 90.7 fl (80-96); MEAN PLT VOLUME 7.8 fl (7.5-11.1); MONO % 5.8 % (3.8-10.2); NEUT % 72.6 % (42.8-82.8); PLATELET COUNT 111 10^3/uL (134-434); RBC 4.28 M/mm3 (4.00-5.60); RDW 15.5 % (11.9-15.9); WHITE BLOOD COUNT 5.5 K/mm3 (4.0-10.0)
[2021-05-01 12:01] LABS: BLOOD UREA NITROGEN 14.6 mg/dL (7-18); MAGNESIUM 1.6 mg/dL (1.8-2.4)
[2021-05-01 12:03] LABS: BILIRUBIN,DIRECT 0.1 mg/dL (0.0-0.2); URIC ACID 4.4 mg/dL (2.6-7.2)
[2021-05-01 12:04] LABS: CREATININE 0.8 mg/dL (0.55-1.3)
[2021-05-01 12:05] LABS: BILIRUBIN,TOTAL 0.6 mg/dL (0.2-1); TOT PROT 5.2 g/dl (6.4-8.2)
[2021-05-01 12:08] LABS: ALBUMIN 3.1 g/dl (3.4-5.0); CALCIUM 7.2 mg/dL (8.5-10.1)
[2021-05-01] MEDS ORDERED: POTASSIUM CHLORIDE TABS 20 MEQ TABLET.ER (FP) PO ONE (12:12)
[2021-05-01] MEDS: MAGNESIUM OXIDE 400 MG TABLET (FP) PO ONE ×2 (12:50→13:57)
[2021-05-01] MEDS ORDERED: MAGNESIUM OXIDE 400 MG TABLET (FP) PO ONE (13:15)
[2021-05-01 14:06] VITALS: TEMP 98.2
[2021-05-01 14:08] VITALS: BP 145/69; PULSE 67
== END 2021-05-01 14:11 | disposition home or self-care (01) ==
LOC: JONCCHEMO 07:29
PROVIDERS: ATTEND Internal Medicine Hematology & Oncology
DX: Z51.11 Encounter for antineoplastic chemotherapy (principal); C90.00 Multiple myeloma not having achieved remission
CPT/HCPCS: 36415; 80048; 80076; 83615; 83735; 84550; 85025; 96375; 96413; J2469; J9047

== ENCOUNTER 2021-05-08 07:45 | Day surgery (SDC) | payer BC ==
[2021-05-08] MEDS ORDERED: PALONOSETRON HCL 0.25 MG/5 ML VIAL IVPUSH ONE (10:00)
[2021-05-08] MEDS ORDERED: DEXAMETHASONE SODIUM PHOSPHATE 20 MG in SODIUM CHLORIDE 50 ML IVPB ONE (10:00)
[2021-05-08] MEDS ORDERED: WATER IV ONE (10:30)
[2021-05-08] MEDS ORDERED: CARFILZOMIB IV ONE (10:30)
[2021-05-08] MEDS ORDERED: DEXTROSE 5% IV ONE (10:30)
[2021-05-08 11:11] LABS: BASO % 0.8 % (0-2.0); EOS % 3.8 % (0-4.5); HEMOGLOBIN 14.3 GM/dL (11.7-16.9); LYMPH % 14.5 % (8-40); MCH 31.9 pg (25.7-33.7); MCHC 35.7 g/dl (32.0-35.9); MEAN CELL VOLUME 89.5 fl (80-96); MEAN PLT VOLUME 7.9 fl (7.5-11.1); MONO % 5.9 % (3.8-10.2); PLATELET COUNT 119 10^3/uL (134-434); RBC 4.48 M/mm3 (4.00-5.60); RDW 15.2 % (11.9-15.9); WHITE BLOOD COUNT 6.5 K/mm3 (4.0-10.0)
[2021-05-08 11:52] LABS: ALBUMIN 4.1 g/dl (3.4-5.0); BILIRUBIN,DIRECT 0.1 mg/dL (0.0-0.2); BILIRUBIN,TOTAL 0.8 mg/dL (0.2-1); BLOOD UREA NITROGEN 20.2 mg/dL (7-18); CALCIUM 9.1 mg/dL (8.5-10.1); MAGNESIUM 1.9 mg/dL (1.8-2.4); TOT PROT 6.8 g/dl (6.4-8.2)
[2021-05-08 11:55] LABS: URIC ACID 4.7 mg/dL (2.6-7.2)
[2021-05-08 16:40] VITALS: BP 140/78; PULSE 73; TEMP 97.8
== END 2021-05-08 13:35 | disposition home or self-care (01) ==
LOC: JONCCHEMO 07:45
PROVIDERS: ATTEND Internal Medicine Hematology & Oncology
DX: Z12.11 Encounter for screening for malignant neoplasm of colon (principal); C90.00 Multiple myeloma not having achieved remission
CPT/HCPCS: 36415; 80048; 80076; 83615; 83735; 84550; 85025; 96375; 96413; J2469; J9047

== ENCOUNTER 2021-05-22 07:38 | Day surgery (SDC) | payer BC ==
[2021-05-22] MEDS ORDERED: PALONOSETRON HCL 0.25 MG/5 ML VIAL IVPUSH ONE (11:00)
[2021-05-22] MEDS ORDERED: DEXAMETHASONE INJECTION 20 MG in SODIUM CHLORIDE 50 ML IVPB ONE (11:00)
[2021-05-22] MEDS ORDERED: SODIUM CHLORIDE IVPB ONE (11:30)
[2021-05-22] MEDS ORDERED: DARATUMUMAB IVPB ONE (11:30)
[2021-05-22 12:05] LABS: EOS % 3.8 % (0-4.5); HEMATOCRIT 40.3 % (35.4-49); HEMOGLOBIN 14.2 GM/dL (11.7-16.9); LYMPH % 17.1 % (8-40); MCH 31.9 pg (25.7-33.7); MCHC 35.3 g/dl (32.0-35.9); MEAN CELL VOLUME 90.4 fl (80-96); MEAN PLT VOLUME 7.4 fl (7.5-11.1); NEUT % 72.1 % (42.8-82.8); PLATELET COUNT 155 10^3/uL (134-434); RBC 4.46 M/mm3 (4.00-5.60); RDW 14.7 % (11.9-15.9)
[2021-05-22 12:31] LABS: ALBUMIN 4.2 g/dl (3.4-5.0); BLOOD UREA NITROGEN 16.6 mg/dL (7-18)
[2021-05-22 12:33] LABS: MAGNESIUM 1.9 mg/dL (1.8-2.4); URIC ACID 5.5 mg/dL (2.6-7.2)
[2021-05-22 12:34] LABS: CREATININE 1.1 mg/dL (0.55-1.3)
[2021-05-22 12:35] LABS: BILIRUBIN,TOTAL 0.7 mg/dL (0.2-1)
[2021-05-22 12:38] LABS: BILIRUBIN,DIRECT 0.2 mg/dL (0.0-0.2)
[2021-05-22] MEDS ORDERED: DEXTROSE 5% IV ONE (13:00)
[2021-05-22] MEDS ORDERED: CARFILZOMIB IV ONE (13:00)
[2021-05-22] MEDS ORDERED: WATER IV ONE (13:00)
[2021-05-22 17:06] VITALS: BP 144/78; PULSE 70; TEMP 98.6
[2021-05-23 17:07] LABS: FREE KAPPA,SERUM 22.9 mg/L (3.3-19.4)
[2021-05-25 07:07] LABS: FREE KAP CHN UR 18.48 mg/L (0.63-113.79); KAPPA LAMBDA RATIO URIN 13.69 (1.03-31.76)
== END 2021-05-22 17:08 | disposition home or self-care (01) ==
LOC: JONCCHEMO 07:38
PROVIDERS: ATTEND Internal Medicine Hematology & Oncology
DX: Z51.11 Encounter for antineoplastic chemotherapy (principal); C90.00 Multiple myeloma not having achieved remission
CPT/HCPCS: 36415; 80048; 80076; 82784; 83615; 83735; 83883; 84155; 84165; 84550; 85025; 86335; 96367; 96375; 96413; 96417; J1100; J2469; J9047; J9145

== ENCOUNTER 2021-06-05 07:47 | Day surgery (SDC) | payer BC ==
[2021-06-05] MEDS ORDERED: DEXAMETHASONE SODIUM PHOSPHATE 20 MG in SODIUM CHLORIDE 50 ML IVPB ONE (09:30)
[2021-06-05] MEDS ORDERED: PALONOSETRON HCL 0.25 MG/5 ML VIAL IVPUSH ONE (09:30)
[2021-06-05] MEDS ORDERED: DEXTROSE 5% IV ONE (10:00)
[2021-06-05] MEDS ORDERED: CARFILZOMIB IV ONE (10:00)
[2021-06-05] MEDS ORDERED: WATER IV ONE (10:00)
[2021-06-05 11:54] LABS: BASO % 1.3 % (0-2.0); EOS % 5.1 % (0-4.5); HEMATOCRIT 39.2 % (35.4-49); HEMOGLOBIN 14.2 GM/dL (11.7-16.9); LYMPH % 15.4 % (8-40); MCH 32.3 pg (25.7-33.7); MCHC 36.2 g/dl (32.0-35.9); MEAN CELL VOLUME 89.1 fl (80-96); MEAN PLT VOLUME 7.4 fl (7.5-11.1); MONO % 5.8 % (3.8-10.2); NEUT % 72.4 % (42.8-82.8); PLATELET COUNT 128 10^3/uL (134-434); RBC 4.39 M/mm3 (4.00-5.60); RDW 14.9 % (11.9-15.9); WHITE BLOOD COUNT 6.5 K/mm3 (4.0-10.0)
[2021-06-05 12:21] LABS: BLOOD UREA NITROGEN 18.9 mg/dL (7-18); CALCIUM 8.8 mg/dL (8.5-10.1)
[2021-06-05 12:22] LABS: MAGNESIUM 1.8 mg/dL (1.8-2.4)
[2021-06-05 12:24] LABS: BILIRUBIN,DIRECT 0.2 mg/dL (0.0-0.2)
[2021-06-05 12:26] LABS: BILIRUBIN,TOTAL 0.8 mg/dL (0.2-1); TOT PROT 6.8 g/dl (6.4-8.2)
[2021-06-05 17:45] VITALS: BP 138/70; PULSE 64; TEMP 97.4
== END 2021-06-05 14:20 | disposition home or self-care (01) ==
LOC: JONCCHEMO 07:47
PROVIDERS: ATTEND Internal Medicine Hematology & Oncology
DX: Z51.11 Encounter for antineoplastic chemotherapy (principal); C90.00 Multiple myeloma not having achieved remission
CPT/HCPCS: 36415; 80048; 80076; 83735; 85025; 96375; 96413; J2469; J9047

== ENCOUNTER 2021-06-19 07:43 | Day surgery (SDC) | payer BC ==
[2021-06-19] MEDS ORDERED: DEXAMETHASONE INJECTION 20 MG in SODIUM CHLORIDE 50 ML IVPB ONE (09:30)
[2021-06-19] MEDS ORDERED: PALONOSETRON HCL 0.25 MG/5 ML VIAL IVPUSH ONE (09:30)
[2021-06-19] MEDS ORDERED: DARATUMUMAB IVPB ONE (10:00)
[2021-06-19] MEDS ORDERED: SODIUM CHLORIDE IVPB ONE (10:00)
[2021-06-19] MEDS ORDERED: WATER IV ONE (12:00)
[2021-06-19] MEDS ORDERED: DEXTROSE 5% IV ONE (12:00)
[2021-06-19] MEDS ORDERED: CARFILZOMIB IV ONE (12:00)
[2021-06-19 13:03] LABS: ALBUMIN 4.2 g/dl (3.4-5.0); BLOOD UREA NITROGEN 16.7 mg/dL (7-18); CALCIUM 9.2 mg/dL (8.5-10.1)
[2021-06-19 13:04] LABS: MAGNESIUM 1.9 mg/dL (1.8-2.4); URIC ACID 4.9 mg/dL (2.6-7.2)
[2021-06-19 13:05] LABS: CREATININE 1.1 mg/dL (0.55-1.3)
[2021-06-19 13:06] LABS: BILIRUBIN,DIRECT 0.1 mg/dL (0.0-0.2); TOT PROT 6.9 g/dl (6.4-8.2)
[2021-06-19 13:08] LABS: BILIRUBIN,TOTAL 0.8 mg/dL (0.2-1)
[2021-06-19 13:38] LABS: BASO % 0.6 % (0-2.0); EOS % 5.1 % (0-4.5); HEMATOCRIT 41.7 % (35.4-49); HEMOGLOBIN 14.8 GM/dL (11.7-16.9); LYMPH % 15.7 % (8-40); MCH 31.7 pg (25.7-33.7); MCHC 35.5 g/dl (32.0-35.9); MEAN CELL VOLUME 89.3 fl (80-96); MEAN PLT VOLUME 7.6 fl (7.5-11.1); MONO % 6.3 % (3.8-10.2); NEUT % 72.3 % (42.8-82.8); PLATELET COUNT 135 10^3/uL (134-434); RBC 4.67 M/mm3 (4.00-5.60); RDW 14.6 % (11.9-15.9); WHITE BLOOD COUNT 6.7 K/mm3 (4.0-10.0)
[2021-06-19 18:35] VITALS: TEMP 98.1
[2021-06-19 18:36] VITALS: BP 130/74; PULSE 67
[2021-06-21 17:06] LABS: FREE KAPPA,SERUM 22.7 mg/L (3.3-19.4)
== END 2021-06-19 17:35 | disposition home or self-care (01) ==
LOC: JONCCHEMO 07:43
PROVIDERS: ATTEND Internal Medicine Hematology & Oncology
DX: Z51.11 Encounter for antineoplastic chemotherapy (principal); C90.00 Multiple myeloma not having achieved remission
CPT/HCPCS: 36415; 80048; 80061; 80076; 82150; 82784; 83615; 83690; 83735; 83883; 84155; 84165; 84550; 85025; 96375; 96413; 96417; J1100; J2469; J9047; J9145

== ENCOUNTER 2021-06-26 07:35 | Day surgery (SDC) | payer BC ==
[2021-06-26] MEDS ORDERED: DEXAMETHASONE SODIUM PHOSPHATE 20 MG in SODIUM CHLORIDE 50 ML IVPB ONE (09:30)
[2021-06-26] MEDS ORDERED: PALONOSETRON HCL 0.25 MG/5 ML VIAL IVPUSH ONE (09:30)
[2021-06-26] MEDS ORDERED: WATER IV ONE (10:00)
[2021-06-26] MEDS ORDERED: DEXTROSE 5% IV ONE (10:00)
[2021-06-26] MEDS ORDERED: CARFILZOMIB IV ONE (10:00)
[2021-06-26 11:33] LABS: BASO % 1.1 % (0-2.0); HEMATOCRIT 40.4 % (35.4-49); HEMOGLOBIN 14.3 GM/dL (11.7-16.9); LYMPH % 18.4 % (8-40); MCH 31.9 pg (25.7-33.7); MCHC 35.5 g/dl (32.0-35.9); MEAN PLT VOLUME 8.6 fl (7.5-11.1); MONO % 6.4 % (3.8-10.2); NEUT % 70.1 % (42.8-82.8); PLATELET COUNT 135 10^3/uL (134-434); RBC 4.49 M/mm3 (4.00-5.60); RDW 14.8 % (11.9-15.9); WHITE BLOOD COUNT 6.7 K/mm3 (4.0-10.0)
[2021-06-26 11:52] LABS: CHLORIDE 104 mmol/L (98-107); SODIUM 134 mmol/L (136-145)
[2021-06-26 11:54] LABS: CALCIUM 9.1 mg/dL (8.5-10.1); CO2 24 mmol/L (21-32); MAGNESIUM 2.1 mg/dL (1.8-2.4)
[2021-06-26 11:55] LABS: BLOOD UREA NITROGEN 19.4 mg/dL (7-18); GLUCOSE,RANDOM 160 mg/dL (74-106)
[2021-06-26 11:57] LABS: CREATININE 1.1 mg/dL (0.55-1.3); SGOT/AST 85 U/L (15-37); URIC ACID 4.8 mg/dL (2.6-7.2)
[2021-06-26 11:58] LABS: BILIRUBIN,DIRECT 0.1 mg/dL (0.0-0.2)
[2021-06-26 11:59] LABS: LDH 635 U/L (87-246)
[2021-06-26 12:00] LABS: BILIRUBIN,TOTAL 0.9 mg/dL (0.2-1)
[2021-06-26 12:01] LABS: ALK PHOS 112 U/L (45-117)
[2021-06-26 12:14] LABS: ANION GAP 6 MMOL/L (8-16); SGPT/ALT 29 U/L (13-61)
[2021-06-26 13:25] LABS: BILIRUBIN,DIRECT 0.1 mg/dL (0.0-0.2)
[2021-06-26 13:26] LABS: BILIRUBIN,TOTAL 0.8 mg/dL (0.2-1)
[2021-06-26 17:10] VITALS: BP 137/73; PULSE 68; TEMP 98.1
[2021-06-29 15:07] LABS: FREE KAP CHN UR 35.59 mg/L (0.63-113.79); KAPPA LAMBDA RATIO URIN 15.96 (1.03-31.76)
== END 2021-06-26 15:10 | disposition home or self-care (01) ==
LOC: JONCCHEMO 07:35
PROVIDERS: ATTEND Internal Medicine Hematology & Oncology
DX: Z51.11 Encounter for antineoplastic chemotherapy (principal); C90.00 Multiple myeloma not having achieved remission
CPT/HCPCS: 36415; 80048; 80076; 83615; 83735; 83883; 84132; 84550; 85025; 96375; 96413; J2469; J9047

== ENCOUNTER 2021-07-03 07:46 | Day surgery (SDC) | payer BC ==
[2021-07-03] MEDS ORDERED: PALONOSETRON HCL 0.25 MG/5 ML VIAL IVPUSH ONE (10:00)
[2021-07-03] MEDS ORDERED: DEXAMETHASONE SODIUM PHOSPHATE 20 MG in SODIUM CHLORIDE 50 ML IVPB ONE (10:00)
[2021-07-03] MEDS ORDERED: CARFILZOMIB IV ONE (10:30)
[2021-07-03] MEDS ORDERED: DEXTROSE 5% IV ONE (10:30)
[2021-07-03] MEDS ORDERED: WATER IV ONE (10:30)
[2021-07-03 13:03] LABS: BASO % 0.8 % (0-2.0); EOS % 4.3 % (0-4.5); HEMATOCRIT 41.5 % (35.4-49); HEMOGLOBIN 14.8 GM/dL (11.7-16.9); LYMPH % 16.8 % (8-40); MCHC 35.5 g/dl (32.0-35.9); MEAN CELL VOLUME 90.1 fl (80-96); MEAN PLT VOLUME 8.1 fl (7.5-11.1); MONO % 6.3 % (3.8-10.2); NEUT % 71.8 % (42.8-82.8); PLATELET COUNT 140 10^3/uL (134-434); RBC 4.61 M/mm3 (4.00-5.60); RDW 15.1 % (11.9-15.9); WHITE BLOOD COUNT 6.9 K/mm3 (4.0-10.0)
[2021-07-03 13:23] LABS: ALBUMIN 4.3 g/dl (3.4-5.0); BLOOD UREA NITROGEN 25.6 mg/dL (7-18); CALCIUM 9.4 mg/dL (8.5-10.1)
[2021-07-03 13:26] LABS: BILIRUBIN,DIRECT 0.2 mg/dL (0.0-0.2); CREATININE 1.2 mg/dL (0.55-1.3); URIC ACID 6.1 mg/dL (2.6-7.2)
[2021-07-03 13:28] LABS: BILIRUBIN,TOTAL 0.8 mg/dL (0.2-1)
[2021-07-03] MEDS ORDERED: INSULIN (NOVOLOG) ASPART 100 UNITS/ML 10ML VIAL SQ ONE (14:30)
[2021-07-03 17:17] VITALS: BP 136/81; PULSE 72; TEMP 98
== END 2021-07-03 15:00 | disposition home or self-care (01) ==
LOC: JONCCHEMO 07:46
PROVIDERS: ATTEND Internal Medicine Hematology & Oncology
DX: Z51.11 Encounter for antineoplastic chemotherapy (principal); C90.00 Multiple myeloma not having achieved remission
CPT/HCPCS: 36415; 80048; 80076; 83615; 84550; 85025; 96375; 96413; J2469; J9047

== ENCOUNTER 2021-07-17 07:07 | Day surgery (SDC) | payer BC ==
[2021-07-17] MEDS ORDERED: DEXAMETHASONE INJECTION 20 MG in SODIUM CHLORIDE 50 ML IVPB ONE (11:30)
[2021-07-17] MEDS ORDERED: PALONOSETRON HCL 0.25 MG/5 ML VIAL IVPUSH ONE (11:30)
[2021-07-17] MEDS ORDERED: DARATUMUMAB IVPB ONE (12:00)
[2021-07-17] MEDS ORDERED: SODIUM CHLORIDE IVPB ONE (12:00)
[2021-07-17 12:08] LABS: BASO % 0.5 % (0-2.0); EOS % 4.4 % (0-4.5); HEMATOCRIT 41.3 % (35.4-49); HEMOGLOBIN 14.8 GM/dL (11.7-16.9); LYMPH % 22.1 % (8-40); MCHC 35.8 g/dl (32.0-35.9); MEAN CELL VOLUME 89.4 fl (80-96); MEAN PLT VOLUME 7.8 fl (7.5-11.1); MONO % 6.6 % (3.8-10.2); NEUT % 66.4 % (42.8-82.8); PLATELET COUNT 144 10^3/uL (134-434); RBC 4.62 M/mm3 (4.00-5.60); RDW 15.1 % (11.9-15.9); WHITE BLOOD COUNT 5.7 K/mm3 (4.0-10.0)
[2021-07-17 12:58] LABS: CALCIUM 9.2 mg/dL (8.5-10.1); MAGNESIUM 2.1 mg/dL (1.8-2.4)
[2021-07-17 12:59] LABS: ALBUMIN 4.1 g/dl (3.4-5.0); BLOOD UREA NITROGEN 34.6 mg/dL (7-18)
[2021-07-17 13:01] LABS: CREATININE 1.3 mg/dL (0.55-1.3); URIC ACID 5.5 mg/dL (2.6-7.2)
[2021-07-17 13:02] LABS: BILIRUBIN,DIRECT 0.1 mg/dL (0.0-0.2); TOT PROT 7.1 g/dl (6.4-8.2)
[2021-07-17 13:04] LABS: BILIRUBIN,TOTAL 0.7 mg/dL (0.2-1)
[2021-07-17] MEDS ORDERED: Insulin (LOG) Aspart 100 UNITS/ML VIAL SQ ONE (13:15)
[2021-07-17] MEDS ORDERED: DEXTROSE 5% IV ONE (14:00)
[2021-07-17] MEDS ORDERED: WATER IV ONE (14:00)
[2021-07-17] MEDS ORDERED: CARFILZOMIB IV ONE (14:00)
[2021-07-17] MEDS ORDERED: INSULIN (NOVOLOG) ASPART 100 UNITS/ML 10ML VIAL ONE (14:33)
[2021-07-17 17:53] VITALS: TEMP 97.7
[2021-07-17 18:29] VITALS: BP 143/69; PULSE 73
[2021-07-18 16:08] LABS: FREE KAPPA,SERUM 23.1 mg/L (3.3-19.4)
[2021-07-21 07:13] LABS: FREE KAP CHN UR 44.66 mg/L (0.63-113.79); KAPPA LAMBDA RATIO URIN 17.58 (1.03-31.76)
== END 2021-07-17 17:40 | disposition home or self-care (01) ==
LOC: JONCCHEMO 07:07
PROVIDERS: ATTEND Internal Medicine Hematology & Oncology
DX: Z51.11 Encounter for antineoplastic chemotherapy (principal); C90.00 Multiple myeloma not having achieved remission
CPT/HCPCS: 36415; 80048; 80076; 82784; 83615; 83735; 83883; 84155; 84165; 84550; 85025; 86335; 96367; 96375; 96413; 96417; J1100; J2469; J9047; J9145

== ENCOUNTER 2021-07-24 07:19 | Day surgery (SDC) | payer BC ==
[2021-07-24] MEDS ORDERED: DEXAMETHASONE SODIUM PHOSPHATE 20 MG in SODIUM CHLORIDE 50 ML IVPB ONE (10:30)
[2021-07-24] MEDS ORDERED: PALONOSETRON HCL 0.25 MG/5 ML VIAL IVPUSH ONE (10:30)
[2021-07-24] MEDS ORDERED: WATER IV ONE (11:00)
[2021-07-24] MEDS ORDERED: DEXTROSE 5% IV ONE (11:00)
[2021-07-24] MEDS ORDERED: CARFILZOMIB IV ONE (11:00)
[2021-07-24 11:44] LABS: BASO % 0.8 % (0-2.0); HEMATOCRIT 42.5 % (35.4-49); HEMOGLOBIN 14.8 GM/dL (11.7-16.9); LYMPH % 17.4 % (8-40); MCH 31.7 pg (25.7-33.7); MCHC 34.8 g/dl (32.0-35.9); MEAN PLT VOLUME 8.2 fl (7.5-11.1); MONO % 4.6 % (3.8-10.2); NEUT % 73.2 % (42.8-82.8); PLATELET COUNT 128 10^3/uL (134-434); RBC 4.67 M/mm3 (4.00-5.60); RDW 14.5 % (11.9-15.9); WHITE BLOOD COUNT 6.6 K/mm3 (4.0-10.0)
[2021-07-24 12:02] LABS: CALCIUM 9.3 mg/dL (8.5-10.1)
[2021-07-24 12:03] LABS: ALBUMIN 4.3 g/dl (3.4-5.0); BLOOD UREA NITROGEN 23.2 mg/dL (7-18); MAGNESIUM 2.1 mg/dL (1.8-2.4)
[2021-07-24 12:05] LABS: BILIRUBIN,DIRECT 0.2 mg/dL (0.0-0.2); URIC ACID 4.9 mg/dL (2.6-7.2)
[2021-07-24 12:06] LABS: CREATININE 1.2 mg/dL (0.55-1.3)
[2021-07-24 12:07] LABS: BILIRUBIN,TOTAL 0.8 mg/dL (0.2-1); TOT PROT 6.9 g/dl (6.4-8.2)
[2021-07-24 14:29] VITALS: BP 131/65; PULSE 66; TEMP 97.8
== END 2021-07-24 14:40 | disposition home or self-care (01) ==
LOC: JONCCHEMO 07:19
PROVIDERS: ATTEND Internal Medicine Hematology & Oncology
PROC: 3E03305 Introduction of Other Antineoplastic into Peripheral Vein, Percutaneous Approach (ICD-10-PCS; principal; 2021-07-24)
PROC: 3E033GC Introduction of Other Therapeutic Substance into Peripheral Vein, Percutaneous Approach (ICD-10-PCS; 2021-07-24)
DX: Z51.11 Encounter for antineoplastic chemotherapy (principal); C90.00 Multiple myeloma not having achieved remission
CPT/HCPCS: 36415; 80048; 80076; 83615; 83735; 84550; 85025; 96367; 96375; 96413; J2469; J9047

== ENCOUNTER 2021-07-31 07:04 | Day surgery (SDC) | payer BC ==
[2021-07-31] MEDS ORDERED: DEXAMETHASONE SODIUM PHOSPHATE 20 MG in SODIUM CHLORIDE 50 ML IVPB ONE (10:30)
[2021-07-31] MEDS ORDERED: PALONOSETRON HCL 0.25 MG/5 ML VIAL IVPUSH ONE (10:30)
[2021-07-31] MEDS ORDERED: CARFILZOMIB IV ONE (11:00)
[2021-07-31] MEDS ORDERED: WATER IV ONE (11:00)
[2021-07-31] MEDS ORDERED: DEXTROSE 5% IV ONE (11:00)
[2021-07-31 12:37] LABS: EOS % 3.4 % (0-4.5); LYMPH % 15.2 % (8-40); MCH 31.4 pg (25.7-33.7); MCHC 34.8 g/dl (32.0-35.9); MEAN CELL VOLUME 90.4 fl (80-96); MEAN PLT VOLUME 7.9 fl (7.5-11.1); NEUT % 74.4 % (42.8-82.8); PLATELET COUNT 149 10^3/uL (134-434); RBC 4.76 M/mm3 (4.00-5.60); RDW 14.6 % (11.9-15.9); WHITE BLOOD COUNT 7.8 K/mm3 (4.0-10.0)
[2021-07-31 12:54] LABS: CALCIUM 9.7 mg/dL (8.5-10.1)
[2021-07-31 12:55] LABS: ALBUMIN 4.5 g/dl (3.4-5.0); BLOOD UREA NITROGEN 26.9 mg/dL (7-18); MAGNESIUM 2.1 mg/dL (1.8-2.4)
[2021-07-31 12:57] LABS: BILIRUBIN,DIRECT 0.2 mg/dL (0.0-0.2); CREATININE 1.4 mg/dL (0.55-1.3); URIC ACID 5.2 mg/dL (2.6-7.2)
[2021-07-31 12:59] LABS: BILIRUBIN,TOTAL 0.9 mg/dL (0.2-1); TOT PROT 7.3 g/dl (6.4-8.2)
[2021-07-31 18:39] VITALS: TEMP 97.2
[2021-07-31 18:51] VITALS: BP 121/62; PULSE 67
== END 2021-07-31 15:00 | disposition home or self-care (01) ==
LOC: JONCCHEMO 07:04
PROVIDERS: ATTEND Internal Medicine Hematology & Oncology
DX: Z51.11 Encounter for antineoplastic chemotherapy (principal); C90.00 Multiple myeloma not having achieved remission
CPT/HCPCS: 36415; 80048; 80076; 83615; 83735; 84550; 85025; 96367; 96375; 96413; J2469; J9047

== ENCOUNTER 2021-09-04 08:20 | Day surgery (SDC) | payer BC ==
[2021-09-04] MEDS ORDERED: PALONOSETRON HCL 0.25 MG/5 ML VIAL IVPUSH ONE (10:30)
[2021-09-04] MEDS ORDERED: DEXAMETHASONE SODIUM PHOSPHATE 20 MG in SODIUM CHLORIDE 50 ML IVPB ONE (10:30)
[2021-09-04] MEDS ORDERED: DARATUMUMAB IVPB ONE ×2 (11:00→12:30)
[2021-09-04] MEDS ORDERED: SODIUM CHLORIDE IVPB ONE ×2 (11:00→12:30)
[2021-09-04] MEDS ORDERED: WATER IV ONE (13:00)
[2021-09-04] MEDS ORDERED: CARFILZOMIB IV ONE (13:00)
[2021-09-04] MEDS ORDERED: DEXTROSE 5% IV ONE (13:00)
[2021-09-04 13:59] LABS: BLOOD UREA NITROGEN 19.6 mg/dL (7-18); CALCIUM 9.7 mg/dL (8.5-10.1); MAGNESIUM 1.2 mg/dL (1.8-2.4)
[2021-09-04 14:01] LABS: ALBUMIN 4.4 g/dl (3.4-5.0); URIC ACID 4.8 mg/dL (2.6-7.2)
[2021-09-04 14:02] LABS: BILIRUBIN,DIRECT 0.2 mg/dL (0.0-0.2); CREATININE 1.1 mg/dL (0.55-1.3)
[2021-09-04 14:05] LABS: BILIRUBIN,TOTAL 0.7 mg/dL (0.2-1)
[2021-09-04 14:07] LABS: TOT PROT 6.8 g/dl (6.4-8.2)
[2021-09-04] MEDS ORDERED: MAGNESIUM SULF 50% (8.12 MEQ/2 ML-1 GM VIAL) IVPB ONE (14:14)
[2021-09-04] MEDS ORDERED: MAGNESIUM OXIDE 400 MG TABLET (FP) PO ONE (14:15)
[2021-09-04 14:55] LABS: BASO % 0.8 % (0-2.0); HEMATOCRIT 41.3 % (35.4-49); HEMOGLOBIN 13.9 GM/dL (11.7-16.9); LYMPH % 17.6 % (8-40); MCH 30.5 pg (25.7-33.7); MCHC 33.8 g/dl (32.0-35.9); MEAN CELL VOLUME 90.3 fl (80-96); MEAN PLT VOLUME 8.2 fl (7.5-11.1); MONO % 5.8 % (3.8-10.2); NEUT % 70.8 % (42.8-82.8); PLATELET COUNT 167 10^3/uL (134-434); RBC 4.57 M/mm3 (4.00-5.60); RDW 14.2 % (11.9-15.9); WHITE BLOOD COUNT 6.3 K/mm3 (4.0-10.0)
[2021-09-04 17:37] VITALS: TEMP 97.2
[2021-09-05 08:22] VITALS: BP 140/68; PULSE 69
[2021-09-06 17:07] LABS: FREE KAPPA,SERUM 25.4 mg/L (3.3-19.4)
[2021-09-07 17:06] LABS: FREE KAP CHN UR 49.19 mg/L (0.63-113.79); KAPPA LAMBDA RATIO URIN 14.68 (1.03-31.76)
== END 2021-09-04 18:58 | disposition home or self-care (01) ==
LOC: JONCCHEMO 08:20
PROVIDERS: ATTEND Internal Medicine Hematology & Oncology
DX: Z51.11 Encounter for antineoplastic chemotherapy (principal); C90.00 Multiple myeloma not having achieved remission
CPT/HCPCS: 36415; 80048; 80076; 82784; 83615; 83735; 83883; 84155; 84165; 84550; 85025; 86335; 96367; 96375; 96411; 96413; 96417; J2469; J9047; J9145

== ENCOUNTER 2021-09-11 06:59 | Day surgery (SDC) | payer BC ==
[2021-09-11] MEDS ORDERED: DEXAMETHASONE SODIUM PHOSPHATE 20 MG in SODIUM CHLORIDE 50 ML IVPB ONE (10:30)
[2021-09-11] MEDS ORDERED: PALONOSETRON HCL 0.25 MG/5 ML VIAL IVPUSH ONE (10:30)
[2021-09-11 10:47] LABS: EOS % 5.5 % (0-4.5); HEMATOCRIT 42.3 % (35.4-49); HEMOGLOBIN 14.6 GM/dL (11.7-16.9); LYMPH % 16.1 % (8-40); MCH 31.2 pg (25.7-33.7); MCHC 34.4 g/dl (32.0-35.9); MEAN CELL VOLUME 90.7 fl (80-96); MEAN PLT VOLUME 8.1 fl (7.5-11.1); MONO % 5.9 % (3.8-10.2); NEUT % 71.5 % (42.8-82.8); PLATELET COUNT 137 10^3/uL (134-434); RBC 4.67 M/mm3 (4.00-5.60); RDW 14.7 % (11.9-15.9); WHITE BLOOD COUNT 6.6 K/mm3 (4.0-10.0)
[2021-09-11] MEDS ORDERED: CARFILZOMIB IV ONE (11:00)
[2021-09-11] MEDS ORDERED: WATER IV ONE (11:00)
[2021-09-11] MEDS ORDERED: DEXTROSE 5% IV ONE (11:00)
[2021-09-11 11:16] LABS: CALCIUM 9.9 mg/dL (8.5-10.1)
[2021-09-11 11:17] LABS: ALBUMIN 4.5 g/dl (3.4-5.0); BLOOD UREA NITROGEN 27.3 mg/dL (7-18)
[2021-09-11 11:19] LABS: BILIRUBIN,DIRECT 0.2 mg/dL (0.0-0.2); CREATININE 1.2 mg/dL (0.55-1.3); URIC ACID 4.8 mg/dL (2.6-7.2)
[2021-09-11 11:21] LABS: BILIRUBIN,TOTAL 0.7 mg/dL (0.2-1); TOT PROT 7.2 g/dl (6.4-8.2)
[2021-09-11] MEDS ORDERED: Insulin (LOG) Aspart 100 UNITS/ML VIAL SQ ONE (11:26)
[2021-09-11 17:07] VITALS: BP 132/77; PULSE 71; TEMP 97.9
== END 2021-09-11 14:10 | disposition home or self-care (01) ==
LOC: JONCCHEMO 06:59
PROVIDERS: ATTEND Internal Medicine Hematology & Oncology
DX: Z51.11 Encounter for antineoplastic chemotherapy (principal); C90.00 Multiple myeloma not having achieved remission
CPT/HCPCS: 36415; 80048; 80076; 83615; 83735; 84550; 85025; 96367; 96375; 96413; J2469; J9047

== ENCOUNTER 2021-09-18 07:58 | Day surgery (SDC) | payer BC ==
[2021-09-18] MEDS ORDERED: PALONOSETRON HCL 0.25 MG/5 ML VIAL IVPUSH ONE (10:30)
[2021-09-18] MEDS ORDERED: DEXAMETHASONE SODIUM PHOSPHATE 20 MG in SODIUM CHLORIDE 50 ML IVPB ONE (10:30)
[2021-09-18] MEDS ORDERED: CARFILZOMIB IV ONE (11:00)
[2021-09-18] MEDS ORDERED: WATER IV ONE (11:00)
[2021-09-18] MEDS ORDERED: DEXTROSE 5% IV ONE (11:00)
[2021-09-18 13:47] LABS: BASO % 0.8 % (0-2.0); EOS % 5.6 % (0-4.5); HEMATOCRIT 41.5 % (35.4-49); HEMOGLOBIN 14.4 GM/dL (11.7-16.9); MCH 31.2 pg (25.7-33.7); MCHC 34.7 g/dl (32.0-35.9); MEAN CELL VOLUME 89.8 fl (80-96); MEAN PLT VOLUME 8.2 fl (7.5-11.1); MONO % 6.1 % (3.8-10.2); NEUT % 70.5 % (42.8-82.8); PLATELET COUNT 121 10^3/uL (134-434); RBC 4.63 M/mm3 (4.00-5.60); RDW 14.9 % (11.9-15.9); WHITE BLOOD COUNT 6.6 K/mm3 (4.0-10.0)
[2021-09-18 14:11] LABS: ALBUMIN 4.4 g/dl (3.4-5.0); CALCIUM 9.8 mg/dL (8.5-10.1)
[2021-09-18 14:12] LABS: BLOOD UREA NITROGEN 29.2 mg/dL (7-18); MAGNESIUM 2.2 mg/dL (1.8-2.4)
[2021-09-18 14:14] LABS: BILIRUBIN,DIRECT 0.1 mg/dL (0.0-0.2); CREATININE 1.2 mg/dL (0.55-1.3); URIC ACID 5.5 mg/dL (2.6-7.2)
[2021-09-18 14:16] LABS: BILIRUBIN,TOTAL 0.8 mg/dL (0.2-1); TOT PROT 6.9 g/dl (6.4-8.2)
[2021-09-18] MEDS ORDERED: Insulin (LOG) Aspart 100 UNITS/ML VIAL SQ ONE (14:30)
[2021-09-18 15:42] VITALS: TEMP 97.7
[2021-09-18 16:38] VITALS: BP 134/68; PULSE 73
== END 2021-09-18 17:04 | disposition home or self-care (01) ==
LOC: JONCCHEMO 07:58
PROVIDERS: ATTEND Internal Medicine Hematology & Oncology
DX: Z51.11 Encounter for antineoplastic chemotherapy (principal); C90.00 Multiple myeloma not having achieved remission
CPT/HCPCS: 36415; 80048; 80076; 82232; 83615; 83735; 84550; 85025; 96367; 96375; 96413; J2469; J9047

== ENCOUNTER 2021-10-02 06:58 | Day surgery (SDC) | payer BC ==
[2021-10-02] MEDS ORDERED: DEXAMETHASONE SODIUM PHOSPHATE 20 MG in SODIUM CHLORIDE 50 ML IVPB ONE (10:00)
[2021-10-02] MEDS ORDERED: PALONOSETRON HCL 0.25 MG/5 ML VIAL IVPUSH ONE (10:00)
[2021-10-02] MEDS ORDERED: SODIUM CHLORIDE IVPB ONE (10:30)
[2021-10-02] MEDS ORDERED: DARATUMUMAB IVPB ONE (10:30)
[2021-10-02] MEDS ORDERED: WATER IV ONE (12:00)
[2021-10-02] MEDS ORDERED: DEXTROSE 5% IV ONE (12:00)
[2021-10-02] MEDS ORDERED: CARFILZOMIB IV ONE (12:00)
[2021-10-02 14:05] LABS: HEMATOCRIT 41.7 % (35.4-49); MCH 30.4 pg (25.7-33.7); MCHC 33.7 g/dl (32.0-35.9); MEAN CELL VOLUME 90.4 fl (80-96); MEAN PLT VOLUME 8.2 fl (7.5-11.1); NEUT % 74.9 % (42.8-82.8); PLATELET COUNT 159 10^3/uL (134-434); RBC 4.62 M/mm3 (4.00-5.60); RDW 14.1 % (11.9-15.9); WHITE BLOOD COUNT 6.7 K/mm3 (4.0-10.0)
[2021-10-02 14:06] LABS: BASO % 0.5 % (0-2.0); EOS % 3.4 % (0-4.5); LYMPH % 16.2 % (8-40)
[2021-10-02 14:35] LABS: BLOOD UREA NITROGEN 23.4 mg/dL (7-18); CALCIUM 9.4 mg/dL (8.5-10.1)
[2021-10-02 14:36] LABS: ALBUMIN 4.3 g/dl (3.4-5.0)
[2021-10-02 14:38] LABS: BILIRUBIN,DIRECT 0.2 mg/dL (0.0-0.2); CREATININE 1.1 mg/dL (0.55-1.3); URIC ACID 4.2 mg/dL (2.6-7.2)
[2021-10-02 14:40] LABS: BILIRUBIN,TOTAL 0.8 mg/dL (0.2-1); TOT PROT 6.8 g/dl (6.4-8.2)
[2021-10-02] MEDS ORDERED: Insulin (LOG) Aspart 100 UNITS/ML VIAL SQ ONE (15:24)
[2021-10-02 17:47] VITALS: TEMP 97.9
[2021-10-02 18:08] VITALS: BP 119/63; PULSE 70
[2021-10-04 18:07] LABS: FREE KAPPA,SERUM 28.1 mg/L (3.3-19.4)
[2021-10-05 12:08] LABS: FREE KAP CHN UR 99.26 mg/L (0.63-113.79); KAPPA LAMBDA RATIO URIN 27.73 (1.03-31.76)
[2021-10-05 16:08] LABS: BETA-2-MICROGLOBULIN 2.2 mg/L (0.6-2.4)
== END 2021-10-02 18:15 | disposition home or self-care (01) ==
LOC: JONCCHEMO 06:58
PROVIDERS: ATTEND Internal Medicine Hematology & Oncology
DX: Z51.11 Encounter for antineoplastic chemotherapy (principal); C90.00 Multiple myeloma not having achieved remission
CPT/HCPCS: 36415; 80048; 80076; 82232; 82784; 83615; 83883; 84155; 84165; 84550; 85025; 86335; 96367; 96413; 96415; 96417; J2469; J9047; J9145

== ENCOUNTER 2021-10-09 07:13 | Day surgery (SDC) | payer BC ==
[~2021-10-09 07:13] MED LIST changes: -CARFILZOMIB IV ONE; -DEXAMETHASONE SODIUM PHOSPHATE 20 MG in SODIUM CHLORIDE 50 ML IVPB ONE; -DEXTROSE 5% IV ONE; +Insulin (LOG) Aspart 100 UNITS/ML VIAL SQ ONE; -PALONOSETRON HCL 0.25 MG/5 ML VIAL IVPUSH ONE; -WATER IV ONE
[2021-10-09] MEDS ORDERED: DEXAMETHASONE SODIUM PHOSPHATE 20 MG in SODIUM CHLORIDE 50 ML IVPB ONE (10:30)
[2021-10-09] MEDS ORDERED: PALONOSETRON HCL 0.25 MG/5 ML VIAL IVPUSH ONE (10:30)
[2021-10-09] MEDS ORDERED: CARFILZOMIB IV ONE (11:00)
[2021-10-09] MEDS ORDERED: DEXTROSE 5% IV ONE (11:00)
[2021-10-09] MEDS ORDERED: WATER IV ONE (11:00)
[2021-10-09 12:05] LABS: BASO % 0.9 % (0-2.0); EOS % 4.5 % (0-4.5); HEMATOCRIT 41.6 % (35.4-49); HEMOGLOBIN 14.1 GM/dL (11.7-16.9); LYMPH % 17.4 % (8-40); MCH 30.6 pg (25.7-33.7); MCHC 33.9 g/dl (32.0-35.9); MEAN CELL VOLUME 90.3 fl (80-96); MEAN PLT VOLUME 8.1 fl (7.5-11.1); MONO % 6.6 % (3.8-10.2); NEUT % 70.6 % (42.8-82.8); PLATELET COUNT 116 10^3/uL (134-434); RDW 14.5 % (11.9-15.9); WHITE BLOOD COUNT 5.2 K/mm3 (4.0-10.0)
[2021-10-09 12:07] VITALS: BP 133/86; PULSE 72
[2021-10-09 12:23] LABS: BLOOD UREA NITROGEN 29.2 mg/dL (7-18); CALCIUM 9.8 mg/dL (8.5-10.1)
[2021-10-09 12:24] LABS: ALBUMIN 4.3 g/dl (3.4-5.0); MAGNESIUM 2.2 mg/dL (1.8-2.4)
[2021-10-09 12:26] LABS: BILIRUBIN,DIRECT 0.2 mg/dL (0.0-0.2)
[2021-10-09 12:27] LABS: CREATININE 1.2 mg/dL (0.55-1.3)
[2021-10-09 12:28] LABS: BILIRUBIN,TOTAL 0.7 mg/dL (0.2-1)
[2021-10-09 12:29] LABS: TOT PROT 6.8 g/dl (6.4-8.2)
[2021-10-09 12:31] LABS: URIC ACID 5.3 mg/dL (2.6-7.2)
[2021-10-09] MEDS ORDERED: Insulin (LOG) Aspart 100 UNITS/ML VIAL SQ ONE (13:30)
[2021-10-09 15:50] VITALS: TEMP 97.8
== END 2021-10-09 15:50 | disposition home or self-care (01) ==
LOC: JONCCHEMO 07:13
PROVIDERS: ATTEND Internal Medicine Hematology & Oncology
DX: Z51.11 Encounter for antineoplastic chemotherapy (principal); C90.00 Multiple myeloma not having achieved remission
CPT/HCPCS: 36415; 80048; 80076; 83615; 83735; 84550; 85025; 96367; 96375; 96413; J2469; J9047

== ENCOUNTER 2021-10-16 07:49 | Day surgery (SDC) | payer BC ==
[2021-10-16] MEDS ORDERED: DEXAMETHASONE SODIUM PHOSPHATE 20 MG in SODIUM CHLORIDE 50 ML IVPB ONE (10:00)
[2021-10-16] MEDS ORDERED: PALONOSETRON HCL 0.25 MG/5 ML VIAL IVPUSH ONE (10:00)
[2021-10-16] MEDS ORDERED: CARFILZOMIB IV ONE (10:30)
[2021-10-16] MEDS ORDERED: DEXTROSE 5% IV ONE (10:30)
[2021-10-16] MEDS ORDERED: WATER IV ONE (10:30)
[2021-10-16 13:08] VITALS: TEMP 97.8
[2021-10-16 13:25] LABS: BASO % 0.8 % (0-2.0); EOS % 4.4 % (0-4.5); HEMATOCRIT 38.9 % (35.4-49); HEMOGLOBIN 13.6 GM/dL (11.7-16.9); MCH 31.4 pg (25.7-33.7); MEAN CELL VOLUME 89.8 fl (80-96); MEAN PLT VOLUME 7.9 fl (7.5-11.1); MONO % 6.1 % (3.8-10.2); NEUT % 72.7 % (42.8-82.8); PLATELET COUNT 116 10^3/uL (134-434); RBC 4.33 M/mm3 (4.00-5.60); WHITE BLOOD COUNT 5.7 K/mm3 (4.0-10.0)
[2021-10-16 13:59] LABS: ALBUMIN 4.1 g/dl (3.4-5.0); BLOOD UREA NITROGEN 20.8 mg/dL (7-18)
[2021-10-16 14:02] LABS: BILIRUBIN,DIRECT 0.2 mg/dL (0.0-0.2); CREATININE 1.1 mg/dL (0.55-1.3); URIC ACID 5.9 mg/dL (2.6-7.2)
[2021-10-16 14:03] LABS: TOT PROT 6.6 g/dl (6.4-8.2)
[2021-10-16 14:04] LABS: BILIRUBIN,TOTAL 0.8 mg/dL (0.2-1)
[2021-10-16] MEDS ORDERED: INSULIN (NOVOLOG) ASPART 100 UNITS/ML 10ML VIAL SQ ONE (14:29)
[2021-10-16 17:20] VITALS: BP 128/72; PULSE 72
== END 2021-10-16 16:20 | disposition home or self-care (01) ==
LOC: JONCCHEMO 07:49
PROVIDERS: ATTEND Internal Medicine Hematology & Oncology
DX: Z51.11 Encounter for antineoplastic chemotherapy (principal); C90.00 Multiple myeloma not having achieved remission
CPT/HCPCS: 36415; 80048; 80076; 83615; 83735; 84550; 85025; 96367; 96375; 96413; J2469; J9047

== ENCOUNTER 2021-11-06 07:57 | Day surgery (SDC) | payer BC ==
[~2021-11-06 07:57] MED LIST changes: +CARFILZOMIB IV ONE; +DARATUMUMAB IVPB ONE; +DEXAMETHASONE SODIUM PHOSPHATE 20 MG in SODIUM CHLORIDE 50 ML IVPB ONE; +DEXTROSE 5% IV ONE; -Insulin (LOG) Aspart 100 UNITS/ML VIAL SQ ONE; +PALONOSETRON HCL 0.25 MG/5 ML VIAL IVPUSH ONE; +SODIUM CHLORIDE IVPB ONE; +WATER IV ONE
[2021-11-06] MEDS ORDERED: PALONOSETRON HCL 0.25 MG/5 ML VIAL IVPUSH ONE (10:30)
[2021-11-06] MEDS ORDERED: DEXAMETHASONE SODIUM PHOSPHATE 20 MG in SODIUM CHLORIDE 50 ML IVPB ONE (10:30)
[2021-11-06] MEDS ORDERED: CARFILZOMIB IV ONE (11:00)
[2021-11-06] MEDS ORDERED: DEXTROSE 5% IV ONE (11:00)
[2021-11-06] MEDS ORDERED: WATER IV ONE (11:00)
[2021-11-06] MEDS ORDERED: DARATUMUMAB IVPB ONE (11:30)
[2021-11-06] MEDS ORDERED: SODIUM CHLORIDE IVPB ONE (11:30)
[2021-11-06 13:12] LABS: BASO % 1.2 % (0-2.0); EOS % 3.9 % (0-4.5); HEMATOCRIT 39.4 % (35.4-49); MCH 31.9 pg (25.7-33.7); MCHC 35.6 g/dl (32.0-35.9); MEAN CELL VOLUME 89.7 fl (80-96); MONO % 6.6 % (3.8-10.2); NEUT % 72.3 % (42.8-82.8); PLATELET COUNT 136 10^3/uL (134-434); RBC 4.39 M/mm3 (4.00-5.60); RDW 14.3 % (11.9-15.9)
[2021-11-06 13:34] LABS: CALCIUM 9.2 mg/dL (8.5-10.1)
[2021-11-06 13:35] LABS: ALBUMIN 4.2 g/dl (3.4-5.0); MAGNESIUM 1.9 mg/dL (1.8-2.4)
[2021-11-06 13:37] LABS: URIC ACID 4.9 mg/dL (2.6-7.2)
[2021-11-06 13:38] LABS: BILIRUBIN,DIRECT 0.2 mg/dL (0.0-0.2)
[2021-11-06 13:39] LABS: BILIRUBIN,TOTAL 0.7 mg/dL (0.2-1); TOT PROT 6.8 g/dl (6.4-8.2)
[2021-11-06 13:48] LABS: BLOOD UREA NITROGEN 23.1 mg/dL (7-18); CREATININE 1.1 mg/dL (0.55-1.3)
[2021-11-06 17:46] VITALS: BP 132/70; PULSE 58
[2021-11-06 17:47] VITALS: TEMP 97.2
[2021-11-08 17:07] LABS: FREE KAPPA,SERUM 35.6 mg/L (3.3-19.4)
[2021-11-09 06:06] LABS: FREE KAP CHN UR 77.09 mg/L (1.17-86.46); KAPPA LAMBDA RATIO URIN 29.76 (1.83-14.26)
== END 2021-11-06 17:20 | disposition home or self-care (01) ==
LOC: JONCCHEMO 07:57
PROVIDERS: ATTEND Internal Medicine Hematology & Oncology
DX: Z51.11 Encounter for antineoplastic chemotherapy (principal); C90.00 Multiple myeloma not having achieved remission
CPT/HCPCS: 36415; 80048; 80076; 82232; 82784; 83615; 83735; 83883; 84155; 84165; 84550; 85025; 86335; 96367; 96375; 96413; 96417; J2469; J9047; J9145

== ENCOUNTER 2021-11-13 07:49 | Day surgery (SDC) | payer BC ==
[2021-11-13] MEDS ORDERED: PALONOSETRON HCL 0.25 MG/5 ML VIAL IVPUSH ONE (10:30)
[2021-11-13] MEDS ORDERED: DEXAMETHASONE SODIUM PHOSPHATE 20 MG in SODIUM CHLORIDE 50 ML IVPB ONE (10:30)
[2021-11-13] MEDS ORDERED: CARFILZOMIB IV ONE (11:00)
[2021-11-13] MEDS ORDERED: DEXTROSE 5% IV ONE (11:00)
[2021-11-13] MEDS ORDERED: WATER IV ONE (11:00)
[2021-11-13 12:25] LABS: BASO % 0.8 % (0-2.0); EOS % 5.3 % (0-4.5); HEMATOCRIT 39.3 % (35.4-49); HEMOGLOBIN 13.5 GM/dL (11.7-16.9); LYMPH % 15.7 % (8-40); MCH 31.1 pg (25.7-33.7); MCHC 34.4 g/dl (32.0-35.9); MEAN CELL VOLUME 90.2 fl (80-96); MEAN PLT VOLUME 8.4 fl (7.5-11.1); MONO % 5.8 % (3.8-10.2); NEUT % 72.4 % (42.8-82.8); PLATELET COUNT 114 10^3/uL (134-434); RBC 4.35 M/mm3 (4.00-5.60); RDW 14.5 % (11.9-15.9); WHITE BLOOD COUNT 5.9 K/mm3 (4.0-10.0)
[2021-11-13 12:51] LABS: ALBUMIN 4.1 g/dl (3.4-5.0); CALCIUM 9.2 mg/dL (8.5-10.1); MAGNESIUM 1.8 mg/dL (1.8-2.4)
[2021-11-13 12:54] LABS: BILIRUBIN,DIRECT 0.2 mg/dL (0.0-0.2); CREATININE 1.1 mg/dL (0.55-1.3)
[2021-11-13 12:56] LABS: BILIRUBIN,TOTAL 0.8 mg/dL (0.2-1); TOT PROT 6.6 g/dl (6.4-8.2)
[2021-11-13 13:00] LABS: URIC ACID 4.9 mg/dL (2.6-7.2)
[2021-11-13] MEDS ORDERED: INSULIN (NOVOLOG) ASPART 100 UNITS/ML 10ML VIAL ONE (13:45)
[2021-11-13] MEDS ORDERED: Insulin (LOG) Aspart 100 UNITS/ML VIAL SQ ONE (14:00)
[2021-11-13 18:25] VITALS: TEMP 97.9
[2021-11-13 18:39] VITALS: BP 122/61; PULSE 69
== END 2021-11-13 15:00 | disposition home or self-care (01) ==
LOC: JONCCHEMO 07:49
PROVIDERS: ATTEND Internal Medicine Hematology & Oncology
DX: Z51.11 Encounter for antineoplastic chemotherapy (principal); C90.00 Multiple myeloma not having achieved remission
CPT/HCPCS: 36415; 80048; 80076; 83615; 83735; 84550; 85025; 96367; 96375; 96413; J2469; J9047

== ENCOUNTER 2021-11-20 07:23 | Day surgery (SDC) | payer BC ==
[2021-11-20] MEDS ORDERED: PALONOSETRON HCL 0.25 MG/5 ML VIAL IVPUSH ONE (09:30)
[2021-11-20] MEDS ORDERED: DEXAMETHASONE SODIUM PHOSPHATE 20 MG in SODIUM CHLORIDE 50 ML IVPB ONE (09:30)
[2021-11-20] MEDS ORDERED: WATER IV ONE (10:00)
[2021-11-20] MEDS ORDERED: CARFILZOMIB IV ONE (10:00)
[2021-11-20] MEDS ORDERED: DEXTROSE 5% IV ONE (10:00)
[2021-11-20 12:51] LABS: BASO % 0.7 % (0-2.0); EOS % 4.3 % (0-4.5); HEMATOCRIT 38.6 % (35.4-49); HEMOGLOBIN 13.8 GM/dL (11.7-16.9); LYMPH % 15.2 % (8-40); MCHC 35.7 g/dl (32.0-35.9); MEAN CELL VOLUME 89.6 fl (80-96); MEAN PLT VOLUME 7.6 fl (7.5-11.1); MONO % 5.6 % (3.8-10.2); NEUT % 74.2 % (42.8-82.8); PLATELET COUNT 132 10^3/uL (134-434); RBC 4.31 M/mm3 (4.00-5.60); RDW 14.8 % (11.9-15.9)
[2021-11-20 13:30] LABS: CALCIUM 9.4 mg/dL (8.5-10.1)
[2021-11-20 13:31] LABS: ALBUMIN 4.3 g/dl (3.4-5.0); MAGNESIUM 1.9 mg/dL (1.8-2.4)
[2021-11-20 13:33] LABS: BILIRUBIN,DIRECT 0.2 mg/dL (0.0-0.2); CREATININE 1.1 mg/dL (0.55-1.3); URIC ACID 4.7 mg/dL (2.6-7.2)
[2021-11-20 13:35] LABS: BILIRUBIN,TOTAL 0.7 mg/dL (0.2-1); TOT PROT 6.8 g/dl (6.4-8.2)
[2021-11-20 16:57] VITALS: TEMP 97.2
[2021-11-20 17:10] VITALS: BP 132/66; PULSE 71
== END 2021-11-20 15:15 | disposition home or self-care (01) ==
LOC: JONCCHEMO 07:23
PROVIDERS: ATTEND Internal Medicine Hematology & Oncology
DX: Z51.11 Encounter for antineoplastic chemotherapy (principal); C90.00 Multiple myeloma not having achieved remission
CPT/HCPCS: 36415; 80048; 80076; 83615; 83735; 84550; 85025; 96375; 96413; J2469; J9047

== ENCOUNTER 2021-12-11 07:03 | Day surgery (SDC) | payer BC ==
[2021-12-11] MEDS ORDERED: DEXAMETHASONE SODIUM PHOSPHATE 20 MG in SODIUM CHLORIDE 50 ML IVPB ONE (09:30)
[2021-12-11] MEDS ORDERED: PALONOSETRON HCL 0.25 MG/5 ML VIAL IVPUSH ONE (09:30)
[2021-12-11] MEDS ORDERED: SODIUM CHLORIDE IVPB ONE (10:00)
[2021-12-11] MEDS ORDERED: DARATUMUMAB IVPB ONE (10:00)
[2021-12-11] MEDS ORDERED: WATER IV ONE (11:30)
[2021-12-11] MEDS ORDERED: DEXTROSE 5% IV ONE (11:30)
[2021-12-11] MEDS ORDERED: CARFILZOMIB IV ONE (11:30)
[2021-12-11 12:31] LABS: BASO % 1.2 % (0-2.0); HEMATOCRIT 37.1 % (35.4-49); HEMOGLOBIN 12.8 GM/dL (11.7-16.9); LYMPH % 18.2 % (8-40); MCH 30.8 pg (25.7-33.7); MCHC 34.6 g/dl (32.0-35.9); MEAN CELL VOLUME 89.1 fl (80-96); MEAN PLT VOLUME 7.1 fl (7.5-11.1); NEUT % 70.6 % (42.8-82.8); PLATELET COUNT 169 10^3/uL (134-434); RBC 4.16 M/mm3 (4.00-5.60); RDW 14.3 % (11.9-15.9); WHITE BLOOD COUNT 5.9 K/mm3 (4.0-10.0)
[2021-12-11 12:59] LABS: BLOOD UREA NITROGEN 22.4 mg/dL (7-18); CALCIUM 9.5 mg/dL (8.5-10.1)
[2021-12-11 13:01] LABS: BILIRUBIN,DIRECT 0.2 mg/dL (0.0-0.2)
[2021-12-11 13:03] LABS: BILIRUBIN,TOTAL 0.7 mg/dL (0.2-1); TOT PROT 6.8 g/dl (6.4-8.2)
[2021-12-11 17:07] VITALS: BP 139/78; PULSE 71; TEMP 97.7
[2021-12-12 16:07] LABS: BETA-2-MICROGLOBULIN 2.2 mg/L (0.6-2.4)
[2021-12-12 17:06] LABS: FREE KAPPA,SERUM 41.2 mg/L (3.3-19.4)
== END 2021-12-11 17:33 | disposition home or self-care (01) ==
LOC: JONCCHEMO 07:03
PROVIDERS: ATTEND Internal Medicine Hematology & Oncology
DX: Z51.11 Encounter for antineoplastic chemotherapy (principal); C90.00 Multiple myeloma not having achieved remission
CPT/HCPCS: 36415; 80048; 80076; 82232; 82784; 83615; 83735; 83883; 84155; 84165; 84550; 85025; 86335; 96367; 96375; 96413; 96417; J2469; J9047; J9145

== ENCOUNTER 2021-12-18 06:27 | Day surgery (SDC) | payer BC ==
[2021-12-18] MEDS ORDERED: PALONOSETRON HCL 0.25 MG/5 ML VIAL IVPUSH ONE (10:00)
[2021-12-18] MEDS ORDERED: DEXAMETHASONE SODIUM PHOSPHATE 20 MG in SODIUM CHLORIDE 50 ML IVPB ONE (10:00)
[2021-12-18] MEDS ORDERED: CARFILZOMIB IV ONE (10:30)
[2021-12-18] MEDS ORDERED: DEXTROSE 5% IV ONE (10:30)
[2021-12-18] MEDS ORDERED: WATER IV ONE (10:30)
[2021-12-18 12:34] LABS: CALCIUM 9.5 mg/dL (8.5-10.1)
[2021-12-18 12:35] LABS: ALBUMIN 4.2 g/dl (3.4-5.0); BLOOD UREA NITROGEN 20.5 mg/dL (7-18)
[2021-12-18 12:37] LABS: BASO % 0.9 % (0-2.0); BILIRUBIN,DIRECT 0.2 mg/dL (0.0-0.2); CREATININE 1.1 mg/dL (0.55-1.3); EOS % 4.3 % (0-4.5); HEMATOCRIT 38.4 % (35.4-49); HEMOGLOBIN 13.2 GM/dL (11.7-16.9); LYMPH % 16.5 % (8-40); MCH 31.1 pg (25.7-33.7); MCHC 34.4 g/dl (32.0-35.9); MEAN CELL VOLUME 90.6 fl (80-96); MEAN PLT VOLUME 8.1 fl (7.5-11.1); MONO % 5.6 % (3.8-10.2); NEUT % 72.7 % (42.8-82.8); PLATELET COUNT 155 10^3/uL (134-434); RBC 4.24 M/mm3 (4.00-5.60); URIC ACID 4.7 mg/dL (2.6-7.2); WHITE BLOOD COUNT 7.2 K/mm3 (4.0-10.0)
[2021-12-18 12:39] LABS: BILIRUBIN,TOTAL 0.7 mg/dL (0.2-1)
[2021-12-18 15:28] VITALS: TEMP 98.7
[2021-12-18 18:16] VITALS: BP 138/71; PULSE 65
== END 2021-12-18 14:30 | disposition home or self-care (01) ==
LOC: JONCCHEMO 06:27
PROVIDERS: ATTEND Internal Medicine Hematology & Oncology
DX: Z51.11 Encounter for antineoplastic chemotherapy (principal); C90.00 Multiple myeloma not having achieved remission
CPT/HCPCS: 36415; 80048; 80076; 83615; 83735; 84550; 85025; 96375; 96413; J2469; J9047

== ENCOUNTER 2022-01-01 06:30 | Day surgery (SDC) | payer BC ==
[2022-01-01] MEDS ORDERED: PALONOSETRON HCL 0.25 MG/5 ML VIAL IVPUSH ONE (09:30)
[2022-01-01] MEDS ORDERED: DEXAMETHASONE SODIUM PHOSPHATE 20 MG in SODIUM CHLORIDE 50 ML IVPB ONE (09:30)
[2022-01-01] MEDS ORDERED: DEXTROSE 5% IV ONE (10:00)
[2022-01-01] MEDS ORDERED: WATER IV ONE (10:00)
[2022-01-01] MEDS ORDERED: CARFILZOMIB IV ONE (10:00)
[2022-01-01 12:56] LABS: BASO % 1.1 % (0-2.0); EOS % 5.1 % (0-4.5); HEMATOCRIT 39.4 % (35.4-49); HEMOGLOBIN 13.7 GM/dL (11.7-16.9); LYMPH % 15.1 % (8-40); MCH 30.9 pg (25.7-33.7); MCHC 34.7 g/dl (32.0-35.9); MEAN CELL VOLUME 89.1 fl (80-96); MEAN PLT VOLUME 7.4 fl (7.5-11.1); MONO % 6.1 % (3.8-10.2); NEUT % 72.6 % (42.8-82.8); PLATELET COUNT 168 10^3/uL (134-434); RBC 4.42 M/mm3 (4.00-5.60); RDW 14.9 % (11.9-15.9); WHITE BLOOD COUNT 7.2 K/mm3 (4.0-10.0)
[2022-01-01 13:16] LABS: CALCIUM 9.1 mg/dL (8.5-10.1); MAGNESIUM 1.8 mg/dL (1.8-2.4)
[2022-01-01 13:17] LABS: ALBUMIN 4.1 g/dl (3.4-5.0); BLOOD UREA NITROGEN 23.1 mg/dL (7-18)
[2022-01-01 13:20] LABS: BILIRUBIN,DIRECT 0.1 mg/dL (0.0-0.2)
[2022-01-01 13:22] LABS: BILIRUBIN,TOTAL 0.4 mg/dL (0.2-1); TOT PROT 6.9 g/dl (6.4-8.2)
[2022-01-01 17:47] VITALS: BP 134/71; PULSE 68; TEMP 97.7
== END 2022-01-01 15:30 | disposition home or self-care (01) ==
LOC: JONCCHEMO 06:30
PROVIDERS: ATTEND Internal Medicine Hematology & Oncology
DX: Z51.11 Encounter for antineoplastic chemotherapy (principal); C90.00 Multiple myeloma not having achieved remission
CPT/HCPCS: 36415; 80048; 80076; 83615; 83735; 84550; 85025; 96375; 96413; J2469; J9047

== ENCOUNTER 2022-01-15 07:23 | Day surgery (SDC) | payer BC ==
[2022-01-15] MEDS ORDERED: PALONOSETRON HCL 0.25 MG/5 ML VIAL IVPUSH ONE (09:30)
[2022-01-15] MEDS ORDERED: DEXAMETHASONE SODIUM PHOSPHATE 20 MG in SODIUM CHLORIDE 50 ML IVPB ONE (09:30)
[2022-01-15] MEDS ORDERED: DARATUMUMAB IVPB ONE (10:00)
[2022-01-15] MEDS ORDERED: SODIUM CHLORIDE IVPB ONE (10:00)
[2022-01-15] MEDS ORDERED: WATER IV ONE (11:30)
[2022-01-15] MEDS ORDERED: CARFILZOMIB IV ONE (11:30)
[2022-01-15] MEDS ORDERED: DEXTROSE 5% IV ONE (11:30)
[2022-01-15 12:55] LABS: BASO % 0.3 % (0-2.0); EOS % 5.6 % (0-4.5); HEMATOCRIT 38.5 % (35.4-49); HEMOGLOBIN 13.5 GM/dL (11.7-16.9); LYMPH % 17.5 % (8-40); MCH 31.3 pg (25.7-33.7); MCHC 35.2 g/dl (32.0-35.9); MEAN PLT VOLUME 7.4 fl (7.5-11.1); MONO % 6.6 % (3.8-10.2); PLATELET COUNT 139 10^3/uL (134-434); RBC 4.33 M/mm3 (4.00-5.60); WHITE BLOOD COUNT 6.1 K/mm3 (4.0-10.0)
[2022-01-15 13:17] LABS: CALCIUM 9.4 mg/dL (8.5-10.1); MAGNESIUM 1.9 mg/dL (1.8-2.4)
[2022-01-15 13:18] LABS: BLOOD UREA NITROGEN 24.3 mg/dL (7-18)
[2022-01-15 13:19] LABS: URIC ACID 5.8 mg/dL (2.6-7.2)
[2022-01-15 13:20] LABS: BILIRUBIN,DIRECT 0.1 mg/dL (0.0-0.2); CREATININE 1.1 mg/dL (0.55-1.3)
[2022-01-15 13:22] LABS: BILIRUBIN,TOTAL 0.5 mg/dL (0.2-1); TOT PROT 6.7 g/dl (6.4-8.2)
[2022-01-15 18:47] VITALS: TEMP 97.4
[2022-01-15 18:56] VITALS: BP 122/64; PULSE 74
[2022-01-16 19:07] LABS: FREE KAPPA,SERUM 45.4 mg/L (3.3-19.4)
[2022-01-17 16:09] LABS: BETA-2-MICROGLOBULIN 2.3 mg/L (0.6-2.4)
[2022-01-18 06:07] LABS: FREE KAP CHN UR 55.27 mg/L (1.17-86.46); KAPPA LAMBDA RATIO URIN 22.47 (1.83-14.26)
== END 2022-01-15 16:30 | disposition home or self-care (01) ==
LOC: JONCCHEMO 07:23
PROVIDERS: ATTEND Internal Medicine Hematology & Oncology
PROC: 3E03305 Introduction of Other Antineoplastic into Peripheral Vein, Percutaneous Approach (ICD-10-PCS; principal; 2022-01-15)
PROC: 3E033GC Introduction of Other Therapeutic Substance into Peripheral Vein, Percutaneous Approach (ICD-10-PCS; 2022-01-15)
DX: Z51.11 Encounter for antineoplastic chemotherapy (principal); C90.00 Multiple myeloma not having achieved remission
CPT/HCPCS: 36415; 80048; 80076; 82232; 82784; 83615; 83735; 83883; 84155; 84165; 84550; 85025; 86335; 96375; 96413; 96417; J2469; J9047; J9145

== ENCOUNTER 2022-01-22 06:55 | Day surgery (SDC) | payer BC ==
[~2022-01-22 06:55] MED LIST changes: -CARFILZOMIB IV ONE; -DARATUMUMAB IVPB ONE; -DEXAMETHASONE SODIUM PHOSPHATE 20 MG in SODIUM CHLORIDE 50 ML IVPB ONE; -DEXTROSE 5% IV ONE; -SODIUM CHLORIDE IVPB ONE; -WATER IV ONE
[2022-01-22] MEDS ORDERED: PALONOSETRON HCL 0.25 MG/5 ML VIAL IVPUSH ONE (09:30)
[2022-01-22] MEDS ORDERED: DEXAMETHASONE SODIUM PHOSPHATE 20 MG in SODIUM CHLORIDE 50 ML IVPB ONE (09:30)
[2022-01-22] MEDS ORDERED: CARFILZOMIB IV ONE (10:00)
[2022-01-22] MEDS ORDERED: WATER IV ONE (10:00)
[2022-01-22] MEDS ORDERED: DEXTROSE 5% IV ONE (10:00)
[2022-01-22 13:46] LABS: BASO % 0.6 % (0-2.0); EOS % 5.6 % (0-4.5); HEMATOCRIT 38.9 % (35.4-49); HEMOGLOBIN 13.1 GM/dL (11.7-16.9); MCH 30.3 pg (25.7-33.7); MCHC 33.7 g/dl (32.0-35.9); MEAN CELL VOLUME 89.7 fl (80-96); MEAN PLT VOLUME 7.7 fl (7.5-11.1); MONO % 8.5 % (3.8-10.2); NEUT % 68.3 % (42.8-82.8); PLATELET COUNT 114 10^3/uL (134-434); RBC 4.34 M/mm3 (4.00-5.60); RDW 15.4 % (11.9-15.9); WHITE BLOOD COUNT 4.9 K/mm3 (4.0-10.0)
[2022-01-22 14:04] LABS: BLOOD UREA NITROGEN 18.6 mg/dL (7-18); CALCIUM 8.7 mg/dL (8.5-10.1)
[2022-01-22 14:05] LABS: ALBUMIN 3.8 g/dl (3.4-5.0); MAGNESIUM 1.8 mg/dL (1.8-2.4)
[2022-01-22 14:07] LABS: URIC ACID 5.5 mg/dL (2.6-7.2)
[2022-01-22 14:08] LABS: BILIRUBIN,DIRECT 0.1 mg/dL (0.0-0.2); CREATININE 1.1 mg/dL (0.55-1.3)
[2022-01-22 14:10] LABS: BILIRUBIN,TOTAL 0.5 mg/dL (0.2-1); TOT PROT 6.5 g/dl (6.4-8.2)
[2022-01-22 18:38] VITALS: TEMP 98.7
[2022-01-22 18:41] VITALS: BP 127/71; PULSE 75
== END 2022-01-22 15:55 | disposition home or self-care (01) ==
LOC: JONCCHEMO 06:55
PROVIDERS: ATTEND Internal Medicine Hematology & Oncology
DX: Z51.11 Encounter for antineoplastic chemotherapy (principal); C90.00 Multiple myeloma not having achieved remission
CPT/HCPCS: 36415; 80048; 80076; 83615; 83735; 84550; 85025; 96375; 96413; J2469; J9047

== ENCOUNTER 2022-01-29 06:32 | Day surgery (SDC) | payer BC ==
[2022-01-29] MEDS ORDERED: PALONOSETRON HCL 0.25 MG/5 ML VIAL IVPUSH ONE (10:00)
[2022-01-29] MEDS ORDERED: DEXAMETHASONE SODIUM PHOSPHATE 20 MG in SODIUM CHLORIDE 50 ML IVPB ONE (10:00)
[2022-01-29] MEDS ORDERED: CARFILZOMIB IV ONE (10:30)
[2022-01-29] MEDS ORDERED: WATER IV ONE (10:30)
[2022-01-29] MEDS ORDERED: DEXTROSE 5% IV ONE (10:30)
[2022-01-29 12:10] LABS: BASO % 0.8 % (0-2.0); EOS % 4.3 % (0-4.5); HEMATOCRIT 40.1 % (35.4-49); HEMOGLOBIN 13.8 GM/dL (11.7-16.9); LYMPH % 15.7 % (8-40); MCH 30.8 pg (25.7-33.7); MCHC 34.4 g/dl (32.0-35.9); MEAN CELL VOLUME 89.4 fl (80-96); MEAN PLT VOLUME 7.6 fl (7.5-11.1); MONO % 5.5 % (3.8-10.2); NEUT % 73.7 % (42.8-82.8); PLATELET COUNT 134 10^3/uL (134-434); RBC 4.49 M/mm3 (4.00-5.60); RDW 16.2 % (11.9-15.9); WHITE BLOOD COUNT 6.5 K/mm3 (4.0-10.0)
[2022-01-29 12:24] LABS: BLOOD UREA NITROGEN 21.7 mg/dL (7-18); CALCIUM 9.1 mg/dL (8.5-10.1)
[2022-01-29 12:25] LABS: MAGNESIUM 2.1 mg/dL (1.8-2.4)
[2022-01-29 12:27] LABS: BILIRUBIN,DIRECT 0.1 mg/dL (0.0-0.2); CREATININE 1.3 mg/dL (0.55-1.3); URIC ACID 6.9 mg/dL (2.6-7.2)
[2022-01-29 12:29] LABS: BILIRUBIN,TOTAL 0.6 mg/dL (0.2-1); TOT PROT 6.9 g/dl (6.4-8.2)
[2022-01-29 16:42] VITALS: TEMP 97.2
[2022-01-29 16:48] VITALS: BP 131/69; PULSE 66
== END 2022-01-29 11:05 | disposition home or self-care (01) ==
LOC: JONCCHEMO 06:32
PROVIDERS: ATTEND Internal Medicine Hematology & Oncology
DX: Z51.11 Encounter for antineoplastic chemotherapy (principal); C90.00 Multiple myeloma not having achieved remission
CPT/HCPCS: 36415; 80048; 80076; 83615; 83735; 84550; 85025; 96375; 96413; J2469; J9047

== ENCOUNTER 2022-02-12 07:04 | Day surgery (SDC) | payer BC ==
[2022-02-12] MEDS ORDERED: DEXAMETHASONE SODIUM PHOSPHATE 20 MG in SODIUM CHLORIDE 50 ML IVPB ONE (10:00)
[2022-02-12] MEDS ORDERED: PALONOSETRON HCL 0.25 MG/5 ML VIAL IVPUSH ONE (10:00)
[2022-02-12] MEDS ORDERED: DEXTROSE 5% IVPB ONE (10:30)
[2022-02-12] MEDS ORDERED: WATER IVPB ONE (10:30)
[2022-02-12] MEDS ORDERED: DARATUMUMAB IVPB ONE ×2 (10:30→14:30)
[2022-02-12] MEDS ORDERED: WATER IV ONE (12:00)
[2022-02-12] MEDS ORDERED: CARFILZOMIB IV ONE (12:00)
[2022-02-12] MEDS ORDERED: DEXTROSE 5% IV ONE (12:00)
[2022-02-12 13:23] LABS: BASO % 1.2 % (0-2.0); EOS % 5.1 % (0-4.5); HEMATOCRIT 40.4 % (35.4-49); HEMOGLOBIN 14.3 GM/dL (11.7-16.9); LYMPH % 18.2 % (8-40); MCH 31.4 pg (25.7-33.7); MCHC 35.4 g/dl (32.0-35.9); MEAN CELL VOLUME 88.9 fl (80-96); MEAN PLT VOLUME 7.6 fl (7.5-11.1); NEUT % 68.5 % (42.8-82.8); PLATELET COUNT 132 10^3/uL (134-434); RBC 4.54 M/mm3 (4.00-5.60); RDW 16.1 % (11.9-15.9); WHITE BLOOD COUNT 5.7 K/mm3 (4.0-10.0)
[2022-02-12 13:58] LABS: CALCIUM 8.8 mg/dL (8.5-10.1)
[2022-02-12 13:59] LABS: ALBUMIN 4.2 g/dl (3.4-5.0); BLOOD UREA NITROGEN 19.4 mg/dL (7-18)
[2022-02-12 14:01] LABS: URIC ACID 5.4 mg/dL (2.6-7.2)
[2022-02-12 14:02] LABS: BILIRUBIN,DIRECT 0.1 mg/dL (0.0-0.2); CREATININE 1.1 mg/dL (0.55-1.3)
[2022-02-12 14:03] LABS: BILIRUBIN,TOTAL 0.7 mg/dL (0.2-1); TOT PROT 6.9 g/dl (6.4-8.2)
[2022-02-12] MEDS ORDERED: SODIUM CHLORIDE IVPB ONE (14:30)
[2022-02-12 18:08] VITALS: TEMP 97.2
[2022-02-12 18:17] VITALS: BP 129/73; PULSE 73
[2022-02-14 16:08] LABS: BETA-2-MICROGLOBULIN 2.7 mg/L (0.6-2.4)
[2022-02-15 06:06] LABS: FREE KAP CHN UR 61.69 mg/L (1.17-86.46); KAPPA LAMBDA RATIO URIN 10.21 (1.83-14.26)
== END 2022-02-12 18:00 | disposition home or self-care (01) ==
LOC: JONCCHEMO 07:04
PROVIDERS: ATTEND Internal Medicine Hematology & Oncology
DX: Z51.11 Encounter for antineoplastic chemotherapy (principal); C90.00 Multiple myeloma not having achieved remission
CPT/HCPCS: 36415; 80048; 80076; 82232; 82306; 82784; 83036; 83615; 83735; 83883; 84155; 84165; 84550; 85025; 86335; 96375; 96413; 96415; 96417; J2469; J9047; J9145

== ENCOUNTER 2022-02-19 06:51 | Day surgery (SDC) | payer BC ==
[2022-02-19] MEDS ORDERED: DEXAMETHASONE SODIUM PHOSPHATE 20 MG in SODIUM CHLORIDE 50 ML IVPB ONE (09:30)
[2022-02-19] MEDS ORDERED: PALONOSETRON HCL 0.25 MG/5 ML VIAL IVPUSH ONE (09:30)
[2022-02-19] MEDS ORDERED: CARFILZOMIB IV ONE (10:00)
[2022-02-19] MEDS ORDERED: DEXTROSE 5% IV ONE (10:00)
[2022-02-19] MEDS ORDERED: WATER IV ONE (10:00)
[2022-02-19 12:26] VITALS: TEMP 97.3
[2022-02-19 12:43] LABS: BASO % 0.8 % (0-2.0); EOS % 4.7 % (0-4.5); HEMATOCRIT 39.2 % (35.4-49); HEMOGLOBIN 13.7 GM/dL (11.7-16.9); LYMPH % 17.8 % (8-40); MCH 31.3 pg (25.7-33.7); MEAN CELL VOLUME 89.4 fl (80-96); MEAN PLT VOLUME 7.8 fl (7.5-11.1); MONO % 7.7 % (3.8-10.2); PLATELET COUNT 115 10^3/uL (134-434); RBC 4.38 M/mm3 (4.00-5.60); RDW 16.4 % (11.9-15.9); WHITE BLOOD COUNT 6.1 K/mm3 (4.0-10.0)
[2022-02-19 13:43] LABS: BLOOD UREA NITROGEN 24.6 mg/dL (7-18); CALCIUM 9.6 mg/dL (8.5-10.1)
[2022-02-19 13:45] LABS: CREATININE 1.1 mg/dL (0.55-1.3)
[2022-02-19 13:46] LABS: ALBUMIN 4.1 g/dl (3.4-5.0); BILIRUBIN,DIRECT 0.2 mg/dL (0.0-0.2)
[2022-02-19 13:47] LABS: TOT PROT 6.8 g/dl (6.4-8.2)
[2022-02-19 13:48] LABS: URIC ACID 5.3 mg/dL (2.6-7.2)
[2022-02-19 13:51] LABS: BILIRUBIN,TOTAL 0.8 mg/dL (0.2-1)
[2022-02-19 16:16] VITALS: BP 144/68; PULSE 71
== END 2022-02-19 16:15 | disposition home or self-care (01) ==
LOC: JONCCHEMO 06:51
PROVIDERS: ATTEND Internal Medicine Hematology & Oncology
PROC: 3E03305 Introduction of Other Antineoplastic into Peripheral Vein, Percutaneous Approach (ICD-10-PCS; principal; 2022-02-19)
PROC: 3E033GC Introduction of Other Therapeutic Substance into Peripheral Vein, Percutaneous Approach (ICD-10-PCS; 2022-02-19)
DX: Z51.11 Encounter for antineoplastic chemotherapy (principal); C90.00 Multiple myeloma not having achieved remission
CPT/HCPCS: 36415; 80048; 80076; 83615; 83735; 84550; 85025; 96367; 96375; 96413; J2469; J9047

== ENCOUNTER 2022-02-26 07:36 | Day surgery (SDC) | payer BC ==
[2022-02-26] MEDS ORDERED: DEXAMETHASONE SODIUM PHOSPHATE 20 MG in SODIUM CHLORIDE 50 ML IVPB ONE (09:30)
[2022-02-26] MEDS ORDERED: PALONOSETRON HCL 0.25 MG/5 ML VIAL IVPUSH ONE (09:30)
[2022-02-26] MEDS ORDERED: DEXTROSE 5% IV ONE (10:00)
[2022-02-26] MEDS ORDERED: WATER IV ONE (10:00)
[2022-02-26] MEDS ORDERED: CARFILZOMIB IV ONE (10:00)
[2022-02-26 13:04] LABS: BASO % 0.8 % (0-2.0); HEMATOCRIT 40.8 % (35.4-49); HEMOGLOBIN 14.2 GM/dL (11.7-16.9); LYMPH % 16.1 % (8-40); MCH 31.4 pg (25.7-33.7); MCHC 34.9 g/dl (32.0-35.9); MEAN CELL VOLUME 89.9 fl (80-96); MEAN PLT VOLUME 7.7 fl (7.5-11.1); MONO % 6.3 % (3.8-10.2); NEUT % 72.8 % (42.8-82.8); PLATELET COUNT 129 10^3/uL (134-434); RBC 4.53 M/mm3 (4.00-5.60); RDW 16.3 % (11.9-15.9); WHITE BLOOD COUNT 6.9 K/mm3 (4.0-10.0)
[2022-02-26 13:34] LABS: CALCIUM 8.9 mg/dL (8.5-10.1)
[2022-02-26 13:35] LABS: ALBUMIN 4.2 g/dl (3.4-5.0); BLOOD UREA NITROGEN 23.5 mg/dL (7-18)
[2022-02-26 13:38] LABS: BILIRUBIN,DIRECT 0.2 mg/dL (0.0-0.2); CREATININE 1.1 mg/dL (0.55-1.3); URIC ACID 5.6 mg/dL (2.6-7.2)
[2022-02-26 13:39] LABS: BILIRUBIN,TOTAL 0.8 mg/dL (0.2-1)
[2022-02-26 17:56] VITALS: BP 130/66; PULSE 73; TEMP 97.3
== END 2022-02-26 15:00 | disposition home or self-care (01) ==
LOC: JONCCHEMO 07:36
PROVIDERS: ATTEND Internal Medicine Hematology & Oncology
DX: Z51.11 Encounter for antineoplastic chemotherapy (principal); C90.00 Multiple myeloma not having achieved remission
CPT/HCPCS: 36415; 80048; 80076; 83615; 83735; 84550; 85025; 96375; 96413; J2469; J9047

== ENCOUNTER 2022-03-12 06:08 | Day surgery (SDC) | payer BC ==
[~2022-03-12 06:08] MED LIST changes: +DEXAMETHASONE SODIUM PHOSPHATE 20 MG in SODIUM CHLORIDE 50 ML IVPB ONE; -PALONOSETRON HCL 0.25 MG/5 ML VIAL IVPUSH ONE
[2022-03-12] MEDS ORDERED: PALONOSETRON HCL 0.25 MG/5 ML VIAL IVPUSH ONE (09:30)
[2022-03-12] MEDS ORDERED: DEXAMETHASONE SODIUM PHOSPHATE 20 MG in SODIUM CHLORIDE 50 ML IVPB ONE (09:30)
[2022-03-12] MEDS ORDERED: DARATUMUMAB IVPB ONE (10:00)
[2022-03-12] MEDS ORDERED: SODIUM CHLORIDE IVPB ONE (10:00)
[2022-03-12] MEDS ORDERED: CARFILZOMIB IV ONE (11:30)
[2022-03-12] MEDS ORDERED: DEXTROSE 5% IV ONE (11:30)
[2022-03-12] MEDS ORDERED: WATER IV ONE (11:30)
[2022-03-12 14:23] LABS: BASO % 0.8 % (0-2.0); EOS % 4.1 % (0-4.5); HEMATOCRIT 39.2 % (35.4-49); HEMOGLOBIN 13.7 GM/dL (11.7-16.9); LYMPH % 15.6 % (8-40); MCH 31.9 pg (25.7-33.7); MEAN PLT VOLUME 7.9 fl (7.5-11.1); MONO % 6.6 % (3.8-10.2); NEUT % 72.9 % (42.8-82.8); PLATELET COUNT 141 10^3/uL (134-434); RBC 4.31 M/mm3 (4.00-5.60); RDW 16.4 % (11.9-15.9); WHITE BLOOD COUNT 6.4 K/mm3 (4.0-10.0)
[2022-03-12 14:39] LABS: CALCIUM 9.6 mg/dL (8.5-10.1); MAGNESIUM 1.8 mg/dL (1.8-2.4)
[2022-03-12 14:40] LABS: BLOOD UREA NITROGEN 22.2 mg/dL (7-18)
[2022-03-12 14:42] LABS: BILIRUBIN,DIRECT 0.2 mg/dL (0.0-0.2); URIC ACID 5.2 mg/dL (2.6-7.2)
[2022-03-12 14:44] LABS: TOT PROT 6.9 g/dl (6.4-8.2)
[2022-03-12 14:45] LABS: BILIRUBIN,TOTAL 0.6 mg/dL (0.2-1)
[2022-03-12 18:30] VITALS: BP 126/78; PULSE 74; RESP 18; TEMP 97.6
[2022-03-14 08:07] LABS: BETA-2-MICROGLOBULIN 2.5 mg/L (0.6-2.4)
[2022-03-15 06:06] LABS: FREE KAP CHN UR 91.6 mg/L (1.17-86.46); KAPPA LAMBDA RATIO URIN 32.14 (1.83-14.26)
== END 2022-03-12 18:30 | disposition home or self-care (01) ==
LOC: JONCCHEMO 06:08
PROVIDERS: ATTEND Internal Medicine Hematology & Oncology
DX: Z51.11 Encounter for antineoplastic chemotherapy (principal); C90.00 Multiple myeloma not having achieved remission
CPT/HCPCS: 36415; 80048; 80076; 82232; 82784; 83615; 83735; 83883; 84155; 84165; 84550; 85025; 86335; 96367; 96375; 96413; 96417; J2469; J9047; J9145

== ENCOUNTER 2022-03-19 07:17 | Day surgery (SDC) | payer BC ==
[2022-03-19] MEDS ORDERED: PALONOSETRON HCL 0.25 MG/5 ML VIAL IVPUSH ONE (10:00)
[2022-03-19] MEDS ORDERED: DEXAMETHASONE SODIUM PHOSPHATE 20 MG in SODIUM CHLORIDE 50 ML IVPB ONE (10:00)
[2022-03-19] MEDS ORDERED: WATER IV ONE (10:30)
[2022-03-19] MEDS ORDERED: DEXTROSE 5% IV ONE (10:30)
[2022-03-19] MEDS ORDERED: CARFILZOMIB IV ONE (10:30)
[2022-03-19 12:58] LABS: BASO % 0.7 % (0-2.0); EOS % 3.9 % (0-4.5); HEMATOCRIT 40.4 % (35.4-49); HEMOGLOBIN 14.1 GM/dL (11.7-16.9); LYMPH % 16.1 % (8-40); MCH 31.7 pg (25.7-33.7); MCHC 34.8 g/dl (32.0-35.9); MONO % 8.7 % (3.8-10.2); NEUT % 70.6 % (42.8-82.8); PLATELET COUNT 140 10^3/uL (134-434); RBC 4.43 M/mm3 (4.00-5.60); RDW 16.1 % (11.9-15.9); WHITE BLOOD COUNT 6.2 K/mm3 (4.0-10.0)
[2022-03-19 13:03] LABS: ALBUMIN 4.2 g/dl (3.4-5.0); BLOOD UREA NITROGEN 26.1 mg/dL (7-18); CALCIUM 9.4 mg/dL (8.5-10.1); MAGNESIUM 2.3 mg/dL (1.8-2.4)
[2022-03-19 13:06] LABS: BILIRUBIN,DIRECT 0.1 mg/dL (0.0-0.2); CREATININE 1.1 mg/dL (0.55-1.3); URIC ACID 5.9 mg/dL (2.6-7.2)
[2022-03-19 13:08] LABS: BILIRUBIN,TOTAL 0.7 mg/dL (0.2-1); TOT PROT 7.2 g/dl (6.4-8.2)
[2022-03-19 14:40] VITALS: TEMP 98.6
[2022-03-19 16:17] VITALS: BP 114/66; PULSE 72; RESP 18
== END 2022-03-19 15:00 | disposition home or self-care (01) ==
LOC: JONCCHEMO 07:17
PROVIDERS: ATTEND Internal Medicine Hematology & Oncology
DX: Z51.11 Encounter for antineoplastic chemotherapy (principal); C90.00 Multiple myeloma not having achieved remission
CPT/HCPCS: 36415; 80048; 80076; 83735; 84550; 85025; 96375; 96413; J2469; J9047

== ENCOUNTER 2022-04-02 06:30 | Day surgery (SDC) | payer BC ==
[2022-04-02] MEDS ORDERED: DEXAMETHASONE SODIUM PHOSPHATE 20 MG in SODIUM CHLORIDE 50 ML IVPB ONE (10:00)
[2022-04-02] MEDS ORDERED: PALONOSETRON HCL 0.25 MG/5 ML VIAL IVPUSH ONE (10:00)
[2022-04-02] MEDS ORDERED: CARFILZOMIB IV ONE (10:30)
[2022-04-02] MEDS ORDERED: DEXTROSE 5% IV ONE (10:30)
[2022-04-02] MEDS ORDERED: WATER IV ONE (10:30)
[2022-04-02 10:52] LABS: BASO % 1.1 % (0-2.0); EOS % 3.9 % (0-4.5); HEMATOCRIT 37.6 % (35.4-49); HEMOGLOBIN 13.5 GM/dL (11.7-16.9); LYMPH % 17.4 % (8-40); MCH 32.4 pg (25.7-33.7); MCHC 35.9 g/dl (32.0-35.9); MEAN CELL VOLUME 90.4 fl (80-96); MEAN PLT VOLUME 7.5 fl (7.5-11.1); MONO % 6.2 % (3.8-10.2); NEUT % 71.4 % (42.8-82.8); PLATELET COUNT 150 10^3/uL (134-434); RBC 4.16 M/mm3 (4.00-5.60); RDW 15.5 % (11.9-15.9); WHITE BLOOD COUNT 5.8 K/mm3 (4.0-10.0)
[2022-04-02 11:11] LABS: CALCIUM 9.2 mg/dL (8.5-10.1)
[2022-04-02 11:12] LABS: ALBUMIN 4.1 g/dl (3.4-5.0); BLOOD UREA NITROGEN 27.4 mg/dL (7-18); MAGNESIUM 1.9 mg/dL (1.8-2.4)
[2022-04-02 11:14] LABS: BILIRUBIN,DIRECT 0.2 mg/dL (0.0-0.2); URIC ACID 4.7 mg/dL (2.6-7.2)
[2022-04-02 11:16] LABS: BILIRUBIN,TOTAL 0.7 mg/dL (0.2-1); TOT PROT 7.1 g/dl (6.4-8.2)
[2022-04-02 16:37] VITALS: TEMP 97.8
[2022-04-02 16:55] VITALS: BP 146/70; PULSE 71; RESP 18
== END 2022-04-02 13:00 | disposition home or self-care (01) ==
LOC: JONCCHEMO 06:30
PROVIDERS: ATTEND Internal Medicine Hematology & Oncology
DX: Z51.11 Encounter for antineoplastic chemotherapy (principal); C90.00 Multiple myeloma not having achieved remission
CPT/HCPCS: 36415; 80048; 80076; 83615; 83735; 84550; 85025; 96375; 96413; J2469; J9047

== ENCOUNTER 2022-04-09 08:17 | Day surgery (SDC) | payer BC ==
[2022-04-09] MEDS ORDERED: DEXAMETHASONE SODIUM PHOSPHATE 20 MG in SODIUM CHLORIDE 50 ML IVPB ONE (10:00)
[2022-04-09] MEDS ORDERED: PALONOSETRON HCL 0.25 MG/5 ML VIAL IVPUSH ONE (10:00)
[2022-04-09] MEDS ORDERED: SODIUM CHLORIDE IVPB ONE (10:30)
[2022-04-09] MEDS ORDERED: DARATUMUMAB IVPB ONE (10:30)
[2022-04-09] MEDS ORDERED: WATER IV ONE (12:00)
[2022-04-09] MEDS ORDERED: CARFILZOMIB IV ONE (12:00)
[2022-04-09] MEDS ORDERED: DEXTROSE 5% IV ONE (12:00)
[2022-04-09 12:34] VITALS: RESP 20; TEMP 97.2
[2022-04-09 13:09] LABS: BASO % 0.8 % (0-2.0); EOS % 4.7 % (0-4.5); HEMATOCRIT 38.1 % (35.4-49); HEMOGLOBIN 13.4 GM/dL (11.7-16.9); LYMPH % 16.4 % (8-40); MCH 32.8 pg (25.7-33.7); MCHC 35.3 g/dl (32.0-35.9); MEAN CELL VOLUME 92.7 fl (80-96); MEAN PLT VOLUME 7.8 fl (7.5-11.1); NEUT % 71.1 % (42.8-82.8); PLATELET COUNT 121 10^3/uL (134-434); RBC 4.11 M/mm3 (4.00-5.60); RDW 15.4 % (11.9-15.9); WHITE BLOOD COUNT 6.4 K/mm3 (4.0-10.0)
[2022-04-09 13:33] LABS: ALBUMIN 4.1 g/dl (3.4-5.0); BLOOD UREA NITROGEN 24.5 mg/dL (7-18); MAGNESIUM 2.1 mg/dL (1.8-2.4)
[2022-04-09 13:35] LABS: CREATININE 1.1 mg/dL (0.55-1.3); URIC ACID 5.6 mg/dL (2.6-7.2)
[2022-04-09 13:36] LABS: BILIRUBIN,DIRECT 0.1 mg/dL (0.0-0.2)
[2022-04-09 13:37] LABS: BILIRUBIN,TOTAL 0.8 mg/dL (0.2-1)
[2022-04-09 13:38] LABS: TOT PROT 6.9 g/dl (6.4-8.2)
[2022-04-09 17:01] VITALS: BP 134/67; PULSE 75
[2022-04-12 15:08] LABS: BETA-2-MICROGLOBULIN 2.1 mg/L (0.6-2.4)
[2022-04-13 06:08] LABS: FREE KAP CHN UR 39.27 mg/L (1.17-86.46); KAPPA LAMBDA RATIO URIN 20.24 (1.83-14.26)
== END 2022-04-09 17:24 | disposition home or self-care (01) ==
LOC: JONCCHEMO 08:17
PROVIDERS: ATTEND Internal Medicine Hematology & Oncology
DX: Z51.11 Encounter for antineoplastic chemotherapy (principal); C90.00 Multiple myeloma not having achieved remission
CPT/HCPCS: 36415; 80048; 80076; 82232; 82784; 83615; 83735; 83883; 84550; 85025; 86335; 96375; 96413; 96417; J2469; J9047; J9145

== ENCOUNTER 2022-04-16 10:45 | Day surgery (SDC) | payer BC ==
[~2022-04-16 10:45] MED LIST changes: +CARFILZOMIB IV ONE; +DEXTROSE 5% IV ONE; +PALONOSETRON HCL 0.25 MG/5 ML VIAL IVPUSH ONE; +WATER IV ONE
[2022-04-16 11:57] LABS: BASO % 0.8 % (0-2.0); HEMATOCRIT 37.6 % (35.4-49); HEMOGLOBIN 13.4 GM/dL (11.7-16.9); LYMPH % 16.8 % (8-40); MCH 33.1 pg (25.7-33.7); MCHC 35.6 g/dl (32.0-35.9); MEAN CELL VOLUME 92.9 fl (80-96); MEAN PLT VOLUME 7.6 fl (7.5-11.1); MONO % 6.6 % (3.8-10.2); NEUT % 71.8 % (42.8-82.8); PLATELET COUNT 119 10^3/uL (134-434); RBC 4.05 M/mm3 (4.00-5.60); RDW 14.9 % (11.9-15.9); WHITE BLOOD COUNT 5.6 K/mm3 (4.0-10.0)
[2022-04-16 12:43] LABS: BILIRUBIN,DIRECT 0.2 mg/dL (0.0-0.2); BILIRUBIN,TOTAL 0.8 mg/dL (0.2-1); BLOOD UREA NITROGEN 21.4 mg/dL (7-18); CALCIUM 9.1 mg/dL (8.5-10.1); MAGNESIUM 1.9 mg/dL (1.8-2.4); TOT PROT 6.7 g/dl (6.4-8.2); URIC ACID 5.9 mg/dL (2.6-7.2)
[2022-04-16 15:59] VITALS: RESP 18; TEMP 97.6
[2022-04-16 16:10] VITALS: BP 152/71; PULSE 70
== END 2022-04-16 14:50 | disposition home or self-care (01) ==
LOC: JONCCHEMO 10:45
PROVIDERS: ATTEND Internal Medicine Hematology & Oncology
PROC: 3E03305 Introduction of Other Antineoplastic into Peripheral Vein, Percutaneous Approach (ICD-10-PCS; principal; 2022-04-16)
PROC: 3E033GC Introduction of Other Therapeutic Substance into Peripheral Vein, Percutaneous Approach (ICD-10-PCS; 2022-04-16)
DX: Z51.11 Encounter for antineoplastic chemotherapy (principal); C90.00 Multiple myeloma not having achieved remission
CPT/HCPCS: 36415; 80048; 80076; 83615; 83735; 84550; 85025; 96375; 96413; J2469; J9047

== ENCOUNTER 2022-04-30 11:35 | Day surgery (SDC) | payer BC ==
[~2022-04-30 11:35] MED LIST changes: +DARATUMUMAB IVPB ONE; +SODIUM CHLORIDE IVPB ONE
[2022-04-30 12:13] VITALS: RESP 18; TEMP 97.9
[2022-04-30 12:23] LABS: BASO % 1.1 % (0-2.0); HEMATOCRIT 38.8 % (35.4-49); HEMOGLOBIN 13.3 GM/dL (11.7-16.9); LYMPH % 15.7 % (8-40); MCH 31.8 pg (25.7-33.7); MCHC 34.3 g/dl (32.0-35.9); MEAN CELL VOLUME 92.7 fl (80-96); MEAN PLT VOLUME 7.7 fl (7.5-11.1); MONO % 6.8 % (3.8-10.2); NEUT % 72.4 % (42.8-82.8); PLATELET COUNT 153 10^3/uL (134-434); RBC 4.18 M/mm3 (4.00-5.60); RDW 14.7 % (11.9-15.9); WHITE BLOOD COUNT 5.5 K/mm3 (4.0-10.0)
[2022-04-30 12:29] LABS: CALCIUM 9.1 mg/dL (8.5-10.1)
[2022-04-30 12:30] LABS: BLOOD UREA NITROGEN 26.3 mg/dL (7-18)
[2022-04-30 12:33] LABS: CREATININE 1.2 mg/dL (0.55-1.3)
[2022-04-30 12:34] LABS: BILIRUBIN,DIRECT 0.1 mg/dL (0.0-0.2)
[2022-04-30 12:35] LABS: MAGNESIUM 2.1 mg/dL (1.8-2.4)
[2022-04-30 12:36] LABS: BILIRUBIN,TOTAL 0.6 mg/dL (0.2-1); TOT PROT 6.9 g/dl (6.4-8.2)
[2022-04-30 12:38] LABS: URIC ACID 5.6 mg/dL (2.6-7.2)
[2022-04-30 16:36] VITALS: BP 139/80; PULSE 79
[2022-05-04 05:09] LABS: FREE KAP CHN UR 95.36 mg/L (1.17-86.46); KAPPA LAMBDA RATIO URIN 38.76 (1.83-14.26)
== END 2022-04-30 16:39 | disposition home or self-care (01) ==
LOC: JONCCHEMO 11:35
PROVIDERS: ATTEND Internal Medicine Hematology & Oncology
DX: Z51.11 Encounter for antineoplastic chemotherapy (principal); C90.00 Multiple myeloma not having achieved remission
CPT/HCPCS: 36415; 80048; 80076; 82232; 82784; 83615; 83735; 83883; 84155; 84165; 84550; 85025; 86335; 96375; 96413; 96417; J2469; J9047; J9145

== ENCOUNTER 2022-05-07 11:03 | Day surgery (SDC) | payer BC ==
[~2022-05-07 11:03] MED LIST changes: -DARATUMUMAB IVPB ONE; -SODIUM CHLORIDE IVPB ONE
[2022-05-07 11:50] LABS: BASO % 0.9 % (0-2.0); HEMOGLOBIN 13.3 GM/dL (11.7-16.9); LYMPH % 13.7 % (8-40); MCHC 35.1 g/dl (32.0-35.9); MEAN PLT VOLUME 7.7 fl (7.5-11.1); MONO % 7.2 % (3.8-10.2); NEUT % 74.2 % (42.8-82.8); PLATELET COUNT 117 10^3/uL (134-434); RBC 4.04 M/mm3 (4.00-5.60); WHITE BLOOD COUNT 5.5 K/mm3 (4.0-10.0)
[2022-05-07 11:58] LABS: ALBUMIN 3.8 g/dl (3.4-5.0); BLOOD UREA NITROGEN 21.9 mg/dL (7-18)
[2022-05-07 12:00] LABS: BILIRUBIN,DIRECT 0.1 mg/dL (0.0-0.2); URIC ACID 5.7 mg/dL (2.6-7.2)
[2022-05-07 12:01] LABS: CREATININE 1.2 mg/dL (0.55-1.3)
[2022-05-07 12:02] LABS: BILIRUBIN,TOTAL 0.6 mg/dL (0.2-1); TOT PROT 6.7 g/dl (6.4-8.2)
[2022-05-07 16:08] VITALS: BP 130/80; PULSE 87; RESP 18; TEMP 97.6
== END 2022-05-07 14:20 | disposition home or self-care (01) ==
LOC: JONCCHEMO 11:03
PROVIDERS: ATTEND Internal Medicine Hematology & Oncology
DX: Z51.11 Encounter for antineoplastic chemotherapy (principal); C90.00 Multiple myeloma not having achieved remission
CPT/HCPCS: 36415; 80048; 80076; 83615; 83735; 84550; 85025; 96375; 96413; J2469; J9047

== ENCOUNTER 2022-05-21 13:11 | Day surgery (SDC) | payer BC ==
[~2022-05-21 13:11] MED LIST changes: +AMOX TR/POT CLAV 875MG/125MG TABLETS (FP) PO ONE; +guaiFENesin/D-METHORPHAN HB 10 ML UNIT-DOSE CUPS PO ONE
[2022-05-21 13:25] LABS: BASO % 1.2 % (0-2.0); EOS % 4.9 % (0-4.5); HEMATOCRIT 39.3 % (35.4-49); HEMOGLOBIN 13.3 GM/dL (11.7-16.9); MCH 30.9 pg (25.7-33.7); MCHC 33.8 g/dl (32.0-35.9); MEAN CELL VOLUME 91.6 fl (80-96); MEAN PLT VOLUME 7.6 fl (7.5-11.1); MONO % 7.6 % (3.8-10.2); NEUT % 68.3 % (42.8-82.8); PLATELET COUNT 203 10^3/uL (134-434); RBC 4.29 M/mm3 (4.00-5.60); RDW 15.1 % (11.9-15.9); WHITE BLOOD COUNT 5.7 K/mm3 (4.0-10.0)
[2022-05-21 14:08] LABS: MAGNESIUM 2.2 mg/dL (1.8-2.4)
[2022-05-21 14:11] LABS: ALBUMIN 3.8 g/dl (3.4-5.0); BLOOD UREA NITROGEN 16.5 mg/dL (7-18); CALCIUM 9.3 mg/dL (8.5-10.1); CREATININE 0.9 mg/dL (0.55-1.3); URIC ACID 4.4 mg/dL (2.6-7.2)
[2022-05-21 14:13] LABS: BILIRUBIN,DIRECT 0.1 mg/dL (0.0-0.2); TOT PROT 6.8 g/dl (6.4-8.2)
[2022-05-21 14:16] LABS: BILIRUBIN,TOTAL 0.5 mg/dL (0.2-1)
[2022-05-21 16:42] VITALS: BP 116/83; PULSE 72; RESP 20; TEMP 98.5
== END 2022-05-21 16:43 | disposition home or self-care (01) ==
LOC: JONCCHEMO 13:11
PROVIDERS: ATTEND Internal Medicine Hematology & Oncology
DX: Z51.11 Encounter for antineoplastic chemotherapy (principal); C90.00 Multiple myeloma not having achieved remission
CPT/HCPCS: 36415; 71046-TC-FY; 80048; 80076; 83615; 83735; 84550; 85025; 96367; 96375; 96413; J2469; J9047

== ENCOUNTER 2022-06-04 12:27 | Day surgery (SDC) | payer BC ==
[~2022-06-04 12:27] MED LIST changes: -AMOX TR/POT CLAV 875MG/125MG TABLETS (FP) PO ONE; +DARATUMUMAB IVPB ONE; +SODIUM CHLORIDE IVPB ONE; -guaiFENesin/D-METHORPHAN HB 10 ML UNIT-DOSE CUPS PO ONE
[2022-06-04 13:35] LABS: BASO % 0.4 % (0-2.0); EOS % 4.6 % (0-4.5); HEMATOCRIT 36.3 % (35.4-49); HEMOGLOBIN 12.9 GM/dL (11.7-16.9); LYMPH % 16.8 % (8-40); MCH 31.6 pg (25.7-33.7); MCHC 35.5 g/dl (32.0-35.9); MEAN CELL VOLUME 89.2 fl (80-96); MEAN PLT VOLUME 7.1 fl (7.5-11.1); MONO % 6.7 % (3.8-10.2); NEUT % 71.5 % (42.8-82.8); PLATELET COUNT 148 10^3/uL (134-434); RBC 4.07 M/mm3 (4.00-5.60); RDW 15.4 % (11.9-15.9); WHITE BLOOD COUNT 5.6 K/mm3 (4.0-10.0)
[2022-06-04 14:04] LABS: ALBUMIN 3.7 g/dl (3.4-5.0); MAGNESIUM 1.7 mg/dL (1.8-2.4)
[2022-06-04 14:06] LABS: BILIRUBIN,DIRECT 0.1 mg/dL (0.0-0.2); URIC ACID 4.6 mg/dL (2.6-7.2)
[2022-06-04 14:08] LABS: TOT PROT 6.4 g/dl (6.4-8.2)
[2022-06-04 14:24] LABS: BILIRUBIN,TOTAL 0.6 mg/dL (0.2-1)
[2022-06-04 18:28] VITALS: RESP 18; TEMP 97.2
[2022-06-04 18:39] VITALS: BP 148/74; PULSE 74
== END 2022-06-04 17:40 | disposition home or self-care (01) ==
LOC: JONCCHEMO 12:27
PROVIDERS: ATTEND Internal Medicine Hematology & Oncology
DX: Z51.11 Encounter for antineoplastic chemotherapy (principal); C90.00 Multiple myeloma not having achieved remission
CPT/HCPCS: 36415; 80048; 80076; 83615; 83735; 84550; 85025; 96375; 96413; 96417; J2469; J9047; J9145

== ENCOUNTER 2022-06-11 11:20 | Day surgery (SDC) | payer BC ==
[2022-06-11 12:28] LABS: BASO % 0.6 % (0-2.0); EOS % 3.7 % (0-4.5); HEMATOCRIT 40.3 % (35.4-49); HEMOGLOBIN 13.5 GM/dL (11.7-16.9); LYMPH % 15.7 % (8-40); MCH 30.4 pg (25.7-33.7); MCHC 33.5 g/dl (32.0-35.9); MEAN CELL VOLUME 90.8 fl (80-96); MEAN PLT VOLUME 7.9 fl (7.5-11.1); MONO % 6.9 % (3.8-10.2); NEUT % 73.1 % (42.8-82.8); PLATELET COUNT 141 10^3/uL (134-434); RBC 4.43 M/mm3 (4.00-5.60); RDW 15.4 % (11.9-15.9); WHITE BLOOD COUNT 7.4 K/mm3 (4.0-10.0)
[2022-06-11 12:46] LABS: CALCIUM 9.2 mg/dL (8.5-10.1); MAGNESIUM 2.2 mg/dL (1.8-2.4)
[2022-06-11 12:47] LABS: ALBUMIN 3.9 g/dl (3.4-5.0); BLOOD UREA NITROGEN 18.2 mg/dL (7-18)
[2022-06-11 12:49] LABS: CREATININE 1.1 mg/dL (0.55-1.3); URIC ACID 4.9 mg/dL (2.6-7.2)
[2022-06-11 12:50] LABS: BILIRUBIN,DIRECT 0.1 mg/dL (0.0-0.2)
[2022-06-11 12:51] LABS: TOT PROT 6.8 g/dl (6.4-8.2)
[2022-06-11 12:52] LABS: BILIRUBIN,TOTAL 0.5 mg/dL (0.2-1)
[2022-06-11] MEDS ORDERED: PALONOSETRON HCL 0.25 MG/5 ML VIAL IVPUSH ONE (13:45)
[2022-06-11] MEDS ORDERED: DEXAMETHASONE SODIUM PHOSPHATE 20 MG in SODIUM CHLORIDE 50 ML IVPB ONE (13:45)
[2022-06-11] MEDS ORDERED: DEXTROSE 5% IV ONE (14:15)
[2022-06-11] MEDS ORDERED: CARFILZOMIB IV ONE (14:15)
[2022-06-11] MEDS ORDERED: WATER IV ONE (14:15)
[2022-06-11 16:32] VITALS: RESP 18; TEMP 98.2
[2022-06-11 16:40] VITALS: BP 129/61; PULSE 71
== END 2022-06-11 16:41 | disposition home or self-care (01) ==
LOC: JONCCHEMO 11:20
PROVIDERS: ATTEND Internal Medicine Hematology & Oncology
DX: Z51.11 Encounter for antineoplastic chemotherapy (principal); C90.00 Multiple myeloma not having achieved remission
CPT/HCPCS: 36415; 80048; 80076; 83615; 83735; 84550; 85025; 96375; 96413; J2469; J9047

== ENCOUNTER → 2022-07-02 | Day surgery (SDC) | payer BC ==
[2022-07-02 13:40] LABS: BASO % 0.8 % (0-2.0); EOS % 2.8 % (0-4.5); HEMATOCRIT 34.8 % (35.4-49); HEMOGLOBIN 12.3 GM/dL (11.7-16.9); LYMPH % 14.9 % (8-40); MCH 30.8 pg (25.7-33.7); MCHC 35.4 g/dl (32.0-35.9); MEAN CELL VOLUME 86.9 fl (80-96); MEAN PLT VOLUME 6.7 fl (7.5-11.1); MONO % 3.7 % (3.8-10.2); NEUT % 77.8 % (42.8-82.8); PLATELET COUNT 279 10^3/uL (134-434); RDW 16.9 % (11.9-15.9); WHITE BLOOD COUNT 7.9 K/mm3 (4.0-10.0)
[2022-07-02 14:02] LABS: BLOOD UREA NITROGEN 24.8 mg/dL (7-18); CALCIUM 9.3 mg/dL (8.5-10.1)
[2022-07-02 14:03] LABS: ALBUMIN 3.4 g/dl (3.4-5.0); MAGNESIUM 1.8 mg/dL (1.8-2.4)
[2022-07-02 14:04] LABS: URIC ACID 4.4 mg/dL (2.6-7.2)
[2022-07-02 14:05] LABS: BILIRUBIN,DIRECT 0.1 mg/dL (0.0-0.2); CREATININE 1.1 mg/dL (0.55-1.3)
[2022-07-02 14:07] LABS: BILIRUBIN,TOTAL 0.4 mg/dL (0.2-1); TOT PROT 6.6 g/dl (6.4-8.2)
[2022-07-02 16:47] VITALS: RESP 20; TEMP 98.1
[2022-07-02 17:34] VITALS: BP 137/65; PULSE 75
[2022-07-03 18:07] LABS: FREE KAPPA,SERUM 76.9 mg/L (3.3-19.4)
[2022-07-04 08:08] LABS: BETA-2-MICROGLOBULIN 2.7 mg/L (0.6-2.4)
[2022-07-05 06:07] LABS: FREE KAP CHN UR 62.95 mg/L (1.17-86.46); KAPPA LAMBDA RATIO URIN 22.81 (1.83-14.26)
== END | disposition home or self-care (01) ==
LOC: JONCCHEMO 14:06
PROVIDERS: ATTEND Internal Medicine Hematology & Oncology
DX: Z51.11 Encounter for antineoplastic chemotherapy (principal); C90.00 Multiple myeloma not having achieved remission
CPT/HCPCS: 36415; 80048; 80076; 82232; 82784; 83615; 83735; 83883; 84155; 84165; 84550; 85025; 86335; 96375; 96413; 96417; J2469; J9047; J9145

== ENCOUNTER 2022-07-09 10:48 | Day surgery (SDC) | payer BC ==
[~2022-07-09 10:48] MED LIST changes: -DARATUMUMAB IVPB ONE; -SODIUM CHLORIDE IVPB ONE
[2022-07-09 11:35] LABS: BASO % 1.1 % (0-2.0); EOS % 2.9 % (0-4.5); HEMOGLOBIN 13.2 GM/dL (11.7-16.9); LYMPH % 16.5 % (8-40); MCH 29.9 pg (25.7-33.7); MCHC 33.8 g/dl (32.0-35.9); MEAN CELL VOLUME 88.6 fl (80-96); MEAN PLT VOLUME 7.7 fl (7.5-11.1); MONO % 5.2 % (3.8-10.2); NEUT % 74.3 % (42.8-82.8); PLATELET COUNT 165 10^3/uL (134-434); RDW 18.1 % (11.9-15.9); WHITE BLOOD COUNT 6.4 K/mm3 (4.0-10.0)
[2022-07-09 11:59] LABS: BLOOD UREA NITROGEN 22.3 mg/dL (7-18); CALCIUM 9.2 mg/dL (8.5-10.1)
[2022-07-09 12:00] LABS: ALBUMIN 3.8 g/dl (3.4-5.0)
[2022-07-09 12:02] LABS: BILIRUBIN,DIRECT 0.2 mg/dL (0.0-0.2); CREATININE 1.1 mg/dL (0.55-1.3)
[2022-07-09 12:03] LABS: TOT PROT 7.1 g/dl (6.4-8.2)
[2022-07-09 12:04] LABS: BILIRUBIN,TOTAL 0.6 mg/dL (0.2-1)
[2022-07-09 12:06] LABS: URIC ACID 5.4 mg/dL (2.6-7.2)
[2022-07-09 14:17] VITALS: PULSE 78; TEMP 97.8
[2022-07-09 14:35] VITALS: BP 141/62; RESP 18
== END 2022-07-09 14:20 | disposition home or self-care (01) ==
LOC: JONCCHEMO 10:48
PROVIDERS: ATTEND Internal Medicine Hematology & Oncology
DX: Z51.11 Encounter for antineoplastic chemotherapy (principal); C90.00 Multiple myeloma not having achieved remission
CPT/HCPCS: 36415; 80048; 80076; 83615; 83735; 84550; 85025; 96367; 96375; 96413; J2469; J9047

== ENCOUNTER 2022-07-16 13:42 | Day surgery (SDC) | payer BC ==
[2022-07-16 14:24] LABS: BASO % 0.8 % (0-2.0); EOS % 5.6 % (0-4.5); HEMATOCRIT 39.8 % (35.4-49); HEMOGLOBIN 13.2 GM/dL (11.7-16.9); LYMPH % 18.7 % (8-40); MCH 29.7 pg (25.7-33.7); MCHC 33.2 g/dl (32.0-35.9); MEAN CELL VOLUME 89.6 fl (80-96); MEAN PLT VOLUME 7.9 fl (7.5-11.1); MONO % 6.8 % (3.8-10.2); NEUT % 68.1 % (42.8-82.8); PLATELET COUNT 138 10^3/uL (134-434); RBC 4.44 M/mm3 (4.00-5.60); RDW 18.6 % (11.9-15.9); WHITE BLOOD COUNT 6.2 K/mm3 (4.0-10.0)
[2022-07-16 14:50] LABS: ALBUMIN 3.8 g/dl (3.4-5.0); CALCIUM 8.9 mg/dL (8.5-10.1); MAGNESIUM 1.9 mg/dL (1.8-2.4)
[2022-07-16 14:52] LABS: URIC ACID 5.1 mg/dL (2.6-7.2)
[2022-07-16 14:53] LABS: BILIRUBIN,DIRECT 0.1 mg/dL (0.0-0.2); CREATININE 1.1 mg/dL (0.55-1.3)
[2022-07-16 14:55] LABS: BILIRUBIN,TOTAL 0.4 mg/dL (0.2-1); TOT PROT 6.8 g/dl (6.4-8.2)
[2022-07-16 16:23] VITALS: RESP 16; TEMP 97.2
[2022-07-16 16:28] VITALS: BP 126/71; PULSE 72
== END 2022-07-16 16:15 | disposition home or self-care (01) ==
LOC: JONCCHEMO 13:42
PROVIDERS: ATTEND Internal Medicine Hematology & Oncology
DX: Z51.11 Encounter for antineoplastic chemotherapy (principal); C90.00 Multiple myeloma not having achieved remission
CPT/HCPCS: 36415; 80053; 80076; 83615; 83735; 84550; 85025; 96375; 96413; J2469; J9047

== ENCOUNTER 2024-07-12 13:23 | Inpatient (IN) | payer BC ==
[2024-07-12 14:29] LABS: WHITE BLOOD COUNT 3.4 K/mm3 (4.0-10.0)
[2024-07-12 14:30] LABS: HEMATOCRIT 36.4 % (35.4-49); HEMOGLOBIN 12.3 GM/dL (11.7-16.9); MCH 29.9 pg (25.7-33.7); MCHC 33.7 g/dl (32.0-35.9); MEAN CELL VOLUME 88.8 fl (80-96); MEAN PLT VOLUME 6.8 fl (7.5-11.1); PLATELET COUNT 141 10^3/uL (134-434)
[2024-07-12 14:36] LABS: INR 1.05 (0.83-1.09); PROTHROMBIN TIME (PATIENT) 11.9 SEC (9.7-13.0)
[2024-07-12 14:38] LABS: ACTIVATED PTT 32.3 SECONDS (25.2-36.5)
[2024-07-12 14:57] LABS: POTASSIUM 3.9 mmol/L (3.5-5.1)
[2024-07-12 14:59] LABS: CALCIUM 9.5 mg/dL (8.5-10.1)
[2024-07-12 15:00] LABS: ALBUMIN 3.6 g/dl (3.4-5.0); BLOOD UREA NITROGEN 18.4 mg/dL (7-18)
[2024-07-12 15:01] LABS: ANISOCYTOSIS 2+; MACROCYTOSIS 0; OVALOCYTE 2+; TEAR DROP CELLS 1+
[2024-07-12 15:03] LABS: CREATININE 1.1 mg/dL (0.55-1.3)
[2024-07-12 15:04] LABS: BILIRUBIN,TOTAL 0.7 mg/dL (0.2-1)
[2024-07-12] MEDS ORDERED: ACETAMINOPHEN 1000 MG/100 ML BAG IVPB PRN (20:53)
[2024-07-12 22:37] VITALS: BMI 33.0
[2024-07-12] MEDS: POLYETHYLENE GLYCOL (HEALTHYLAX) 3350 17 GM PACKET PO ONE (23:56)
[2024-07-13] MEDS: INSULIN ASPART SLIDING SCALE (NOVOLOG) 1 VIAL SQ SCH ×2 (06:15→16:52)
[2024-07-13 08:08] LABS: POTASSIUM 3.8 mmol/L (3.5-5.1)
[2024-07-13 08:14] LABS: ALBUMIN 3.4 g/dl (3.4-5.0); CALCIUM 9.5 mg/dL (8.5-10.1)
[2024-07-13 08:15] LABS: BLOOD UREA NITROGEN 16.2 mg/dL (7-18); MAGNESIUM 1.8 mg/dL (1.8-2.4)
[2024-07-13 08:18] LABS: CREATININE 1.1 mg/dL (0.55-1.3); PHOSPHOROUS 3.7 mg/dL (2.5-4.9)
[2024-07-13 08:19] LABS: BILIRUBIN,TOTAL 0.7 mg/dL (0.2-1); TOT PROT 7.7 g/dl (6.4-8.2)
[2024-07-13 08:22] LABS: HEMATOCRIT 37.3 % (35.4-49); HEMOGLOBIN 12.2 GM/dL (11.7-16.9); MCH 29.3 pg (25.7-33.7); MCHC 32.7 g/dl (32.0-35.9); MEAN CELL VOLUME 89.6 fl (80-96); MEAN PLT VOLUME 7.5 fl (7.5-11.1); PLATELET COUNT 132 10^3/uL (134-434); RBC 4.17 M/mm3 (4.00-5.60); RDW 17.7 % (11.9-15.9); WHITE BLOOD COUNT 2.9 K/mm3 (4.0-10.0)
[2024-07-13] MEDS: amLODIPine BESYLATE 10 MG TABLET (FP) PO SCH (09:23)
[2024-07-13 09:54] LABS: ANISOCYTOSIS 0; HELMET CELLS 0; HOWELL-JOLLY BODIES 0; MACROCYTOSIS 0; OVALOCYTE 0; ROULEAU 0; SICKELED CELLS 0; TARGET CELLS 0; TEAR DROP CELLS 0; TOXIC GRANULATION 0
[2024-07-13] MEDS: NEBIVOLOL 10 MG TABLET (FP) PO SCH (11:00)
[2024-07-13] MEDS: ALLOPURINOL 100 MG TABLET (FP) PO SCH (11:01)
[2024-07-13] MEDS ORDERED: PROPOFOL 40 ML ONE (12:03)
[2024-07-13] MEDS ORDERED: ROCURONIUM BROMIDE 50 MG/5 ML SYRINGE ONE (12:04)
[2024-07-13] MEDS ORDERED: SUCCINYLCHOLINE CHLORIDE 200 MG/10 ML SYRINGE ONE (12:04)
[2024-07-13] MEDS ORDERED: MIDAZOLAM HCL 2 MG/2 ML SINGLE DOSE VIAL ONE (12:58)
[2024-07-13] MEDS ORDERED: LACTATED RINGERS SOLUTION 1,000 ML IV SCH (13:00)
[2024-07-13] MEDS: ceFAZolin SODIUM 1 GM VIAL IVPB ONE (13:15)
[2024-07-13] MEDS: LACTATED RINGERS SOLUTION 1,000 ML IV SCH (14:39)
[2024-07-13] MEDS: ACETAMINOPHEN 1000 MG/100 ML BAG IVPB PRN (20:33)
[2024-07-13] MEDS ORDERED: CEFAZOLIN 2 GM/D5W 2 GM/50 ML ML IVPB SCH (21:00)
[2024-07-13] MEDS: CEFAZOLIN 2 GM/D5W 2 GM/50 ML ML IVPB SCH (22:22)
[2024-07-14] MEDS: morphine SULFATE 4 MG/ML VIAL IVPUSH PRN ×2 (09:20→13:29)
[2024-07-14] MEDS: CYCLOBENZAPRINE HCL 5 MG TABLET PO PRN (09:21)
[2024-07-14] MEDS: amLODIPine BESYLATE 5 MG TABLET (FP) PO SCH (09:21)
[2024-07-14] MEDS: ENOXAPARIN NA (PORCINE) 40 MG/0.4 ML DISP.SYRIN SQ SCH (09:21)
[2024-07-14] MEDS: ALLOPURINOL 100 MG TABLET (FP) PO SCH (09:21)
[2024-07-14] MEDS: NEBIVOLOL 10 MG TABLET (FP) PO SCH (09:21)
[2024-07-14 09:31] LABS: HEMATOCRIT 29.9 % (35.4-49); HEMOGLOBIN 10.5 GM/dL (11.7-16.9); MCH 30.7 pg (25.7-33.7); MEAN CELL VOLUME 87.8 fl (80-96); MEAN PLT VOLUME 7.2 fl (7.5-11.1); PLATELET COUNT 116 10^3/uL (134-434); RBC 3.41 M/mm3 (4.00-5.60); RDW 17.4 % (11.9-15.9)
[2024-07-14 09:41] LABS: POTASSIUM 3.9 mmol/L (3.5-5.1)
[2024-07-14 09:46] LABS: BASO % 1.7 % (0-2.0); EOS % 1.1 % (0-4.5); HEMATOCRIT 30.8 % (35.4-49); HEMOGLOBIN 10.4 GM/dL (11.7-16.9); LYMPH % 11.9 % (8-40); MCH 29.7 pg (25.7-33.7); MCHC 33.9 g/dl (32.0-35.9); MEAN CELL VOLUME 87.6 fl (80-96); MEAN PLT VOLUME 7.3 fl (7.5-11.1); MONO % 12.9 % (3.8-10.2); NEUT % 72.4 % (42.8-82.8); PLATELET COUNT 115 10^3/uL (134-434); RBC 3.51 M/mm3 (4.00-5.60); RDW 17.9 % (11.9-15.9)
[2024-07-14] MEDS ORDERED: oxyCODONE HCL 5 MG TABLET PO PRN ×3 (09:50→09:56)
[2024-07-14] MEDS ORDERED: ENOXAPARIN NA (PORCINE) 40 MG/0.4 ML DISP.SYRIN SQ SCH (10:00)
[2024-07-14 10:06] LABS: ALBUMIN 3.1 g/dl (3.4-5.0); CALCIUM 9.1 mg/dL (8.5-10.1); MAGNESIUM 1.7 mg/dL (1.8-2.4)
[2024-07-14 10:09] LABS: BILIRUBIN,TOTAL 0.8 mg/dL (0.2-1)
[2024-07-14 10:10] LABS: TOT PROT 6.9 g/dl (6.4-8.2)
[2024-07-14] MEDS ORDERED: traMADol HCL 50 MG TABLET PO PRN (10:21)
[2024-07-14] MEDS: MAGNESIUM OXIDE 400 MG TABLET (FP) PO ONE (10:51)
[2024-07-14] MEDS: ACETAMINOPHEN 1000 MG/100 ML BAG IVPB SCH (10:55)
[2024-07-14] MEDS: POLYETHYLENE GLYCOL (HEALTHYLAX) 3350 17 GM PACKET PO SCH (10:55)
[2024-07-14] MEDS: DOCUSATE SODIUM 100 MG CAPSULE (FP) PO SCH (21:23)
[2024-07-15 09:00] LABS: BASO % 3.1 % (0-2.0); EOS % 6.4 % (0-4.5); HEMATOCRIT 30.4 % (35.4-49); HEMOGLOBIN 10.2 GM/dL (11.7-16.9); MCH 30.2 pg (25.7-33.7); MCHC 33.6 g/dl (32.0-35.9); MEAN CELL VOLUME 89.8 fl (80-96); MEAN PLT VOLUME 7.3 fl (7.5-11.1); MONO % 19.3 % (3.8-10.2); NEUT % 58.2 % (42.8-82.8); PLATELET COUNT 106 10^3/uL (134-434); RBC 3.38 M/mm3 (4.00-5.60); RDW 17.7 % (11.9-15.9); WHITE BLOOD COUNT 3.7 K/mm3 (4.0-10.0)
[2024-07-15 09:51] LABS: POTASSIUM 3.9 mmol/L (3.5-5.1)
[2024-07-15 09:58] LABS: CALCIUM 9.3 mg/dL (8.5-10.1)
[2024-07-15 09:59] LABS: ALBUMIN 3.1 g/dl (3.4-5.0); BLOOD UREA NITROGEN 14.4 mg/dL (7-18); MAGNESIUM 1.9 mg/dL (1.8-2.4)
[2024-07-15 10:02] LABS: CREATININE 1.1 mg/dL (0.55-1.3)
[2024-07-15 10:04] LABS: TOT PROT 7.1 g/dl (6.4-8.2)
[2024-07-15 10:31] LABS: BILIRUBIN,TOTAL 1.2 mg/dL (0.2-1)
[2024-07-15] MEDS: oxyCODONE HCL 5 MG TABLET PO PRN (11:58)
[2024-07-16 09:19] LABS: HEMATOCRIT 30.1 % (35.4-49); HEMOGLOBIN 10.1 GM/dL (11.7-16.9); MCH 30.4 pg (25.7-33.7); MCHC 33.6 g/dl (32.0-35.9); MEAN CELL VOLUME 90.4 fl (80-96); MEAN PLT VOLUME 7.5 fl (7.5-11.1); PLATELET COUNT 109 10^3/uL (134-434); RBC 3.33 M/mm3 (4.00-5.60); RDW 17.3 % (11.9-15.9); WHITE BLOOD COUNT 4.2 K/mm3 (4.0-10.0)
[2024-07-16 09:30] LABS: BLOOD UREA NITROGEN 18.4 mg/dL (7-18); CALCIUM 9.4 mg/dL (8.5-10.1)
[2024-07-16 09:34] LABS: CREATININE 1.1 mg/dL (0.55-1.3); MAGNESIUM 1.9 mg/dL (1.8-2.4); TOT PROT 7.1 g/dl (6.4-8.2)
[2024-07-16 09:59] LABS: ANISOCYTOSIS 0; MACROCYTOSIS 0
[2024-07-17 09:15] LABS: BASO % 4.4 % (0-2.0); EOS % 4.6 % (0-4.5); HEMATOCRIT 30.7 % (35.4-49); HEMOGLOBIN 10.2 GM/dL (11.7-16.9); LYMPH % 11.5 % (8-40); MCH 29.9 pg (25.7-33.7); MCHC 33.1 g/dl (32.0-35.9); MEAN CELL VOLUME 90.4 fl (80-96); MEAN PLT VOLUME 7.6 fl (7.5-11.1); MONO % 16.8 % (3.8-10.2); NEUT % 62.7 % (42.8-82.8); PLATELET COUNT 121 10^3/uL (134-434); RDW 17.5 % (11.9-15.9); WHITE BLOOD COUNT 3.9 K/mm3 (4.0-10.0)
[2024-07-17 09:41] LABS: POTASSIUM 4.4 mmol/L (3.5-5.1)
[2024-07-17 09:52] LABS: BLOOD UREA NITROGEN 25.2 mg/dL (7-18)
[2024-07-17 09:54] LABS: CALCIUM 9.6 mg/dL (8.5-10.1); MAGNESIUM 1.9 mg/dL (1.8-2.4)
[2024-07-17 09:55] LABS: CREATININE 1.1 mg/dL (0.55-1.3)
[2024-07-17 09:56] LABS: BILIRUBIN,TOTAL 1.3 mg/dL (0.2-1); TOT PROT 7.4 g/dl (6.4-8.2)
[2024-07-17] MEDS ORDERED: INSULIN ASPART SLIDING SCALE (NOVOLOG) 1 VIAL SQ ONE (10:53)
[2024-07-17] MEDS: HYDROmorphone HCL CARPU-JECT 2 MG/1 ML DISP.SYRIN IVPUSH PRN (15:53)
[2024-07-18 08:20] LABS: POTASSIUM 4.4 mmol/L (3.5-5.1)
[2024-07-18 08:24] LABS: CALCIUM 9.6 mg/dL (8.5-10.1)
[2024-07-18 08:25] LABS: ALBUMIN 2.9 g/dl (3.4-5.0); MAGNESIUM 1.9 mg/dL (1.8-2.4)
[2024-07-18 08:27] LABS: BASO % 5.7 % (0-2.0); EOS % 3.3 % (0-4.5); HEMOGLOBIN 9.9 GM/dL (11.7-16.9); LYMPH % 12.8 % (8-40); MCH 30.3 pg (25.7-33.7); MEAN CELL VOLUME 89.1 fl (80-96); MEAN PLT VOLUME 7.6 fl (7.5-11.1); NEUT % 60.2 % (42.8-82.8); PLATELET COUNT 129 10^3/uL (134-434); RBC 3.26 M/mm3 (4.00-5.60); RDW 17.5 % (11.9-15.9); WHITE BLOOD COUNT 3.3 K/mm3 (4.0-10.0)
[2024-07-18 08:28] LABS: CREATININE 1.1 mg/dL (0.55-1.3)
[2024-07-18 08:30] LABS: TOT PROT 7.2 g/dl (6.4-8.2)
[2024-07-18 08:32] LABS: HEMATOCRIT 28.9 % (35.4-49); HEMOGLOBIN 9.8 GM/dL (11.7-16.9); MCH 30.5 pg (25.7-33.7); MEAN CELL VOLUME 89.8 fl (80-96); MEAN PLT VOLUME 7.6 fl (7.5-11.1); PLATELET COUNT 129 10^3/uL (134-434); RBC 3.22 M/mm3 (4.00-5.60); RDW 17.8 % (11.9-15.9); WHITE BLOOD COUNT 3.3 K/mm3 (4.0-10.0)
[2024-07-18 09:51] LABS: ANISOCYTOSIS 0; MACROCYTOSIS 0
[2024-07-20 17:18] VITALS: RESP 18
[2024-07-21] MEDS: ENOXAPARIN NA (PORCINE) 40 MG/0.4 ML DISP.SYRIN SQ ONE ×2 (20:20→21:41)
[2024-07-22 15:56] VITALS: BP 128/69; PULSE 78; TEMP 98.2
== END 2024-07-22 15:35 | DRG 823 ==
LOC: JOR 13:23 → JERBED 18:30 → J8W 20:20 → J6S 07-13 16:30
PROVIDERS: ADMIT Student in an Organized Health Care Education/Training Program; ATTEND Internal Medicine
PROC: 0QB63ZX Excision of Right Upper Femur, Percutaneous Approach, Diagnostic (ICD-10-PCS; 2024-07-13)
PROC: 0QH606Z Insertion of Intramedullary Internal Fixation Device into Right Upper Femur, Open Approach (ICD-10-PCS; principal; 2024-07-13 12:00)
DX: C90.00 Multiple myeloma not having achieved remission (principal); D61.810 Antineoplastic chemotherapy induced pancytopenia; I10 Essential (primary) hypertension; E78.5 Hyperlipidemia, unspecified; E11.42 Type 2 diabetes mellitus with diabetic polyneuropathy; K59.00 Constipation, unspecified; M89.8X5 Other specified disorders of bone, thigh; E66.9 Obesity, unspecified; Z68.33 Body mass index [BMI] 33.0-33.9, adult; I35.0 Nonrheumatic aortic (valve) stenosis; T45.1X5A Adverse effect of antineoplastic and immunosuppressive drugs, initial encounter
CPT/HCPCS: 0241U-QW; 36415; 72170-TC-FY; 73552-TC-RT-FY; 73560-TC-RT-FY; 76000-TC-FY; 80048; 80053; 82962; 83735; 84100; 85025; 85027; 85610; 85730; 86850; 86900; 86901; 87635; 88307-TC; 93306-TC; 94010; 94760; 97116-GP; 97162-GP; 99285-25; C1713; J0131